=== PATIENT | male | born 1950 | race Caucasian/White ===

== ENCOUNTER 2022-08-22 10:57 | Outpatient (CLI) | payer MEDICARE, SELFPAY ==
--- NOTE | ~2022-08-22 | CT_ITS ---
EXAMINATION: CT abdomen pelvis w con DATE: 08/22/2022 11:53 INDICATION: Acute left lower quadrant, pelvic, peroneal and suprapubic pain TECHNIQUE: Computed tomography (CT) of the abdomen and pelvis was performed with 100 CC Omnipaque 350 intravenous contrast. Automated exposure control and iterative reconstruction technique were employe d. Exam dose: 555.44 mGy-cm total exam DLP. COMPARISON: June 29, 2013 CT pelvis FINDINGS: The lung bases are clear. Normal heart size. Coronary artery calcifications. No pericardial or pleural effusion. There is a 12 mm stone in the gallbladder neck. Gallbladder wall thickness is within normal limits. N o pericholecystic fluid or fat stranding. No bile duct or pancreatic duct dilatation. No hepatic, pancreatic or splenic, and adrenal or solid renal space-occupying mass lesion is detected . There are several exophytic right renal cysts which measure up to 1.6 cm dimension. No bile duct or pancreatic duct dilatation. There is atherosclerotic calcification but normal caliber of the abdominal aorta and iliac and femora l arteries. No intraperitoneal or retroperitoneal or pelvic mass lesion or adenopathy or ascites. There is prostate enlargement. There is diffuse thickening of the urinary bladder wall which may be d ue to underdistention or prostatomegaly/bladder outlet obstruction. There is more prominent soft tiss ue thickening of the mid and right posterior bladder base. Urothelial malignancy, prostate hypertroph y or prostate carcinoma are among the considerations. Consider urologic consultation. Small sliding hiatal hernia. Approximately 2 cm duodenal diverticulum. Normal appendix. No evidence of appendicitis. There are diverticula of left and right colon; no CT evidence of diverticulitis. No bowel obstruction , bowel wall thickening, pneumatosis or intraperitoneal free air. Small fat-containing inguinal hernias. No suspicious osteolytic or osteoblastic lesions. IMPRESSION: Cholelithiasis Right renal cysts Prostate enlargement Thickening of the urinary bladder wall, particularly at the mid and right posterior bladder base. Uro thelial bladder malignancy, prostate hypertrophy or prostate carcinoma, are included in the different ial diagnosis Diverticulosis of left and right colon; no evidence of diverticulitis Reviewed, dictated and finalized at Location A. Reviewed, dictated and finalized at location B. IMPRESSION: Cholelithiasis Right renal cysts Prostate enlargement Thickening of the urinary bladder wall, particularly at the mid and right poste rior bladder base. Urothelial bladder malignancy, prostate hypertrophy or prost ate carcinoma, are included in the differential diagnosis Diverticulosis of left and right colon; no evidence of diverticulitis
[2022-08-22 12:10] LABS: Basophils Percent Auto 0.6 % (0.2-1.2); Hematocrit 46.1 % (42.0-52.0); Immature Granulocyte Absolute 0.02 K/mm3 (0.00-0.031); Immature Granulocyte Percent A 0.4 % (0-0.5); Lymphocytes Absolute Auto 0.78 K/mm3 (0.9-3.2); Lymphocytes Percent Auto 15.2 % (18.3-44.2); Mean Corpuscular HGB Conc 34.7 g/dl (32-36); Mean Corpuscular Hemoglobin 31.9 pg (26-34); Mean Corpuscular Volume 91.8 fl (80-100); Mean Platelet Volume 10.1 fl (7.4-10.4); Monocytes Absolute Auto 0.9 K/mm3 (0.1-0.6); Monocytes Percent Auto 17.3 % (2.6-8.5); Neutrophils Absolute Auto 3.4 K/mm3 (1.3-6.7); Neutrophils Percent Auto 66.5 % (45.5-73.1); Platelet Count Result 227 k/mm3 (150-375); Red Blood Count 5.02 M/mm3 (4.6-6.20); Red Cell Distribution Width 12.6 % (11.5-14.5); White Blood Count 5.1 K/mm3 (4.5-10.0)
[2022-08-22 12:29] LABS: Alanine Aminotransferase 30 U/L (6-50); Albumin Level 4.8 g/dL (3.5-5.1); Alkaline Phosphatase 79 U/L (38-126); Anion Gap 18 mmol/L (8-16); Aspartate Amino Transferase 36 U/L (17-59); Bilirubin,Total 0.9 mg/dL (0.2-1.3); Blood Urea Nitrogen 17 mg/dL (9-20); Calcium 9.3 mg/dL (8.4-10.2); Carbon Dioxide 16 mmol/L (22-30); Chloride 96 mmol/L (98-107); Estimated Glomerular Filt Rate > 60; Glucose 92 mg/dL (65-110); Sodium 130 mmol/L (137-145)
[2022-08-22 13:05] LABS: Appearance Urine Clear (Clear); Bacteria Urine None Seen /hpf; Bilirubin Urine Negative (Negative); Blood Urine Negative (Negative); Color Urine Yellow (Yellow); Glucose Urine UA Negative (Negative); Hyaline Casts Urine Present /lpf; Ketones Urine 3+ mg/dL (Negative); Leukocyte Esterase Ur Negative LEU/UL (Negative); Nitrate Urine Negative (Negative); Protein Urine 1+ mg/dL (Negative); RBC Urine 0-2 /hpf (0-2); Specific Grav Ur 1.028 (1.001-1.035); Squamous Epithelial Cell Urine None seen /hpf (Few); WBC Urine 0-5 /hpf; pH Urine 5.5 (5.0-9.0)
[2022-08-22 13:08] LABS: Add Urine Microscopic? YES
== END 2022-08-22 10:58 | disposition home or self-care (01) ==
PROVIDERS: PCP Family Medicine; Visit Provider Physician Assistant
DX: R10.2 Pelvic and perineal pain (principal); F41.1 Generalized anxiety disorder; F98.8 Other specified behavioral and emotional disorders with onset usually occurring in childhood and adolescence; K80.20 Calculus of gallbladder without cholecystitis without obstruction; N28.1 Cyst of kidney, acquired; N40.0 Benign prostatic hyperplasia without lower urinary tract symptoms; K57.30 Diverticulosis of large intestine without perforation or abscess without bleeding
CPT/HCPCS: 36415; 74177; 80053; 81001; 85025; Q9967

== ENCOUNTER 2022-12-02 04:17 | Day surgery (SDC) | payer MEDICARE, SELFPAY ==
--- NOTE | 2022-11-24 09:40 | PC.NURSE ---
Report to the Outpatient Waiting Room, entrance under the green pavilion located off [facility], at time 1100 on date __12/02/22 . Planned Procedure Time: _1300 . Time changes happen often and if your time is changed the preop area will call you the afternoon before. - You and your visitor will be asked to self-screen and do not enter if you have any COVID symptoms. - A mask is optional within the hospital at this time. Patients may have clear liquids (water, carbonated beverages, clear teas, apple juice) until 3 hours prior to surgery with a maximum of 20 ounces. - No food from midnight until time of surgery - Infants may have breast milk until 4 hours before surgery, infant formula 6 hours prior to surgery. - Children will be allowed to drink immediately following surgery. If applicable, please bring a bottle or sippy cup to assist with drinking. Juice, water, soda, and popsicles are readily available. For infants on formula, please bring formula the day of surgery. Pacifiers are allowed. Take the following medications with a SIP of water the morning of surgery: ____BUSPIRONE,FLUOXETINE DO NOT STOP ANY OF YOUR OTHER PRESCRIPTION MEDICATIONS PRIOR TO SURGERY ?EXCEPT THE FOLLOWING Medications to discontinue per physician NONE Please no make-up, nail turkish, hairspray, perfume, deodorant, or body powder the day of surgery. No jewelry (including any body piercings) or valuables the day of surgery, leave them at home. Please take a shower or bath the night before, or the morning of, surgery with an antibacterial soap. Wear comfortable, loose fitting clothing. Children are encouraged to wear pajamas. - Jewelry must be removed prior to entering the operating room. Rings and piercings that are not removed may be cut off. - The hospital will not accept responsibility for valuables. - Please leave all valuables, including medications, at home the day of surgery. If you are going home after surgery, a licensed concrete truck driver must drive you home. - NO public transportation without another adult if you receive anesthesia. - We recommend that an adult stay with you for 24 hours following discharge. - We also recommend that you do not drive, make important decision, drink alcoholic beverages, or take any drugs that were not prescribed by your health care provider for at least 24 hours after your discharge time. For Pediatric surgeries, we recommend two adults accompany the child home. Follow any additional instructions given to you from your surgeon. If you or anyone in your household have experienced Covid symptoms in the past week, please notify your surgeon or the nurse liaison at the phone number below for possible testing. Telephone instructions given to ___PATIENT AND NEELA and asked if any additional questions and then verbalized understanding. Patient advised to call surgeon office or pre surgery nurse liaison [phone] if any additional questions.
[2022-11-24 09:48] VITALS: BMI 26.6
[2022-12-02] VITALS (7 sets, daily range): BP systolic 133–154; BP diastolic 64–78; PULSE 59–78; RESP 12–20; TEMP 36.2–36.6; O2SAT 98–99
--- NOTE | ~2022-12-02 | XR_ITS ---
EXAMINATION: CYSTOGRAM DATE: 12/02/2022 11:26 INDICATION: Urethral stricture TECHNIQUE: 7 fluoroscopic images of the pelvis were obtained during procedure performed by Dr. Bee barrios. Radiologist was not present for the imaging or procedure. The amount of fluoroscopy time used dur ing this procedure was 0.3 minutes. COMPARISON: None. FINDINGS: Retrograde contrast injections into the urethra demonstrates a stenosis at the proximal bulbar portio n of the urethra. Subsequent images demonstrate a catheter and wire advanced into the contrast-filled bladder presumably for balloon dilation of urethral stricture. IMPRESSION: 1. Stricture at the bulbar portion of the urethra. See procedure note for further detail. Reviewed, dictated and finalized at location A. IMPRESSION: 1. Stricture at the bulbar portion of the urethra. See procedure note for furth er detail.
--- NOTE | 2022-12-02 07:52 | WPDANESEPPF ---
Anes - Initial Pre Proc Eval Procedure: Operation Date: 12/02/22 11:00 Proposed Procedures p Cystoscopy, Retrograde Urethrogram, Urethral Dilation - Adonis Peacock MD Date/Time: 12/02/22 07:52 Surgeon: Adonis Peacock MD Pre Op Diagnosis: Urethral Stricture Patient Data Age: 72 Gender: M Height: 1.7 m Weight: 77.2 kg Allergies Allergy/AdvReac Type Severity Reaction Status Date / Time No Known Allergies Allergy Unverified 11/24/22 09:29 Home Medications Medication Instructions Recorded Confirmed Type atorvastatin 20 mg tablet See Rx Instructions .Route 06/25/22 12/02/22 Rx .COMPLEX #100 tabs fluoxetine 40 mg capsule 40 mg PO DAILY #90 caps 08/01/22 12/02/22 Rx buspirone 5 mg tablet See Rx Instructions .Route 11/17/22 12/02/22 Rx .COMPLEX #180 tabs tamsulosin 0.4 mg capsule (Flomax) 0.4 mg PO QHS #30 caps 11/17/22 12/02/22 Rx dextroamphetamine-amphetamine ER 15 mg PO DAILY #30 caps 11/20/22 12/02/22 Rx 15 mg 24hr capsule,extend release (Adderall XR) Patient hx anesthesia problems: none Family hx anesthesia problems: none Results Review: All pre-operative results and documents have been reviewed as part of the pre-operative evaluation. [facility] Past Medical History Medical History (Updated 12/02/22 @ 07:54 by Chele Lawson MD) Attention deficit disorder (ADD) in adult CVA (cerebral vascular accident) Elevated BP without diagnosis of hypertension CHARITY (generalized anxiety disorder) MDD (major depressive disorder), recurrent episode, moderate Meningioma Mixed hyperlipidemia Restless legs syndrome Surgical History Surgical History History of detached retina repair RT eye Family History Family History Mother Cerebrovascular accident, Onset Age: 69 Hypertension Family history of elevated blood lipids Father Cerebrovascular accident, Onset Age: 70 Hypertension Family history of elevated blood lipids Acute myocardial infarction Social History Social History Social History: Smoking status: Never smoker Second hand tobacco smoke exposure: No Alcohol intake: never Substance use: never Substance use type: does not use Lack of Transportation: No Lack of Food: Never True Current Housing: I Have Housing Concerned About Future Housing: No Difficulty Paying Gas/Electric Bills: No Difficulty Paying for Meds: No Currently Unemployed: YES Education: Decline to Answer Difficulty w/ Childcare or Family Care: No Living arrangements: with family Occupation/Education: retired Gender identity (if verbalized by the patient): Male Sexual Orientation (if Verbalized by the Patient): Straight or Heterosexual Spiritual care concerns: No Anes - Eval Final PreProcedure Day of Procedure 12/02/22 07:52 Patient weight: overweight Heart: regular rate and rhythm Lungs: clear to auscultation and normal air movement Airway: Mallampati scale class II Neurological: alert and oriented Last oral intake: >/= 8 hours ASA classification: III Emergent: no Anesthetic plan: proceed Anesthesia type and monitoring: general LMA Results Review: All pre-operative results and documents have been reviewed as part of the pre-operative evaluation. Informed Consent: The patient's anesthetic plan and its attendant risks and benefits were discussed with the patient/family/POA. Questions were solicited and answers provided to the satisfaction of the patient/family/POA.
[2022-12-02] MEDS: LACTATED RINGERS 1,000 ML 30 ML IV CONT (09:09)
--- NOTE | 2022-12-02 09:35 | WPDHPUPDATE1 ---
History and Physical Update Update Date/Time: 12/02/22 09:35 History and Physical has been reviewed, including an updated exam of the patient. There are NO changes in the patient's condition. Risks, benefits, and alternatives have been discussed and questions answered. Patient agrees to proceed with procedure. Proceed with retrograde urethrogram, urethral dilation, cystoscopy.
[2022-12-02] MEDS: ceFAZolin 2 GM/D5W 50 ML 2 GM/50 ML BAG IVPB (10:53)
[2022-12-02] MEDS: LIDOCAINE HCL 2% GEL UROJET 10 ML PKG MUCOUS MEM (10:53)
--- NOTE | 2022-12-02 11:24 | W.PM.PROC2 ---
Procedure Note - Detailed Date of Procedure 12/02/22 Pre-op Diagnosis Urethral Stricture Post-op Diagnosis Same Procedure Performed Retrograde urethrogram, urethral dilation, cystoscopy, complex Dumont catheter placement 18 Barbadian Surgeon Adonis Peacock MD Anesthesia General Description of Procedure Patient is taken to the operative suite correctly identified. Once anesthesia was obtained he was placed in dorsal lithotomy position and prepped and draped usual sterile fashion. Nineteen Barbadian Dumont could not be passed into the meatus. Using a cath tip syringe we did a retrograde urethrogram. His narrowing is really mostly in the fossa navicularis area. I could not manipulate wire into the bladder. I this used a flexible mini ureteral scope and was able to get into the bladder place a superstiff wire. I dilated the fossa navicularis stricture using implants day later sub to 24 Barbadian. Scope was then reinserted. He also had another little narrowing in the membranous urethra. Prostate was nonobstructive. He has this small median lobe. The bladder was then inspected. No tumors noted. Both ureteral orifices normal anatomic position. I then placed 2% viscous lidocaine into the urethra. Eighteen Barbadian Dumont was then placed with 10 cc in the balloon. Patient is taken recovery stable condition. He will be discharged home with a Dumont and have that removed on or Thursday. This completes dictation. Please send a copy of op note to my office Drains Yes Packing No Pathology None sent Complications No immediate complications Condition Stable Disposition PACU
[2022-12-02] MEDS: oxyCODONE HCL (*CRX) 5 MG TAB IR PO (12:23)
== END 2022-12-02 13:19 | disposition home or self-care (01) ==
PROVIDERS: PCP Family Medicine; Visit Provider Urology
PROC: 0T7D8ZZ Dilation of Urethra, Via Natural or Artificial Opening Endoscopic (ICD-10-PCS; CPT 52281; principal; 2022-12-02 11:00)
DX: N35.916 Unspecified urethral stricture, male, overlapping sites (principal); E78.2 Mixed hyperlipidemia; F41.1 Generalized anxiety disorder; F33.1 Major depressive disorder, recurrent, moderate; F98.8 Other specified behavioral and emotional disorders with onset usually occurring in childhood and adolescence; G25.81 Restless legs syndrome
CPT/HCPCS: 52281; 51610; 74450; A9270; C1726; C1769; J0690; J2250; J3010; J7120; Q9966

== ENCOUNTER 2023-06-24 10:36 | Outpatient (CLI) | payer MEDICARE, SELFPAY ==
--- NOTE | ~2023-06-24 | XR_ITS ---
EXAMINATION: XR skull <4V DATE: 06/24/2023 11:10 INDICATION: MRI clearance TECHNIQUE: AP and lateral views of the skull were obtained. COMPARISON: None. FINDINGS: Right frontal craniotomy which is fixed with multiple plates and screws. There are also multiple dent al restorations. No other foreign bodies identified. Bones are otherwise unremarkable. There is opaci fication of the left maxillary sinus. IMPRESSION: 1. Multiple plates and screws for fixation of a chronic right frontal craniotomy and multiple dental restorations. No other radiopaque foreign bodies. 2. Opacification of the left maxillary sinus. Correlate clinically for acute sinusitis. Reviewed, dictated and finalized at location A. ORATE CONCIERGE IMPRESSION: 1. Multiple plates and screws for fixation of a chronic right frontal craniotom y and multiple dental restorations. No other radiopaque foreign bodies. 2. Opacification of the left maxillary sinus. Correlate clinically for acute si nusitis.
--- NOTE | ~2023-06-24 | MR_ITS ---
MRI of the brain Clinical History: Slurred speech Technique: Axial and sagittal T1-weighted images were acquired. These were followed by axial T2-weigh ernie, diffusion weighted, gradient, and FLAIR images. Findings: There is no acute infarct, intracranial hemorrhage, mass lesion. There are moderate chronic white matter changes in the periventricular white matter bilaterally. Ventricles and subarachnoid spaces are unremarkable. Orbits are unremarkable. There is left maxillary sinus disease. Remaining paranasal sinuses and mastoid air cells are clear. Major intracranial flow voids are intact. Sagittal midline structures are intact. IMPRESSION: No acute intracranial abnormality. Moderate chronic microvascular ischemic change. Left maxillary sinus disease. Reviewed, dictated and finalized at location . LEX OPERATOR
== END 2023-06-24 10:37 | disposition home or self-care (01) ==
LOC: ANHIMG 10:39
PROVIDERS: PCP Family Medicine; Visit Provider Physician Assistant
DX: R47.81 Slurred speech (principal); D32.9 Benign neoplasm of meninges, unspecified; R26.89 Other abnormalities of gait and mobility; Z96.7 Presence of other bone and tendon implants; J01.00 Acute maxillary sinusitis, unspecified; I67.82 Cerebral ischemia
CPT/HCPCS: 70250; 70551

== ENCOUNTER 2023-07-24 23:01 | Inpatient (IN) | payer MEDICARE, SELFPAY ==
--- NOTE | ~2023-07-24 | CT_ITS ---
EXAMINATION: CTA chest PE abdomen pel DATE: 07/25/2023 01:18 INDICATION: Chest pain. Epigastric abdominal pain. TECHNIQUE: Computed tomography angiography (CTA) of the chest was performed with 100 mL Omnipaque-350 intravenous contrast timed to evaluate the pulmonary arteries. Coronal maximum intensity projection 3D-reconstructions were created by the technologist. Computed tomography (CT) of the abdomen and pelv is was performed with intravenous contrast. Automated exposure control and iterative reconstruction t echnique were employed. The dose-length product was 843.88 mGy-cm. COMPARISON: CT abdomen and pelvis 08/22/2022 FINDINGS: CTA chest: The lungs demonstrate mild atelectasis. A calcified right lung nodule is consistent with o ld granulomatous disease. No pleural effusion. There is left atrial enlargement of the heart. There a re coronary artery calcifications. No pericardial effusion. There is no pulmonary embolus. There is s evere thoracic spondylosis. CT abdomen and pelvis: The liver is normal. There is a gallstone in the gallbladder neck. The gallbla dder is distended. The spleen, pancreas, adrenal glands, and left kidney are normal. There is a 18 mm cyst in right kidney. The prostate is mildly enlarged. There is diverticulosis of the colon without evidence of diverticulitis. There are no dilated loops of bowel. The appendix is normal. There is a s mall sliding hiatal hernia. There are no pathologically enlarged lymph nodes. The paranasal sinuses a re clear. There is prominent fat in the inguinal canals that may be hernias. There is calcified ather osclerosis of the aorta and many of the other arteries. There is severe lumbar spondylosis. IMPRESSION: 1. No pulmonary embolus. 2. Cholelithiasis. Gallbladder distention may be secondary to fasting or acute cholecystitis. Correla te with physical exam. Reviewed, dictated and finalized at location A. ONATION EQUIPMENT OPERATOR IMPRESSION: 1. No pulmonary embolus. 2. Cholelithiasis. Gallbladder distention may be secondary to fasting or acute cholecystitis. Correlate with physical exam.
--- NOTE | ~2023-07-24 | XR_ITS ---
EXAMINATION: XR chest 1V portable INDICATION: Left-sided chest pain TECHNIQUE: Portable AP chest at 2336 hours COMPARISON: None available FINDINGS: The lungs are free of acute opacities. No pleural effusion or pneumothorax. The cardiomedia stinal silhouette is normal. IMPRESSION: 1. No acute cardiopulmonary abnormality. Reviewed, dictated and finalized at location F. H FOODS CLERK
--- NOTE | ~2023-07-24 | US_ITS ---
EXAMINATION: US abdomen limited DATE: 07/25/2023 15:58 INDICATION: EVALUATE FOR ACUTE CHOLECYSTITIS TECHNIQUE: Multiple grayscale and Doppler ultrasound images of limited portions of the abdomen were o btained. COMPARISON: None available. FINDINGS: Pancreas not well visualized. Left liver lobe not well visualized. The visualized liver broderick er is normal with normal echogenicity and echotexture. No surface nodularity. Normal hepatopetal flow in the main portal vein. 1.8 cm echogenic shadowing focus in the gallbladder neck. Mild bladder wall thickening to 3 mm. No pericholecystic fluid The common bile duct is not visualized. There was no so nographic Best sign, but this may be confounded by concurrent pain medication. IMPRESSION: 1.8 cm gallstone in the gallbladder neck. Mild gallbladder wall thickening. Reviewed, dictated and finalized at location K. CY WRITER SALES
--- NOTE | 2023-07-24 23:02 | ECG_ITS ---
Measurements Intervals [place] Rate: 64 P: 64 ID: 179 QRS: 6 QRSD: 78 T: 44 QT: 421 QTc: 437 Interpretive Statements SINUS RHYTHM BASELINE ARTIFACT- I, II, III, AVR, AVL, AVF, V1-V6 NORMAL ECG NO PREVIOUS ECG AVAILABLE FOR COMPARISON Electronically Signed On 07-25-2023 9:00:55 SCIENTIFIC PROGRAMMER ANALYST by Gregg Fitzpatrick D.O.
[2023-07-24 23:03] VITALS: BP 186/88; PULSE 66; RESP 15; TEMP 36.6; O2SAT 100
[2023-07-24 23:10] VITALS: O2SAT 100
[2023-07-24 23:11] VITALS: PULSE 65
--- NOTE | 2023-07-24 23:13 | ECG_ITS ---
Measurements Intervals [place] Rate: 64 P: 47 TX: 181 QRS: 1 QRSD: 81 T: 46 QT: 434 QTc: 449 Interpretive Statements SINUS RHYTHM BASELINE WANDER- I, II, AVR, AVF NORMAL ECG COMPARED TO ECG 07/24/2023 23:07:03 NO SIGNIFICANT CHANGES Electronically Signed On 07-25-2023 9:01:18 SURGICAL ENDOSCOPIST by Gregg Fitzpatrick D.O.
[2023-07-24] MEDS: ASPIRIN 81 MG CHEWABLE TABLET 324 MG PO (23:16)
--- NOTE | 2023-07-24 23:17 | PC.NURSE ---
Patient states he took two 81mg baby aspirin at home. Patient given two more here and the remaining two from [facility] returned.
[2023-07-24 23:20] LABS: Basophils Absolute Auto 0.1 K/mm3 (0.0-0.1); Basophils Percent Auto 0.8 % (0.2-1.2); Eosinophils Absolute Auto 0.1 K/mm3 (0-0.3); Eosinophils Percent Auto 1.2 % (0-4.4); Hematocrit 44.3 % (42.0-52.0); Hemoglobin 15.2 g/dL (14.0-18.0); Immature Granulocyte Absolute 0.03 K/mm3 (0.00-0.031); Immature Granulocyte Percent A 0.4 % (0-0.5); Lymphocytes Absolute Auto 2.28 K/mm3 (0.9-3.2); Lymphocytes Percent Auto 27.1 % (18.3-44.2); Mean Corpuscular HGB Conc 34.3 g/dl (32-36); Mean Corpuscular Hemoglobin 32.2 pg (26-34); Mean Corpuscular Volume 93.9 fl (80-100); Mean Platelet Volume 9.2 fl (7.4-10.4); Monocytes Absolute Auto 1.1 K/mm3 (0.1-0.6); Monocytes Percent Auto 12.5 % (2.6-8.5); Neutrophils Absolute Auto 4.9 K/mm3 (1.3-6.7); Platelet Count Result 232 k/mm3 (150-375); Red Blood Count 4.72 M/mm3 (4.6-6.20); Red Cell Distribution Width 13.2 % (11.5-14.5); White Blood Count 8.4 K/mm3 (4.5-10.0)
[2023-07-24 23:31] LABS: INR 0.9; Prothrombin Time 12.4 Seconds (11.1-14.7)
[2023-07-24 23:32] LABS: Partial Thromboplastin Time 27.5 SECONDS (22.3-36.8)
[2023-07-24 23:39] LABS: Alanine Aminotransferase 29 U/L (6-50); Albumin Level 4.5 g/dL (3.5-5.1); Alkaline Phosphatase 85 U/L (38-126); Anion Gap 9 mmol/L (8-16); Aspartate Amino Transferase 34 U/L (17-59); Bilirubin,Total 0.6 mg/dL (0.2-1.3); Blood Urea Nitrogen 18 mg/dL (9-20); Calcium 10.2 mg/dL (8.4-10.2); Carbon Dioxide 23 mmol/L (22-30); Chloride 102 mmol/L (98-107); Estimated CRCL calculation 73 ml/min; Estimated Glomerular Filt Rate > 60; Glucose 109 mg/dL (65-110); Lipase 308 U/L (23-300); Potassium 3.9 mmol/L (3.4-5.0); Sodium 134 mmol/L (137-145)
[2023-07-24 23:49] LABS: Troponin I < 0.012 ng/mL (0.000-0.034)
[2023-07-24] MEDS: SODIUM CHLORIDE 0.9% IV 1,000 ML 999 ML IV CONT (23:49)
[2023-07-24] MEDS: ONDANSETRON INJ 4 MG/2 ML VIAL IV PUSH (23:49)
[2023-07-24] MEDS: MORPHINE SULFATE (*CRX) 4 MG/ML INJ IV PUSH (23:50)
[2023-07-25] VITALS (10 sets, daily range): BP systolic 108–154; BP diastolic 58–77; PULSE 71–81; RESP 15–19; TEMP 36.5–37.7; O2SAT 92–100; BMI 26.3
[2023-07-25] MEDS: HYDROmorphone HCL INJ (*CRX) 1 MG/ML SYR IV PUSH ×5 (00:49→18:59)
[2023-07-25 01:32] LABS: Appearance Urine Cloudy (Clear); Bacteria Urine None Seen /hpf; Bilirubin Urine Negative (Negative); Blood Urine Negative (Negative); Color Urine Yellow (Yellow); Glucose Urine UA Negative (Negative); Ketones Urine 1+ mg/dL (Negative); Leukocyte Esterase Ur Negative LEU/UL (Negative); Nitrate Urine Negative (Negative); Non Pathogenic Casts 0-2; Protein Urine Negative (Negative); RBC Urine 0-2 /hpf (0-2); Specific Grav Ur 1.026 (1.001-1.035); Squamous Epithelial Cell Urine None seen /hpf (Few); Urobilinogen Urine 0.2 mg/dL (<2.0); WBC Urine 0-5 /hpf
--- NOTE | 2023-07-25 01:43 | ECG_ITS ---
Measurements Intervals [place] Rate: 73 P: 44 [place]: 196 QRS: -16 QRSD: 81 T: 32 QT: 411 QTc: 454 Interpretive Statements SINUS RHYTHM DELAYED PRECORDIAL R/S TRANSITION NONSPECIFIC ST-T WAVE ABNORMALITY- HIGH LATERAL LEADS BORDERLINE ECG COMPARED TO ECG 07/24/2023 23:15:18 ST-T WAVE ABNORMALITY NOW PRESENT Electronically Signed On 07-25-2023 9:05:09 APPLICATION DESIGNER by Gregg Fitzpatrick D.O.
[2023-07-25 02:08] LABS: Add Urine Microscopic? YES
[2023-07-25 02:23] LABS: Troponin I < 0.012 ng/mL (0.000-0.034)
--- NOTE | 2023-07-25 03:27 | ED.GENADULT ---
HPI - General Adult General Chief complaint: Chest Pain Stated complaint: chest/back pain Time Seen by Provider: 07/24/23 23:20 History of Present Illness HPI narrative: Patient 73-year-old gentleman who presents emerged from with chief complaint of chest pain. Patient reports he started having pain in his chest on the left side and also in the epigastric and right upper quadrant the patient states that he has significant family history for cardiac disease with both his parents having a 1st heart attack in her 40s. Patient reports that pain is not improved by anything reports he got very nauseated and has had an episode of vomiting. Related Data Allergies Allergy/AdvReac Type Severity Reaction Status Date / Time No Known Allergies Allergy Unverified 06/12/23 12:59 Review of Systems Review of Systems: A 10 system review of systems was completed on the patient and is negative except for what is stated in the HPI. Nursing and ancillary documentation was reviewed. [facility] Past Medical History Medical History Attention deficit disorder (ADD) in adult CVA (cerebral vascular accident) Elevated BP without diagnosis of hypertension CHARITY (generalized anxiety disorder) MDD (major depressive disorder), recurrent episode, moderate Meningioma Mixed hyperlipidemia Restless legs syndrome Surgical History Surgical History History of detached retina repair RT eye Family History Family History Mother Cerebrovascular accident, Onset Age: 69 Hypertension Family history of elevated blood lipids Father Cerebrovascular accident, Onset Age: 70 Hypertension Family history of elevated blood lipids Acute myocardial infarction Social History Social History Social History: Smoking status: Never smoker Second hand tobacco smoke exposure: No Alcohol intake: never Substance use: never Substance use type: does not use Lack of Transportation: No Lack of Food: Never True Current Housing: I Have Housing Concerned About Future Housing: No Difficulty Paying Gas/Electric Bills: No Difficulty Paying for Meds: No Currently Unemployed: YES Education: Decline to Answer Difficulty w/ Childcare or Family Care: No Living arrangements: with family Occupation/Education: retired Gender identity (if verbalized by the patient): Male Sexual Orientation (if Verbalized by the Patient): Straight or Heterosexual Spiritual care concerns: No Exam Narrative: GENERAL: Well-appearing, well-nourished, and in no acute distress. HEAD: Normocephalic, atraumatic. EYES: PERRLA and EOMI. ENT: Nares clear, no rhinorrhea or epistaxis. Mucous membranes moist. NECK: Supple. CHEST: Clear to auscultation. No respiratory distress. HEART: Regular rate and rhythm. No murmur heard. Normal peripheral pulses. ABDOMEN: Soft, nontender, nondistended, normal active bowel sounds. EXTREMITIES: Normal range of motion. No edema. SKIN: Warm, dry, no rash. NEURO: No focal deficits. Alert and oriented x3. PSYCH: Normal mood and affect. Course Vital Signs Vital signs: Vital Signs Temperature 36.6 C 07/24/23 23:03 Pulse Rate 66 07/24/23 23:03 Respiratory Rate 15 07/24/23 23:03 Blood Pressure 186/88 H 07/24/23 23:03 Pulse Oximetry 100 07/24/23 23:03 Oxygen Delivery Room Air 07/24/23 23:03 Temperature 36.6 C 07/24/23 23:03 Pulse Rate 71 07/25/23 03:51 Respiratory Rate 15 07/25/23 03:51 Blood Pressure 142/77 H 07/25/23 03:51 Pulse Oximetry 95 07/25/23 03:51 Oxygen Delivery Room Air 07/24/23 23:10 Medical Decision Making MDM Narrative Medical decision making narrative: Differential diagnosis includes pancreatitis, colitis,
[2023-07-25] MEDS: SODIUM CHLORIDE 0.9% IV 1,000 ML 125 ML IV CONT ×2 (04:34→12:47)
--- NOTE | 2023-07-25 04:47 | ECG_ITS ---
Measurements Intervals [place] Rate: 68 P: 43 [place]: 192 QRS: -16 QRSD: 77 T: 43 QT: 392 QTc: 418 Interpretive Statements SINUS RHYTHM DELAYED PRECORDIAL R/S TRANSITION BORDERLINE ECG COMPARED TO ECG 07/25/2023 01:52:32 NO SIGNIFICANT CHANGES Electronically Signed On 07-25-2023 9:06:53 EMERGENCY MEDICAL TECHNICIAN by Gregg Fitzpatrick D.O.
[2023-07-25 05:32] LABS: Troponin I < 0.012 ng/mL (0.000-0.034)
--- NOTE | 2023-07-25 06:08 | ADMGEN ---
This patient, Isac Faria, was admitted to Medical Room 343-01. Patient/family oriented to hospital policies and general routines including ID bracelet, bed and alarms, visiting hours, pain management, procedures, bathroom and other care routines, personal items, smoking policy, room service/diet, and visiting hours. Information on how to activate the Rapid Response Team has been discussed. Patient/Family are encouraged to report perceived risks to care and to ask questions if they do not understand what they are told or what they should do.
--- NOTE | 2023-07-25 06:35 | ECG_ITS ---
Measurements Intervals [place] Rate: 65 P: 38 [place]: 186 QRS: -24 QRSD: 77 T: 31 QT: 428 QTc: 448 Interpretive Statements SINUS RHYTHM BASELINE ARTIFACT- II, III, AVR, AVL, AVF NORMAL ECG COMPARED TO ECG 07/25/2023 04:58:23 NO SIGNIFICANT CHANGES Electronically Signed On 07-25-2023 9:07:58 GOLF CART MECHANIC by Gregg Fitzpatrick D.O.
--- NOTE | 2023-07-25 07:27 | PM.IMHP ---
H&P: HPI History of Present Illness Date/Time: 07/25/23 07:27 Chief Complaint: Chest pain Narrative: 73-year-old male with a past medical history of BPH, anxiety and ADHD who presented to the ER with complaints of back pain radiating into his chest and abdomen. The patient reports the symptoms started about 4 hours after he ate some fried fish. Patient was having pain is epigastric region and right upper quadrant and having some radiating pain in his left upper chest up into his left neck. The pain in his left chest and left neck into his jaw was reproducible to palpation. He also was having some pain in in the left abdomen that was point tenderness as well. He had some significant nausea and 1 episode of vomiting. He also did have some loose stool. He had never had symptoms like this before. He was concerned because multiple members of his family have had history of premature coronary artery disease and he has outlived all of his family members. He does not have any history of cardiac disease. Unlike his family members, the patient is a lifelong nonsmoker. He does not drink alcohol to excess. He admits that he has a mostly sedentary lifestyle. In the ER the patient had 2 sets of troponins that were negative and his sisters set of troponin when he arrived to the medical floor was negative. His EKGs demonstrated normal sinus rhythm. His CT of the abdomen pelvis demonstrated cholelithiasis with a distended gallbladder consistent with fasting or acute cholecystitis. He had a gallstone in the gallbladder neck. His lipase was mildly elevated at 300. Review of Systems Review of Systems: 12 systems were reviewed with pertinent positives and negatives per HPI. Except as documented in the HPI, all other systems were reviewed and are negative. [facility] Past Medical History Medical History (Updated 07/25/23 @ 08:00 by Yary Crowley DO) Attention deficit disorder (ADD) in adult CVA (cerebral vascular accident) Elevated BP without diagnosis of hypertension CHARITY (generalized anxiety disorder) MDD (major depressive disorder), recurrent episode, moderate Meningioma Mixed hyperlipidemia Restless legs syndrome Surgical History Surgical History (Updated 07/25/23 @ 07:52 by Yary Crowley DO) History of detached retina repair RT eye Status post urethral surgery Stricture Family History Family History (Updated 07/25/23 @ 07:51 by Yary Crowley DO) Mother Cerebrovascular accident, Onset Age: 69 Hypertension Family history of elevated blood lipids Father Cerebrovascular accident, Onset Age: 70 Hypertension Family history of elevated blood lipids Acute myocardial infarction, Onset Age: 40 Social History Social History (Updated 07/25/23 @ 07:51 by Yary Crowley DO) Social History: Patient has been for approximately 20 years. He does not have any children. 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 He is a lifelong nonsmoker and does not drink alcohol to excess. Code status: Full code Decision maker: Smoking status: Never smoker Second hand tobacco smoke exposure: No Alcohol intake: former Substance use: never Substance use type: marijuana Last use: LAST WEEK Do You Feel Safe in your Home?: Yes Lack of Transportation: No Lack of Food: Never True Current Housing: I Have Housing Concerned About Future Housing: No Difficulty Paying Gas/Electric Bills: No Difficulty Paying for Meds: No Currently Unemployed: No Education: Master's Degree or Higher Difficulty w/ Childcare or Family Care: No Living arrangements: with family Occupation/Education: retired Gender identity (if verbalized by the patient): Male Sexual Orientation (if Verbalized by the Patient): Straight or Heterosexual Spiritual care concerns: No Meds Home Medications and Allergies Home Medications Medication Instructions Recorded Confirmed Type atorvastatin 20 m
[2023-07-25] MEDS: ONDANSETRON INJ 4 MG/2 ML VIAL IV PUSH (10:55)
--- NOTE | 2023-07-25 11:18 | PHAR ---
Pharmacy verified home med: *Use From Home* Vibegron [Gemtesa] 75 mg tablet Take 1 tablet by mouth once daily
--- NOTE | 2023-07-25 12:56 | PM.CNGS ---
Assessment and Plan Assessment and plan (1) Chest pain, non-cardiac: Code(s): R07.89 - Other chest pain Status: Acute Assessment and Plan: Still having discomfort but pain medication relieves it well. Unsure why has not been taking this more regularly as he seems to complain of quite a bit of pain. Complaints seem worse than exam findings. Persistent nausea and several episodes of vomiting noted. Will try some oral intake later today after testing done. (2) Cholelithiasis: Qualifiers: Cholelithiasis location: gallbladder Cholecystitis presence: with cholecystitis Cholecystitis acuity: acute Biliary obstruction: without biliary obstruction Qualified Code(s): K80.00 - Calculus of gallbladder with acute cholecystitis without obstruction Code(s): K80.20 - Calculus of gallbladder without cholecystitis without obstruction Status: Chronic Assessment and Plan: Gallstone in the neck of the gallbladder noted on CT scan both end of July,, as well as CTA done yesterday. No gallbladder wall thickening, pericholecystic fluid or other findings to suggest cholecystitis. Will get ultrasound today. Will order HIDA scan stat but not sure it can be done until Thursday. (3) Left lower quadrant pain: Code(s): R10.32 - Left lower quadrant pain Status: Acute Assessment and Plan: Patient reports this as the area where he has the most abdominal pain. When he had his CT scan a year ago, he was having left lower quadrant pain at that time as well. Unusual area of pain for cholecystitis. (4) Attention deficit disorder (ADD) in adult: Code(s): F98.8 - Other specified behavioral and emotional disorders with onset usually occurring in childhood and adolescence Status: Chronic (5) CHARITY (generalized anxiety disorder): Code(s): F41.1 - Generalized anxiety disorder Status: Chronic (6) MDD (major depressive disorder), recurrent episode, moderate: Code(s): F33.1 - Major depressive disorder, recurrent, moderate Status: Chronic (7) Restless legs syndrome: Code(s): G25.81 - Restless legs syndrome Status: Chronic (8) Overactive bladder: Code(s): N32.81 - Overactive bladder Status: Chronic Assessment and Plan: Patient continued medications for his urinary difficulties but stopped all other medications just over a week ago. History of Present Illness Consult details Consult date: 07/25/23 Reason for consult: gallstones Requesting physician: Donal Crews MD Narrative: The patient is a 73-year-old man who has a strong family history of early-onset acute coronary syndrome and several of his family members have at an early age for acute coronary disease. Yesterday evening, patient had fried fish for dinner and about 4 hours later started noticing severe epigastric and chest pain. Apparently the pain was more in the midline but also went to the right upper quadrant and was associated with nausea and vomiting. Patient reports he vomited a couple of times at home. He came to the emergency room and EKGs with troponins were all negative for acute cardiac event. He had a CT angiogram of the chest abdomen and pelvis. On this study, he was noted to have a gallstone in the neck of the gallbladder and a distended gallbladder. There was no sign of pericholecystic fluid or gallbladder wall thickening. Interestingly, patient had a CT scan of the abdomen and pelvis with IV contrast 11 months ago was done for left lower quadrant pain as well as deep pelvic pain. This CT scan also showed a 12 mm gallstone in the neck of the gallbladder but otherwise no gallbladder wall thickening or evidence of cholecystitis. Patient does have a history of resection of an intracranial meningioma several years ago at [facility]. There was a record of a stroke associated with the surgery possibly intraoperatively. Patient's , however, reports th
--- NOTE | 2023-07-25 12:56 | PM.IMPN ---
Progress Note: A&P Assessment and Plan (1) Cholecystitis: Code(s): K81.9 - Cholecystitis, unspecified Status: Acute Assessment and Plan: Patient's clinical presentation is consistent with acute cholecystitis with evidence of gallstone at the opening of the bile duct. He does not have any evidence of obstructing choledocholithiasis. General surgery consulted The patient is NPO until evaluated by General surgery. Will continue maintenance IV fluids. Right upper quadrant ultrasound pending Analgesics and antiemetics p.r.n. (2) Cholelithiasis: Qualifiers: Cholelithiasis location: gallbladder Cholecystitis presence: with cholecystitis Cholecystitis acuity: acute Biliary obstruction: without biliary obstruction Qualified Code(s): K80.00 - Calculus of gallbladder with acute cholecystitis without obstruction Code(s): K80.20 - Calculus of gallbladder without cholecystitis without obstruction Status: Acute Assessment and Plan: See above (3) Abdominal pain, epigastric: Code(s): R10.13 - Epigastric pain Status: Acute Assessment and Plan: Likely due to acute cholecystitis. (4) Chest pain, non-cardiac: Code(s): R07.89 - Other chest pain Status: Acute Assessment and Plan: Patient is having some left shoulder pain that radiates to the left neck and left jaw that is reproducible to palpation. He denies any known specific injury. He has had multiple EKGs are all unchanged and 3 sets of cardiac enzymes are negative. He does not have a personal history of coronary artery disease and has been ruled out with enzymes. He has a reason for his chest discomfort in some of his symptoms may be referred pain from his gallbladder. Subjective Date/time seen: 07/25/23 12:56 Interval history: Patient continued to have abdominal pain. He remains NPO until evaluated by General surgery. He denies any nausea vomiting. Patient says he still has some intermittent chest pain he. Pain in the chest is likely referred pain from the gallbladder. Exam Narrative: GENERAL: Comfortable, no acute distress HENMT: moist mucous membranes EYES: EOM intact b/l NECK: no lymphadenopathy RESPIRATORY: clear to auscultation CARDIO: RRR GI: soft, right upper quadrant tenderness to palpation, positive Best sign, bowel sounds present SKIN: no rashes EXTREMITIES: no edema, redness or tenderness Objective Data Vital Signs Vital Signs: Vital Signs - 24 hr 07/24/23 23:03 07/24/23 23:10 07/24/23 23:11 Temperature 97.9 F Pulse Rate 66 65 Respiratory Rate 15 Blood Pressure 186/88 H Pulse Oximetry 100 100 Oxygen Delivery Room Air Room Air 07/25/23 01:41 07/25/23 03:16 07/25/23 03:51 Temperature Pulse Rate 77 76 71 Respiratory Rate 19 16 15 Blood Pressure 128/67 139/70 142/77 H Pulse Oximetry 93 93 95 Oxygen Delivery 07/25/23 05:02 07/25/23 05:35 07/25/23 06:19 Temperature 97.7 F Pulse Rate 74 74 78 Respiratory Rate 16 15 18 Blood Pressure 135/71 154/74 H 152/75 H Pulse Oximetry 93 99 100 Oxygen Delivery 07/25/23 08:16 07/25/23 08:17 Temperature Pulse Rate Respiratory Rate Blood Pressure Pulse Oximetry 96 Oxygen Delivery Room Air Room Air Intake/Output Intake/Output: Intake & Output 07/22/23 07/23/23 07/24/23 07/25/23 23:59 23:59 23:59 23:59 Intake Total 1999 Balance 1999 Meds/Results Medications: Active Medications Generic Name Dose Route Start Last Admin Trade Name Freq PRN Reason Stop Dose Admin Buspirone HCl 5 mg 07/25/23 09:00 07/25/23 08:22 Buspirone Hcl 5 Mg Tablet PO Not Given Q12HR SIMRAN Fluoxetine HCl 40 mg 07/25/23 09:00 07/25/23 08:22 Fluoxetine Hcl 20 Mg Capsule PO Not Given DAILY SIMRAN Hydromorphone HCl 1 mg 07/25/23 04:23 07/25/23 12:47 Hydromorphone Hcl Inj (*Crx) 1 Mg/Ml Syr IV PUSH 1 mg Q4H
[2023-07-25] MEDS: TAMSULOSIN HCL 0.4 MG CAPSULE PO (20:51)
[2023-07-25] MEDS: busPIRone HCL 5 MG TABLET PO (20:51)
[2023-07-25] MEDS: SODIUM CHLORIDE 0.9% IV 1,000 ML 100 ML IV CONT (22:15)
[2023-07-26 05:26] LABS: Basophils Percent Auto 0.2 % (0.2-1.2); Hematocrit 40.4 % (42.0-52.0); Hemoglobin 13.4 g/dL (14.0-18.0); Immature Granulocyte Percent A 0.6 % (0-0.5); Lymphocytes Absolute Auto 1.18 K/mm3 (0.9-3.2); Lymphocytes Percent Auto 7.2 % (18.3-44.2); Mean Corpuscular HGB Conc 33.2 g/dl (32-36); Mean Corpuscular Hemoglobin 32.1 pg (26-34); Mean Corpuscular Volume 96.9 fl (80-100); Mean Platelet Volume 9.2 fl (7.4-10.4); Monocytes Absolute Auto 2.1 K/mm3 (0.1-0.6); Monocytes Percent Auto 12.8 % (2.6-8.5); Neutrophils Percent Auto 79.2 % (45.5-73.1); Platelet Count Result 184 k/mm3 (150-375); Red Blood Count 4.17 M/mm3 (4.6-6.20); Red Cell Distribution Width 13.5 % (11.5-14.5); White Blood Count 16.4 K/mm3 (4.5-10.0)
[2023-07-26 05:31] VITALS: BP 128/78; PULSE 78; RESP 18; TEMP 37.3; O2SAT 95
[2023-07-26 05:45] LABS: Anion Gap 4 mmol/L (8-16); Blood Urea Nitrogen 11 mg/dL (9-20); Calcium 8.5 mg/dL (8.4-10.2); Carbon Dioxide 24 mmol/L (22-30); Chloride 103 mmol/L (98-107); Estimated CRCL calculation 66 ml/min; Estimated Glomerular Filt Rate > 60; Glucose 96 mg/dL (65-110); Sodium 131 mmol/L (137-145)
[2023-07-26] MEDS: ONDANSETRON INJ 4 MG/2 ML VIAL IV PUSH ×2 (05:58→18:11)
[2023-07-26] MEDS: HYDROmorphone HCL INJ (*CRX) 1 MG/ML SYR IV PUSH ×4 (06:01→20:17)
[2023-07-26] MEDS: SODIUM CHLORIDE 0.9% IV 1,000 ML 100 ML IV CONT ×2 (10:14→20:25)
[2023-07-26] MEDS: busPIRone HCL 5 MG TABLET PO ×2 (10:15→20:18)
[2023-07-26] MEDS: FLUoxetine HCL 20 MG CAPSULE 40 MG PO (10:15)
--- NOTE | 2023-07-26 10:36 | PM.IMPN ---
Progress Note: A&P Assessment and Plan (1) Cholelithiasis: Qualifiers: Biliary obstruction: without biliary obstruction Cholecystitis acuity: acute Cholecystitis presence: with cholecystitis Cholelithiasis location: gallbladder Qualified Code(s): K80.00 - Calculus of gallbladder with acute cholecystitis without obstruction Code(s): K80.20 - Calculus of gallbladder without cholecystitis without obstruction Status: Chronic Assessment and Plan: Patient's clinical presentation is consistent with acute cholecystitis with evidence of gallstone at the opening of the bile duct. He does not have any evidence of obstructing choledocholithiasis. General surgery consulted. Will continue maintenance IV fluids. Right upper quadrant ultrasound showing 1.8 cm gallstone in the gallbladder neck. Mild gallbladder wall thickening. Analgesics and antiemetics p.r.n. Elevated WBC count today of 16.4. Continue to monitor. Plan for cholecystectomy tomorrow. (2) Nausea and vomiting: Code(s): R11.2 - Nausea with vomiting, unspecified Status: Acute Assessment and Plan: Right upper quadrant pain causing patient nausea vomiting. Patient states this morning he had 3-4 bouts of emesis. Zofran p.r.n. every 4 hours Suspect that this is likely due to cholelithiasis and possible cholecystitis (3) Abdominal pain, epigastric: Code(s): R10.13 - Epigastric pain Status: Acute Assessment and Plan: Likely due to the gallbladder.. (4) Chest pain, non-cardiac: Code(s): R07.89 - Other chest pain Status: Acute Assessment and Plan: Patient is having some left shoulder pain that radiates to the left neck and left jaw that is reproducible to palpation. He denies any known specific injury. He has had multiple EKGs are all unchanged and 3 sets of cardiac enzymes are negative. He does not have a personal history of coronary artery disease and has been ruled out with enzymes. He has a reason for his chest discomfort in some of his symptoms may be referred pain from his gallbladder. Subjective Date/time seen: 07/26/23 10:36 Interval history: Patient is still in a pretty significant amount of pain. Encouraged him to take his pain medication as needed. Patient states that he did have episode of nausea and vomiting this morning the was associated with his abdominal pain. Patient did not have any vomiting yesterday but was nauseous. Plan to get HIDA scan eat either today or tomorrow. Unsure whether patient will be requiring surgery or not. Exam Narrative: GENERAL: Comfortable, no acute distress HENMT: moist mucous membranes EYES: EOM intact b/l NECK: no lymphadenopathy RESPIRATORY: clear to auscultation CARDIO: RRR GI: soft, right upper quadrant tenderness to palpation, positive Best sign, bowel sounds present SKIN: no rashes EXTREMITIES: no edema, redness or tenderness Objective Data Vital Signs Vital Signs: Vital Signs - 24 hr 07/25/23 14:25 07/25/23 14:50 07/25/23 20:51 Temperature 99.8 F H 98.4 F 99.4 F Pulse Rate 78 81 Respiratory Rate 16 18 Blood Pressure 114/67 108/58 L Pulse Oximetry 95 92 Oxygen Delivery 07/25/23 20:00 07/26/23 05:31 Temperature 99.1 F Pulse Rate 78 Respiratory Rate 18 Blood Pressure 128/78 Pulse Oximetry 95 Oxygen Delivery Room Air Intake/Output Intake/Output: Intake & Output 07/23/23 07/24/23 07/25/23 07/26/23 23:59 23:59 23:59 23:59 Intake Total 3000 2030 Balance 3000 2030 Meds/Results Medications: Active Medications Generic Name Dose Route Start Last Admin Trade Name Freq PRN Reason Stop Dose Admin Buspirone HCl 5 mg 07/25/23 09:00 07/26/23 10:15 Buspirone Hcl 5 Mg Tablet PO 5 mg Q12HR SIMRAN Administration Fluoxetine HCl 40 mg 07/25/23 09:00 07/26/23 10:15 Fluoxetine Hcl 20 Mg Capsule PO 40 mg DAILY SIMRAN Admi
[2023-07-26 14:00] VITALS: BP 148/68; PULSE 89; RESP 16; TEMP 37.6; O2SAT 95
--- NOTE | 2023-07-26 15:11 | PM.PNGS ---
Progress Note: A&P Assessment and Plan (1) Cholelithiasis and cholecystitis with obstruction: Qualifiers: Cholelithiasis location: gallbladder Cholecystitis acuity: acute Qualified Code(s): K80.01 - Calculus of gallbladder with acute cholecystitis with obstruction Code(s): K80.19 - Calculus of gallbladder with other cholecystitis with obstruction Status: Acute Assessment and Plan: Patient continues to have tenderness over the gallbladder with vomiting. He is now running low-grade fevers and his white blood cell count has increased to 16,000. Ultrasound shows a fairly large gallstone in the neck of the gallbladder with some gallbladder wall thickening. Plan to go ahead with laparoscopic cholecystectomy tomorrow around noon or 1:00 a.m.. I explained the procedure thoroughly to the patient and his who was present when I interviewed and examined him. All questions were answered, he understands and wishes to go ahead. Subjective Subjective Date/Time Seen: 07/26/23 15:11 Patient reports: feels better, pain is less (Still requiring analgesics), vomiting and fever Review of Systems Review of Systems: All systems reviewed & are unremarkable except as noted in HPI and below (Per HPI) Constitutional: Constitutional: Reports fever(s) (Low-grade fevers) Exam Const: General: cooperative, comfortable, alert, awake (In good spirits) and well groomed Nutritional Appearance: thin Orientation/consciousness: patient oriented x3 and No confusion GI: Inspection: normal to inspection, non-distended and scaphoid GI Palp: Yes Soft to palpation and Yes Tenderness to palpation present (GI) (Right upper quadrant with guarding) Auscultation: normal bowel sounds Objective Data Vital Signs Vital Signs: Vital Signs - 24 hr 07/25/23 20:51 07/25/23 20:00 07/26/23 05:31 Temperature 37.4 C 37.3 C Pulse Rate 81 78 Respiratory Rate 18 18 Blood Pressure 108/58 L 128/78 Pulse Oximetry 92 95 Oxygen Delivery Room Air 07/26/23 10:15 07/26/23 14:00 Temperature 37.6 C H Pulse Rate 89 Respiratory Rate 16 Blood Pressure 148/68 H Pulse Oximetry 95 Oxygen Delivery Room Air low-grade fever yesterday and again this afternoon Intake/Output Intake/Output: Intake & Output 07/23/23 07/24/23 07/25/23 07/26/23 23:59 23:59 23:59 23:59 Intake Total 3000 2250 Balance 3000 2250 Meds/Results Medications: Active Medications Generic Name Dose Route Start Last Admin Trade Name Freq PRN Reason Stop Dose Admin Acetaminophen 650 mg 07/26/23 12:34 Acetaminophen 325 Mg Tablet PO Q6H PRN Mild Pain (1-3) or Fever Buspirone HCl 5 mg 07/25/23 09:00 07/26/23 10:15 Buspirone Hcl 5 Mg Tablet PO 5 mg Q12HR SIMRAN Administration Fluoxetine HCl 40 mg 07/25/23 09:00 07/26/23 10:15 Fluoxetine Hcl 20 Mg Capsule PO 40 mg DAILY SIMRAN Administration Hydromorphone HCl 1 mg 07/25/23 13:36 07/26/23 13:44 Hydromorphone Hcl Inj (*Crx) 1 Mg/Ml Syr IV PUSH 1 mg Q2H PRN Administration Pain Rated 7-10 Hydromorphone HCl 0.5 mg 07/25/23 13:35 Hydromorphone Hcl Inj (*Crx) 1 Mg/Ml Syr IV PUSH Q2H PRN Pain Rated 4-6 Sodium Chloride 1,000 mls @ 100 mls/hr 07/25/23 04:25 07/26/23 10:14 Normal Saline Iv IV CONT 100 mls/hr .Q10H SIMRAN Administration *Home Med* Vibegron 75 mg 07/25/23 09:00 07/26/23 10:15 [Gemtesa] 75 Mg PO 08/24/23 08:59 75 mg Tablet DAILY SIMRAN Administration Ondansetron HCl 4 mg 07/25/23 04:23 07/26/23 05:58 Ondansetron Inj 4 Mg/2 Ml Vial IV PUSH 4 mg Q4H PRN Administration Nausea Tamsulosin HCl 0.4 mg 07/25/23 21:00 07/25/23 20:51 Tamsulosin Hcl 0.4 Mg Capsule PO 0.4 mg QHS SIMRAN Administration Radiology Results: ITS Impressions Chest X-Ray 07/24/23 23:52 IMPRESSION: 1. No acute cardiopulmonary abnormality. Chest/Abdomen/Pelvis CTA 07/25/23 06:44 IMPRESSION: 1. No pulmonary
[2023-07-26] MEDS: TAMSULOSIN HCL 0.4 MG CAPSULE PO (20:18)
[2023-07-26 21:30] VITALS: BP 105/53; PULSE 80; RESP 16; TEMP 37.1; O2SAT 94
[2023-07-27] VITALS (12 sets, daily range): BP systolic 107–142; BP diastolic 53–77; PULSE 56–79; RESP 12–21; TEMP 36.2–37.2; O2SAT 93–100
[2023-07-27 05:55] LABS: Basophils Percent Auto 0.3 % (0.2-1.2); Eosinophils Percent Auto 0.1 % (0-4.4); Hematocrit 38.9 % (42.0-52.0); Hemoglobin 12.7 g/dL (14.0-18.0); Immature Granulocyte Absolute 0.16 K/mm3 (0.00-0.031); Immature Granulocyte Percent A 1.1 % (0-0.5); Lymphocytes Absolute Auto 1.36 K/mm3 (0.9-3.2); Mean Corpuscular HGB Conc 32.6 g/dl (32-36); Mean Corpuscular Hemoglobin 31.8 pg (26-34); Mean Corpuscular Volume 97.5 fl (80-100); Mean Platelet Volume 9.4 fl (7.4-10.4); Monocytes Absolute Auto 1.6 K/mm3 (0.1-0.6); Monocytes Percent Auto 10.4 % (2.6-8.5); Neutrophils Absolute Auto 11.9 K/mm3 (1.3-6.7); Neutrophils Percent Auto 79.1 % (45.5-73.1); Platelet Count Result 177 k/mm3 (150-375); Red Blood Count 3.99 M/mm3 (4.6-6.20); Red Cell Distribution Width 13.4 % (11.5-14.5); White Blood Count 15.1 K/mm3 (4.5-10.0)
[2023-07-27] MEDS: HYDROmorphone HCL INJ (*CRX) 1 MG/ML SYR IV PUSH (06:00)
[2023-07-27] MEDS: ONDANSETRON INJ 4 MG/2 ML VIAL IV PUSH ×3 (06:01→20:46)
[2023-07-27 06:16] LABS: Alanine Aminotransferase 23 U/L (6-50); Albumin Level 3.3 g/dL (3.5-5.1); Alkaline Phosphatase 63 U/L (38-126); Amylase 54 U/L (30-110); Anion Gap 5 mmol/L (8-16); Aspartate Amino Transferase 30 U/L (17-59); Bilirubin Indirect 1.4 mg/dL (0-1.1); Bilirubin,Total 1.9 mg/dL (0.2-1.3); Blood Urea Nitrogen 10 mg/dL (9-20); Calcium 8.7 mg/dL (8.4-10.2); Carbon Dioxide 23 mmol/L (22-30); Chloride 103 mmol/L (98-107); Estimated CRCL calculation 66 ml/min; Estimated Glomerular Filt Rate > 60; Glucose 83 mg/dL (65-110); Lipase 35 U/L (23-300); Potassium 4.3 mmol/L (3.4-5.0); Sodium 131 mmol/L (137-145)
--- NOTE | 2023-07-27 08:38 | WPDANESEPPF ---
Anes - Initial Pre Proc Eval Procedure: Operation Date: 07/27/23 13:00 Proposed Procedures p Laparoscopic Cholecystectomy - Rickey Camacho MD Date/Time: 07/27/23 08:38 Surgeon: Yary Crowley DO Pre Op Diagnosis: Chest Pain,Epigastric Pain,Biliary Colic Patient Data Age: 73 Gender: M Height: 1.68 m Weight: 74 kg Last Vital Signs Temp 37.2 C 07/27/23 05:51 Pulse 79 07/27/23 05:51 Resp 12 07/27/23 05:51 BP 134/74 07/27/23 05:51 Pulse Ox 94 07/27/23 05:51 O2 Del Method Room Air 07/26/23 20:00 Allergies Allergy/AdvReac Type Severity Reaction Status Date / Time No Known Allergies Allergy Unverified 06/12/23 12:59 Home Medications Medication Instructions Recorded Confirmed Type fluoxetine 40 mg capsule 40 mg PO DAILY #90 caps 01/26/23 07/25/23 Rx tamsulosin 0.4 mg capsule (Flomax) 0.4 mg PO QHS #100 caps 02/14/23 07/25/23 Rx buspirone 5 mg tablet See Rx Instructions .Route 05/17/23 07/25/23 Rx .COMPLEX #180 tabs dextroamphetamine-amphetamine ER 15 mg PO DAILY #30 caps 07/15/23 07/25/23 Rx 15 mg 24hr capsule,extend release (Adderall XR) atorvastatin 20 mg tablet 20 mg PO HS 07/25/23 07/25/23 History vibegron 75 mg tablet (Gemtesa) 75 mg PO DAILY 07/25/23 07/25/23 History Laboratory Tests 07/26/23 07/27/23 15:42 05:39 WBC 15.1 H K/mm3 (4.5-10.0) RBC 3.99 L M/mm3 (4.6-6.20) Hgb 12.7 L g/dL (14.0-18.0) Hct 38.9 L % (42.0-52.0) MCV 97.5 fl (80-100) MCH 31.8 pg (26-34) MCHC 32.6 g/dl (32-36) RDW 13.4 % (11.5-14.5) Plt Count 177 k/mm3 (150-375) MPV 9.4 fl (7.4-10.4) Immature Gran % (Auto) 1.1 H % (0-0.5) Neut % (Auto) 79.1 H % (45.5-73.1) Lymph % (Auto) 9.0 L % (18.3-44.2) [place] % (Auto) 10.4 H % (2.6-8.5) Eos % (Auto) 0.1 % (0-4.4) Baso % (Auto) 0.3 % (0.2-1.2) Lymph # (Auto) 1.36 K/mm3 (0.9-3.2) [place] # (Auto) 1.6 H K/mm3 (0.1-0.6) Eos # (Auto) 0.0 K/mm3 (0-0.3) Baso # (Auto) 0.0 K/mm3 (0.0-0.1) Abs Immat Gran (auto) 0.16 H K/mm3 (0.00-0.031) Absolute Neuts (auto) 11.9 H K/mm3 (1.3-6.7) Absolute Nucleated RBC 0.0 K/mm3 (0.0-0.012) Nucleated RBC % 0.0 % (0.0-0.2) Sodium 131 L mmol/L (137-145) Potassium 4.3 mmol/L (3.4-5.0) Chloride 103 mmol/L (98-107) Carbon Dioxide 23 mmol/L (22-30) Anion Gap 5 L mmol/L (8-16) BUN 10 mg/dL (9-20) Creatinine 0.80 mg/dL (0.7-1.3) Estim Creat Clear Calc 66 ml/min Estimated GFR > 60 (59 - ) Glucose 83 mg/dL (65-110) Calcium 8.7 mg/dL (8.4-10.2) Total Bilirubin 1.9 H mg/dL (0.2-1.3) Direct Bilirubin 0.0 mg/dL (0-0.3) Indirect Bilirubin 1.4 H mg/dL (0-1.1) AST 30 U/L (17-59) ALT 23 U/L (6-50) Alkaline Phosphatase 63 U/L (38-126) Total Protein 6.0 L g/dL (6.3-8.2) Albumin 3.3 L g/dL (3.5-5.1) Amylase 54 U/L (30-110) Lipase 35 U/L (23-300) Blood Type B Negative Antibody Screen Negative Patient hx anesthesia problems: none Family hx anesthesia problems: none Results Review: All pre-operative results and documents have been reviewed as part of the pre-operative evaluation. [facility] Past Medical History Medical History Attention deficit disorder (ADD) in adult CVA (cerebral vascular accident) Elevated BP without diagnosis of hypertension CHARITY (generalized anxiety disorder) MDD (major depressive disorder), recurrent episode, moderate Meningioma Mixed hyperlipidemia Restless legs syndrome Surgical History Surgical History History of detached retina repair RT eye Status post urethral surgery Stricture
[2023-07-27] MEDS: SODIUM CHLORIDE 0.9% IV 1,000 ML 100 ML IV CONT (09:21)
[2023-07-27] MEDS: busPIRone HCL 5 MG TABLET PO ×2 (09:29→20:45)
[2023-07-27] MEDS: FLUoxetine HCL 20 MG CAPSULE 40 MG PO (09:29)
--- NOTE | 2023-07-27 10:59 | PM.IMPN ---
Progress Note: A&P Assessment and Plan (1) Cholelithiasis: Qualifiers: Biliary obstruction: without biliary obstruction Cholecystitis acuity: acute Cholecystitis presence: with cholecystitis Cholelithiasis location: gallbladder Qualified Code(s): K80.00 - Calculus of gallbladder with acute cholecystitis without obstruction Code(s): K80.20 - Calculus of gallbladder without cholecystitis without obstruction Status: Chronic Assessment and Plan: Patient's clinical presentation is consistent with acute cholecystitis with evidence of gallstone at the opening of the bile duct. He does not have any evidence of obstructing choledocholithiasis. General surgery consulted. Will continue maintenance IV fluids. Right upper quadrant ultrasound showing 1.8 cm gallstone in the gallbladder neck. Mild gallbladder wall thickening. Analgesics and antiemetics p.r.n. Elevated WBC count today of 15.1. Continue to monitor. Cholecystectomy scheduled for today. (2) Nausea and vomiting: Code(s): R11.2 - Nausea with vomiting, unspecified Status: Acute Assessment and Plan: Right upper quadrant pain causing patient nausea vomiting. Patient states this morning he had 3-4 bouts of emesis. Zofran p.r.n. every 4 hours Suspect that this is likely due to cholelithiasis and possible cholecystitis (3) Abdominal pain, epigastric: Code(s): R10.13 - Epigastric pain Status: Acute Assessment and Plan: Likely due to the gallbladder.. (4) Chest pain, non-cardiac: Code(s): R07.89 - Other chest pain Status: Acute Assessment and Plan: Patient is having some left shoulder pain that radiates to the left neck and left jaw that is reproducible to palpation. He denies any known specific injury. He has had multiple EKGs are all unchanged and 3 sets of cardiac enzymes are negative. He does not have a personal history of coronary artery disease and has been ruled out with enzymes. He has a reason for his chest discomfort in some of his symptoms may be referred pain from his gallbladder. Subjective Date/time seen: 07/27/23 10:59 Interval history: Plan for cholecystectomy later this afternoon. Patient continues to have nausea and abdominal pain. Exam Narrative: GENERAL: Comfortable, no acute distress HENMT: moist mucous membranes EYES: EOM intact b/l NECK: no lymphadenopathy RESPIRATORY: clear to auscultation CARDIO: RRR GI: soft, right upper quadrant tenderness to palpation, positive Best sign, bowel sounds present SKIN: no rashes EXTREMITIES: no edema, redness or tenderness Objective Data Vital Signs Vital Signs: Vital Signs - 24 hr 07/26/23 14:00 07/26/23 21:30 07/26/23 20:00 Temperature 99.7 F H 98.7 F Pulse Rate 89 80 Respiratory Rate 16 16 Blood Pressure 148/68 H 105/53 L Pulse Oximetry 95 94 Oxygen Delivery Room Air 07/27/23 05:51 Temperature 98.9 F Pulse Rate 79 Respiratory Rate 12 Blood Pressure 134/74 Pulse Oximetry 94 Oxygen Delivery Intake/Output Intake/Output: Intake & Output 07/24/23 07/25/23 07/26/23 07/27/23 23:59 23:59 23:59 23:59 Intake Total 3000 3600 1000 Balance 3000 3600 1000 Meds/Results Medications: Active Medications Generic Name Dose Route Start Last Admin Trade Name Freq PRN Reason Stop Dose Admin Acetaminophen 650 mg 07/26/23 12:34 Acetaminophen 325 Mg Tablet PO Q6H PRN Mild Pain (1-3) or Fever Buspirone HCl 5 mg 07/25/23 09:00 07/27/23 09:29 Buspirone Hcl 5 Mg Tablet PO 5 mg Q12HR SIMRAN Administration Fluoxetine HCl 40 mg 07/25/23 09:00 07/27/23 09:29 Fluoxetine Hcl 20 Mg Capsule PO 40 mg DAILY SIMRAN Administration Hydromorphone HCl 1 mg 07/25/23 13:36 07/27/23 06:00 Hydromorphone Hcl Inj (*Crx) 1 Mg/Ml Syr IV PUSH 1 mg Q2H PRN Administration Pain Rated 7-10 Hydromorphone HCl 0.5 mg
--- NOTE | 2023-07-27 11:25 | PC.NURSE ---
Patient off of unit to surgery
[2023-07-27] MEDS: LACTATED RINGERS 1,000 ML 30 ML IV CONT ×2 (11:35→14:14)
[2023-07-27] MEDS: FAMOTIDINE 20 MG/2 ML VIAL IV PUSH ×2 (11:57→20:46)
[2023-07-27] MEDS: KETOROLAC 15 MG/ML VIAL (*BKC) IV PUSH (11:57)
[2023-07-27] MEDS: ACETAMINOPHEN 500 MG TABLET 1000 MG PO (11:57)
--- NOTE | 2023-07-27 12:02 | WPDHPUPDATE1 ---
History and Physical Update Update Date/Time: 07/27/23 12:02 History and Physical has been reviewed, including an updated exam of the patient. There are NO changes in the patient's condition. Risks, benefits, and alternatives have been discussed and questions answered. Patient agrees to proceed with procedure.
[2023-07-27] MEDS: ceFAZolin 2 GM/D5W 50 ML 2 GM/50 ML BAG IVPB (12:15)
[2023-07-27] MEDS: BUPIVACAINE/EPINEPHRINE 0.5% 30 ML VIAL INFILTRATE (12:55)
--- NOTE | 2023-07-27 14:25 | W.PM.PROC2 ---
Procedure Note - Detailed Date of Procedure 07/27/23 Pre-op Diagnosis Acute cholecystitis with gallstones Post-op Diagnosis Same (With purulent bile and gallbladder obstruction) Procedure Performed Laparoscopic cholecystectomy Surgeon Rickey Camacho MD Laboratory Technical Specialist Ayesha Quiñonez [facility] Anesthesia General and Local Indications Patient has right upper quadrant abdominal pain tenderness and vomiting. His imaging showed a 1.8 cm gallstone in the neck of the gallbladder. There was some gallbladder wall thickening. He has had a rising white count and some low-grade fevers. He is taken to surgery now for laparoscopic cholecystectomy. Findings This was an extremely difficult cholecystectomy. The gallbladder wall was very friable and would tear with even careful traction. The liver was resistant to retracting the gallbladder as well. The common bile duct was almost running posterior to anterior rather than more lateral. This made the view of the cholecystohepatic triangle very skewed. The gallbladder itself was very inflamed. The wall was thickened and hyperemic. It tore easily. There was a large stone in the neck of the gallbladder. The gallbladder was full of purulent fluid. Nearly all of the purulent bile spilled into the abdomen as the gallbladder wall was torn with attempts at retraction. The gallbladder was also densely adherent to the liver. There was about 150 cc of blood loss which is at least 5 times more than usual. The surgery lasted 95 minutes which is 3 times more than usual. A drain had to be placed due to the infected nature of the gallbladder to drain any bacteria from the right upper quadrant as well as to assess for potential bile leak as the severe inflammation and persistent bleeding made visualization much more difficult. Description of Procedure The patient was taken to surgery and induced into general anesthesia. The abdomen was prepped and draped. Local was infiltrated just to the right of midline in the epigastrium. A small incision was made. The varies needle was introduced into the peritoneal cavity. Saline drop technique was then used to check for intraperitoneal location. We then insufflated the abdomen without difficulty. The varies needle was exchanged for a 10 11 trocar. The camera was placed and a 5 mm port was placed in the right lower quadrant under direct visualization. The camera was then moved to the right lower quadrant and the right-sided mid abdominal 5 mm port was placed. Finally the camera port was placed just above the umbilicus. The camera was repositioned here and then the patient was placed in reverse Trendelenburg. The surgery started off with difficulty. The abdominal contents protruded anteriorly so that it was difficult to even see the gallbladder. The assistant account manager had to provide retraction of the contents posteriorly so that we could see the gallbladder. There was omentum stuck to the gallbladder which came off with minimal blunt dissection. However there was quite a bit of bleeding from removing the omentum. This was much more so than typically seen. Suctioning this blood and clot took a fair amount of time. Eventually this bleeding seemed to stop or at least greatly slow. The gallbladder was very angry with red thickened tense wall. I used a laparoscopic aspirator and decompress the gallbladder.. Heel and bile came out through the aspirator and around the aspirator into the abdominal cavity. This was suctioned away and the gallbladder was decompressed as much as it could be. It was very difficult and I still could not see the lower portion of the gallbladder such as the infundibulum. I removed the laparoscopic aspirator and then irrigated and suctioned the bloody and purulent fluid that had escaped. We then grasped the upper aspect of the gallbladder and tried to retract it anteriorly and superiorly. It worked initially but then quickly the upper portion of the gallbladder wa
[2023-07-27] MEDS: LACTATED RINGERS 1,000 ML 100 ML IV CONT (17:13)
[2023-07-27] MEDS: PIPERACILLN/TAZ 3.375GM/NS50ML 3.375 GM/50 ML BAG IVPB ×2 (17:14→23:43)
[2023-07-27] MEDS: TAMSULOSIN HCL 0.4 MG CAPSULE PO (20:45)
[2023-07-27] MEDS: oxyCODONE/ACETAMINOPHEN (*CRX) 5-325 MG TABLET 1 TABLET PO (20:45)
[2023-07-28 00:55] VITALS: BP 127/61; PULSE 57; RESP 18; TEMP 36.1; O2SAT 97
[2023-07-28] MEDS: oxyCODONE/ACETAMINOPHEN (*CRX) 5-325 MG TABLET 1 TABLET PO (02:28)
[2023-07-28] MEDS: ONDANSETRON INJ 4 MG/2 ML VIAL IV PUSH ×3 (02:56→11:51)
[2023-07-28 04:45] VITALS: BP 135/59; PULSE 80; RESP 20; TEMP 36.3; O2SAT 98
[2023-07-28] MEDS: PIPERACILLN/TAZ 3.375GM/NS50ML 3.375 GM/50 ML BAG IVPB ×3 (05:37→17:12)
[2023-07-28] MEDS: LACTATED RINGERS 1,000 ML 100 ML IV CONT (06:15)
[2023-07-28 06:33] LABS: Alanine Aminotransferase 38 U/L (6-50); Albumin Level 2.9 g/dL (3.5-5.1); Alkaline Phosphatase 63 U/L (38-126); Anion Gap 8 mmol/L (8-16); Aspartate Amino Transferase 52 U/L (17-59); Bilirubin,Total 1.2 mg/dL (0.2-1.3); Blood Urea Nitrogen 18 mg/dL (9-20); Calcium 8.3 mg/dL (8.4-10.2); Carbon Dioxide 19 mmol/L (22-30); Chloride 103 mmol/L (98-107); Estimated CRCL calculation 74 ml/min; Estimated Glomerular Filt Rate > 60; Glucose 193 mg/dL (65-110); Potassium 3.5 mmol/L (3.4-5.0); Sodium 130 mmol/L (137-145)
[2023-07-28 06:50] LABS: Basophils Percent Auto 0.1 % (0.2-1.2); Immature Granulocyte Absolute 0.07 K/mm3 (0.00-0.031); Immature Granulocyte Percent A 0.6 % (0-0.5); Lymphocytes Percent Auto 4.2 % (18.3-44.2); Mean Corpuscular HGB Conc 33.3 g/dl (32-36); Mean Corpuscular Hemoglobin 31.8 pg (26-34); Mean Corpuscular Volume 95.5 fl (80-100); Monocytes Absolute Auto 0.7 K/mm3 (0.1-0.6); Monocytes Percent Auto 6.1 % (2.6-8.5); Neutrophils Absolute Auto 10.7 K/mm3 (1.3-6.7); Platelet Count Result 208 k/mm3 (150-375); Red Blood Count 3.77 M/mm3 (4.6-6.20); Red Cell Distribution Width 12.8 % (11.5-14.5)
[2023-07-28] MEDS: MORPHINE SULFATE (*CRX) 2 MG/ML INJ IV PUSH (07:23)
[2023-07-28] MEDS: busPIRone HCL 5 MG TABLET PO ×2 (09:26→20:33)
[2023-07-28] MEDS: FLUoxetine HCL 20 MG CAPSULE 40 MG PO (09:26)
[2023-07-28 10:42] VITALS: BP 125/84; PULSE 72; RESP 16; TEMP 36.8; O2SAT 94
[2023-07-28] MEDS: ENOXAPARIN 40 MG/0.4 ML SYRINGE SUB-Q (11:57)
--- NOTE | 2023-07-28 12:42 | PM.PNGS ---
Progress Note: A&P Assessment and Plan (1) Cholelithiasis and cholecystitis with obstruction: Qualifiers: Cholelithiasis location: gallbladder Cholecystitis acuity: acute Qualified Code(s): K80.01 - Calculus of gallbladder with acute cholecystitis with obstruction Code(s): K80.19 - Calculus of gallbladder with other cholecystitis with obstruction Status: Acute Assessment and Plan: Patient seems to be recovering well from cholecystectomy yesterday. White blood cell count is decreasing. No evidence of bile or purulent fluid in the CONCEPCION drain. Bowel sounds are present and only minimal tenderness is appreciated. Due to the purulent bile with significant spillage during surgery, I do want him to stay at least 1 additional night for continuation of IV antibiotics. He may need to stay again tomorrow night as well. He is extremely upset this morning. This could be a reaction to his surgery, he has had some problems with seizures, depression, attention deficit disorder especially since his meningioma surgery and CVA. He has been getting most of his home meds but I will restart his Adderall XR as well. After we talked, he was much less irritated and more calm. I did ask the nursing executive or his designee to come by and talk to the patient as well. I also ordered some Ativan on a p.r.n. basis as well as trazodone p.r.n. for sleep. Hopefully the rest of his day will go more smoothly. (2) Attention deficit disorder (ADD) in adult: Code(s): F98.8 - Other specified behavioral and emotional disorders with onset usually occurring in childhood and adolescence Status: Chronic Assessment and Plan: Restart Adderall XR with a dose today and then daily as per his normal routine. Subjective Subjective Date/Time Seen: 07/28/23 12:42 Patient reports: pain is less, bowel movement, vomiting (Patient reports that for 20 years when he arises in the morning he has severe coughing that often results in some small emesis.), afebrile and other (Agitated this morning over miscommunication, pain medications) Interval history: Patient to extremely angry, agitated this morning. I spoke with him for 25 minutes regarding this. He reports nursing had told him he was going home today when I had told him and his yesterday he would be in for at least another night and possibly 2. He was also upset that he had Percocet ordered for moderate pain and morphine sulfate ordered for severe pain. He had been up early this morning and through a process of twisting or turning pulled on his IV and it came out. Also upset and reporting that when he asked nursing if they read the operative report regarding the difficulty and infection associated with the surgery; he was told that they did not have time to read the report. Regarding abdominal pain, he does not have any severe pain. He has a severe coughing spell early in the morning and than frequently vomits at the end of this. Otherwise he has had no nausea or vomiting. He was worried the coughing might cause bleeding or other disruption of the surgery. Review of Systems Review of Systems: All systems reviewed & are unremarkable except as noted in HPI and below (HPI) Exam Const: General: comfortable, no acute distress, alert, awake, anxious (Very upset, angry, even somewhat agitated. See HPI) and well nourished Nutritional Appearance: well nourished and thin Orientation/consciousness: No confusion GI: Inspection: incision (Incisions healing well), no visible herniation and other (Mostly sanguinous drainage from CONCEPCION, no bile noted) GI Palp: Yes Soft to palpation and Yes Tenderness to palpation present (GI) (Mild expected postoperative tenderness) Auscultation: normal bowel sounds Objective Data Vital Signs Vital Signs: Vital Signs - 24 hr 07/27/23 14:14 07/27/23 14:25 07/27/23 14:40 Temperature 36.3 C L Pulse Rate 75 74 72 Respiratory Rate 12 14 17 Blood Pressure 110
--- NOTE | 2023-07-28 12:44 | PM.IMPN ---
Progress Note: A&P Assessment and Plan (1) Cholelithiasis: Qualifiers: Cholelithiasis location: gallbladder Cholecystitis presence: with cholecystitis Cholecystitis acuity: acute Biliary obstruction: without biliary obstruction Qualified Code(s): K80.00 - Calculus of gallbladder with acute cholecystitis without obstruction Code(s): K80.20 - Calculus of gallbladder without cholecystitis without obstruction Status: Chronic Assessment and Plan: Patient's clinical presentation is consistent with acute cholecystitis with evidence of gallstone at the opening of the bile duct. He does not have any evidence of obstructing choledocholithiasis. General surgery consulted. Will continue maintenance IV fluids. Right upper quadrant ultrasound showing 1.8 cm gallstone in the gallbladder neck. Mild gallbladder wall thickening. Analgesics and antiemetics p.r.n. WBC trending down. POD 1 Cholecystectomy. Patient's surgery was difficult and extensive due to the amount of inflammation/purlulent drainage and peculiar anatomy. Due to this patient was started on abx and will be monitored for a couple more days. (2) Nausea and vomiting: Code(s): R11.2 - Nausea with vomiting, unspecified Status: Acute Assessment and Plan: Right upper quadrant pain causing patient nausea vomiting. Zofran p.r.n. every 4 hours (3) Abdominal pain, epigastric: Code(s): R10.13 - Epigastric pain Status: Acute Assessment and Plan: Likely due to the gallbladder.. (4) Chest pain, non-cardiac: Code(s): R07.89 - Other chest pain Status: Acute Assessment and Plan: Patient is having some left shoulder pain that radiates to the left neck and left jaw that is reproducible to palpation. He denies any known specific injury. He has had multiple EKGs are all unchanged and 3 sets of cardiac enzymes are negative. He does not have a personal history of coronary artery disease and has been ruled out with enzymes. He has a reason for his chest discomfort in some of his symptoms may be referred pain from his gallbladder. Subjective Date/time seen: 07/28/23 12:44 Interval history: Patient continues to have right upper quadrant pain. Patient went under an extensive surgery yesterday and due to the severity of patient's gallbladder condition he will be staying in the hospital to get IV antibiotics for a couple days. Patient states that he is still experiencing some nausea but no vomiting. He has not had any fevers postoperatively. He has a drain in place that is draining red serous fluid. Exam Narrative: GENERAL: Comfortable, no acute distress HENMT: moist mucous membranes EYES: EOM intact b/l NECK: no lymphadenopathy RESPIRATORY: clear to auscultation CARDIO: RRR GI: soft, right upper quadrant tenderness to palpation, bowel sounds present, drain in place draining red serous fluid SKIN: no rashes EXTREMITIES: no edema, redness or tenderness Objective Data Vital Signs Vital Signs: Vital Signs - 24 hr 07/27/23 14:14 07/27/23 14:25 07/27/23 14:40 Temperature 97.3 F L Pulse Rate 75 74 72 Respiratory Rate 12 14 17 Blood Pressure 110/55 L 114/57 L 118/58 L Pulse Oximetry 100 100 100 Oxygen Delivery Simple Face Mask Simple Face Mask Simple Face Mask Oxygen Flow Rate 6 8 8 07/27/23 14:55 07/27/23 15:10 07/27/23 15:40 Temperature 97.1 F L Pulse Rate 72 72 63 Respiratory Rate 21 H 12 18 Blood Pressure 115/55 L 107/59 L 116/53 L Pulse Oximetry 95 95 93 Oxygen Delivery Room Air Room Air Oxygen Flow Rate 07/27/23 16:10 07/27/23 17:10 07/27/23 20:00 Temperature 98.2 F 97.2 F L Pulse Rate 60 59 L 59 L Respiratory Rate 16 16 16 Blood Pressure 120/57 L 131/71 Pulse Oximetry 94 97 97 Oxygen Delivery Room Air Oxygen Flow Rate 07/27/23 20:40 07/28/23 00:55 07/28/23 04:45 Temperature 97.9 F 97.0 F L 9
[2023-07-28 13:42] VITALS: BP 159/89; PULSE 87; RESP 16; TEMP 36.9; O2SAT 96
[2023-07-28] MEDS: KCL 40 MEQ/D5/0.9% SOD CHL 1,000 ML 80 ML IV CONT (14:44)
[2023-07-28] MEDS: HYDROmorphone HCL INJ (*CRX) 1 MG/ML SYR 0.5 MG IV PUSH ×2 (14:46→18:43)
[2023-07-28] MEDS: traZODone HCL 50 MG TABLET PO (20:33)
[2023-07-28] MEDS: TAMSULOSIN HCL 0.4 MG CAPSULE PO (20:33)
[2023-07-28] MEDS: traMADol HCL (*CRX) 50 MG TABLET PO (20:33)
[2023-07-28] MEDS: FAMOTIDINE 20 MG TABLET PO (20:33)
[2023-07-28 20:35] VITALS: BP 127/72; PULSE 74; RESP 18; O2SAT 96
[2023-07-28] MEDS: IBUPROFEN IV 800 MG/200 ML 800 MG/200 ML BAG 400 MG IVPB (23:57)
[2023-07-29] MEDS: PIPERACILLN/TAZ 3.375GM/NS50ML 3.375 GM/50 ML BAG IVPB ×5 (00:02→23:34)
--- NOTE | 2023-07-29 00:04 | PC.NURSE ---
No compatibility information available for IV Ibuprofen and IV fluid w/ potassium. Fluids held and IV Ibuprofen started on separate line.
[2023-07-29 01:02] VITALS: BP 142/81; PULSE 64; RESP 18; TEMP 36.6; O2SAT 96
[2023-07-29] MEDS: KCL 40 MEQ/D5/0.9% SOD CHL 1,000 ML 80 ML IV CONT (04:00)
[2023-07-29 05:00] VITALS: BP 144/82; PULSE 63; RESP 20; TEMP 36.5; O2SAT 98
[2023-07-29 05:47] LABS: Hematocrit 29.9 % (42.0-52.0); Mean Corpuscular HGB Conc 33.4 g/dl (32-36); Mean Corpuscular Hemoglobin 32.4 pg (26-34); Mean Corpuscular Volume 96.8 fl (80-100); Mean Platelet Volume 9.4 fl (7.4-10.4); Platelet Count Result 210 k/mm3 (150-375); Red Blood Count 3.09 M/mm3 (4.6-6.20); Red Cell Distribution Width 13.3 % (11.5-14.5); White Blood Count 8.6 K/mm3 (4.5-10.0)
[2023-07-29 06:00] LABS: Alanine Aminotransferase 26 U/L (6-50); Albumin Level 2.7 g/dL (3.5-5.1); Alkaline Phosphatase 51 U/L (38-126); Anion Gap 4 mmol/L (8-16); Aspartate Amino Transferase 28 U/L (17-59); Bilirubin,Total 0.7 mg/dL (0.2-1.3); Blood Urea Nitrogen 13 mg/dL (9-20); Calcium 8.1 mg/dL (8.4-10.2); Carbon Dioxide 23 mmol/L (22-30); Chloride 108 mmol/L (98-107); Estimated CRCL calculation 66 ml/min; Estimated Glomerular Filt Rate > 60; Glucose 127 mg/dL (65-110); Potassium 3.8 mmol/L (3.4-5.0); Sodium 135 mmol/L (137-145)
[2023-07-29] MEDS: busPIRone HCL 5 MG TABLET PO ×2 (09:18→20:27)
[2023-07-29] MEDS: ATORVASTATIN 10 MG TABLET PO (09:18)
[2023-07-29] MEDS: FAMOTIDINE 20 MG TABLET PO ×2 (09:18→20:27)
[2023-07-29] MEDS: FLUoxetine HCL 20 MG CAPSULE 40 MG PO (09:18)
[2023-07-29] MEDS: ENOXAPARIN 40 MG/0.4 ML SYRINGE SUB-Q (09:19)
[2023-07-29] MEDS: HYDROmorphone HCL INJ (*CRX) 1 MG/ML SYR 0.5 MG IV PUSH ×2 (09:22→23:34)
--- NOTE | 2023-07-29 10:30 | PC.NURSE ---
Pharmacy does not have adderall in stock. Pt was asked yesterday to have family bring in medication. Pts came in this am and did not bring. Pt reminded of the importance of that medication.
[2023-07-29 12:00] VITALS: BP 149/74; PULSE 71; RESP 14; TEMP 36.3; O2SAT 98
--- NOTE | 2023-07-29 12:15 | PM.PNGS ---
Progress Note: A&P Assessment and Plan (1) Cholelithiasis and cholecystitis with obstruction: Qualifiers: Cholelithiasis location: gallbladder Cholecystitis acuity: acute Qualified Code(s): K80.01 - Calculus of gallbladder with acute cholecystitis with obstruction Code(s): K80.19 - Calculus of gallbladder with other cholecystitis with obstruction Status: Acute Assessment and Plan: Continues to improve postop day 2 following a laparoscopic cholecystectomy. White blood cell count down to normal today. Still no evidence of bile or purulent fluid in the CONCEPCION drain. His abdominal pain was well controlled through the night and he was able to sleep better after having the trazodone. He is much more calm today, even though his Adderall still has not been restarted as his did not bring it in from home. Continue IV antibiotics. Plan to probably discharge home tomorrow and hopefully remove his CONCEPCION drain prior to discharge if he continues to improve. (2) Attention deficit disorder (ADD) in adult: Code(s): F98.8 - Other specified behavioral and emotional disorders with onset usually occurring in childhood and adolescence Status: Chronic Assessment and Plan: Encouraged patient to have his bring this in from home. He insists that he does not need this medication. He is less agitated and more calm today. Plan I have discussed the patient's case and plan of care with Dr. Camacho. Subjective Subjective Date/Time Seen: 07/29/23 12:15 Post Op day: 2 (Laparoscopic cholecystectomy) Patient reports: feels better, tolerating a regular diet, flatus, bowel movement (Yesterday) and afebrile Interval history: Patient feeling much better today. He is more calm and less agitated. He was able to sleep last night and did try the trazodone. He also felt that his pain was better controlled and managed overnight with tramadol and ibuprofen. He is reportedly eating well. He is still having right upper quadrant abdominal pain and required IV Dilaudid this morning after not having any pain medication for quite a few hours. He appears very comfortable on my exam today. His Adderall was ordered yesterday, but this was non formulary and had to be brought in from home. This was discussed with the patient to have his bring it in and she did not bring this in this morning when arriving to the hospital. The patient insists he does not need this medication. His CONCEPCION drain had 55 cc of drainage yesterday during day shift and 30 cc output over night warehouse manager. Exam Const: General: comfortable and no acute distress Orientation/consciousness: patient oriented x3 GI: Inspection: non-distended, incision (dry and healing well) and other (CONCEPCION drain with serosanguineous drainage) GI Palp: Yes Soft to palpation, Yes Tenderness to palpation present (GI) (RUQ, incisional) and No Guarding due to palpation present (GI) Auscultation: normal bowel sounds Objective Data Vital Signs Vital Signs: Vital Signs - 24 hr 07/28/23 13:42 07/28/23 20:35 07/28/23 20:30 Temperature 98.4 F Pulse Rate 87 74 Respiratory Rate 16 18 Blood Pressure 159/89 H 127/72 Pulse Oximetry 96 96 Oxygen Delivery Room Air 07/29/23 01:02 07/29/23 05:00 07/29/23 08:00 Temperature 97.9 F 97.7 F Pulse Rate 64 63 Respiratory Rate 18 20 Blood Pressure 142/81 H 144/82 H Pulse Oximetry 96 98 Oxygen Delivery Room Air Intake/Output Intake/Output: Intake & Output 07/26/23 07/27/23 07/28/23 07/29/23 23:59 23:59 23:59 23:59 Intake Total 3600 1550 3110 2670 Output Total 40 2405 1730 Balance 3600 1510 705 940 Meds/Results Medications: Active Medications Generic Name Dose Route Start Last Admin Trade Name Freq PRN Reason Stop Dose Admin Acetaminophen 500 mg 07/27/23 15:28 Acetaminophen 500 Mg Tablet PO Q6H PRN Mild Pain (1-3) or Fever Atorvastatin Calcium 10 mg 07/29/23 09:00 07/29/23 09:18 Atorvastat
[2023-07-29] MEDS: IBUPROFEN IV 800 MG/200 ML 800 MG/200 ML BAG 400 MG IVPB ×2 (13:11→20:23)
--- NOTE | 2023-07-29 16:33 | PM.IMPN ---
Progress Note: A&P Assessment and Plan (1) Cholelithiasis: Qualifiers: Cholelithiasis location: gallbladder Cholecystitis presence: with cholecystitis Cholecystitis acuity: acute Biliary obstruction: without biliary obstruction Qualified Code(s): K80.00 - Calculus of gallbladder with acute cholecystitis without obstruction Code(s): K80.20 - Calculus of gallbladder without cholecystitis without obstruction Status: Chronic Assessment and Plan: Patient's clinical presentation is consistent with acute cholecystitis with evidence of gallstone at the opening of the bile duct. He does not have any evidence of obstructing choledocholithiasis. General surgery consulted. Will continue maintenance IV fluids. Right upper quadrant ultrasound showing 1.8 cm gallstone in the gallbladder neck. Mild gallbladder wall thickening. Analgesics and antiemetics p.r.n. WBC trending down. POD 2 Cholecystectomy. Patient's surgery was difficult and extensive due to the amount of inflammation/purlulent drainage and peculiar anatomy. Due to this patient was started on abx and will be monitored for a couple more days. MARICRUZ drain with minimal drainage (2) Nausea and vomiting: Code(s): R11.2 - Nausea with vomiting, unspecified Status: Acute Assessment and Plan: Right upper quadrant pain causing patient nausea vomiting.-RESOLVED Zofran p.r.n. every 4 hours (3) Abdominal pain, epigastric: Code(s): R10.13 - Epigastric pain Status: Acute Assessment and Plan: Likely due to the gallbladder..-RESOLVED (4) Chest pain, non-cardiac: Code(s): R07.89 - Other chest pain Status: Acute Assessment and Plan: Patient is having some left shoulder pain that radiates to the left neck and left jaw that is reproducible to palpation. He denies any known specific injury.RESOLVED Likely crepitus post surgery He has had multiple EKGs are all unchanged and 3 sets of cardiac enzymes are negative. He does not have a personal history of coronary artery disease and has been ruled out with enzymes. He has a reason for his chest discomfort in some of his symptoms may be referred pain from his gallbladder. Plan Code status: Full code per patient DVT prophylaxis: SCD's Stress ulcer prophylaxis: Protonix 40 daily PT/OT notes: Ambulatory Disposition: Patient continues admission for IV antibiotic therapy WBC in normal range if patient continues to improve overnight can likely discharge home her surgery. Patient is ambulatory on her plan will be to discharge home with . Time Spent With Patient Time with patient: 25 - 35 minutes Subjective Date/time seen: 07/29/23 16:33 Interval history: 07/28: Patient seen sitting up in bed with no acute issues reports generalized improvement and tolerating oral intake. Normal wbc and scant drainage to maricruz drain. Patient denied any fever or chills overnight. Will continue with IV ABX until tomorrow per surgery and if no events patient can hopefully discharge home. Review of Systems Review of Systems: 12 systems were reviewed with pertinent positives and negatives per HPI. Except as documented in the HPI, all other systems were reviewed and are negative. All systems reviewed & are unremarkable except as noted in HPI and below Exam Narrative: Physical Exam: GENERAL: Alert and oriented x 3. No acute distress. Well-nourished. EYES: EOMI. No scleral icterus. PERRLA. HEENT: Moist mucous membranes. No cervical lymphadenopathy. LUNGS: Clear to auscultation bilaterally. No accessory muscle use. CARDIOVASCULAR: Regular rate and rhythm. No murmur. No JVD. S1-S2 ABDOMEN: Soft, mild tenderness and non-distended. No palpable masses. MARICRUZ drain RT midsection. 4 incisional mid ABD no drainage, swelling or erythema. EXTREMITIES: No edema. Non-tender SKIN: No rashes or
[2023-07-29] MEDS: ONDANSETRON INJ 4 MG/2 ML VIAL IV PUSH (20:23)
[2023-07-29] MEDS: TAMSULOSIN HCL 0.4 MG CAPSULE PO (20:27)
[2023-07-29] MEDS: traZODone HCL 50 MG TABLET PO (20:27)
[2023-07-29 20:33] VITALS: BP 153/75; PULSE 67; RESP 18; TEMP 36.7; O2SAT 97
[2023-07-30] MEDS: PIPERACILLN/TAZ 3.375GM/NS50ML 3.375 GM/50 ML BAG IVPB (05:12)
[2023-07-30 05:51] VITALS: BP 155/75; PULSE 68; RESP 18; TEMP 36.7; O2SAT 100
[2023-07-30 06:12] LABS: Hematocrit 35.1 % (42.0-52.0); Hemoglobin 11.5 g/dL (14.0-18.0); Mean Corpuscular HGB Conc 32.8 g/dl (32-36); Mean Corpuscular Hemoglobin 31.9 pg (26-34); Mean Corpuscular Volume 97.5 fl (80-100); Mean Platelet Volume 9.5 fl (7.4-10.4); Platelet Count Result 238 k/mm3 (150-375); Red Cell Distribution Width 13.4 % (11.5-14.5); White Blood Count 10.2 K/mm3 (4.5-10.0)
[2023-07-30 06:19] LABS: Alanine Aminotransferase 35 U/L (6-50); Albumin Level 2.8 g/dL (3.5-5.1); Alkaline Phosphatase 73 U/L (38-126); Anion Gap 2 mmol/L (8-16); Aspartate Amino Transferase 37 U/L (17-59); Bilirubin,Total 0.7 mg/dL (0.2-1.3); Blood Urea Nitrogen 9 mg/dL (9-20); Calcium 8.3 mg/dL (8.4-10.2); Carbon Dioxide 26 mmol/L (22-30); Chloride 107 mmol/L (98-107); Estimated CRCL calculation 66 ml/min; Estimated Glomerular Filt Rate > 60; Glucose 105 mg/dL (65-110); Potassium 3.7 mmol/L (3.4-5.0); Sodium 135 mmol/L (137-145)
[2023-07-30] MEDS: IBUPROFEN IV 800 MG/200 ML 800 MG/200 ML BAG 400 MG IVPB (07:40)
--- NOTE | 2023-07-30 07:59 | PM.PNGS ---
Progress Note: A&P Assessment and Plan (1) Cholelithiasis and cholecystitis with obstruction: Qualifiers: Cholelithiasis location: gallbladder Cholecystitis acuity: acute Qualified Code(s): K80.01 - Calculus of gallbladder with acute cholecystitis with obstruction Code(s): K80.19 - Calculus of gallbladder with other cholecystitis with obstruction Status: Acute Assessment and Plan: Doing well status post laparoscopic cholecystectomy for acute cholecystitis with gallstones and purulent bile. His drain will be removed today. I am not alarmed that his white blood cell count is now slightly over 10,000. It is probably due to mobilization of 3rd space fluids as his H&H have also risen. Okay to discharge from my perspective on Augmentin. I have written prescriptions for this and some analgesics. He will see me in the office in 2 weeks. Instructions written in the discharge summary, particularly how to manage CONCEPCION drain site. 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 Often these are associated with dry heaves. This has been going on for many years. I explained again to the patient that dry heaves following a coughing fit will not respond to anti emetics medications. Advised that he follow-up with his primary care doctor to readdress the reason for the early childhood education coordinator cough. No need to stay in the hospital as this has been going on for years. Subjective Subjective Date/Time Seen: 07/30/23 07:59 Post Op day: 3 Patient reports: tolerating a regular diet, afebrile and other (Patient having severe coughing episode this morning associated with gagging and sometimes emesis. He has told me in the past that he has this every morning and has had for many years.) Interval history: Explained again to the patient that gagging and emesis associated with severe coughing will not be improved with nausea medications. Will need to see his primary care physician regarding the reason for the cough. Exam Resp: Effort & Inspection: Actively coughing GI: Inspection: incision (Healing well) and other (CONCEPCION drain with serosanguineous drainage again today) GI Palp: Yes Soft to palpation Objective Data Vital Signs Vital Signs: Vital Signs - 24 hr 07/29/23 08:00 07/29/23 12:00 07/29/23 20:33 Temperature 36.3 C L 36.7 C Pulse Rate 71 67 Respiratory Rate 14 18 Blood Pressure 149/74 H 153/75 H Pulse Oximetry 98 97 Oxygen Delivery Room Air 07/29/23 20:00 07/30/23 05:51 Temperature 36.7 C Pulse Rate 68 Respiratory Rate 18 Blood Pressure 155/75 H Pulse Oximetry 100 Oxygen Delivery Room Air Intake/Output Intake/Output: Intake & Output 07/27/23 07/28/23 07/29/23 07/30/23 23:59 23:59 23:59 23:59 Intake Total 1550 3110 4250 250 Output Total 40 2405 3080 760 Balance 4250 042 3649 -046 Meds/Results Medications: Active Medications Generic Name Dose Route Start Last Admin Trade Name Freq PRN Reason Stop Dose Admin Acetaminophen 500 mg 07/27/23 15:28 Acetaminophen 500 Mg Tablet PO Q6H PRN Mild Pain (1-3) or Fever Atorvastatin Calcium 10 mg 07/29/23 09:00 07/29/23 09:18 Atorvastatin 10 Mg Tablet PO 10 mg DAILY SIMRAN Administration Buspirone HCl 5 mg 07/25/23 09:00 07/29/23 20:27 Buspirone Hcl 5 Mg Tablet PO 5 mg Q12HR SIMRAN Administration Enoxaparin Sodium 40 mg 07/28/23 09:00 07/29/23 09:19 Enoxaparin 40 Mg/0.4 Ml Syringe SUB-Q 40 mg DAILY SIMRAN Administration Famotidine 20 mg 07/28/23 21:00 07/29/23 20:27 Famotidine 20 Mg Tablet PO 20 mg Q12HR SIMRAN Administration Fluoxetine HCl 40 mg 07/25/23 09:00 07/29/23 09:18 Fluoxetine Hcl 20 Mg Capsule PO 40 mg DAILY SIMRAN Administration Hydromorphone HCl 0.5 mg 07/28/23 12:39 07/29/23 23:34 Hydromorphone Hcl Inj (*Crx) 1 Mg/Ml Syr IV PUSH 0.5 mg Q2H PRN Administration Pain
[2023-07-30] MEDS: FAMOTIDINE 20 MG TABLET PO (09:27)
[2023-07-30] MEDS: busPIRone HCL 5 MG TABLET PO (09:27)
[2023-07-30] MEDS: FLUoxetine HCL 20 MG CAPSULE 40 MG PO (09:27)
[2023-07-30] MEDS: ATORVASTATIN 10 MG TABLET PO (09:29)
--- NOTE | 2023-07-30 11:06 | PM.DS ---
DS: Admitting Diagnosis Discharge Date 07/30/2023 Admitting Diagnosis acute cholecystitis DS: Discharge Diagnosis Discharge Diagnosis (1) Cholelithiasis: Qualifiers: Cholelithiasis location: gallbladder Cholecystitis presence: with cholecystitis Cholecystitis acuity: acute Biliary obstruction: without biliary obstruction Qualified Code(s): K80.00 - Calculus of gallbladder with acute cholecystitis without obstruction Code(s): K80.20 - Calculus of gallbladder without cholecystitis without obstruction Status: Chronic Assessment and Plan: Patient's clinical presentation is consistent with acute cholecystitis with evidence of gallstone at the opening of the bile duct. He does not have any evidence of obstructing choledocholithiasis. General surgery consulted. Will continue maintenance IV fluids. Right upper quadrant ultrasound showing 1.8 cm gallstone in the gallbladder neck. Mild gallbladder wall thickening. Analgesics and antiemetics p.r.n. WBC trending down. POD 2 Cholecystectomy. Patient's surgery was difficult and extensive due to the amount of inflammation/purlulent drainage and peculiar anatomy. Due to this patient was started on abx and will be monitored for a couple more days. CONCEPCION drain with minimal drainage (2) Nausea and vomiting: Code(s): R11.2 - Nausea with vomiting, unspecified Status: Acute Assessment and Plan: Right upper quadrant pain causing patient nausea vomiting.-RESOLVED Zofran p.r.n. every 4 hours (3) Abdominal pain, epigastric: Code(s): R10.13 - Epigastric pain Status: Acute Assessment and Plan: Likely due to the gallbladder..-RESOLVED (4) Chest pain, non-cardiac: Code(s): R07.89 - Other chest pain Status: Acute Assessment and Plan: Patient is having some left shoulder pain that radiates to the left neck and left jaw that is reproducible to palpation. He denies any known specific injury.RESOLVED Likely crepitus post surgery He has had multiple EKGs are all unchanged and 3 sets of cardiac enzymes are negative. He does not have a personal history of coronary artery disease and has been ruled out with enzymes. He has a reason for his chest discomfort in some of his symptoms may be referred pain from his gallbladder. Plan Disposition: Patient discharged home with will have follow up with surgery as scheduled. DS: Summary Hospital Course Reason for hospitalization: acute cholecystitis Hospital Course: (Medical Record) Chief Complaint: Chest pain Narrative: 73-year-old male with a past medical history of BPH, anxiety and ADHD who presented to the ER with complaints of back pain radiating into his chest and abdomen.? The patient reports the symptoms started about 4 hours after he ate some fried fish.? Patient was having pain is epigastric region and right upper quadrant and having some radiating pain in his left upper chest up into his left neck.? The pain in his left chest and left neck into his jaw was reproducible to palpation.? He also was having some pain in in the left abdomen that was point tenderness as well.? He had some significant nausea and 1 episode of vomiting.? He also did have some loose stool.? He had never had symptoms like this before.? He was concerned because multiple members of his family have had history of premature coronary artery disease and he has outlived all of his family members.? He does not have any history of cardiac disease.? Unlike his family members, the patient is a lifelong nonsmoker.? He does not drink alcohol to excess.? He admits that he has a mostly sedentary lifestyle. In the ER the patient had 2 sets of troponins that were negative and his sisters set of troponin when he arrived to the medical floor was negative.? His EKGs demonstrated normal sinus rhythm.? His CT of the abdomen pelvis demonstrated cholel
== END 2023-07-30 11:33 | disposition home or self-care (01) | DRG 418 ==
LOC: ANHED 07-25 04:24 → ANH3MED 07-25 05:38
PROVIDERS: Emergency Medicine; Internal Medicine Critical Care Medicine; Nurse Practitioner Family; Surgery; Admitting Provider Internal Medicine; Emergency Provider Emergency Medicine; PCP Family Medicine; Visit Provider Nurse Practitioner Family
PROC: 0FT44ZZ Resection of Gallbladder, Percutaneous Endoscopic Approach (ICD-10-PCS; CPT 47562; principal; 2023-07-27 13:00)
DX: K80.13 Calculus of gallbladder with acute and chronic cholecystitis with obstruction (principal); F33.1 Major depressive disorder, recurrent, moderate; F41.1 Generalized anxiety disorder; E78.2 Mixed hyperlipidemia; N32.81 Overactive bladder; G25.81 Restless legs syndrome; F98.8 Other specified behavioral and emotional disorders with onset usually occurring in childhood and adolescence; F12.90 Cannabis use, unspecified, uncomplicated; Z82.49 Family history of ischemic heart disease and other diseases of the circulatory system; Z86.73 Personal history of transient ischemic attack (TIA), and cerebral infarction without residual deficits
CPT/HCPCS: 36415; 71045; 71275; 74177; 76705; 80048; 80053; 80076; 81001; 82150; 82248; 83690; 84484; 85025; 85027; 85610; 85730; 86850; 86900; 86901; 88304; 93005; 96361; 96374; 96375; 96376; 99285; A9270; G0378; J0690; J1100; J1170; J1650; J1741; J1885; J2270; J2371; J2405; J2543; J2704; J3010; J3480; J7030; J7120; Q9967

== ENCOUNTER 2024-05-22 19:50 | Inpatient (IN) | payer MEDICARE, SELFPAY ==
--- NOTE | ~2024-05-22 | XR_ITS ---
EXAMINATION: XR chest 1V portable DATE: 05/25/2024 11:51 INDICATION: Wheezing and hypoxia TECHNIQUE: frontal view of the chest was obtained. COMPARISON: Chest radiograph dated 05/22/2024 FINDINGS: Diffuse hazy groundglass opacity throughout the left hemithorax with new retrocardiac consolidation a nd blunting at the left costophrenic and cardiophrenic angles consistent with small posterior layerin g pleural effusion and associated basilar atelectasis and/or pneumonia. Right lung remains clear. No pulmonary edema, pneumothorax or right-sided pleural effusion. Heart size is normal. Cholecystectomy clips in right upper quadrant. IMPRESSION: 1. Small left pleural effusion with left basilar atelectasis or pneumonia. Reviewed, dictated and finalized at location A. BUILDER SUPERVISOR
--- NOTE | ~2024-05-22 | MR_ITS ---
EXAMINATION: MR MRCP wo/w con/w 3D wo ind DATE: 05/30/2024 09:33 INDICATION: Pancreatitis. TECHNIQUE: Magnetic resonance imaging (MRI) of the abdomen was performed without and with 18 mL Multi Christina intravenous contrast. Sequences included coronal T2-weighted FS FSE, coronal T2-weighted FSE, a xial T1-weighted LAVA, coronal FS FIESTA, axial dual-echo T1-weighted SPGR, coronal lava-FLEX, sagitt al T2-weighted FSE, axial T2-weighted FSE, and axial DWI. Thick-slab T2-weighted FSE images were obta ined for magnetic resonance cholangiopancreatography (MRCP). Maximum intensity projection 3-D reconst ructions of the volumetric data were created by the technologist. Postcontrast sequences included cor onal LAVA-flex and time course of axial T1-weighted LAVA. COMPARISON: CT abdomen and pelvis 05/22/2024 FINDINGS: ABDOMEN MRI: There are small pleural effusions, left worse than right. There is a small sliding hiata l hernia. The liver and spleen are normal. Pancreas divisum is noted. There is fat stranding and flui d around the pancreas. There is enhancement of the pancreatic parenchyma. The gallbladder is absent. The adrenal glands and left kidney are normal. There is a 1.7 cm cyst in the right kidney. There are no dilated loops of bowel. There is trace ascites. ABDOMEN MRCP: The common duct is normal and measures 7 mm. IMPRESSION: 1. Acute interstitial pancreatitis. 2. Small pleural effusions, left worse than right. 3. Small sliding hiatal hernia. 4. No choledocholithiasis. Reviewed, dictated and finalized at location A. OLOGY SPECIALIST
--- NOTE | ~2024-05-22 | XR_ITS ---
EXAMINATION: XR abdomen/kub 1V DATE: 05/25/2024 11:51 INDICATION: Abdominal distention and pain TECHNIQUE: A supine view of the abdomen on 2 radiographs was obtained. COMPARISON: None. FINDINGS: There are few mildly dilated gas-filled loops of small bowel in the mid and left abdomen. Cholecystec kaz clips in right upper quadrant. Mild lumbar levocurvature with mild to moderate spondylosis. IMPRESSION: 1. Multiple mildly dilated gas-filled loops of small bowel in the abdomen and would favor ileus relat ed to acute interstitial pancreatitis as seen on prior CT over obstruction. Reviewed, dictated and finalized at location A. OL SUPERINTENDENT IMPRESSION: 1. Multiple mildly dilated gas-filled loops of small bowel in the abdomen and w ould favor ileus related to acute interstitial pancreatitis as seen on prior CT over obstruction.
--- NOTE | ~2024-05-22 | CT_ITS ---
EXAMINATION: CT chest abdomen w con DATE: 06/02/2024 13:53 INDICATION: Abdominal pain. Pancreatitis. TECHNIQUE: Computed tomography (CT) of the chest and abdomen was performed with 100 mL Omnipaque 350 intravenous contrast. Automated exposure control and iterative reconstruction technique were employed . The dose-length product was 797.76 mGy-cm. COMPARISON: CT abdomen and pelvis 05/22/2024, chest CT 07/25/2023 FINDINGS: CHEST CT: There is mild atelectasis bilaterally. There are trace right and small left pleural effusions. There is left atrial enlargement of the heart. There are coronary artery calcifications. No pericardial eff usion. There is a small sliding hiatal hernia. There is moderate thoracic spondylosis. ABDOMEN CT: The liver is normal. There are changes of cystectomy. The spleen, adrenal glands, and left kidney are normal. There are cysts in right kidney measuring up to 1.5 cm. There is fat stranding and fluid annemarie und the pancreas with areas of hypoattenuation in the pancreas, consistent with acute necrotic pancre atitis. There are no pathologically enlarged lymph nodes. There is diverticulosis of the colon withou t evidence of diverticulitis. The appendix is normal. There is moderate lumbar spondylosis. IMPRESSION: 1. Acute necrotic pancreatitis with interval worsening of findings. 2. Small left pleural effusion. Reviewed, dictated and finalized at location A. PRE COOLER
--- NOTE | ~2024-05-22 | CT_ITS ---
CLINICAL INDICATION: Abdominal pain COMPARISON: 07/25/2023. TECHNIQUE: Multiple contiguous axial images of the abdomen and pelvis were performed following the ad ministration of with 100 mL Omnipaque-350 intravenous contrast The dose-length product (DLP) was 755.58 mGy-cm. Automated exposure control and iterative reconstruction technique were employed. FINDINGS/OBSERVATIONS: Visualized lower thorax: The bilateral lung bases are clear. The heart is of normal size, without pericardial effusion. Small hiatal hernia is present. Liver: Postoperative change within the upper abdomen when compared with prior examination. Gallbladder is now absent. The liver enhances homogeneously. Pancreas: Peripancreatic inflammatory change is now identified. This encompasses the entirety of the lesser sac with adjacent inflammation in the duodenum. Spleen: The spleen enhances homogeneously and is not enlarged measuring 9 cm in longitudinal dimension. Kidneys: The bilateral kidneys enhance symmetrically without hydronephrosis or renal calculi. Adrenal glands: Unremarkable. Gastrointestinal tract: Colonic diverticulosis without surrounding inflammatory change. Appendix: The air-filled appendix is of normal caliber (axial series, images 129-142). Vasculature: Unremarkable. No aneurysmal dilatation or significant stenosis. Lymph nodes: No pathologically enlarged or morphologically suspicious lymph nodes within the retroperitoneum or at the root of the mesentery. Pelvic structures: The bladder is minimally distended, and otherwise unremarkable. The prostate gland is not enlarged. Body wall and musculoskeletal: Moderate degenerative disease within the lower thoracic and lumbosacral spine. IMPRESSION: Findings consistent with acute pancreatitis without gross perforation or drainable fluid collection. Reviewed, dictated and finalized at location A. SOURCE INTELLIGENCE ANALYST IMPRESSION: Findings consistent with acute pancreatitis without gross perforation or draina ble fluid collection.
--- NOTE | ~2024-05-22 | CT_ITS ---
CT of the Abdomen and Pelvis: Indication: Abdominal pain Technique: 2.5 mm axial scans were obtained through the abdomen and pelvis following intravenous adm inistration of 100 cc of Omnipaque 350. Dose reduction technique was used on this scan by utilizing a utomated exposure control and iterative reconstruction technique. The dose-length product (DLP) was 7 40.31 mGy-cm. COMPARISON: 06/02/2024 Findings: Scans through the lung bases demonstrate small left pleural effusion with minimal left bas ilar atelectasis. The liver, spleen, adrenals and kidneys are within normal limits. Cholecystectomy clips are present. Extensive inflammatory change and fluid surrounding the pancreas is similar to prior exam, with possi ble focal areas of decreased pancreatic enhancement, which could reflect areas of pancreatic necrosis . There are atherosclerotic calcifications of the aorta. No lymphadenopathy. No bowel obstruction or bowel wall thickening. There is no evidence to suggest acute appendicitis. Images through the pelvis were performed. Urinary bladder unremarkable. No pelvic mass seen. No ascit es. Impression: Findings compatible with necrotizing pancreatitis, with probable extensive areas of evolving walled o ff necrosis, which is overall similar to prior exam. Small left pleural effusion. Reviewed, dictated and finalized at location M. UNTING SYSTEMS MANAGER Impression: Findings compatible with necrotizing pancreatitis, with probable extensive area s of evolving walled off necrosis, which is overall similar to prior exam. Small left pleural effusion.
--- NOTE | ~2024-05-22 | XR_ITS ---
CHEST RADIOGRAPH CLINICAL HISTORY: chest pain . COMPARISON: 07/24/2023 TECHNIQUE: Single portable view of the chest. FINDINGS The cardiomediastinal silhouette is unremarkable. The lungs are clear. Visualized osseous structures and soft tissues are unremarkable. IMPRESSION: No focal infiltrate or effusion. Reviewed, dictated and finalized at location A. MECHANIC
--- NOTE | ~2024-05-22 | XR_ITS ---
EXAM: XR abdomen/kub 1V DATE: 05/24/2024 15:45 HISTORY: abd pain with constipation . COMPARISON: CT abdomen pelvis 05/22/2024. FINDINGS: Clear lung bases. Dilated loop of small bowel overlying the left abdomen. Relative paucity of small bowel gas. Right upper quadrant surgical clips. No organomegaly. No abnormal abdominal calc ification. Degenerative changes in the spine and bilateral hips. IMPRESSION: Likely focal small bowel ileus. Obstruction not excluded. Reviewed, dictated and finalized at location K. UCT INSPECTION COORDINATOR
--- NOTE | ~2024-05-22 | XR_ITS ---
XR abdomen/kub 1V Ordering provider: Eli Harley APRN History: . elevated WBC, abdominal pain . Comparison: May 25, 2024 FINDINGS: BOWEL: Slightly dilated small bowel loops. Early obstruction cannot be excluded. Follow-up advised. . ORGANOMEGALY: None. SIGNIFICANT PATHOLOGIC CALCIFICATIONS: None. OTHER: No free air is seen under the diaphragm. IMPRESSION: Slightly dilated small bowel loops. Follow-up advised. Reviewed, dictated and finalized at location A. UCTION LEAD
[2024-05-22 19:52] VITALS: BP 143/71; PULSE 68; RESP 18; TEMP 36.4; O2SAT 98
--- NOTE | 2024-05-22 20:06 | ECG_ITS ---
Test Date: 2024-05-22 20:11:41 Measurements Intervals [place] Rate: 61 P: 47 OR: 174 QRS: -20 QRSD: 85 T: 36 QT: 480 QTc: 487 Interpretive Statements SINUS RHYTHM WITH OCCASIONAL VENTRICULAR PREMATURE COMPLEXES PROLONGED QT INTERVAL No previous ECG available for comparison Electronically Signed On 05-23-2024 18:23:04 VICE PRESIDENT RESIDENTIAL [employer] SALES by Cecilia Nelson M.D.
[2024-05-22] MEDS: ASPIRIN 81 MG CHEWABLE TABLET 324 MG PO (20:12)
[2024-05-22 20:23] VITALS: BP 168/91; PULSE 65; RESP 16; TEMP 36.7; O2SAT 98
[2024-05-22 20:25] LABS: Basophils Absolute Auto 0.1 K/mm3 (0.0-0.1); Basophils Percent Auto 0.5 % (0.2-1.2); Eosinophils Absolute Auto 0.1 K/mm3 (0-0.3); Eosinophils Percent Auto 0.7 % (0-4.4); Hematocrit 42.6 % (42.0-52.0); Hemoglobin 15.5 g/dL (14.0-18.0); Immature Granulocyte Absolute 0.05 K/mm3 (0.00-0.031); Immature Granulocyte Percent A 0.4 % (0-0.5); Lymphocytes Absolute Auto 3.22 K/mm3 (0.9-3.2); Lymphocytes Percent Auto 22.6 % (18.3-44.2); Mean Corpuscular HGB Conc 36.4 g/dl (32-36); Mean Corpuscular Volume 90.8 fl (80-100); Mean Platelet Volume 9.2 fl (7.4-10.4); Monocytes Absolute Auto 1.3 K/mm3 (0.1-0.6); Monocytes Percent Auto 8.9 % (2.6-8.5); Neutrophils Absolute Auto 9.5 K/mm3 (1.3-6.7); Neutrophils Percent Auto 66.9 % (45.5-73.1); Platelet Count Result 268 k/mm3 (150-375); Red Blood Count 4.69 M/mm3 (4.6-6.20); Red Cell Distribution Width 12.3 % (11.5-14.5); White Blood Count 14.2 K/mm3 (4.5-10.0)
[2024-05-22 20:37] LABS: INR 1.1; Prothrombin Time 14.5 Seconds (11.1-14.7)
[2024-05-22 20:38] LABS: Partial Thromboplastin Time 22.7 Seconds (22.3-36.8)
[2024-05-22 20:50] LABS: Troponin I < 0.012 ng/mL (0.000-0.034)
[2024-05-22] MEDS: ONDANSETRON INJ 4 MG/2 ML VIAL IV PUSH (20:50)
[2024-05-22] MEDS: HYDROmorphone HCL INJ (*CRX) 1 MG/ML SYR IV PUSH ×2 (20:50→22:35)
[2024-05-22 20:51] LABS: Add Urine Microscopic? YES; Appearance Urine Clear (Clear); Bacteria Urine None Seen /hpf; Bilirubin Urine Negative (Negative); Blood Urine Negative (Negative); Color Urine Yellow (Yellow); Glucose Urine UA Negative (Negative); Ketones Urine Negative (Negative); Leukocyte Esterase Ur Negative LEU/UL (Negative); Need Manual Microscopic Reviewed; Nitrate Urine Negative (Negative); Non Pathogenic Casts 0-2; Protein Urine 1+ mg/dL (Negative); RBC Urine 0-2 /hpf (0-2); Specific Grav Ur 1.024 (1.001-1.035); Squamous Epithelial Cell Urine None Seen /hpf (Few); WBC Urine 0-5 /hpf (0-3)
[2024-05-22] MEDS: SODIUM CHLORIDE 0.9% IV 1,000 ML 999 ML IV CONT (20:51)
[2024-05-22 21:01] LABS: Alanine Aminotransferase 25 U/L (6-50); Albumin Level 4.1 g/dL (3.5-5.1); Alkaline Phosphatase 74 U/L (38-126); Anion Gap 9 mmol/L (4-12); Aspartate Amino Transferase 32 U/L (17-59); Bilirubin,Total 1.1 mg/dL (0.2-1.3); Blood Urea Nitrogen 23 mg/dL (9-20); Calcium 9.5 mg/dL (8.4-10.2); Carbon Dioxide 17 mmol/L (22-30); Chloride 108 mmol/L (98-107); Estimated CRCL calculation 66 ml/min; Estimated Glomerular Filt Rate > 60; Glucose 125 mg/dL (65-110); Potassium 3.9 mmol/L (3.4-5.0); Sodium 134 mmol/L (137-145)
[2024-05-22 21:20] LABS: Lactic Acid Reflex 3.9 mmol/L (0.7-2.0)
[2024-05-22 21:44] LABS: Lipase > 40000 U/L (23-300)
--- NOTE | 2024-05-22 22:13 | ED_ITS ---
HPI - General Adult General Chief complaint: Abdominal Pain Stated complaint: L abd and back pain, N/V Time Seen by Provider: 05/22/24 20:16 History of Present Illness HPI narrative: Patient is a 74-year-old gentleman presents emergency department with chief complaint of abdominal pain radiating to his back patient states the pain began about an hour ago reports he has had some nausea vomiting reports he has been sweaty with this patient also reports the pain has radiated up into his chest patient has prior history of cholelithiasis and had a cholecystectomy the patient reports the pain is not improved by anything reports that his abdomen feels firm Related Data Home Medications ?Medication ?Instructions ?Recorded ?Confirmed ?Last Taken ?Type vibegron 75 mg tablet (Gemtesa) 75 mg PO DAILY 07/25/23 03/15/24 Unknown History Allergies Allergy/AdvReac Type Severity Reaction Status Date / Time No Known Allergies Allergy Verified 05/22/24 19:51 Review of Systems 2 Review of Systems: A 10 system review of systems was completed on the patient and is negative except for what is stated in the HPI. Nursing and ancillary documentation was reviewed. [facility] Past Medical History Medical History Meningioma CVA (cerebral vascular accident) Attention deficit disorder (ADD) in adult Elevated BP without diagnosis of hypertension Restless legs syndrome Mixed hyperlipidemia CHARITY (generalized anxiety disorder) MDD (major depressive disorder), recurrent episode, moderate Surgical History Surgical History History of laparoscopic cholecystectomy By Dr. Camacho on 07/27/23 Status post urethral surgery Stricture History of detached retina repair RT eye Family History Family History Mother Cerebrovascular accident, Onset Age: 69 Hypertension Family history of elevated blood lipids Father Cerebrovascular accident, Onset Age: 70 Hypertension Family history of elevated blood lipids Acute myocardial infarction, Onset Age: 40 Social History Social History Social History: Patient has been for approximately 20 years. He does not have any children. 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 He is a lifelong nonsmoker and does not drink alcohol to excess. Code status: Full code Decision maker: Smoking status: Never smoker Second hand tobacco smoke exposure: No Alcohol intake: former Substance use: never Substance use type: marijuana Last use: LAST WEEK Do You Feel Safe in your Home?: Yes Lack of Transportation: No Lack of Food: Never True Current Housing: I Have Housing Concerned About Future Housing: No Difficulty Paying Gas/Electric Bills: No Difficulty Paying for Meds: No Currently Unemployed: No Education: Master's Degree or Higher Difficulty w/ Childcare or Family Care: No Living arrangements: with family Occupation/Education: retired Gender identity (if verbalized by the patient): Male Sexual Orientation (if Verbalized by the Patient): Straight or Heterosexual Spiritual care concerns: No Exam 2 Narrative: GENERAL: Well-appearing, well-nourished, and in no acute distress. HEAD: Normocephalic, atraumatic. EYES: PERRLA and EOMI. ENT: Nares clear, no rhinorrhea or epistaxis. Mucous membranes moist. NECK: Supple. CHEST: Clear to auscultation. No respiratory distress. HEART: Regular rate and rhythm. No murmur heard. Normal peripheral pulses. ABDOMEN: Soft, diffuse tenderness to palpation, nondistended, normal active bowel sounds. EXTREMITIES: Normal range of motion. No edema. SKIN: Warm, dry, no rash. NEURO: No focal deficits. Alert and oriented x3. PSYCH: Normal mood and affect. Course Vital Signs Vital signs: Vital Signs Temperature 36.4 C 05/22/24 19:52 Pulse Rate 68 05/22/24 19:52 Respiratory Rate 18 05/22/24 19:52 Blood Pressure 143/71 H 05/22/24 19:52 Pulse Oximetry 98 05/22/24 19:52 Oxygen Delivery Room Air 05/22/24 19:52 Temperature 36.7 C 05/22/24 20:23 Pulse Rate 65 05/22/24 20:23 Respiratory Rate 16 05/22/24 20:23 Blood Pressure 168/91 H 05/22/24 20:23 Pulse Oximetry 98 05/22/24 20:23 Oxygen Delivery Room Air 05/22/24 19:52 Medical Decision Making MDM Narrative Medical decision making narrative: Differential diagnosis includes pancreatitis, intra-abdominal infection, bowel obstruction, ACS EKG showed no acute ischemic changes Laboratory studies showed a CBC with white count of 14.2 electrolytes were within normal limits lactate was 3.9 lipase was greater than 40,000 urinalysis showed no evidence UTI CT scan of the abdomen pelvis showed evidence of acute pancreatitis without evidence of fluid collection Vital Signs Vital Signs: Vital Signs Temperature 36.4 C 05/22/24 19:52 Pulse Rate 68 05/22/24 19:52 Respiratory Rate 18 05/22/24 19:52 Blood Pressure 143/71 H 05/22/24 19:52 Pulse Oximetry 98 05/22/24 19:52 Oxygen Delivery Room Air 05/22/24 19:52 Temperature 36.7 C 05/22/24 20:23 Pulse Rate 65 05/22/24 20:23 Respiratory Rate 16 05/22/24 20:23 Blood Pressure 168/91 H 05/22/24 20:23 Pulse Oximetry 98 05/22/24 20:23 Oxygen Delivery Room Air 05/22/24 19:52 Lab Data 05/22/24 20:19 05/22/24 20:19 Labs: Lab Results 05/22/24 05/22/24 05/22/24 Range/Units 20:19 20:19 20:34 WBC 14.2 H (4.5-10.0) K/mm3 RBC 4.69 (4.6-6.20) M/mm3 Hgb 15.5 D (14.0-18.0) g/dL Hct 42.6 (42.0-52.0) % MCV 90.8 (80-100) fl MCH 33.0 (26-34) pg MCHC 36.4 H (32-36) g/dl RDW 12.3 (11.5-14.5) % Plt Count 268 (150-375) k/mm3 MPV 9.2 (7.4-10.4) fl Immature Gran % (Auto) 0.4 (0-0.5) % Neut % (Auto) 66.9 (45.5-73.1) % Lymph % (Auto) 22.6 (18.3-44.2) % [place] % (Auto) 8.9 H (2.6-8.5) % Eos % (Auto) 0.7 (0-4.4) % Baso % (Auto) 0.5 (0.2-1.2) % Lymph # (Auto) 3.22 H (0.9-3.2) K/mm3 [place] # (Auto) 1.3 H (0.1-0.6) K/mm3 Eos # (Auto) 0.1 (0-0.3) K/mm3 Baso # (Auto) 0.1 (0.0-0.1) K/mm3 Abs Immat Gran (auto) 0.05 H (0.00-0.031) K/mm3 Absolute Neuts (auto) 9.5 H (1.3-6.7) K/mm3 Absolute Nucleated RBC 0.000 (0.0-0.012) K/mm3 Nucleated RBC % 0.0 (0.0-0.2) % PT 14.5 (11.1-14.7) Seconds INR 1.1 APTT 22.7 (22.3-36.8) Seconds Sodium 134 L (137-145) mmol/L Potassium 3.9 (3.4-5.0) mmol/L Chloride 108 H (98-107) mmol/L Carbon Dioxide 17 L (22-30) mmol/L Anion Gap 9 (4-12) mmol/L BUN 23 H D (9-20) mg/dL Creatinine 0.90 (0.7-1.3) mg/dL Estim Creat Clear Calc 66 ml/min Estimated GFR > 60 (59 - ) Glucose 125 H (65-110) mg/dL Lactic Acid (0.7-2.0) mmol/L Calcium 9.5 (8.4-10.2) mg/dL Total Bilirubin 1.1 (0.2-1.3) mg/dL AST 32 (17-59) U/L ALT 25 (6-50) U/L Alkaline Phosphatase 74 (38-126) U/L Troponin I < 0.012 Cancelled (0.000-0.034) ng/mL Total Protein 7.0 (6.3-8.2) g/dL Albumin 4.1 (3.5-5.1) g/dL Lipase > 31939 H (23-300) U/L Urine Color Yellow (Yellow) Urine Appearance Clear (Clear) Urine pH 7.0 (5.0-9.0) Ur Specific [place] 1.024 (1.001-1.035) Urine Protein 1+ H (Negative) mg/dL Urine Glucose (UA) Negative (Negative) mg/dL Urine Ketones Negative (Negative) mg/dL Ur Blood (Man) Negative (Negative) Urine Nitrate Negative (Negative) Urine Bilirubin Negative (Negative) Urine Urobilinogen 1.0 (<2.0) mg/dL Add Ur Microanalysis Reviewed Leukocyte Esterase Rfl Negative (Negative) PEPPER/UL Urine RBC 0-2 (0-2) /hpf Urine WBC 0-5 (0-3) /hpf Ur Squamous Epith Cells None seen (Few) /hpf Urine Bacteria None seen /hpf Urine Casts 0-2 05/22/24 Range/Units 21:00 WBC (4.5-10.0) K/mm3 RBC (4.6-6.20) M/mm3 Hgb (14.0-18.0) g/dL Hct (42.0-52.0) % MCV (80-100) fl MCH (26-34) pg MCHC (32-36) g/dl RDW (11.5-14.5) % Plt Count (150-375) k/mm3 MPV (7.4-10.4) fl Immature Gran % (Auto) (0-0.5) % Neut % (Auto) (45.5-73.1) % Lymph % (Auto) (18.3-44.2) % [place] % (Auto) (2.6-8.5) % Eos % (Auto) (0-4.4) % Baso % (Auto) (0.2-1.2) % Lymph # (Auto) (0.9-3.2) K/mm3 [place] # (Auto) (0.1-0.6) K/mm3 Eos # (Auto) (0-0.3) K/mm3 Baso # (Auto) (0.0-0.1) K/mm3 Abs Immat Gran (auto) (0.00-0.031) K/mm3 Absolute Neuts (auto) (1.3-6.7) K/mm3 Absolute Nucleated RBC (0.0-0.012) K/mm3 Nucleated RBC % (0.0-0.2) % PT (11.1-14.7) Seconds INR APTT (22.3-36.8) Seconds Sodium (137-145) mmol/L Potassium (3.4-5.0) mmol/L Chloride (98-107) mmol/L Carbon Dioxide (22-30) mmol/L Anion Gap (4-12) mmol/L BUN (9-20) mg/dL Creatinine (0.7-1.3) mg/dL Estim Creat Clear Calc ml/min Estimated GFR (59 - ) Glucose (65-110) mg/dL Lactic Acid 3.9 H (0.7-2.0) mmol/L Calcium (8.4-10.2) mg/dL Total Bilirubin (0.2-1.3) mg/dL AST (17-59) U/L ALT (6-50) U/L Alkaline Phosphatase (38-126) U/L Troponin I (0.000-0.034) ng/mL Total Protein (6.3-8.2) g/dL Albumin (3.5-5.1) g/dL Lipase (23-300) U/L Urine Color (Yellow) Urine Appearance (Clear) Urine pH (5.0-9.0) Ur Specific [place] (1.001-1.035) Urine Protein (Negative) mg/dL Urine Glucose (UA) (Negative) mg/dL Urine Ketones (Negative) mg/dL Ur Blood (Man) (Negative) Urine Nitrate (Negative) Urine Bilirubin (Negative) Urine Urobilinogen (<2.0) mg/dL Add Ur Microanalysis Leukocyte Esterase Rfl (Negative) PEPPER/UL Urine RBC (0-2) /hpf Urine WBC (0-3) /hpf Ur Squamous Epith Cells (Few) /hpf Urine Bacteria /hpf Urine Casts Discharge Plan Discharge Clinical Impression: Acute pancreatitis Patient Disposition: Still a Patient Condition: Stable Instructions: Antibiotic Form Patient Language: Danish Prescriptions: No Action Gemtesa 75 mg tablet 75 mg PO DAILY fluoxetine 40 mg capsule 40 mg PO DAILY Qty: 90 1RF atorvastatin 20 mg tablet 20 mg PO HS Qty: 90 1RF tamsulosin 0.4 mg capsule See Rx Instructions .ROUTE .COMPLEX Qty: 90 2RF Dose Instruction: 0.4 MG ORALLY EVERY DAY AT BEDTIME Rx Instructions: 0.4 MG ORALLY EVERY DAY AT BEDTIME Follow-up/Referrals: Moraima Marshall MD [Primary Care Provider] - Time of Disposition: 22:23
[2024-05-22 22:31] VITALS: BP 149/81; PULSE 72; RESP 20; TEMP 36.4; O2SAT 96
[2024-05-22] MEDS: SODIUM CHLORIDE 0.9% IV 1,000 ML 150 ML IV CONT (22:47)
--- NOTE | 2024-05-22 23:24 | ADMGEN ---
This patient, Isac Faria, was admitted to 3 [facility] Surg Room 316-01. Patient/family oriented to hospital policies and general routines including ID bracelet, bed and alarms, visiting hours, pain management, procedures, bathroom and other care routines, personal items, smoking policy, room service/diet, and visiting hours. Information on how to activate the Rapid Response Team has been discussed. Patient/Family are encouraged to report perceived risks to care and to ask questions if they do not understand what they are told or what they should do.
[2024-05-22 23:30] VITALS: BP 159/83; PULSE 70; RESP 18; TEMP 36.5; O2SAT 94
[2024-05-22 23:33] VITALS: BMI 30.8
[2024-05-22 23:37] LABS: Troponin I < 0.012 ng/mL (0.000-0.034)
[2024-05-22 23:43] VITALS: PULSE 72; RESP 20; O2SAT 96
--- NOTE | 2024-05-23 | ECG_ITS ---
Test Date: 2024-05-23 00:00:28 Measurements Intervals Thompson Rate: 75 P: 46 CT: 195 QRS: -30 QRSD: 82 T: -1 QT: 407 QTc: 455 Interpretive Statements SINUS RHYTHM WITH OCCASIONAL SUPRAVENTRICULAR PREMATURE COMPLEXES BORDERLINE LEFT AXIS DEVIATION [QRS AXIS < -20] NONSPECIFIC T-WAVE ABNORMALITY WARNING: DATA QUALITY MAY AFFECT INTERPRETATION Compared to ECG 05/22/2024 20:11:41 T-wave abnormality now present Ventricular premature complex(es) no longer present Prolonged QT interval no longer present Electronically Signed On 05-23-2024 18:19:43 INSURANCE CASE MANAGER by Cecilia Nelson M.D.
[2024-05-23 00:04] LABS: Reflex Lactic Acid Yes or No Add Lactic
[2024-05-23] MEDS: ONDANSETRON INJ 4 MG/2 ML VIAL IV PUSH ×4 (01:05→17:55)
[2024-05-23] MEDS: HYDROmorphone HCL INJ (*CRX) 1 MG/ML SYR 0.5 MG IV PUSH (01:13)
--- NOTE | 2024-05-23 01:20 | PM.IMHP ---
H&P: HPI History of Present Illness Date/Time: 05/23/24 01:20 Chief Complaint: Abdominal pain. Narrative: This is a very pleasant 74-year-old male with benign prostatic hyperplasia, hyperlipidemia, and anxiety who presented to the emergency department via private vehicle for evaluation of abdominal pain. The patient provides the following history. He was in his usual state of health when he got up yesterday morning. At about 18:00 he developed sudden onset sharp and stabbing upper abdominal pain radiating through to the back associated with nausea, vomiting, and sweats. The symptoms are somewhat similar to when he had acute cholecystitis with cholelithiasis in July 2023 for which he underwent laparoscopic cholecystectomy. He denies fever, cold and flu symptoms, chest pain, pleuritic pain, shortness of breath, hematemesis, diarrhea, melena, and hematochezia. In the ED: He was afebrile on arrival with stable vital signs. Labs were significant for a WBC count of 14.2, hemoglobin 15.5, sodium 134, carbon dioxide 17, BUN 23, creatinine 0.90, lactic acid 3.9, total bilirubin 1.1, AST 32, ALT 25, alkaline phosphatase 74, lipase greater than 40,000. CT of the abdomen and pelvis showed acute interstitial pancreatitis with no reports of ductal dilatation. He was started on IV fluids and received antiemetics and analgesics and he is being admitted in this setting for further treatment. He has never had pancreatitis. He drinks at the most 1 alcoholic beverage a day. No known history of hypertriglyceridemia or family history of pancreatitis. Review of Systems Review of Systems: 12 systems were reviewed and are negative except for as per HPI. [facility] Past Medical History Medical History (Updated 05/23/24 @ 02:59 by Darling Stafford PA-C) Depression Generalized anxiety disorder Meningioma Attention deficit disorder (ADD) in adult Restless legs syndrome Mixed hyperlipidemia Surgical History Surgical History (Updated 05/23/24 @ 02:57 by Darling Stafford PA-C) History of laparoscopic cholecystectomy (07/2023) Status post urethral surgery Stricture History of detached retina repair RT eye Family History Family History Mother Cerebrovascular accident, Onset Age: 69 Hypertension Family history of elevated blood lipids Father Cerebrovascular accident, Onset Age: 70 Hypertension Family history of elevated blood lipids Acute myocardial infarction, Onset Age: 40 Social History Social History (Updated 05/23/24 @ 02:58 by Darling Stafford PA-C) Social History: Surrogate medical decision maker: Delaney Faria, spouse. Code status: Full code. Smoking status: Former smoker Second hand tobacco smoke exposure: No Alcohol intake: current Drinks per week: 7 Alcohol use details: One alcoholic beverage a night at the most Substance use: never Last use: LAST WEEK Do You Feel Safe in your Home?: Yes Lack of Transportation: No Lack of Food: Never True Current Housing: I Have Housing Concerned About Future Housing: No Difficulty Paying Gas/Electric Bills: No Difficulty Paying for Meds: No Currently Unemployed: No Education: Master's Degree or Higher Difficulty w/ Childcare or Family Care: No Living arrangements: with family Occupation/Education: retired Spiritual care concerns: No Meds Home Medications and Allergies Home Medications ?Medication ?Instructions ?Recorded ?Confirmed ?Type vibegron 75 mg tablet (Gemtesa) 75 mg PO DAILY 07/25/23 05/22/24 History fluoxetine 40 mg capsule 40 mg PO DAILY #90 caps 02/02/24 05/22/24 Rx atorvastatin 20 mg tablet 20 mg PO HS #90 tabs 02/15/24 05/22/24 Rx tamsulosin 0.4 mg capsule See Rx Instructions .Route 02/17/24 05/22/24 Rx .COMPLEX #90 caps Allergies Allergy/AdvReac Type Severity Reaction Status Date / Time No Known Allergies Allergy Verified 05/22/24 19:51 Vital Signs Vital Signs - 24 hr 05/22/24 19:52 05/22/24 20:23 05/22/24 22:31 Temperature 97.6 F 98.1 F 97.6 F Pulse Rate 68 65 72 Respiratory Rate 18 16 20 Blood Pressure 143/71 H 168/91 H 149/81 H Pulse Oximetry 98 98 96 Oxygen Delivery Room Air 05/22/24 23:43 Temperature Pulse Rate 72 Respiratory Rate 20 Blood Pressure Pulse Oximetry 96 Oxygen Delivery Room Air Exam Narrative: General: Mildly ill-appearing male in the semi-Tubbs position in moderate distress due to pain. Weight: 86.7 kg. BMI: 30.9. HEENT: PERRL, EOMI. Sclera anicteric. Tacky mucous membranes. Neck: Supple. Respiratory: Lungs are clear to auscultation bilaterally. Cardiovascular: Regular rate and rhythm with S1-S2. Gastrointestinal: Abdomen is soft and slightly distended with hypoactive bowel sounds. He is tender to palpation throughout the abdomen but more so in the upper left quadrant. No guarding or rebound tenderness. Skin: Warm and dry. Extremities: No cyanosis, clubbing, or edema. Radial and pedal pulses intact. Neurological: Alert. Cranial nerves 2-12 are grossly intact. No gross focal deficits to casual conversation. Psychiatric: Pleasant and cooperative with normal mood and affect. Judgment and insight intact. H&P: Results Labs Labs: Short CBC 05/22/24 Range/Units 20:19 WBC 14.2 H (4.5-10.0) K/mm3 Hgb 15.5 D (14.0-18.0) g/dL Hct 42.6 (42.0-52.0) % Plt Count 268 (150-375) k/mm3 BMP 05/22/24 20:19 Sodium 134 L Potassium 3.9 Chloride 108 H Carbon Dioxide 17 L BUN 23 H D Creatinine 0.90 Glucose 125 H Calcium 9.5 Cardiac Enzymes 05/22/24 05/22/24 05/22/24 Range/Units 20:19 20:19 23:10 Troponin I < 0.012 Cancelled < 0.012 (0.000-0.034) ng/mL Liver Function 05/22/24 Range/Units 20:19 Total Bilirubin 1.1 (0.2-1.3) mg/dL AST 32 (17-59) U/L ALT 25 (6-50) U/L Alkaline Phosphatase 74 (38-126) U/L Albumin 4.1 (3.5-5.1) g/dL Urine 05/22/24 Range/Units 20:34 Urine Color Yellow (Yellow) Urine Appearance Clear (Clear) Urine pH 7.0 (5.0-9.0) Ur Specific [place] 1.024 (1.001-1.035) Urine Protein 1+ H (Negative) mg/dL Urine Glucose (UA) Negative (Negative) mg/dL Assessment and Plan Assessment and plan (1) Acute pancreatitis: Code(s): K85.90 - Acute pancreatitis without necrosis or infection, unspecified Status: Acute (2) Benign prostatic hyperplasia: Code(s): N40.0 - Benign prostatic hyperplasia without lower urinary tract symptoms Status: Acute (3) Hyperlipidemia: Code(s): E78.5 - Hyperlipidemia, unspecified Status: Acute Plan The patient presented to the emergency department for evaluation of rather acute onset upper abdominal pain as detailed in HPI. Labs, imaging, EKG, and all reports were personally reviewed. CT scan showed acute interstitial pancreatitis with no reports of ductal dilatation or choledocholithiasis. Moreover his LFTs are within normal limits. Etiology of the pancreatitis is not entirely clear. He drinks perhaps 1 alcoholic beverage a day and has not imbibed more than usual this holiday season. Check triglyceride levels and repeat LFTs in a.m.. Continue bowel rest and aggressive IV fluid rehydration. Analgesics and antiemetics are available as needed. Vital signs were stable. His home medications will be reviewed and resumed as appropriate. Findings and treatment plan were discussed with the patient. Questions were solicited and answered to satisfaction. The patient's medical management will be taken over by the hospitalist team in a.m. Quality VTE Prophylaxis VTE prophylaxis: pharmacologic ordered The patient has been admitted under observation status. Hospitalist [facility] Advance Care Plan I have confirmed that the patient's Advanced Care Plan is present, code status is documented, or surrogate decision maker is listed in patient medical record.: Yes Medication Reconciliation The patient is not eligible for med reconciliation; the patient is in a emergent medical situation where delaying treatment would jeopardize the patients health.: Yes
[2024-05-23 02:19] LABS: Hematocrit 41.7 % (42.0-52.0); Hemoglobin 14.3 g/dL (14.0-18.0); Mean Corpuscular HGB Conc 34.3 g/dl (32-36); Mean Corpuscular Hemoglobin 32.6 pg (26-34); Mean Platelet Volume 9.2 fl (7.4-10.4); Platelet Count Result 223 k/mm3 (150-375); Red Blood Count 4.39 M/mm3 (4.6-6.20); Red Cell Distribution Width 12.4 % (11.5-14.5); White Blood Count 16.7 K/mm3 (4.5-10.0)
[2024-05-23 02:31] LABS: Lactic Acid 1.2 mmol/L (0.7-2.0)
[2024-05-23 02:35] LABS: Triglycerides 42 mg/dL (<150)
[2024-05-23 02:37] LABS: Alanine Aminotransferase 23 U/L (6-50); Albumin Level 3.6 g/dL (3.5-5.1); Alkaline Phosphatase 73 U/L (38-126); Anion Gap 4 mmol/L (4-12); Aspartate Amino Transferase 27 U/L (17-59); Bilirubin,Total 0.9 mg/dL (0.2-1.3); Blood Urea Nitrogen 19 mg/dL (9-20); Calcium 8.4 mg/dL (8.4-10.2); Carbon Dioxide 20 mmol/L (22-30); Chloride 110 mmol/L (98-107); Estimated CRCL calculation 74 ml/min; Estimated Glomerular Filt Rate > 60; Glucose 154 mg/dL (65-110); Potassium 4.4 mmol/L (3.4-5.0); Sodium 134 mmol/L (137-145)
[2024-05-23 02:44] LABS: Troponin I < 0.012 ng/mL (0.000-0.034)
[2024-05-23 02:48] LABS: Band Neutrophils Percent 4 % (0-6); Lymphocytes Absolute Manual 0.16 K/mm3 (1.1-4.5); Monocytes Absolute Manual 0.33 K/mm3 (0.1-0.90); Monocytes Percent Manual 2 % (3-9); Neutrophils Absolute Manual 16.19 K/mm3 (1.3-6.7); Neutrophils Percent Manual 93 % (46-73); Platelet Estimate Adequate (Adequate); Total Cells Counted 100
[2024-05-23 02:50] LABS: Schistocytes None Seen; Smudge Cells PRESENT
[2024-05-23 03:17] LABS: Lipase 16051 U/L (23-300)
[2024-05-23] MEDS: LACTATED RINGERS 1,000 ML 150 ML IV CONT ×4 (03:35→23:29)
[2024-05-23] MEDS: HYDROmorphone HCL INJ (*CRX) 1 MG/ML SYR IV PUSH ×7 (04:06→23:43)
[2024-05-23 05:56] VITALS: BP 163/79; PULSE 78; RESP 16; TEMP 36.4; O2SAT 93
[2024-05-23] MEDS: ENOXAPARIN 40 MG/0.4 ML SYRINGE SUB-Q (08:47)
[2024-05-23] MEDS: PANTOPRAZOLE SODIUM IV 40 MG VIAL IV PUSH (08:47)
--- NOTE | 2024-05-23 09:00 | P.PNIM_ITS ---
Progress Note: A&P Assessment and Plan (1) Acute pancreatitis: Code(s): K85.90 - Acute pancreatitis without necrosis or infection, unspecified Status: Acute Assessment and Plan: Patient developed sudden onset sharp and stabbing upper abdominal pain radiating through to the back associated with nausea, vomiting, and sweats. - s/p laparoscopic cholecystectomy in July 2023 - etiology: unclear. Drinks 1 alcoholic beverage a day and has not endulged in more than usual this holiday season. - Lipase > 40,000 on admission, [id number] on am labs - LFTs WNL - CT abdomen/pevis: Findings consistent with acute pancreatitis without gross perforation or drainable fluid collection. - Bowel rest - IV fluid rehydration: LR 150 ml/hr - Analgesics - Antiemetics (2) Benign prostatic hyperplasia: Code(s): N40.0 - Benign prostatic hyperplasia without lower urinary tract symptoms Status: Acute Assessment and Plan: Chronic, continue flomax. (3) Hyperlipidemia: Code(s): E78.5 - Hyperlipidemia, unspecified Status: Acute Assessment and Plan: Chronic, continue atorvastatin 20 mg daily. Time Spent With Patient Time with patient: 25 - 35 minutes Subjective Date/time seen: 05/23/24 09:00 Interval history: 74-year-old male with benign prostatic hyperplasia, hyperlipidemia, and anxiety who presented to the emergency department via private vehicle for evaluation of abdominal pain. Patient is pleasant lying comfortably in bed. He continues to endorse epigastric pain and some LLQ pain with associated vomiting. He reports vomiting 3x this m orning. Denies hematemesis. He has no other complaints denying chest pain, shortness of breath, and palpitations. Review of Systems Review of Systems: All systems reviewed & are unremarkable except as noted in HPI and below Exam Narrative: AF HR 84 RR 18 SpO2 92 BP 158/82 General: male in no acute respiratory distress who is nontoxic appearing, lying semi recumbent in bed. HEENT: Normocephalic. Atraumatic. Extraocular movement intact. Sclera clear and anicteric. No facial asymmetry. Neck: Neck was supple. No dominant adenopathy, thyromegaly or masses. 2+ carotid upstrokes without bruits. Chest: Lungs are clear to auscultation bilaterally. No wheezes or crackles. CV: Heart was regular rate and rhythm. S1/S2. No murmurs, gallops, or rubs. Abd: Abdomen was soft. Epigastric tenderness and LLQ. Nondistended. Positive bowel sounds. No organomegaly or masses. Ext: No clubbing, cyanosis, or edema. 2+ DP pulses bilaterally. Neuro: Patient is alert and oriented x4. Speech is clear. Objective Data Vital Signs Vital Signs: Vital Signs - 24 hr 05/22/24 19:52 05/22/24 20:23 05/22/24 22:31 Temperature 97.6 F 98.1 F 97.6 F Pulse Rate 68 65 72 Respiratory Rate 18 16 20 Blood Pressure 143/71 H 168/91 H 149/81 H Pulse Oximetry 98 98 96 Oxygen Delivery Room Air 05/22/24 23:30 05/22/24 23:43 05/23/24 05:56 Temperature 97.7 F 97.6 F Pulse Rate 70 72 78 Respiratory Rate 18 20 16 Blood Pressure 159/83 H 163/79 H Pulse Oximetry 94 96 93 Oxygen Delivery Room Air Intake/Output Intake/Output: Intake & Output 05/20/24 05/21/24 05/22/24 05/23/24 23:59 23:59 23:59 23:59 Intake Total 1000 0 Output Total 300 Balance 1000 -300 Meds/Results Medications: Active Medications Generic Name Dose Route Start Last Admin Trade Name Freq PRN Reason Stop Dose Admin Enoxaparin Sodium 40 mg 05/23/24 09:00 05/23/24 08:47 Enoxaparin 40 Mg/0.4 Ml Syringe SUB-Q 40 mg DAILY SIMRAN Administration Hydromorphone HCl 0.5 mg 05/23/24 01:21 Hydromorphone Hcl Inj (*Crx) 1 Mg/Ml Syr IV PUSH Q3H PRN Pain Rated 4-6 Hydromorphone HCl 1 mg 05/23/24 03:02 05/23/24 07:33 Hydromorphone Hcl Inj (*Crx) 1 Mg/Ml Syr IV PUSH 1 mg Q3H PRN Administration Pain Rated 7-10 Lactated Ringer's 1,000 mls @ 150 mls/hr 05/23/24 03:05 05/23/24 03:35 Lr - Lactated Ringers Iv IV CONT 150 mls/hr .[id number] SIMRAN Administration Ondansetron HCl 4 mg 05/22/24 22:32 05/23/24 07:33 Ondansetron Inj 4 Mg/2 Ml Vial IV PUSH 4 mg Q4H PRN Administration Nausea Pantoprazole Sodium 40 mg 05/23/24 09:00 05/23/24 08:47 Pantoprazole Sodium Iv 40 Mg Vial IV PUSH 40 mg QAM SIMRAN Administration Radiology Results: ITS Impressions Chest X-Ray 05/22/24 20:36 IMPRESSION: No focal infiltrate or effusion. Abdomen/Pelvis CT 05/22/24 21:39 IMPRESSION: Findings consistent with acute pancreatitis without gross perforation or drainable fluid collection. Labs Labs: Laboratory Results - last 24 hr 05/22/24 05/22/24 05/22/24 20:19 20:19 20:34 WBC 14.2 H RBC 4.69 Hgb 15.5 D Hct 42.6 MCV 90.8 MCH 33.0 MCHC 36.4 H RDW 12.3 Plt Count 268 MPV 9.2 Immature Gran % (Auto) 0.4 Neut % (Auto) 66.9 Lymph % (Auto) 22.6 [place] % (Auto) 8.9 H Eos % (Auto) 0.7 Baso % (Auto) 0.5 Lymph # (Auto) 3.22 H [place] # (Auto) 1.3 H Eos # (Auto) 0.1 Baso # (Auto) 0.1 Abs Immat Gran (auto) 0.05 H Absolute Neuts (auto) 9.5 H Absolute Nucleated RBC 0.000 Total Counted Neutrophils % (Manual) Band Neutrophils % Lymphocytes % (Manual) Monocytes % (Manual) Nucleated RBC % 0.0 Abs Neuts (Manual) Abs Lymphs (Manual) Abs Monocytes (Manual) Smudge Cells Platelet Estimate Schistocytes PT 14.5 INR 1.1 APTT 22.7 Sodium 134 L Potassium 3.9 Chloride 108 H Carbon Dioxide 17 L Anion Gap 9 BUN 23 H D Creatinine 0.90 Estim Creat Clear Calc 66 Estimated GFR > 60 Glucose 125 H Lactic Acid Calcium 9.5 Total Bilirubin 1.1 AST 32 ALT 25 Alkaline Phosphatase 74 Troponin I < 0.012 Cancelled Total Protein 7.0 Albumin 4.1 Triglycerides Lipase > 94729 H Urine Color Yellow Urine Appearance Clear Urine pH 7.0 Ur Specific [place] 1.024 Urine Protein 1+ H Urine Glucose (UA) Negative Urine Ketones Negative Ur Blood (Man) Negative Urine Nitrate Negative Urine Bilirubin Negative Urine Urobilinogen 1.0 Add Ur Microanalysis Reviewed Leukocyte Esterase Rfl Negative Urine RBC 0-2 Urine WBC 0-5 Ur Squamous Epith Cells None seen Urine Bacteria None seen Urine Casts 0-2 05/22/24 05/22/24 05/23/24 21:00 23:10 02:14 WBC 16.7 H RBC 4.39 L Hgb 14.3 Hct 41.7 L MCV 95.0 MCH 32.6 MCHC 34.3 RDW 12.4 Plt Count 223 MPV 9.2 Immature Gran % (Auto) Not Reportable Neut % (Auto) Not Reportable Lymph % (Auto) Not Reportable [place] % (Auto) Not Reportable Eos % (Auto) Not Reportable Baso % (Auto) Not Reportable Lymph # (Auto) Not Reportable [place] # (Auto) Not Reportable Eos # (Auto) Not Reportable Baso # (Auto) Not Reportable Abs Immat Gran (auto) Not Reportable Absolute Neuts (auto) Not Reportable Absolute Nucleated RBC Not Reportable Total Counted 100 Neutrophils % (Manual) 93 H Band Neutrophils % 4 Lymphocytes % (Manual) 1.0 L Monocytes % (Manual) 2 L Nucleated RBC % Not Reportable Abs Neuts (Manual) 16.19 H Abs Lymphs (Manual) 0.16 L Abs Monocytes (Manual) 0.33 Smudge Cells Present Platelet Estimate Adequate Schistocytes None seen PT INR APTT Sodium 134 L Potassium 4.4 Chloride 110 H Carbon Dioxide 20 L Anion Gap 4 BUN 19 Creatinine 0.80 Estim Creat Clear Calc 74 Estimated GFR > 60 Glucose 154 H Lactic Acid 3.9 H 1.2 Calcium 8.4 Total Bilirubin 0.9 AST 27 ALT 23 Alkaline Phosphatase 73 Troponin I < 0.012 < 0.012 Total Protein 6.0 L Albumin 3.6 Triglycerides 42 Lipase 55317 H Urine Color Urine Appearance Urine pH Ur Specific [place] Urine Protein Urine Glucose (UA) Urine Ketones Ur Blood (Man) Urine Nitrate Urine Bilirubin Urine Urobilinogen Add Ur Microanalysis Leukocyte Esterase Rfl Urine RBC Urine WBC Ur Squamous Epith Cells Urine Bacteria Urine Casts Quality VTE Prophylaxis VTE prophylaxis: pharmacologic ordered
[2024-05-23 14:00] VITALS: BP 158/82; PULSE 84; RESP 18; TEMP 36.6; O2SAT 92
[2024-05-23 20:20] VITALS: PULSE 84; RESP 18; O2SAT 92
[2024-05-23] MEDS: ATORVASTATIN 20 MG TABLET PO (20:32)
[2024-05-23] MEDS: TAMSULOSIN HCL 0.4 MG CAPSULE BY MOUTH (20:33)
[2024-05-23 20:45] VITALS: BP 134/76; PULSE 86; RESP 18; TEMP 37.2; O2SAT 90
[2024-05-24 04:12] VITALS: BP 163/78; PULSE 94; RESP 16; TEMP 36.3; O2SAT 90
[2024-05-24] MEDS: HYDROmorphone HCL INJ (*CRX) 1 MG/ML SYR IV PUSH ×6 (05:14→23:59)
[2024-05-24] MEDS: LACTATED RINGERS 1,000 ML 150 ML IV CONT ×2 (06:11→12:54)
--- NOTE | 2024-05-24 08:36 | PM.IMPN ---
Progress Note: A&P Assessment and Plan (1) Acute pancreatitis: Code(s): K85.90 - Acute pancreatitis without necrosis or infection, unspecified Status: Acute Assessment and Plan: Patient developed sudden onset sharp and stabbing upper abdominal pain radiating through to the back associated with nausea, vomiting, and sweats. - s/p laparoscopic cholecystectomy in July 2023 - etiology: unclear. Drinks 1 alcoholic beverage a day and has not indulged in more than usual this holiday season. - Lipase > 40,000 on admission, 2702 on am labs - LFTs WNL - CT abdomen/pevis: Findings consistent with acute pancreatitis without gross perforation or drainable fluid collection. - Diet: Clear liquid - IV fluid rehydration: LR 150 ml/hr - Analgesics - Antiemetics (2) Benign prostatic hyperplasia: Code(s): N40.0 - Benign prostatic hyperplasia without lower urinary tract symptoms Status: Acute Assessment and Plan: Chronic, continue flomax. (3) Hyperlipidemia: Code(s): E78.5 - Hyperlipidemia, unspecified Status: Acute Assessment and Plan: Chronic, continue atorvastatin 20 mg daily. Time Spent With Patient Time with patient: 25 - 35 minutes Subjective Date/time seen: 05/24/24 08:36 Interval history: 74-year-old male with benign prostatic hyperplasia, hyperlipidemia, and anxiety who presented to the emergency department via private vehicle for evaluation of abdominal pain. Patient is pleasant lying in bed. He continues to endorse abdominal pain but has not had any more episodes of vomiting today. He notes that he has not had a bowel movement in some time. KUB ordered. Patient will be started on clear liquid diet today. He has no other complaints denying chest pain, shortness of breath, palpations. Review of Systems Review of Systems: All systems reviewed & are unremarkable except as noted in HPI and below Exam Narrative: AF HR 88 RR 18 SpO2 90 BP 139/75 General: male in no acute respiratory distress who is nontoxic appearing, lying semi recumbent in bed. HEENT: Normocephalic. Atraumatic. Extraocular movement intact. Sclera clear and anicteric. No facial asymmetry. Neck: Neck was supple. No dominant adenopathy, thyromegaly or masses. 2+ carotid upstrokes without bruits. Chest: Lungs are clear to auscultation bilaterally. No wheezes or crackles. CV: Heart was regular rate and rhythm. S1/S2. No murmurs, gallops, or rubs. Abd: Abdomen was soft. Epigastric tenderness and LLQ. Nondistended. Positive bowel sounds. No organomegaly or masses. Neuro: Patient is alert and oriented x4. Speech is clear. Objective Data Vital Signs Vital Signs: Vital Signs - 24 hr 05/23/24 14:00 05/23/24 20:20 05/23/24 20:45 Temperature 97.8 F 98.9 F Pulse Rate 84 84 86 Respiratory Rate 18 18 18 Blood Pressure 158/82 H 134/76 Pulse Oximetry 92 92 90 Oxygen Delivery Room Air 05/24/24 04:12 Temperature 97.3 F L Pulse Rate 94 Respiratory Rate 16 Blood Pressure 163/78 H Pulse Oximetry 90 Oxygen Delivery Intake/Output Intake/Output: Intake & Output 05/21/24 05/22/24 05/23/24 05/24/24 23:59 23:59 23:59 23:59 Intake Total 1000 2837.5 1550 Output Total 1260 Balance 1000 1577.5 1550 Meds/Results Medications: Active Medications Generic Name Dose Route Start Last Admin Trade Name Freq PRN Reason Stop Dose Admin Atorvastatin Calcium 20 mg 05/23/24 21:00 05/23/24 20:32 Atorvastatin 20 Mg Tablet PO 20 mg HS SIMRAN Administration Enoxaparin Sodium 40 mg 05/23/24 09:00 05/23/24 08:47 Enoxaparin 40 Mg/0.4 Ml Syringe SUB-Q 40 mg DAILY SIMRAN Administration Fluoxetine HCl 40 mg 05/24/24 09:00 Fluoxetine Hcl 20 Mg Capsule PO DAILY SIMRAN Hydromorphone HCl 0.5 mg 05/23/24 01:21 Hydromorphone Hcl Inj (*Crx) 1 Mg/Ml Syr IV PUSH Q3H PRN Pain Rated 4-6 Hydromorphone HCl 1 mg 05/23/24 03:02 05/24/24 05:14 Hydromorphone Hcl Inj (*Crx) 1 Mg/Ml Syr IV PUSH 1 mg Q3H PRN Administration Pain Rated 7-10 Lactated Ringer's 1,000 mls @ 150 mls/hr 05/23/24 03:05 05/24/24 06:11 Lr - Lactated Ringers Iv IV CONT 150 mls/hr .Q6H40M SIMRAN Administration Miscellaneous Information 1 each 05/23/24 00:01 Gemtesa Is Nonformulary. Can Patient Use Home Supply? XX 06/22/24 00:00 CLARIFY SIMRAN Non-Formulary Medication 75 mg 05/24/24 09:00 Vibegron [Gemtesa] PO 06/23/24 08:59 DAILY SIMRAN Ondansetron HCl 4 mg 05/22/24 22:32 05/23/24 17:55 Ondansetron Inj 4 Mg/2 Ml Vial IV PUSH 4 mg Q4H PRN Administration Nausea Pantoprazole Sodium 40 mg 05/23/24 09:00 05/23/24 08:47 Pantoprazole Sodium Iv 40 Mg Vial IV PUSH 40 mg QAM SIMRAN Administration Tamsulosin HCl 0.4 mg 05/23/24 21:00 05/23/24 20:33 Tamsulosin Hcl 0.4 Mg Capsule BY MOUTH 0.4 mg HS SIMRAN Administration Radiology Results: ITS Impressions Chest X-Ray 05/22/24 20:36 IMPRESSION: No focal infiltrate or effusion. Abdomen/Pelvis CT 05/22/24 21:39 IMPRESSION: Findings consistent with acute pancreatitis without gross perforation or drainable fluid collection. Quality VTE Prophylaxis VTE prophylaxis: pharmacologic ordered
[2024-05-24] MEDS: PANTOPRAZOLE SODIUM IV 40 MG VIAL IV PUSH (08:56)
[2024-05-24] MEDS: FLUoxetine HCL 20 MG CAPSULE 40 MG PO (08:56)
[2024-05-24] MEDS: ENOXAPARIN 40 MG/0.4 ML SYRINGE SUB-Q (08:56)
[2024-05-24 09:04] LABS: Basophils Percent Auto 0.3 % (0.2-1.2); Eosinophils Percent Auto 0.1 % (0-4.4); Hematocrit 42.5 % (42.0-52.0); Hemoglobin 14.6 g/dL (14.0-18.0); Immature Granulocyte Absolute 0.06 K/mm3 (0.00-0.031); Immature Granulocyte Percent A 0.4 % (0-0.5); Lymphocytes Absolute Auto 0.58 K/mm3 (0.9-3.2); Lymphocytes Percent Auto 3.7 % (18.3-44.2); Mean Corpuscular HGB Conc 34.4 g/dl (32-36); Mean Corpuscular Hemoglobin 32.8 pg (26-34); Mean Corpuscular Volume 95.5 fl (80-100); Mean Platelet Volume 9.4 fl (7.4-10.4); Monocytes Absolute Auto 1.5 K/mm3 (0.1-0.6); Monocytes Percent Auto 9.6 % (2.6-8.5); Neutrophils Absolute Auto 13.6 K/mm3 (1.3-6.7); Neutrophils Percent Auto 85.9 % (45.5-73.1); Platelet Count Result 222 k/mm3 (150-375); Red Blood Count 4.45 M/mm3 (4.6-6.20); Red Cell Distribution Width 12.6 % (11.5-14.5); White Blood Count 15.8 K/mm3 (4.5-10.0)
[2024-05-24 09:27] LABS: Alanine Aminotransferase 19 U/L (6-50); Albumin Level 3.1 g/dL (3.5-5.1); Alkaline Phosphatase 55 U/L (38-126); Anion Gap 2 mmol/L (4-12); Aspartate Amino Transferase 27 U/L (17-59); Bilirubin,Total 1.6 mg/dL (0.2-1.3); Blood Urea Nitrogen 18 mg/dL (9-20); Calcium 8.3 mg/dL (8.4-10.2); Carbon Dioxide 23 mmol/L (22-30); Chloride 107 mmol/L (98-107); Estimated CRCL calculation 75 ml/min; Estimated Glomerular Filt Rate > 60; Glucose 98 mg/dL (65-110); Potassium 3.7 mmol/L (3.4-5.0); Sodium 132 mmol/L (137-145)
[2024-05-24 09:30] LABS: Lipase 2702 U/L (23-300)
[2024-05-24 10:02] VITALS: O2SAT 92
[2024-05-24] MEDS: ONDANSETRON INJ 4 MG/2 ML VIAL IV PUSH (12:17)
[2024-05-24 14:00] VITALS: BP 139/75; PULSE 88; RESP 18; TEMP 37.2; O2SAT 90
[2024-05-24 20:00] VITALS: PULSE 87; RESP 18; O2SAT 91
[2024-05-24] MEDS: TAMSULOSIN HCL 0.4 MG CAPSULE BY MOUTH (21:02)
[2024-05-24] MEDS: SENNA/DOCUSATE SODIUM TABLET 1 TAB PO (21:02)
[2024-05-24] MEDS: ATORVASTATIN 20 MG TABLET PO (21:02)
[2024-05-24 22:00] VITALS: BP 152/74; PULSE 87; RESP 18; TEMP 36.9; O2SAT 91
[2024-05-25] MEDS: HYDROmorphone HCL INJ (*CRX) 1 MG/ML SYR IV PUSH ×6 (03:02→21:19)
[2024-05-25] MEDS: LACTATED RINGERS 1,000 ML 125 ML IV CONT (04:27)
[2024-05-25 05:05] VITALS: BP 126/62; PULSE 91; RESP 16; TEMP 36.8; O2SAT 90
[2024-05-25 06:58] LABS: Hematocrit 35.9 % (42.0-52.0); Hemoglobin 12.3 g/dL (14.0-18.0); Mean Corpuscular HGB Conc 34.3 g/dl (32-36); Mean Corpuscular Hemoglobin 32.4 pg (26-34); Mean Corpuscular Volume 94.5 fl (80-100); Mean Platelet Volume 9.6 fl (7.4-10.4); Platelet Count Result 205 k/mm3 (150-375); Red Cell Distribution Width 12.5 % (11.5-14.5); White Blood Count 7.8 K/mm3 (4.5-10.0)
[2024-05-25 07:07] LABS: Alanine Aminotransferase 20 U/L (6-50); Albumin Level 2.7 g/dL (3.5-5.1); Alkaline Phosphatase 52 U/L (38-126); Anion Gap 0 mmol/L (4-12); Aspartate Amino Transferase 37 U/L (17-59); Bilirubin,Total 1.7 mg/dL (0.2-1.3); Blood Urea Nitrogen 24 mg/dL (9-20); Calcium 7.9 mg/dL (8.4-10.2); Carbon Dioxide 26 mmol/L (22-30); Chloride 105 mmol/L (98-107); Estimated CRCL calculation 68 ml/min; Estimated Glomerular Filt Rate > 60; Glucose 84 mg/dL (65-110); Potassium 3.2 mmol/L (3.4-5.0); Sodium 131 mmol/L (137-145)
[2024-05-25 07:30] LABS: Total Cells Counted 100
[2024-05-25 07:31] LABS: Atypical Lymphocytes Present; Band Neutrophils Percent 17 % (0-6); Lymphocytes Absolute Manual 1.24 K/mm3 (1.1-4.5); Lymphocytes Percent Manual 16 % (18-44); Monocytes Absolute Manual 0.15 K/mm3 (0.1-0.90); Monocytes Percent Manual 2 % (3-9); Neutrophils Absolute Manual 6.39 K/mm3 (1.3-6.7); Neutrophils Percent Manual 65 % (46-73); Platelet Estimate Adequate (Adequate); Schistocytes None Seen
[2024-05-25 09:13] LABS: Lipase 410 U/L (23-300)
[2024-05-25] MEDS: POTASSIUM CHLORIDE 20 MEQ ER TABLET 40 MEQ PO (09:42)
[2024-05-25] MEDS: FLUoxetine HCL 20 MG CAPSULE 40 MG PO (09:43)
[2024-05-25] MEDS: PANTOPRAZOLE SODIUM IV 40 MG VIAL IV PUSH (09:43)
[2024-05-25] MEDS: ENOXAPARIN 40 MG/0.4 ML SYRINGE SUB-Q (09:43)
[2024-05-25] MEDS: polyethylene glycoL 3350 17 GM POWD.PACK PO (09:43)
--- NOTE | 2024-05-25 09:50 | P.PNIM_ITS ---
Progress Note: A&P Assessment and Plan (1) Acute pancreatitis: Code(s): K85.90 - Acute pancreatitis without necrosis or infection, unspecified Status: Acute Assessment and Plan: Patient developed sudden onset sharp and stabbing upper abdominal pain radiating through to the back associated with nausea, vomiting, and sweats. - s/p laparoscopic cholecystectomy in July 2023 - etiology: unclear. Drinks 1 alcoholic beverage a day and has not indulged in more than usual this holiday season. - Lipase > 40,000 on admission>16,051> 2,702>410 - LFTs WNL - CT abdomen/pevis: Findings consistent with acute pancreatitis without gross perforation or drainable fluid collection. - Diet: Clear liquid - IV fluid rehydration: LR 100 ml/hr - Analgesics - Antiemetics (2) Pneumonia: Code(s): J18.9 - Pneumonia, unspecified organism Status: Acute Assessment and Plan: * Chest X-ray showed: Small left pleural effusion with left basilar atelectasis or pneumonia. * Started on Azithromycin 500 mg PO daily and Ceftriaxone 1 gm IVPB daily. (3) Constipation: Code(s): K59.00 - Constipation, unspecified Status: Acute Assessment and Plan: * Docusate 100 mg PO at bedtime. * KUB showed: Multiple mildly dilated gas-filled loops of small bowel in the abdomen and would favor ileus related to acute interstitial pancreatitis as seen on prior CT over obstruction. * Add Miralax 17 grams oral daily. * Encourage oral intake. (4) Hypokalemia: Code(s): E87.6 - Hypokalemia Status: Acute Assessment and Plan: * Potassium 3.2 * Potassium Chloride 40 meq PO x 1 given. * Monitor labs. (5) Benign prostatic hyperplasia: Code(s): N40.0 - Benign prostatic hyperplasia without lower urinary tract symptoms Status: Acute Assessment and Plan: * Chronic, continue flomax. (6) Hyperlipidemia: Code(s): E78.5 - Hyperlipidemia, unspecified Status: Acute Assessment and Plan: * Chronic, continue atorvastatin 20 mg daily. Subjective Date/time seen: 05/25/24 09:50 Interval history: Patient reports pain in left abdomen is a 9 , constant, and dull. Patient denies chest pain, palpitations, shortness of breath, nausea, or vomiting. Patient reports having episode of diarrhea yesterday. Review of Systems Review of Systems: All systems reviewed & are unremarkable except as noted in HPI and below Exam Const: General: no acute distress and uncomfortable Eyes: Sclera: sclerae normal Resp: Effort & Inspection: normal respiratory effort Auscultation: wheezes expiratory wheezes and diminished lung sounds Cardio: Rate: regular rate Rhythm: regular rhythm GI: Other: Abdomen semi firm with hypoactive bowel sounds. Epigastric tenderness and LLQ. Neuro: Speech: normal speech Extrem: General: no pedal edema Psych: Mental Status: mental status grossly normal Affect: normal affect Objective Data Vital Signs Vital Signs: Vital Signs - 24 hr 05/24/24 10:02 05/24/24 14:00 05/24/24 20:00 Temperature 98.9 F Pulse Rate 88 87 Respiratory Rate 18 18 Blood Pressure 139/75 Pulse Oximetry 92 90 91 Oxygen Delivery Room Air Room Air 05/24/24 22:00 05/25/24 05:05 Temperature 98.4 F 98.3 F Pulse Rate 87 91 Respiratory Rate 18 16 Blood Pressure 152/74 H 126/62 Pulse Oximetry 91 90 Oxygen Delivery Intake/Output Intake/Output: Intake & Output 05/22/24 05/23/24 05/24/24 05/25/24 23:59 23:59 23:59 23:59 Intake Total 1000 2837.5 3550 550 Output Total 1260 Balance 1000 1577.5 3550 550 Meds/Results Medications: Active Medications Generic Name Dose Route Start Last Admin Trade Name Freq PRN Reason Stop Dose Admin Atorvastatin Calcium 20 mg 05/23/24 21:00 05/24/24 21:02 Atorvastatin 20 Mg Tablet PO 20 mg HS SIMRAN Administration Enoxaparin Sodium 40 mg 05/23/24 09:00 05/25/24 09:43 Enoxaparin 40 Mg/0.4 Ml Syringe SUB-Q 40 mg DAILY SIMRAN Administration Fluoxetine HCl 40 mg 05/24/24 09:00 05/25/24 09:43 Fluoxetine Hcl 20 Mg Capsule PO 40 mg DAILY SIMRAN Administration Hydromorphone HCl 0.5 mg 05/23/24 01:21 Hydromorphone Hcl Inj (*Crx) 1 Mg/Ml Syr IV PUSH Q3H PRN Pain Rated 4-6 Hydromorphone HCl 1 mg 05/23/24 03:02 05/25/24 09:42 Hydromorphone Hcl Inj (*Crx) 1 Mg/Ml Syr IV PUSH 1 mg Q3H PRN Administration Pain Rated 7-10 Lactated Ringer's 1,000 mls @ 150 mls/hr 05/23/24 03:05 05/25/24 04:27 Lr - Lactated Ringers Iv IV CONT 125 mls/hr .Q6H40M SIMRAN Administration Miscellaneous Information 1 each 05/23/24 00:01 Gemtesa Is Nonformulary. Can Patient Use Home Supply? XX 06/22/24 00:00 CLARIFY SIMRAN Non-Formulary Medication 75 mg 05/24/24 09:00 Vibegron [Gemtesa] PO 06/23/24 08:59 DAILY SIMRAN Ondansetron HCl 4 mg 05/22/24 22:32 05/24/24 12:17 Ondansetron Inj 4 Mg/2 Ml Vial IV PUSH 4 mg Q4H PRN Administration Nausea Pantoprazole Sodium 40 mg 05/23/24 09:00 05/25/24 09:43 Pantoprazole Sodium Iv 40 Mg Vial IV PUSH 40 mg QAM SIMRAN Administration Polyethylene Glycol 17 gm 05/25/24 09:00 05/25/24 09:43 Polyethylene Glycol 3350 17 Gm Powd.Pack PO 17 gm QAM SIMRAN Administration Senna/Docusate Sodium 1 tab 05/24/24 21:00 05/24/24 21:02 Senna/Docusate Sodium Tablet PO 1 tab HS SIMRAN Administration Tamsulosin HCl 0.4 mg 05/23/24 21:00 05/24/24 21:02 Tamsulosin Hcl 0.4 Mg Capsule BY MOUTH 0.4 mg HS SIMRAN Administration Radiology Results: ITS Impressions Chest X-Ray 05/22/24 20:36 IMPRESSION: No focal infiltrate or effusion. Abdomen/Pelvis CT 05/22/24 21:39 IMPRESSION: Findings consistent with acute pancreatitis without gross perforation or drainable fluid collection. Abdomen X-Ray 05/24/24 18:41 IMPRESSION: Likely focal small bowel ileus. Obstruction not excluded. Labs Labs: Laboratory Results - last 24 hr 05/25/24 06:38 WBC 7.8 RBC 3.80 L Hgb 12.3 L Hct 35.9 L MCV 94.5 MCH 32.4 MCHC 34.3 RDW 12.5 Plt Count 205 MPV 9.6 Immature Gran % (Auto) Not Reportable Neut % (Auto) Not Reportable Lymph % (Auto) Not Reportable Sutton % (Auto) Not Reportable Eos % (Auto) Not Reportable Baso % (Auto) Not Reportable Lymph # (Auto) Not Reportable [place] # (Auto) Not Reportable Eos # (Auto) Not Reportable Baso # (Auto) Not Reportable Abs Immat Gran (auto) Not Reportable Absolute Neuts (auto) Not Reportable Absolute Nucleated RBC Not Reportable Total Counted 100 Neutrophils % (Manual) 65 Band Neutrophils % 17 H Lymphocytes % (Manual) 16 L Monocytes % (Manual) 2 L Nucleated RBC % Not Reportable Abs Neuts (Manual) 6.39 Abs Lymphs (Manual) 1.24 Abs Monocytes (Manual) 0.15 Atypical Lymphocytes Present Platelet Estimate Adequate Schistocytes None seen Sodium 131 L Potassium 3.2 L Chloride 105 Carbon Dioxide 26 Anion Gap 0 L BUN 24 H Creatinine 0.90 Estim Creat Clear Calc 68 Estimated GFR > 60 Glucose 84 Calcium 7.9 L Total Bilirubin 1.7 H AST 37 ALT 20 Alkaline Phosphatase 52 Total Protein 5.0 L Albumin 2.7 L Lipase 410 H Quality VTE Prophylaxis VTE prophylaxis: pharmacologic ordered
--- NOTE | 2024-05-25 11:03 | PHAR ---
The patient's home med of Gemtesa 75mg has been verified.
[2024-05-25] MEDS: [UNRECOGNIZED DRUG - OTHER] PO (11:22)
[2024-05-25] MEDS: VIBEGRON 75 MG PO (11:22)
[2024-05-25 14:00] VITALS: BP 139/78; PULSE 88; RESP 22; TEMP 36.3; O2SAT 90
[2024-05-25] MEDS: SIMETHICONE 125 MG CHEW TAB PO ×2 (17:53→21:17)
[2024-05-25] MEDS: AZITHROMYCIN 250 MG TABLET 500 MG PO (17:53)
[2024-05-25 20:00] VITALS: O2SAT 95
[2024-05-25 21:01] VITALS: PULSE 92; RESP 18
[2024-05-25] MEDS: IPRATROPIUM 0.5 MG/ALBUTEROL SULFATE 2.5 MG AMPUL.NEB 3 ML NEBULIZE (21:01)
[2024-05-25 21:11] VITALS: PULSE 85; RESP 18
[2024-05-25] MEDS: ATORVASTATIN 20 MG TABLET PO (21:16)
[2024-05-25] MEDS: SENNA/DOCUSATE SODIUM TABLET 1 TAB PO (21:16)
[2024-05-25] MEDS: TAMSULOSIN HCL 0.4 MG CAPSULE BY MOUTH (21:17)
[2024-05-25 21:31] VITALS: BP 146/84; PULSE 94; RESP 32; TEMP 36.7; O2SAT 95
--- NOTE | 2024-05-25 23:06 | PC.NURSE ---
I called and spoke with Chun Gurrola NP about this Pt. Pt. C/O slight shortness of breath, wheezing noted along with audible expiratory wheezing earlier. Pt. has orders for LR at 125 ml/hr. Day shift reports that Pt. has drank 3 of the 500 ml water pitchers today with 4 un-measured voids. I did note 150 out in urinal prior to calling Nikolas. We did have an order to straight cath Pt. and place stein if output is greater than 500, for which I have only had approx. 100 ml in straight cath. Pt. tolerating clear liquids at this time and has been up to bathroom to have bowel movement (Pt. flushed prior to calling staff to assist back to bed). Orders received to stop IV fluids, continue clear liquid diet and give Lasix 40 mg IVP now as a one time dose only.
[2024-05-25] MEDS: FUROSEMIDE INJ 40 MG/4 ML VIAL IV PUSH (23:22)
[2024-05-25 23:45] LABS: Hematocrit 36.8 % (42.0-52.0); Hemoglobin 12.7 g/dL (14.0-18.0); Mean Corpuscular HGB Conc 34.5 g/dl (32-36); Mean Corpuscular Hemoglobin 32.3 pg (26-34); Mean Corpuscular Volume 93.6 fl (80-100); Mean Platelet Volume 9.6 fl (7.4-10.4); Platelet Count Result 247 k/mm3 (150-375); Red Blood Count 3.93 M/mm3 (4.6-6.20); Red Cell Distribution Width 12.3 % (11.5-14.5); White Blood Count 5.7 K/mm3 (4.5-10.0)
[2024-05-26] VITALS (21 sets, daily range): BP systolic 100–178; BP diastolic 35–91; PULSE 69–111; RESP 16–26; TEMP 36–36.7; O2SAT 92–100
[2024-05-26] LABS: Alanine Aminotransferase 23 U/L (6-50); Albumin Level 3.1 g/dL (3.5-5.1); Alkaline Phosphatase 59 U/L (38-126); Anion Gap 2 mmol/L (4-12); Aspartate Amino Transferase 35 U/L (17-59); Bilirubin,Total 1.6 mg/dL (0.2-1.3); Blood Urea Nitrogen 23 mg/dL (9-20); Calcium 8.2 mg/dL (8.4-10.2); Carbon Dioxide 24 mmol/L (22-30); Chloride 103 mmol/L (98-107); Estimated CRCL calculation 85 ml/min; Estimated Glomerular Filt Rate > 60; Glucose 114 mg/dL (65-110); Sodium 129 mmol/L (137-145)
--- NOTE | 2024-05-26 | ECHO_ITS ---
Patient Info Name: Isac Faria Age: 74 years : 1950 Gender: Male Ht: 66 in Wt: 199 lbs BSA: 2.08 m2 HR: 89 bpm BP: 178 / 91 mmHg Technical Quality: Fair Exam Date: 05/26/2024 11:47 AM Exam Location: Echo Lab Patient Status: Inpatient Admit Date: 05/23/2024 Staff Ordering Physician: Chun Gurrola APRN Card Stripper: Cipriano Fuentes RDCS Attending Provider: Shraddha Lloyd PA-C Referring Physician: Galileo RASCON; Exam Type: CA echo doppler color flow Study Info Indications - fluid overload Complete two-dimensional, color flow and Doppler transthoracic echocardiogram is performed. Summary 1. Complete two-dimensional, color flow and Doppler transthoracic echocardiogram is performed. 2. There is normal biventricular systolic function. 3. There is no significant valvular disease. Left Ventricle The left ventricle is normal in size and systolic function. The left ventricular ejection fraction is visually estimated to be 65-70%. Right Ventricle The right ventricle is normal in size and systolic function. Left Atria The left atrium is normal size. Right Atria The right atrium is normal size. Atrial Septum The atrial septum is not well visualized. Aortic Valve The aortic valve is trileaflet and sclerotic but opens well. There is trace aortic regurgitation by Doppler. Pulmonic Valve The pulmonic valve is not well visualized. There is no color Doppler evidence of pulmonic valve regurgitation. Mitral Valve The mitral valve is normal. There is trace mitral regurgitation. Tricuspid Valve The tricuspid valve is normal. There is mild tricuspid regurgitation. Pericardium/Pleural There were no pericardial effusions in the available views. Inferior Vena Cava Inferior vena cava is not well visualized. Aorta The aortic root at the level of the sinus of Valsalva measures 3.8 cm in diameter. Left Ventricular Outflow Tract Name Value Normal LVOT 2D LVOT Diameter 2.0 cm LVOT Doppler LVOT Peak Gradient 6 mmHg LVOT Mean Gradient 2 mmHg LVOT VTI 18 cm LVOT VTI/AV VTI Ratio 0.7 LVOT Stroke Volume 58 ml LVOT CO 5.1 l/min LVOT CI 2.5 l/min/m2 Pulmonic Valve Name Value Normal PV Doppler PV Peak Gradient 3 mmHg Mitral Valve Name Value Normal MV Doppler MV Decel [place] 804 cm/s2 MV PHT 40 ms MV Area (PHT) 5.5 cm2 4.0-5.0 MV Diastolic Function MV E Peak Velocity 111 cm/s MV A Peak Velocity 107 cm/s MV E/A 1.0 MV Decel Time 138 ms Tricuspid Valve Name Value Normal TV Regurgitation Doppler TR Peak Velocity 262 cm/s TR Peak Gradient 27 mmHg Aorta Name Value Normal Ascending Aorta Ao Root Diameter (MM) 2.6 cm Ao Root Diam Index (MM) 1.3 cm/m2 Aortic Valve Name Value Normal AV Doppler AV Peak Velocity 158 cm/s AV Peak Gradient 10 mmHg AV Mean Gradient 5 mmHg AV VTI 25 cm AV Area (Cont Eq VTI) 2.3 cm2 >=3.0 AV Area (Cont Eq [place]) 2.5 cm2 AV Regurgitation 2D LVOT Area 3.1 cm2 AV Regurgitation Doppler AR Decel Time 1,377 ms AR Decel [place] 298 cm/s2 AR PHT 399 ms Ventricles Name Value Normal LV Dimensions 2D/MM IVS Diastolic Thickness (2D) 0.8 cm 0.6-1.0 IVS Diastole Thickness (MM) 0.9 cm 0.6-1.0 LVID Diastole (2D) 4.9 cm 4.2-5.8 LVID Diastole (MM) 5.1 cm 4.2-5.8 LVIW Diastolic Thickness (2D) 1.0 cm 0.6-1.0 LVIW Diastolic Thickness (MM) 1.0 cm 0.6-1.0 LVID Systole (2D) 2.7 cm 2.5-4.0 LVID Systole (MM) 2.9 cm 2.5-4.0 LVOT Diameter 2.0 cm LV Mass (2D Cubed) 154.35 g 88.00-224.00 LV Mass Index (2D Cubed) 74 g/m2 49-115 Relative Wall Thickness (2D) 0.43 LV Mass (MM Cubed) 176.59 g 88.00-224.00 LV Mass Index (MM Cubed) 85 g/m2 49-115 Relative Wall Thickness (MM) 0.40 LV Fractional Shortening/Ejection Fraction 2D/MM LV Fractional Shortening (2D) 44 % 25-43 LV Fractional Shortening (MM) 42 % 25-43 LV EF (MM Teicholz) 73 % 52-72 LV EF (2D Teicholz) 75 % 52-72 LV Diastolic Volume (4C MOD) 83 ml LV EF (4C MOD) 62 % LV Diastolic Volume (2C MOD) 82 ml LV EF (2C MOD) 66 % LV Diastolic Volume (BP MOD) 85 ml 62-150 LV Diastolic Volume Index (BP MOD) 41 ml/m2 34-74 LV Systolic Volume (BP MOD) 30 ml 21-61 LV Systolic Volume Index (BP MOD) 15 ml/m2 11-31 LV EF (BP MOD) 64 % 52-72 LV Diastolic Length (4C) 8.1 cm LV Systolic Length (4C) 6.6 cm LV Stroke Volume (4C MOD) 51 ml Atria Name Value Normal LA Dimensions LA Dimension (MM) 5.4 cm 3.0-4.1 LA Volume (4C A-L) 55 ml LA Volume (BP A-L) 63 ml RA Dimensions RA Area (4C) 15.2 cm2 <=18.0 Report Signatures
[2024-05-26 00:03] LABS: Potassium 3.3 mmol/L (3.4-5.0)
[2024-05-26 00:04] LABS: Lactic Acid Reflex 1.3 mmol/L (0.7-2.0)
[2024-05-26 00:15] LABS: Band Neutrophils Percent 3 % (0-6); Lymphocytes Absolute Manual 1.14 K/mm3 (1.1-4.5); Monocytes Absolute Manual 0.91 K/mm3 (0.1-0.90); Monocytes Percent Manual 16 % (3-9); Neutrophils Absolute Manual 3.64 K/mm3 (1.3-6.7); Neutrophils Percent Manual 61 % (46-73); Total Cells Counted 100
[2024-05-26 00:18] LABS: Burr Cells 2+; Schistocytes None Seen
[2024-05-26 00:20] LABS: Troponin I 0.318 ng/mL (0.000-0.034)
[2024-05-26 00:21] LABS: NT Pro B Type Natriuretic Pept 965 pg/mL (19.9-100)
--- NOTE | 2024-05-26 00:25 | ECG_ITS ---
Test Date: 2024-05-26 00:40:49 Measurements Intervals Madeline Rate: 98 P: 15 UT: 126 QRS: -23 QRSD: 77 T: 48 QT: 354 QTc: 453 Interpretive Statements SINUS RHYTHM WITH OCCASIONAL SUPRAVENTRICULAR PREMATURE COMPLEXES POSSIBLE LEFT ATRIAL ENLARGEMENT [-0.1mV P-WAVE IN V1/V2] BORDERLINE LEFT AXIS DEVIATION [QRS AXIS < -20] NONSPECIFIC T-WAVE ABNORMALITY Compared to ECG 05/23/2024 00:00:28 No significant changes Electronically Signed On 05-30-2024 10:28:11 [employer] OPERATOR by Herminio Hunter M.D.
[2024-05-26 00:38] LABS: Platelet Estimate Adequate (Adequate)
[2024-05-26] MEDS: POTASSIUM CHLORIDE 20 MEQ PACKET (FOR LIQUID) 60 MEQ PO (01:18)
[2024-05-26] MEDS: HYDROmorphone HCL INJ (*CRX) 1 MG/ML SYR IV PUSH ×4 (01:24→13:16)
[2024-05-26 01:45] LABS: Magnesium 2.2 mg/dL (1.6-2.3)
[2024-05-26 02:43] LABS: INR 1.1; Prothrombin Time 14.3 Seconds (11.1-14.7)
[2024-05-26 02:44] LABS: Partial Thromboplastin Time 31.8 Seconds (22.3-36.8)
[2024-05-26] MEDS: IPRATROPIUM 0.5 MG/ALBUTEROL SULFATE 2.5 MG AMPUL.NEB 3 ML NEBULIZE ×4 (02:52→21:11)
[2024-05-26 02:54] LABS: Troponin I 0.285 ng/mL (0.000-0.034)
[2024-05-26] MEDS: HEPARIN SOD/D5W 100 UNITS/ML 25,000 UNITS/250 ML BAG 9 UNITS IV CONT (03:03)
[2024-05-26] MEDS: ASPIRIN 81 MG CHEWABLE TABLET 324 MG PO (03:06)
--- NOTE | 2024-05-26 04:30 | P.PNCROSS_ITS ---
Event Note Event Note Event Note: I was contacted around 2300 with report dyspnea. Patient was admitted for panc reatitis and had been receiving IV fluids. RN reported hearing significant rales and crackles in his lungs. He was complaining of worsening difficulty breathing. Ordered labs including BNP and troponin. Ordered echocardiogram with suspicion of congestive heart failure. Ordered IV Lasix. Nursing reported that patient had very minimal urine output throughout the day today and straight catheterization was completed with minimal urine output prior to IV Lasix. I was called back by nursing staff for critical troponin of 0.318. Patient was still dyspneic but did not have classic chest pain. His troponin level was less than 0.12 on admission and every prior time this is been drawn in our computer system. After IV Lasix I went to the bedside to see patient. He had output of about 1300 mL. He reported feeling improvement in his breathing. Some crackles still remain. He is dyspneic with exertion but not at rest. Denies chest pain currently. Second troponin level is slightly down trending to 0.285. We did initiate heparin drip give aspirin and consult Cardiology in the morning. EKG reviewed and no STEMI per my independent interpretation. Further assessment of EKG sinus rhythm with occasional supraventricular premature complex rate of 98 MI interval 126 QRS duration 77 QTC 453 QRS axis -23 no STEMI nonspecific T-wave changes noted in lead to and flattening in some other leads. I did not order another chest x-ray because he had 1 around noon on May 25 that showed small left pleural effusion with left basilar atelectasis or pneumonia. He was started on azithromycin and ceftriaxone after those chest x-ray findings by day shift rounding team.
[2024-05-26] MEDS: ONDANSETRON INJ 4 MG/2 ML VIAL IV PUSH ×2 (07:03→13:16)
[2024-05-26 07:08] LABS: Hematocrit 36.5 % (42.0-52.0); Hemoglobin 12.4 g/dL (14.0-18.0); Mean Corpuscular Hemoglobin 32.6 pg (26-34); Mean Corpuscular Volume 96.1 fl (80-100); Mean Platelet Volume 9.7 fl (7.4-10.4); Platelet Count Result 258 k/mm3 (150-375); Red Cell Distribution Width 12.4 % (11.5-14.5); White Blood Count 7.6 K/mm3 (4.5-10.0)
[2024-05-26 07:24] LABS: Alanine Aminotransferase 21 U/L (6-50); Alkaline Phosphatase 55 U/L (38-126); Anion Gap 1 mmol/L (4-12); Aspartate Amino Transferase 34 U/L (17-59); Bilirubin,Total 1.4 mg/dL (0.2-1.3); Blood Urea Nitrogen 21 mg/dL (9-20); Calcium 8.1 mg/dL (8.4-10.2); Carbon Dioxide 28 mmol/L (22-30); Chloride 102 mmol/L (98-107); Estimated CRCL calculation 76 ml/min; Estimated Glomerular Filt Rate > 60; Glucose 112 mg/dL (65-110); Lipase 83 U/L (23-300); Potassium 3.6 mmol/L (3.4-5.0); Sodium 131 mmol/L (137-145)
[2024-05-26 07:43] LABS: Troponin I 0.242 ng/mL (0.000-0.034)
[2024-05-26] MEDS: polyethylene glycoL 3350 17 GM POWD.PACK PO (08:49)
[2024-05-26] MEDS: SIMETHICONE 125 MG CHEW TAB PO ×4 (08:49→21:10)
[2024-05-26] MEDS: FLUoxetine HCL 20 MG CAPSULE 40 MG PO (08:49)
[2024-05-26] MEDS: PANTOPRAZOLE SODIUM IV 40 MG VIAL IV PUSH (08:50)
[2024-05-26] MEDS: VIBEGRON 75 MG PO (08:54)
[2024-05-26] MEDS: [UNRECOGNIZED DRUG - OTHER] PO (08:54)
[2024-05-26] MEDS: HEPARIN SODIUM 5,000 UNITS/ML VIAL 4000 UNITS IV PUSH (09:41)
[2024-05-26 09:45] LABS: Band Neutrophils Percent 19 % (0-6); Lymphocytes Absolute Manual 0.22 K/mm3 (1.1-4.5); Monocytes Absolute Manual 0.76 K/mm3 (0.1-0.90); Monocytes Percent Manual 10 % (3-9); Neutrophils Absolute Manual 6.61 K/mm3 (1.3-6.7); Neutrophils Percent Manual 68 % (46-73); Platelet Estimate Adequate (Adequate); Schistocytes None Seen; Total Cells Counted 100
[2024-05-26] MEDS: POTASSIUM CHLORIDE 20 MEQ ER TABLET 40 MEQ PO (09:45)
--- NOTE | 2024-05-26 10:59 | P.PNIM_ITS ---
Progress Note: A&P Assessment and Plan (1) Acute pancreatitis: Code(s): K85.90 - Acute pancreatitis without necrosis or infection, unspecified Status: Acute Assessment and Plan: Patient developed sudden onset sharp and stabbing upper abdominal pain radiating through to the back associated with nausea, vomiting, and sweats. - s/p laparoscopic cholecystectomy in July 2023 - etiology: unclear. Drinks 1 alcoholic beverage a day and has not indulged in more than usual this holiday season. - Lipase > 40,000 on admission>16,051> 2,702>410>83 - LFTs WNL - CT abdomen/pelvis: Findings consistent with acute pancreatitis without gross perforation or drainable fluid collection. - Diet: Full liquid - Analgesics - Antiemetics - Patient with fluid overload last night, IV fluids stopped. Echo ordered. Cardiology consult. (2) Pneumonia: Code(s): J18.9 - Pneumonia, unspecified organism Status: Acute Assessment and Plan: * Chest X-ray showed: Small left pleural effusion with left basilar atelectasis or pneumonia. * Started on Azithromycin 500 mg PO daily and Ceftriaxone 1 gm IVPB daily. (3) Constipation: Code(s): K59.00 - Constipation, unspecified Status: Acute Assessment and Plan: * Docusate 100 mg PO at bedtime and Miralax 17 grams oral daily. * KUB showed: Multiple mildly dilated gas-filled loops of small bowel in the abdomen and would favor ileus related to acute interstitial pancreatitis as seen on prior CT over obstruction. * Diarrhea episode this morning. Abdomen soft with positive bowel sounds. * Encourage oral intake. (4) Hypokalemia: Code(s): E87.6 - Hypokalemia Status: Acute Assessment and Plan: * Potassium 3.6 * Potassium Chloride 40 meq PO x 1 given. * Monitor labs. (5) Benign prostatic hyperplasia: Code(s): N40.0 - Benign prostatic hyperplasia without lower urinary tract symptoms Status: Acute Assessment and Plan: * Chronic, continue flomax. (6) Hyperlipidemia: Code(s): E78.5 - Hyperlipidemia, unspecified Status: Acute Assessment and Plan: * Chronic, continue atorvastatin 20 mg daily. Subjective Date/time seen: 05/26/24 10:59 Interval history: Patient reports pain in left abdomen is a 7 , constant, and dull. Patient denies chest pain, palpitations, shortness of breath, nausea, or vomiting. Patient reports having episode of diarrhea today. Review of Systems Review of Systems: All systems reviewed & are unremarkable except as noted in HPI and below Exam Const: General: no acute distress and uncomfortable Eyes: Sclera: sclerae normal Resp: Effort & Inspection: normal respiratory effort Auscultation: clear to auscultation bilaterally Cardio: Rate: regular rate Rhythm: regular rhythm GI: GI Palp: Yes Soft to palpation and Yes Tenderness to palpation present (GI) (LLQ) Auscultation: normal bowel sounds Neuro: Speech: normal speech Extrem: General: no pedal edema Psych: Mental Status: mental status grossly normal Affect: normal affect Objective Data Vital Signs Vital Signs: Vital Signs - 24 hr 05/25/24 14:00 05/25/24 20:00 05/25/24 21:01 Temperature 97.4 F L Pulse Rate 88 92 Respiratory Rate 22 H 18 Blood Pressure 139/78 Pulse Oximetry 90 95 Oxygen Delivery Nasal Cannula Oxygen Flow Rate 2 05/25/24 21:11 05/25/24 21:31 05/26/24 00:14 Temperature 98.1 F Pulse Rate 85 94 93 Respiratory Rate 18 32 H 24 H Blood Pressure 146/84 H 140/80 Pulse Oximetry 95 94 Oxygen Delivery Oxygen Flow Rate 05/26/24 02:54 05/26/24 03:03 05/26/24 03:37 Temperature 98.0 F Pulse Rate 92 86 102 H Respiratory Rate 18 18 26 H Blood Pressure 178/91 H Pulse Oximetry 92 Oxygen Delivery Oxygen Flow Rate 05/26/24 04:00 05/26/24 08:00 Temperature 98.1 F Pulse Rate 89 69 Respiratory Rate 18 Blood Pressure 100/49 L Pulse Oximetry 100 Oxygen Delivery Oxygen Flow Rate Intake/Output Intake/Output: Intake & Output 05/23/24 05/24/24 05/25/24 05/26/24 23:59 23:59 23:59 23:59 Intake Total 2837.5 3550 750 849.7 Output Total 3230 081 5406 Balance 1577.5 3550 500 -475.3 Meds/Results Medications: Active Medications Generic Name Dose Route Start Last Admin Trade Name Freq PRN Reason Stop Dose Admin Albuterol/Ipratropium 3 ml 05/25/24 20:00 05/26/24 08:06 Ipratropium 0.5 Mg/Albuterol Sulfate 2.5 Mg Ampul.Neb 3 Ml NEBULIZE 3 ml Q6HRT SIMRAN Administration Atorvastatin Calcium 20 mg 05/23/24 21:00 05/25/24 21:16 Atorvastatin 20 Mg Tablet PO 20 mg HS SIMRAN Administration Azithromycin 500 mg 05/25/24 17:00 05/25/24 17:53 Azithromycin 250 Mg Tablet PO 05/29/24 17:01 500 mg Q24H SIMRAN Administration Enoxaparin Sodium 40 mg 05/23/24 09:00 05/25/24 09:43 Enoxaparin 40 Mg/0.4 Ml Syringe SUB-Q 40 mg DAILY SIMRAN Administration Fluoxetine HCl 40 mg 05/24/24 09:00 05/26/24 08:49 Fluoxetine Hcl 20 Mg Capsule PO 40 mg DAILY SIMRAN Administration Heparin Sodium (Porcine) 4,000 units 05/26/24 00:57 05/26/24 09:41 Heparin Sodium 5,000 Units/Ml Vial IV PUSH 4,000 units PRN PRN Administration aPTT less than 55 seconds Heparin Sodium (Porcine) 3,000 units 05/26/24 00:57 Heparin Sodium 5,000 Units/Ml Vial IV PUSH PRN PRN aPTT 55 - 70 seconds Hydromorphone HCl 0.5 mg 05/23/24 01:21 Hydromorphone Hcl Inj (*Crx) 1 Mg/Ml Syr IV PUSH Q3H PRN Pain Rated 4-6 Hydromorphone HCl 1 mg 05/23/24 03:02 05/26/24 08:51 Hydromorphone Hcl Inj (*Crx) 1 Mg/Ml Syr IV PUSH 1 mg Q3H PRN Administration Pain Rated 7-10 Ceftriaxone Sodium 1 gm in 50 mls @ 100 mls/hr 05/25/24 17:00 05/25/24 17:54 Rocephin 1 Gm/Ns 50 Ml IVPB 100 mls/hr Q24H SIMRAN Administration Heparin Sodium/Dextrose 25,000 units in 250 mls @ 12 mls/hr 05/26/24 01:00 05/26/24 09:41 Heparin Sodium/D5w 100 Units/Ml IV CONT 1,200 units/hr .[id number] SIMRAN 12 mls/hr Titration Protocol 1,200 UNITS/HR Nonformulary Drug 0 mg 05/25/24 09:00 05/26/24 08:54 Vibegron [Gemtesa] PO 06/24/24 08:59 75 mg 75 Mg Tablet DAILY SIMRAN Administration Ondansetron HCl 4 mg 05/26/24 06:47 05/26/24 07:03 Ondansetron Inj 4 Mg/2 Ml Vial IV PUSH 4 mg Q6H PRN Administration Nausea And Vomiting Pantoprazole Sodium 40 mg 05/23/24 09:00 05/26/24 08:50 Pantoprazole Sodium Iv 40 Mg Vial IV PUSH 40 mg QAM SIMRAN Administration Perflutren Lipid Microsphere 0 ml 05/25/24 23:04 Perflutren Lipid Microspheres 1.5 Ml Vial Diluted To 10 Ml Total Volume IV PUSH 05/28/24 23:04 ONCE PRN adequate visualization Protocol Polyethylene Glycol 17 gm 05/25/24 09:00 05/26/24 08:49 Polyethylene Glycol 3350 17 Gm Powd.Pack PO 17 gm QAM SIMRAN Administration Prochlorperazine Edisylate 10 mg 05/26/24 08:38 Prochlorperazine Edisylate 10 Mg/2 Ml Vial IV PUSH Q6H PRN Nausea And Vomiting Senna/Docusate Sodium 1 tab 05/24/24 21:00 05/25/24 21:16 Senna/Docusate Sodium Tablet PO 1 tab HS SIMRAN Administration Simethicone 125 mg 05/25/24 17:00 05/26/24 08:49 Simethicone 125 Mg Chew Tab PO 125 mg QID SIMRAN Administration Tamsulosin HCl 0.4 mg 05/23/24 21:00 05/25/24 21:17 Tamsulosin Hcl 0.4 Mg Capsule BY MOUTH 0.4 mg HS SIMRAN Administration Radiology Results: ITS Impressions Abdomen/Pelvis CT 05/22/24 21:39 IMPRESSION: Findings consistent with acute pancreatitis without gross perforation or drainable fluid collection. Chest X-Ray 05/25/24 12:01 IMPRESSION: 1. Small left pleural effusion with left basilar atelectasis or pneumonia. Abdomen X-Ray 05/25/24 12:03 IMPRESSION: 1. Multiple mildly dilated gas-filled loops of small bowel in the abdomen and would favor ileus related to acute interstitial pancreatitis as seen on prior CT over obstruction. Labs Labs: Laboratory Results - last 24 hr 05/25/24 05/25/24 05/26/24 23:32 23:33 02:19 WBC 5.7 RBC 3.93 L Hgb 12.7 L Hct 36.8 L MCV 93.6 MCH 32.3 MCHC 34.5 RDW 12.3 Plt Count 247 MPV 9.6 Immature Gran % (Auto) Not Reportable Neut % (Auto) Not Reportable Lymph % (Auto) Not Reportable [place] % (Auto) Not Reportable Eos % (Auto) Not Reportable Baso % (Auto) Not Reportable Lymph # (Auto) Not Reportable [place] # (Auto) Not Reportable Eos # (Auto) Not Reportable Baso # (Auto) Not Reportable Abs Immat Gran (auto) Not Reportable Absolute Neuts (auto) Not Reportable Absolute Nucleated RBC Not Reportable Total Counted 100 Neutrophils % (Manual) 61 Band Neutrophils % 3 Lymphocytes % (Manual) 20.0 Monocytes % (Manual) 16 H Nucleated RBC % Not Reportable Abs Neuts (Manual) 3.64 Abs Lymphs (Manual) 1.14 Abs Monocytes (Manual) 0.91 H Platelet Estimate Adequate Madison Cells 2+ Schistocytes None seen PT 14.3 INR 1.1 APTT 31.8 Sodium 129 L Potassium 3.3 L Chloride 103 Carbon Dioxide 24 Anion Gap 2 L BUN 23 H Creatinine 0.70 Estim Creat Clear Calc 85 Estimated GFR > 60 Glucose 114 H Lactic Acid 1.3 Calcium 8.2 L Magnesium 2.2 Total Bilirubin 1.6 H AST 35 ALT 23 Alkaline Phosphatase 59 Troponin I 0.318 H* 0.285 H* NT-Pro-B Natriuret Pep 965 H Total Protein 6.0 L Albumin 3.1 L Lipase 05/26/24 05/26/24 05/26/24 06:29 06:31 08:54 WBC 7.6 RBC 3.80 L Hgb 12.4 L Hct 36.5 L MCV 96.1 MCH 32.6 MCHC 34.0 RDW 12.4 Plt Count 258 MPV 9.7 Immature Gran % (Auto) Not Reportable Neut % (Auto) Not Reportable Lymph % (Auto) Not Reportable [place] % (Auto) Not Reportable Eos % (Auto) Not Reportable Baso % (Auto) Not Reportable Lymph # (Auto) Not Reportable [place] # (Auto) Not Reportable Eos # (Auto) Not Reportable Baso # (Auto) Not Reportable Abs Immat Gran (auto) Not Reportable Absolute Neuts (auto) Not Reportable Absolute Nucleated RBC Not Reportable Total Counted 100 Neutrophils % (Manual) 68 Band Neutrophils % 19 H Lymphocytes % (Manual) 3.0 L Monocytes % (Manual) 10 H Nucleated RBC % Not Reportable Abs Neuts (Manual) 6.61 Abs Lymphs (Manual) 0.22 L Abs Monocytes (Manual) 0.76 Platelet Estimate Adequate Madison Cells Schistocytes None seen PT INR APTT 33.0 Sodium 131 L Potassium 3.6 Chloride 102 Carbon Dioxide 28 Anion Gap 1 L BUN 21 H Creatinine 0.80 Estim Creat Clear Calc 76 Estimated GFR > 60 Glucose 112 H Lactic Acid Calcium 8.1 L Magnesium Total Bilirubin 1.4 H AST 34 ALT 21 Alkaline Phosphatase 55 Troponin I 0.242 H* NT-Pro-B Natriuret Pep Total Protein 6.0 L Albumin 3.0 L Lipase 83 Quality VTE Prophylaxis VTE prophylaxis: pharmacologic ordered
[2024-05-26 16:18] LABS: Troponin I 0.184 ng/mL (0.000-0.034)
[2024-05-26] MEDS: AZITHROMYCIN 250 MG TABLET 500 MG PO (16:39)
--- NOTE | 2024-05-26 18:59 | PM.CNCAR ---
Assessment and Plan Assessment and plan (1) Type 2 NV (myocardial infarction): Code(s): I21.A1 - Myocardial infarction type 2 Status: Acute (2) Hyperlipidemia: Code(s): E78.5 - Hyperlipidemia, unspecified Status: Acute Plan 1. Type 2 NV -It is my clinical impression that he has a type 2 NV in the setting of acute pancreatitis and fluid overload. His dyspnea has improved markedly after diuresis. He May have underlying obstructive CAD -no need for heparin infusion, can be transitioned to DVT prophylaxis -continue aspirin and statin -continue IV diuresis today can be transition to oral tomorrow -echo pending -stress test as an outpatient History of Present Illness History of Present Illness Consult date/time: 05/26/24 18:59 Reason For Visit: Acute pancreatitis Narrative: his is a very pleasant 74-year-old male with benign prostatic hyperplasia, hyperlipidemia, and anxiety who underwent laparoscopic cholecystectomy in July 2023. He was admitted with abdominal pain and found to have acute pancreatitis. Cardiology consulted because he developed shortness of breath after IV fluids and had an elevated troponin He does have atypical chest pain which is musculoskeletal in origin and reproducible EKG shows normal sinus rhythm with occasional PACs Troponin has been flat Review of Systems Review of Systems: 12 systems were reviewed and are negative except for as per HPI. All systems reviewed & are unremarkable except as noted in HPI and below PMFSH Past Medical History Medical History (Updated 05/26/24 @ 19:05 by Sylvie Hyman MD) Depression Generalized anxiety disorder Meningioma Attention deficit disorder (ADD) in adult Restless legs syndrome Mixed hyperlipidemia Surgical History Surgical History (Updated 05/23/24 @ 02:57 by Darling Stafford PA-C) History of laparoscopic cholecystectomy (07/2023) Status post urethral surgery Stricture History of detached retina repair RT eye Family History Family History Mother Cerebrovascular accident, Onset Age: 69 Hypertension Family history of elevated blood lipids Father Cerebrovascular accident, Onset Age: 70 Hypertension Family history of elevated blood lipids Acute myocardial infarction, Onset Age: 40 Social History Social History (Updated 05/23/24 @ 02:58 by Darling Stafford PA-C) Social History: Surrogate medical decision maker: Delaney Faria, spouse. Code status: Full code. Smoking status: Former smoker Second hand tobacco smoke exposure: No Alcohol intake: current Drinks per week: 7 Alcohol use details: One alcoholic beverage a night at the most Substance use: never Last use: LAST WEEK Do You Feel Safe in your Home?: Yes Lack of Transportation: No Lack of Food: Never True Current Housing: I Have Housing Concerned About Future Housing: No Difficulty Paying Gas/Electric Bills: No Difficulty Paying for Meds: No Currently Unemployed: No Education: Master's Degree or Higher Difficulty w/ Childcare or Family Care: No Living arrangements: with family Occupation/Education: retired Spiritual care concerns: No Meds Home Medications and Allergies Home Medications ?Medication ?Instructions ?Recorded ?Confirmed ?Type vibegron 75 mg tablet (Gemtesa) 75 mg PO DAILY 07/25/23 05/22/24 History fluoxetine 40 mg capsule 40 mg PO DAILY #90 caps 02/02/24 05/22/24 Rx atorvastatin 20 mg tablet 20 mg PO HS #90 tabs 02/15/24 05/22/24 Rx tamsulosin 0.4 mg capsule See Rx Instructions .Route 02/17/24 05/22/24 Rx .COMPLEX #90 caps Allergies Allergy/AdvReac Type Severity Reaction Status Date / Time No Known Allergies Allergy Verified 05/22/24 19:51 Vital Signs Vital Signs - 24 hr 05/25/24 20:00 05/25/24 21:01 05/25/24 21:11 Temperature Pulse Rate 92 85 Respiratory Rate 18 18 Blood Pressure Pulse Oximetry 95 Oxygen Delivery Nasal Cannula Oxygen Flow Rate 2 Fraction of Inspired Oxygen 05/25/24 21:31 05/26/24 00:14 05/26/24 02:54 Temperature 36.7 C Pulse Rate 94 93 92 Respiratory Rate 32 H 24 H 18 Blood Pressure 146/84 H 140/80 Pulse Oximetry 95 94 Oxygen Delivery Oxygen Flow Rate Fraction of Inspired Oxygen 05/26/24 03:03 05/26/24 03:37 05/26/24 04:00 Temperature 36.7 C Pulse Rate 86 102 H 89 Respiratory Rate 18 26 H Blood Pressure 178/91 H Pulse Oximetry 92 Oxygen Delivery Oxygen Flow Rate Fraction of Inspired Oxygen 05/26/24 08:00 05/26/24 08:03 05/26/24 08:06 Temperature 36.7 C Pulse Rate 69 111 H Respiratory Rate 18 Blood Pressure 100/49 L Pulse Oximetry 100 93 Oxygen Delivery Room Air Oxygen Flow Rate Fraction of Inspired Oxygen 21 05/26/24 08:06 05/26/24 08:16 05/26/24 12:00 Temperature 36.7 C Pulse Rate 88 85 86 Respiratory Rate 18 18 18 Blood Pressure 101/42 L Pulse Oximetry 100 Oxygen Delivery Oxygen Flow Rate Fraction of Inspired Oxygen 05/26/24 12:03 05/26/24 13:40 05/26/24 13:49 Temperature Pulse Rate 94 83 81 Respiratory Rate 18 18 Blood Pressure Pulse Oximetry Oxygen Delivery Oxygen Flow Rate Fraction of Inspired Oxygen 05/26/24 14:48 05/26/24 15:10 05/26/24 16:03 Temperature 36.0 C L 36.2 C L Pulse Rate 88 96 91 Respiratory Rate 18 18 Blood Pressure 110/35 L 141/74 H Pulse Oximetry 98 92 Oxygen Delivery Oxygen Flow Rate Fraction of Inspired Oxygen Exam Narrative: AF HR 88 RR 18 SpO2 90 BP 139/75 General: male in no acute respiratory distress who is nontoxic appearing, lying semi recumbent in bed. HEENT: Normocephalic. Atraumatic. Extraocular movement intact. Sclera clear and anicteric. No facial asymmetry. Neck: Neck was supple. No dominant adenopathy, thyromegaly or masses. 2+ carotid upstrokes without bruits. Chest: Lungs are clear to auscultation bilaterally. No wheezes or crackles. CV: Heart was regular rate and rhythm. S1/S2. No murmurs, gallops, or rubs. Abd: Abdomen was soft. Epigastric tenderness and LLQ. Nondistended. Positive bowel sounds. No organomegaly or masses. Neuro: Patient is alert and oriented x4. Speech is clear. Const: General: no acute distress and uncomfortable Eyes: Sclera: sclerae normal Resp: Effort & Inspection: normal respiratory effort Auscultation: clear to auscultation bilaterally, wheezes expiratory wheezes and diminished lung sounds Cardio: Rate: regular rate Rhythm: regular rhythm GI: Auscultation: normal bowel sounds Other: Abdomen semi firm with hypoactive bowel sounds. Epigastric tenderness and LLQ. Neuro: Speech: normal speech Extrem: General: no pedal edema Psych: Mental Status: mental status grossly normal Affect: normal affect Results Labs and Meds 05/26/24 06:29 05/26/24 06:29 Lab results: Cardiac Enzymes 05/25/24 05/26/24 05/26/24 Range/Units 23:33 02:19 06:29 AST 35 34 (17-59) U/L Troponin I 0.318 H* 0.285 H* (0.000-0.034) ng/mL 05/26/24 05/26/24 Range/Units 06:31 15:47 AST (17-59) U/L Troponin I 0.242 H* 0.184 H* (0.000-0.034) ng/mL Coagulation 05/26/24 05/26/24 Range/Units 02:19 08:54 PT 14.3 (11.1-14.7) Seconds APTT 31.8 33.0 (22.3-36.8) Seconds CBC 05/25/24 05/26/24 Range/Units 23:33 06:29 WBC 5.7 7.6 (4.5-10.0) K/mm3 RBC 3.93 L 3.80 L (4.6-6.20) M/mm3 Hgb 12.7 L 12.4 L (14.0-18.0) g/dL Hct 36.8 L 36.5 L (42.0-52.0) % Plt Count 247 258 (150-375) k/mm3 Lymph # (Auto) Not Reportable Not Reportable [place] # (Auto) Not Reportable Not Reportable Eos # (Auto) Not Reportable Not Reportable Baso # (Auto) Not Reportable Not Reportable Comprehensive Metabolic Panel 05/25/24 05/26/24 Range/Units 23:33 06:29 Sodium 129 L 131 L (137-145) mmol/L Potassium 3.3 L 3.6 (3.4-5.0) mmol/L Chloride 103 102 (98-107) mmol/L Carbon Dioxide 24 28 (22-30) mmol/L BUN 23 H 21 H (9-20) mg/dL Creatinine 0.70 0.80 (0.7-1.3) mg/dL Glucose 114 H 112 H (65-110) mg/dL Calcium 8.2 L 8.1 L (8.4-10.2) mg/dL AST 35 34 (17-59) U/L ALT 23 21 (6-50) U/L Alkaline Phosphatase 59 55 (38-126) U/L Total Protein 6.0 L 6.0 L (6.3-8.2) g/dL Albumin 3.1 L 3.0 L (3.5-5.1) g/dL Intake and Output 05/26/24 05/26/24 05/26/24 07:59 15:59 23:59 Intake Total 550 1739.7 240 Output Total 1325 Balance -775 1739.7 240 Intake: IV 159.7 Heparin Sod/D5w 100 Units/ml 25 159.7 ,000 units In 250 ml @ 1,200 UNITS/HR 12 mls/hr IV CONT . [id number] [facility] Rx#:[id number] Oral 550 1580 240 Output: Catheter Urine 1325 Coude 1325 Patient Weight 05/26/24 23:59 Weight 90.7 kg
[2024-05-26] MEDS: ATORVASTATIN 20 MG TABLET PO (21:10)
[2024-05-26] MEDS: SENNA/DOCUSATE SODIUM TABLET 1 TAB PO (21:11)
[2024-05-26] MEDS: TAMSULOSIN HCL 0.4 MG CAPSULE BY MOUTH (21:11)
[2024-05-26] MEDS: HYDROmorphone HCL (*CRX) 1 MG TABLET PO (21:45)
[2024-05-27] VITALS (15 sets, daily range): BP systolic 137–163; BP diastolic 75–91; PULSE 70–98; RESP 16–20; TEMP 36.4–36.7; O2SAT 90–97
[2024-05-27] MEDS: IPRATROPIUM 0.5 MG/ALBUTEROL SULFATE 2.5 MG AMPUL.NEB 3 ML NEBULIZE ×2 (01:51→08:12)
[2024-05-27 08:14] LABS: Basophils Absolute Auto 0.1 K/mm3 (0.0-0.1); Basophils Percent Auto 0.7 % (0.2-1.2); Eosinophils Absolute Auto 0.1 K/mm3 (0-0.3); Eosinophils Percent Auto 0.4 % (0-4.4); Hematocrit 34.6 % (42.0-52.0); Hemoglobin 12.1 g/dL (14.0-18.0); Immature Granulocyte Absolute 0.22 K/mm3 (0.00-0.031); Immature Granulocyte Percent A 1.7 % (0-0.5); Lymphocytes Absolute Auto 0.91 K/mm3 (0.9-3.2); Lymphocytes Percent Auto 6.9 % (18.3-44.2); Mean Corpuscular Hemoglobin 32.4 pg (26-34); Mean Corpuscular Volume 92.5 fl (80-100); Mean Platelet Volume 9.5 fl (7.4-10.4); Monocytes Absolute Auto 2.5 K/mm3 (0.1-0.6); Neutrophils Absolute Auto 9.4 K/mm3 (1.3-6.7); Neutrophils Percent Auto 71.3 % (45.5-73.1); Platelet Count Result 300 k/mm3 (150-375); Red Blood Count 3.74 M/mm3 (4.6-6.20); Red Cell Distribution Width 12.4 % (11.5-14.5); White Blood Count 13.2 K/mm3 (4.5-10.0)
[2024-05-27] MEDS: FLUoxetine HCL 20 MG CAPSULE 40 MG PO (08:50)
[2024-05-27] MEDS: SIMETHICONE 125 MG CHEW TAB PO ×4 (08:50→21:03)
[2024-05-27] MEDS: polyethylene glycoL 3350 17 GM POWD.PACK PO (08:50)
[2024-05-27 08:54] LABS: Alanine Aminotransferase 24 U/L (6-50); Albumin Level 2.9 g/dL (3.5-5.1); Alkaline Phosphatase 77 U/L (38-126); Anion Gap 3 mmol/L (4-12); Aspartate Amino Transferase 33 U/L (17-59); Bilirubin,Total 1.2 mg/dL (0.2-1.3); Blood Urea Nitrogen 16 mg/dL (9-20); Calcium 8.1 mg/dL (8.4-10.2); Carbon Dioxide 25 mmol/L (22-30); Chloride 102 mmol/L (98-107); Estimated CRCL calculation 85 ml/min; Estimated Glomerular Filt Rate > 60; Glucose 90 mg/dL (65-110); Lipase 56 U/L (23-300); Potassium 3.3 mmol/L (3.4-5.0); Sodium 130 mmol/L (137-145)
[2024-05-27] MEDS: HYDROmorphone HCL (*CRX) 1 MG TABLET PO ×3 (08:57→21:05)
[2024-05-27] MEDS: ENOXAPARIN 40 MG/0.4 ML SYRINGE SUB-Q (08:58)
[2024-05-27] MEDS: PANTOPRAZOLE SODIUM IV 40 MG VIAL IV PUSH (08:58)
[2024-05-27] MEDS: VIBEGRON 75 MG PO (08:58)
[2024-05-27] MEDS: [UNRECOGNIZED DRUG - OTHER] PO (08:58)
[2024-05-27 10:21] LABS: Magnesium 2.3 mg/dL (1.6-2.3)
[2024-05-27] MEDS: CEFEPIME 2 GM/NS 50 ML 2 GM/50 ML BAG IVPB ×2 (11:21→21:02)
[2024-05-27] MEDS: POTASSIUM CHLORIDE 20 MEQ ER TABLET 40 MEQ PO (11:22)
[2024-05-27] MEDS: carvediloL 12.5 MG TABLET PO ×2 (11:22→20:53)
--- NOTE | 2024-05-27 11:42 | P.PNIM_ITS ---
Progress Note: A&P Assessment and Plan (1) Acute pancreatitis: Code(s): K85.90 - Acute pancreatitis without necrosis or infection, unspecified Status: Acute Assessment and Plan: Patient developed sudden onset sharp and stabbing upper abdominal pain radiating through to the back associated with nausea, vomiting, and sweats. - s/p laparoscopic cholecystectomy in July 2023 - etiology: unclear. Drinks 1 alcoholic beverage a day and has not indulged in more than usual this holiday season. - Lipase > 40,000 on admission>16,051> 2,702>410>83 - LFTs WNL - CT abdomen/pelvis: Findings consistent with acute pancreatitis without gross perforation or drainable fluid collection. - Diet: Full liquid - Analgesics - Antiemetics - Patient with fluid overload last night, IV fluids stopped. Echo ordered. Cardiology consult. (2) Type 2 [place] (myocardial infarction): Code(s): I21.A1 - Myocardial infarction type 2 Status: Acute Assessment and Plan: * Seen by Cardiology, appreciate recommendations * DVT prophylaxis * continue aspirin and statin * Furosemide 20 mg PO daily * Echo completed, awaiting reading. * Stress test as an outpatient. (3) Pneumonia: Code(s): J18.9 - Pneumonia, unspecified organism Status: Acute Assessment and Plan: * Chest X-ray showed: Small left pleural effusion with left basilar atelectasis or pneumonia. * WBC increased today from 7.6 to 13.2. * Started on Azithromycin 500 mg PO daily and Ceftriaxone 1 gram daily. 05/27/24 Stop Ceftriaxone, start Cefepime 2 gram IVPB q 12. * Duonebs q 6 PRN. (4) Constipation: Code(s): K59.00 - Constipation, unspecified Status: Acute Assessment and Plan: * Docusate 100 mg PO at bedtime and Miralax 17 grams oral daily. * KUB showed: Multiple mildly dilated gas-filled loops of small bowel in the abdomen and would favor ileus related to acute interstitial pancreatitis as seen on prior CT over obstruction. * 3 loose stools this morning. Abdomen soft with positive bowel sounds. * Encourage oral intake. (5) Hypokalemia: Code(s): E87.6 - Hypokalemia Status: Acute Assessment and Plan: * Potassium 3.3 * Potassium Chloride 40 meq PO x 1 given. * Monitor labs. (6) Benign prostatic hyperplasia: Code(s): N40.0 - Benign prostatic hyperplasia without lower urinary tract symptoms Status: Acute Assessment and Plan: * Chronic, continue flomax. (7) Hyperlipidemia: Code(s): E78.5 - Hyperlipidemia, unspecified Status: Acute Assessment and Plan: * Chronic, continue atorvastatin 20 mg daily. Subjective Date/time seen: 05/27/24 11:42 Interval history: Patient reports pain in left abdomen is a 6 , constant, and dull. Patient denies chest pain, palpitations, shortness of breath, nausea, or vomiting. Patient reports having 3 bowel movements today that were loose. Review of Systems Review of Systems: All systems reviewed & are unremarkable except as noted in HPI and below Exam Const: General: no acute distress and uncomfortable Eyes: Sclera: sclerae normal Resp: Effort & Inspection: normal respiratory effort Auscultation: clear to auscultation bilaterally Cardio: Rate: regular rate Rhythm: regular rhythm GI: GI Palp: Yes Soft to palpation and Yes Tenderness to palpation present (GI) (LLQ) Auscultation: normal bowel sounds Neuro: Speech: normal speech Extrem: General: no pedal edema Psych: Mental Status: mental status grossly normal Affect: normal affect Objective Data Vital Signs Vital Signs: Vital Signs - 24 hr 05/26/24 12:00 05/26/24 12:03 05/26/24 13:40 Temperature 98.1 F Pulse Rate 86 94 83 Respiratory Rate 18 18 Blood Pressure 101/42 L Pulse Oximetry 100 Oxygen Delivery Fraction of Inspired Oxygen 05/26/24 13:49 05/26/24 14:48 05/26/24 15:10 Temperature 96.8 F L 97.2 F L Pulse Rate 81 88 96 Respiratory Rate 18 18 18 Blood Pressure 110/35 L 141/74 H Pulse Oximetry 98 92 Oxygen Delivery Fraction of Inspired Oxygen 05/26/24 16:03 05/26/24 20:00 05/26/24 20:00 Temperature 97.4 F L Pulse Rate 91 91 107 H Respiratory Rate 18 Blood Pressure 159/73 H Pulse Oximetry 94 Oxygen Delivery Fraction of Inspired Oxygen 05/26/24 21:12 05/26/24 21:14 05/26/24 21:19 Temperature Pulse Rate 90 85 Respiratory Rate 18 18 Blood Pressure Pulse Oximetry 94 Oxygen Delivery Room Air Fraction of Inspired Oxygen 21 05/26/24 23:47 05/27/24 00:00 05/27/24 01:51 Temperature 98.0 F Pulse Rate 93 92 89 Respiratory Rate 16 18 Blood Pressure 161/88 H Pulse Oximetry 93 Oxygen Delivery Fraction of Inspired Oxygen 05/27/24 02:05 05/27/24 04:00 05/27/24 04:00 Temperature 97.9 F Pulse Rate 88 96 86 Respiratory Rate 18 18 Blood Pressure 157/81 H Pulse Oximetry 93 Oxygen Delivery Fraction of Inspired Oxygen 05/27/24 07:56 05/27/24 08:03 05/27/24 08:12 Temperature 97.7 F Pulse Rate 90 93 90 Respiratory Rate 16 20 Blood Pressure 162/75 H Pulse Oximetry 90 91 Oxygen Delivery Room Air Fraction of Inspired Oxygen 05/27/24 08:12 05/27/24 08:20 05/27/24 11:22 Temperature Pulse Rate 92 91 97 Respiratory Rate 20 20 Blood Pressure Pulse Oximetry Oxygen Delivery Fraction of Inspired Oxygen Intake/Output Intake/Output: Intake & Output 05/24/24 05/25/24 05/26/24 05/27/24 23:59 23:59 23:59 23:59 Intake Total 3550 800 2529.7 2030 Output Total 250 1325 850 Balance 3550 550 1204.7 1180 Meds/Results Medications: Active Medications Generic Name Dose Route Start Last Admin Trade Name Freq PRN Reason Stop Dose Admin Albuterol/Ipratropium 3 ml 05/25/24 20:00 05/27/24 08:12 Ipratropium 0.5 Mg/Albuterol Sulfate 2.5 Mg Ampul.Neb 3 Ml NEBULIZE 3 ml Q6HRT SIMRAN Administration Atorvastatin Calcium 20 mg 05/23/24 21:00 05/26/24 21:10 Atorvastatin 20 Mg Tablet PO 20 mg HS SIMRAN Administration Azithromycin 500 mg 05/25/24 17:00 05/26/24 16:39 Azithromycin 250 Mg Tablet PO 05/29/24 17:01 500 mg Q24H SIMRAN Administration Carvedilol 12.5 mg 05/27/24 10:05 05/27/24 11:22 Carvedilol 12.5 Mg Tablet PO 12.5 mg Q12HR SIMRAN Administration Enoxaparin Sodium 40 mg 05/23/24 09:00 05/27/24 08:58 Enoxaparin 40 Mg/0.4 Ml Syringe SUB-Q 40 mg DAILY SIMRAN Administration Fluoxetine HCl 40 mg 05/24/24 09:00 05/27/24 08:50 Fluoxetine Hcl 20 Mg Capsule PO 40 mg DAILY SIMRAN Administration Hydromorphone HCl 1 mg 05/26/24 15:10 05/27/24 08:57 Hydromorphone Hcl (*Crx) 1 Mg Tablet PO 1 mg Q4H PRN Administration Pain Rated 5-6 Hydromorphone HCl 2 mg 05/26/24 22:00 Hydromorphone Hcl (*Crx) 2 Mg Tablet PO Q4H PRN Pain Rated 7-10 Cefepime HCl 2 gm in 50 mls @ 100 mls/hr 05/27/24 10:00 05/27/24 11:21 Maxipime 2 Gm/Ns 50 Ml IVPB 100 mls/hr Q12HR SIMRAN Administration Nonformulary Drug 0 mg 05/25/24 09:00 05/27/24 08:58 Vibegron [Gemtesa] PO 06/24/24 08:59 75 mg 75 Mg Tablet DAILY SIMRAN Administration Ondansetron HCl 4 mg 05/26/24 06:47 05/26/24 13:16 Ondansetron Inj 4 Mg/2 Ml Vial IV PUSH 4 mg Q6H PRN Administration Nausea And Vomiting Pantoprazole Sodium 40 mg 05/23/24 09:00 05/27/24 08:58 Pantoprazole Sodium Iv 40 Mg Vial IV PUSH 40 mg QAM SIMRAN Administration Perflutren Lipid Microsphere 0 ml 05/25/24 23:04 Perflutren Lipid Microspheres 1.5 Ml Vial Diluted To 10 Ml Total Volume IV PUSH 05/28/24 23:04 ONCE PRN adequate visualization Protocol Polyethylene Glycol 17 gm 05/25/24 09:00 05/27/24 08:50 Polyethylene Glycol 3350 17 Gm Powd.Pack PO 17 gm QAM SIMRAN Administration Prochlorperazine Edisylate 10 mg 05/26/24 08:38 Prochlorperazine Edisylate 10 Mg/2 Ml Vial IV PUSH Q6H PRN Nausea And Vomiting Senna/Docusate Sodium 1 tab 05/24/24 21:00 05/26/24 21:11 Senna/Docusate Sodium Tablet PO 1 tab HS SIMRAN Administration Simethicone 125 mg 05/25/24 17:00 05/27/24 08:50 Simethicone 125 Mg Chew Tab PO 125 mg QID SIMRAN Administration Tamsulosin HCl 0.4 mg 05/23/24 21:00 05/26/24 21:11 Tamsulosin Hcl 0.4 Mg Capsule BY MOUTH 0.4 mg HS SIMRAN Administration Radiology Results: ITS Impressions Abdomen/Pelvis CT 05/22/24 21:39 IMPRESSION: Findings consistent with acute pancreatitis without gross perforation or drainable fluid collection. Chest X-Ray 05/25/24 12:01 IMPRESSION: 1. Small left pleural effusion with left basilar atelectasis or pneumonia. Abdomen X-Ray 05/25/24 12:03 IMPRESSION: 1. Multiple mildly dilated gas-filled loops of small bowel in the abdomen and would favor ileus related to acute interstitial pancreatitis as seen on prior CT over obstruction. Labs Labs: Laboratory Results - last 24 hr 05/26/24 05/27/24 05/27/24 15:47 07:20 07:23 WBC 13.2 H RBC 3.74 L Hgb 12.1 L Hct 34.6 L MCV 92.5 MCH 32.4 MCHC 35.0 RDW 12.4 Plt Count 300 MPV 9.5 Immature Gran % (Auto) 1.7 H Neut % (Auto) 71.3 Lymph % (Auto) 6.9 L [place] % (Auto) 19.0 H Eos % (Auto) 0.4 Baso % (Auto) 0.7 Lymph # (Auto) 0.91 [place] # (Auto) 2.5 H Eos # (Auto) 0.1 Baso # (Auto) 0.1 Abs Immat Gran (auto) 0.22 H Absolute Neuts (auto) 9.4 H Absolute Nucleated RBC 0.000 Nucleated RBC % 0.0 Sodium 130 L Potassium 3.3 L Chloride 102 Carbon Dioxide 25 Anion Gap 3 L BUN 16 Creatinine 0.70 Estim Creat Clear Calc 85 Estimated GFR > 60 Glucose 90 Calcium 8.1 L Magnesium 2.3 Total Bilirubin 1.2 AST 33 ALT 24 Alkaline Phosphatase 77 Troponin I 0.184 H* Total Protein 6.0 L Albumin 2.9 L Lipase 56 Quality VTE Prophylaxis VTE prophylaxis: pharmacologic ordered
[2024-05-27] MEDS: FUROSEMIDE 20 MG TABLET PO (12:53)
--- NOTE | 2024-05-27 17:35 | PM.PNCARD ---
Progress Note: A&P Assessment and Plan (1) Type 2 [place] (myocardial infarction): Code(s): I21.A1 - Myocardial infarction type 2 Status: Acute (2) Hyperlipidemia: Code(s): E78.5 - Hyperlipidemia, unspecified Status: Acute Plan 1. Type 2 [place] -It is my clinical impression that he has a type 2 [place] in the setting of acute pancreatitis and fluid overload. His dyspnea has improved markedly after diuresis. He May have underlying obstructive CAD -no need for heparin infusion, can be transitioned to DVT prophylaxis -continue aspirin and statin -lasix 20 mg OD -stress test as an outpatient - Cardiology will sign off. If echo shows any abnormalities we will come and see him again Subjective Date/time seen: 05/27/24 17:35 Interval history: Patient denies chest pain, palpitations, shortness of breath, nausea, or vomiting. Dull abdominal pain Review of Systems Review of Systems: 12 systems were reviewed and are negative except for as per HPI. All systems reviewed & are unremarkable except as noted in HPI and below Exam Narrative: AF HR 88 RR 18 SpO2 90 BP 139/75 General: male in no acute respiratory distress who is nontoxic appearing, lying semi recumbent in bed. HEENT: Normocephalic. Atraumatic. Extraocular movement intact. Sclera clear and anicteric. No facial asymmetry. Neck: Neck was supple. No dominant adenopathy, thyromegaly or masses. 2+ carotid upstrokes without bruits. Chest: Lungs are clear to auscultation bilaterally. No wheezes or crackles. CV: Heart was regular rate and rhythm. S1/S2. No murmurs, gallops, or rubs. Abd: Abdomen was soft. Epigastric tenderness and LLQ. Nondistended. Positive bowel sounds. No organomegaly or masses. Neuro: Patient is alert and oriented x4. Speech is clear. Const: General: no acute distress and uncomfortable Eyes: Sclera: sclerae normal Resp: Effort & Inspection: normal respiratory effort Auscultation: clear to auscultation bilaterally, wheezes expiratory wheezes and diminished lung sounds Cardio: Rate: regular rate Rhythm: regular rhythm GI: Auscultation: normal bowel sounds Other: Abdomen semi firm with hypoactive bowel sounds. Epigastric tenderness and LLQ. Neuro: Speech: normal speech Extrem: General: no pedal edema Psych: Mental Status: mental status grossly normal Affect: normal affect Objective Data Vital Signs Vital Signs: Vital Signs - 24 hr 05/26/24 20:00 05/26/24 20:00 05/26/24 21:12 Temperature 36.3 C L Pulse Rate 91 107 H 90 Respiratory Rate 18 18 Blood Pressure 159/73 H Pulse Oximetry 94 Oxygen Delivery Fraction of Inspired Oxygen 05/26/24 21:14 05/26/24 21:19 05/26/24 23:47 Temperature 36.7 C Pulse Rate 85 93 Respiratory Rate 18 16 Blood Pressure 161/88 H Pulse Oximetry 94 93 Oxygen Delivery Room Air Fraction of Inspired Oxygen 21 05/27/24 00:00 05/27/24 01:51 05/27/24 02:05 Temperature Pulse Rate 92 89 88 Respiratory Rate 18 18 Blood Pressure Pulse Oximetry Oxygen Delivery Fraction of Inspired Oxygen 05/27/24 04:00 05/27/24 04:00 05/27/24 07:56 Temperature 36.6 C 36.5 C Pulse Rate 96 86 90 Respiratory Rate 18 16 Blood Pressure 157/81 H 162/75 H Pulse Oximetry 93 90 Oxygen Delivery Fraction of Inspired Oxygen 05/27/24 08:03 05/27/24 08:12 05/27/24 08:12 Temperature Pulse Rate 93 90 92 Respiratory Rate 20 20 Blood Pressure Pulse Oximetry 91 Oxygen Delivery Room Air Fraction of Inspired Oxygen 05/27/24 08:20 05/27/24 11:22 05/27/24 12:00 Temperature 36.4 C Pulse Rate 91 97 98 Respiratory Rate 20 20 Blood Pressure 137/76 Pulse Oximetry 93 Oxygen Delivery Fraction of Inspired Oxygen 05/27/24 15:59 Temperature 36.7 C Pulse Rate 73 Respiratory Rate 20 Blood Pressure 163/86 H Pulse Oximetry 93 Oxygen Delivery Fraction of Inspired Oxygen Intake/Output Intake/Output: Intake & Output 05/24/24 05/25/24 05/26/24 05/27/24 23:59 23:59 23:59 23:59 Intake Total 3550 800 2529.7 2030 Output Total 250 1325 1050 Balance 3550 550 1204.7 980 Meds/Results Medications: Active Medications Generic Name Dose Route Start Last Admin Trade Name Freq PRN Reason Stop Dose Admin Albuterol/Ipratropium 3 ml 05/27/24 12:57 Ipratropium 0.5 Mg/Albuterol Sulfate 2.5 Mg Ampul.Neb 3 Ml INHALATION Q6HRT PRN Wheezing Aspirin 81 mg 05/28/24 09:00 Aspirin 81 Mg Enteric Tablet PO QAM SIMRAN Atorvastatin Calcium 20 mg 05/23/24 21:00 05/26/24 21:10 Atorvastatin 20 Mg Tablet PO 20 mg HS SIMRAN Administration Azithromycin 500 mg 05/25/24 17:00 05/26/24 16:39 Azithromycin 250 Mg Tablet PO 05/29/24 17:01 500 mg Q24H SIMRAN Administration Carvedilol 12.5 mg 05/27/24 10:05 05/27/24 11:22 Carvedilol 12.5 Mg Tablet PO 12.5 mg Q12HR SIMRAN Administration Enoxaparin Sodium 40 mg 05/23/24 09:00 05/27/24 08:58 Enoxaparin 40 Mg/0.4 Ml Syringe SUB-Q 40 mg DAILY SIMRAN Administration Fluoxetine HCl 40 mg 05/24/24 09:00 05/27/24 08:50 Fluoxetine Hcl 20 Mg Capsule PO 40 mg DAILY SIMRAN Administration Furosemide 20 mg 05/27/24 12:05 05/27/24 12:53 Furosemide 20 Mg Tablet PO 20 mg DAILY [facility] Administration Hydromorphone HCl 1 mg 05/26/24 15:10 05/27/24 14:15 Hydromorphone Hcl (*Crx) 1 Mg Tablet PO 1 mg Q4H PRN Administration Pain Rated 5-6 Hydromorphone HCl 2 mg 05/26/24 22:00 Hydromorphone Hcl (*Crx) 2 Mg Tablet PO Q4H PRN Pain Rated 7-10 Cefepime HCl 2 gm in 50 mls @ 100 mls/hr 05/27/24 10:00 05/27/24 11:21 Maxipime 2 Gm/Ns 50 Ml IVPB 100 mls/hr Q12HR SIMRAN Administration Nonformulary Drug 0 mg 05/25/24 09:00 05/27/24 08:58 Vibegron [Gemtesa] PO 06/24/24 08:59 75 mg 75 Mg Tablet DAILY SIMRAN Administration Ondansetron HCl 4 mg 05/26/24 06:47 05/26/24 13:16 Ondansetron Inj 4 Mg/2 Ml Vial IV PUSH 4 mg Q6H PRN Administration Nausea And Vomiting Pantoprazole Sodium 40 mg 05/28/24 09:00 Pantoprazole 40 Mg Tablet PO QAM SIMRAN Perflutren Lipid Microsphere 0 ml 05/25/24 23:04 Perflutren Lipid Microspheres 1.5 Ml Vial Diluted To 10 Ml Total Volume IV PUSH 05/28/24 23:04 ONCE PRN adequate visualization Protocol Polyethylene Glycol 17 gm 05/25/24 09:00 05/27/24 08:50 Polyethylene Glycol 3350 17 Gm Powd.Pack PO 17 gm QAM SIMRAN Administration Prochlorperazine Edisylate 10 mg 05/26/24 08:38 Prochlorperazine Edisylate 10 Mg/2 Ml Vial IV PUSH Q6H PRN Nausea And Vomiting Senna/Docusate Sodium 1 tab 05/24/24 21:00 05/26/24 21:11 Senna/Docusate Sodium Tablet PO 1 tab HS SIMRAN Administration Simethicone 125 mg 05/25/24 17:00 05/27/24 14:05 Simethicone 125 Mg Chew Tab PO 125 mg QID SIMRAN Administration Tamsulosin HCl 0.4 mg 05/23/24 21:00 05/26/24 21:11 Tamsulosin Hcl 0.4 Mg Capsule BY MOUTH 0.4 mg HS SIMRAN Administration Radiology Results: ITS Impressions Abdomen/Pelvis CT 05/22/24 21:39 IMPRESSION: Findings consistent with acute pancreatitis without gross perforation or drainable fluid collection. Chest X-Ray 05/25/24 12:01 IMPRESSION: 1. Small left pleural effusion with left basilar atelectasis or pneumonia. Abdomen X-Ray 05/25/24 12:03 IMPRESSION: 1. Multiple mildly dilated gas-filled loops of small bowel in the abdomen and would favor ileus related to acute interstitial pancreatitis as seen on prior CT over obstruction. Labs Labs: Laboratory Results - last 24 hr 05/27/24 05/27/24 07:20 07:23 WBC 13.2 H RBC 3.74 L Hgb 12.1 L Hct 34.6 L MCV 92.5 MCH 32.4 MCHC 35.0 RDW 12.4 Plt Count 300 MPV 9.5 Immature Gran % (Auto) 1.7 H Neut % (Auto) 71.3 Lymph % (Auto) 6.9 L [place] % (Auto) 19.0 H Eos % (Auto) 0.4 Baso % (Auto) 0.7 Lymph # (Auto) 0.91 [place] # (Auto) 2.5 H Eos # (Auto) 0.1 Baso # (Auto) 0.1 Abs Immat Gran (auto) 0.22 H Absolute Neuts (auto) 9.4 H Absolute Nucleated RBC 0.000 Nucleated RBC % 0.0 Sodium 130 L Potassium 3.3 L Chloride 102 Carbon Dioxide 25 Anion Gap 3 L BUN 16 Creatinine 0.70 Estim Creat Clear Calc 85 Estimated GFR > 60 Glucose 90 Calcium 8.1 L Magnesium 2.3 Total Bilirubin 1.2 AST 33 ALT 24 Alkaline Phosphatase 77 Total Protein 6.0 L Albumin 2.9 L Lipase 56
[2024-05-27] MEDS: AZITHROMYCIN 250 MG TABLET 500 MG PO (17:56)
[2024-05-27] MEDS: SENNA/DOCUSATE SODIUM TABLET 1 TAB PO (20:53)
[2024-05-27] MEDS: TAMSULOSIN HCL 0.4 MG CAPSULE BY MOUTH (20:53)
[2024-05-27] MEDS: ATORVASTATIN 20 MG TABLET PO (20:54)
[2024-05-28] VITALS (11 sets, daily range): BP systolic 130–161; BP diastolic 66–80; PULSE 63–86; RESP 14–18; TEMP 36.2–36.8; O2SAT 93–99
[2024-05-28] MEDS: HYDROmorphone HCL (*CRX) 1 MG TABLET PO ×4 (02:22→20:22)
[2024-05-28 07:36] LABS: Basophils Absolute Auto 0.1 K/mm3 (0.0-0.1); Basophils Percent Auto 0.7 % (0.2-1.2); Eosinophils Absolute Auto 0.1 K/mm3 (0-0.3); Eosinophils Percent Auto 0.6 % (0-4.4); Hematocrit 33.9 % (42.0-52.0); Hemoglobin 11.8 g/dL (14.0-18.0); Immature Granulocyte Absolute 0.55 K/mm3 (0.00-0.031); Immature Granulocyte Percent A 3.4 % (0-0.5); Lymphocytes Absolute Auto 1.41 K/mm3 (0.9-3.2); Lymphocytes Percent Auto 8.6 % (18.3-44.2); Mean Corpuscular HGB Conc 34.8 g/dl (32-36); Mean Corpuscular Hemoglobin 32.2 pg (26-34); Mean Corpuscular Volume 92.6 fl (80-100); Mean Platelet Volume 9.4 fl (7.4-10.4); Monocytes Percent Auto 18.2 % (2.6-8.5); Neutrophils Absolute Auto 11.2 K/mm3 (1.3-6.7); Neutrophils Percent Auto 68.5 % (45.5-73.1); Platelet Count Result 311 k/mm3 (150-375); Red Blood Count 3.66 M/mm3 (4.6-6.20); Red Cell Distribution Width 12.1 % (11.5-14.5); White Blood Count 16.3 K/mm3 (4.5-10.0)
[2024-05-28 07:44] LABS: Alanine Aminotransferase 28 U/L (6-50); Albumin Level 2.6 g/dL (3.5-5.1); Alkaline Phosphatase 79 U/L (38-126); Anion Gap 3 mmol/L (4-12); Aspartate Amino Transferase 38 U/L (17-59); Bilirubin,Total 1.2 mg/dL (0.2-1.3); Blood Urea Nitrogen 14 mg/dL (9-20); Carbon Dioxide 25 mmol/L (22-30); Chloride 99 mmol/L (98-107); Estimated CRCL calculation 98 ml/min; Estimated Glomerular Filt Rate > 60; Glucose 62 mg/dL (65-110); Lipase 79 U/L (23-300); Potassium 3.5 mmol/L (3.4-5.0); Sodium 127 mmol/L (137-145)
[2024-05-28 09:36] LABS: Glucose Point of Care 63 mg/dl (65-105)
[2024-05-28] MEDS: CEFEPIME 2 GM/NS 50 ML 2 GM/50 ML BAG IVPB ×2 (09:59→20:21)
[2024-05-28] MEDS: FUROSEMIDE 20 MG TABLET PO (10:00)
[2024-05-28] MEDS: ENOXAPARIN 40 MG/0.4 ML SYRINGE SUB-Q (10:00)
[2024-05-28] MEDS: ASPIRIN 81 MG ENTERIC TABLET PO (10:00)
[2024-05-28] MEDS: PANTOPRAZOLE 40 MG TABLET PO (10:00)
[2024-05-28] MEDS: FLUoxetine HCL 20 MG CAPSULE 40 MG PO (10:00)
[2024-05-28] MEDS: SIMETHICONE 125 MG CHEW TAB PO ×4 (10:00→20:21)
[2024-05-28] MEDS: carvediloL 12.5 MG TABLET PO ×2 (10:00→20:21)
[2024-05-28] MEDS: [UNRECOGNIZED DRUG - OTHER] PO (10:01)
[2024-05-28] MEDS: VIBEGRON 75 MG PO (10:01)
[2024-05-28] MEDS: POTASSIUM CHLORIDE 20 MEQ ER TABLET 40 MEQ PO (10:04)
[2024-05-28 10:09] LABS: Glucose Point of Care 82 mg/dl (65-105)
--- NOTE | 2024-05-28 12:54 | P.PNIM_ITS ---
Progress Note: A&P Assessment and Plan (1) Acute pancreatitis: Code(s): K85.90 - Acute pancreatitis without necrosis or infection, unspecified Status: Acute Assessment and Plan: Patient developed sudden onset sharp and stabbing upper abdominal pain radiating through to the back associated with nausea, vomiting, and sweats. - s/p laparoscopic cholecystectomy in July 2023 - etiology: unclear. Drinks 1 alcoholic beverage a day and has not indulged in more than usual this holiday season. - Lipase > 40,000 on admission>16,051> 2,702>410>83>79 - LFTs WNL - CT abdomen/pelvis: Findings consistent with acute pancreatitis without gross perforation or drainable fluid collection. - Diet: advance to heart healthy diet - Analgesics - Antiemetics - Patient with fluid overload last night, IV fluids stopped. Echo ordered. Cardiology consult. (2) Type 2 IA (myocardial infarction): Code(s): I21.A1 - Myocardial infarction type 2 Status: Acute Assessment and Plan: * Seen by Cardiology, appreciate recommendations * DVT prophylaxis * continue aspirin and statin * Furosemide 20 mg PO daily * Echo completed, awaiting reading. * Stress test as an outpatient. (3) Pneumonia: Code(s): J18.9 - Pneumonia, unspecified organism Status: Acute Assessment and Plan: * Chest X-ray showed: Small left pleural effusion with left basilar atelectasis or pneumonia. * WBC increased today from 13.2> 16.3, patient had diarrhea last night. Add Florastor 250 mg PO BID. * Started on Azithromycin 500 mg PO daily and Ceftriaxone 1 gram daily. 05/27/24 Stop Ceftriaxone, start Cefepime 2 gram IVPB q 12. * Duonebs q 6 PRN. (4) Constipation: Code(s): K59.00 - Constipation, unspecified Status: Acute Assessment and Plan: * Docusate 100 mg PO at bedtime and Miralax 17 grams oral daily. * KUB showed: Multiple mildly dilated gas-filled loops of small bowel in the abdomen and would favor ileus related to acute interstitial pancreatitis as seen on prior CT over obstruction. * Diarrhea over night. Abdomen soft with positive bowel sounds. * Encourage oral intake. * Patient with continues abdominal pain and elevated WBC. Recheck KUB, awaiting reading. (5) Hypokalemia: Code(s): E87.6 - Hypokalemia Status: Acute Assessment and Plan: * Potassium 3.5 * Potassium Chloride 40 meq PO x 1 given. * Monitor labs. (6) Benign prostatic hyperplasia: Code(s): N40.0 - Benign prostatic hyperplasia without lower urinary tract symptoms Status: Acute Assessment and Plan: * Chronic, continue flomax. (7) Hyperlipidemia: Code(s): E78.5 - Hyperlipidemia, unspecified Status: Acute Assessment and Plan: * Chronic, continue atorvastatin 20 mg daily. Subjective Date/time seen: 05/28/24 12:54 Interval history: Patient reports pain in left abdomen is a 7 , constant, and dull. Patient denies chest pain, palpitations, shortness of breath, nausea, or vomiting. Nurse and patient report that patient had diarrhea overnight. Review of Systems Review of Systems: All systems reviewed & are unremarkable except as noted in HPI and below Exam Const: General: no acute distress and uncomfortable Eyes: Sclera: sclerae normal Resp: Effort & Inspection: normal respiratory effort Auscultation: clear to auscultation bilaterally Cardio: Rate: regular rate Rhythm: regular rhythm GI: GI Palp: Yes Soft to palpation Auscultation: normal bowel sounds Neuro: Speech: normal speech Extrem: General: no pedal edema Psych: Mental Status: mental status grossly normal Affect: normal affect Objective Data Vital Signs Vital Signs: Vital Signs - 24 hr 05/27/24 15:59 05/27/24 16:03 05/27/24 20:00 Temperature 98.1 F 97.8 F Pulse Rate 73 77 74 Respiratory Rate 20 16 Blood Pressure 163/86 H 163/91 H Pulse Oximetry 93 97 Oxygen Delivery 05/27/24 20:00 05/27/24 20:53 05/28/24 00:00 Temperature 97.1 F L Pulse Rate 70 75 69 Respiratory Rate 16 Blood Pressure 161/80 H Pulse Oximetry 95 Oxygen Delivery 05/28/24 00:00 05/28/24 04:00 05/28/24 08:00 Temperature Pulse Rate 74 63 Respiratory Rate Blood Pressure Pulse Oximetry Oxygen Delivery Room Air 05/28/24 08:00 05/28/24 08:02 05/28/24 10:00 Temperature 98.2 F Pulse Rate 72 70 86 Respiratory Rate 16 Blood Pressure 149/79 H Pulse Oximetry 99 Oxygen Delivery Intake/Output Intake/Output: Intake & Output 05/25/24 05/26/24 05/27/24 05/28/24 23:59 23:59 23:59 23:59 Intake Total 800 2529.7 2610 1280 Output Total 250 1325 1050 1000 Balance 550 1204.7 1560 280 Meds/Results Medications: Active Medications Generic Name Dose Route Start Last Admin Trade Name Freq PRN Reason Stop Dose Admin Albuterol/Ipratropium 3 ml 05/27/24 12:57 Ipratropium 0.5 Mg/Albuterol Sulfate 2.5 Mg Ampul.Neb 3 Ml INHALATION Q6HRT PRN Wheezing Aspirin 81 mg 05/28/24 09:00 05/28/24 10:00 Aspirin 81 Mg Enteric Tablet PO 81 mg QAM SIMRAN Administration Atorvastatin Calcium 20 mg 05/23/24 21:00 05/27/24 20:54 Atorvastatin 20 Mg Tablet PO 20 mg HS SIMRAN Administration Azithromycin 500 mg 05/25/24 17:00 05/27/24 17:56 Azithromycin 250 Mg Tablet PO 05/29/24 17:01 500 mg Q24H SIMRAN Administration Carvedilol 12.5 mg 05/27/24 10:05 05/28/24 10:00 Carvedilol 12.5 Mg Tablet PO 12.5 mg Q12HR SIMRAN Administration Enoxaparin Sodium 40 mg 05/23/24 09:00 05/28/24 10:00 Enoxaparin 40 Mg/0.4 Ml Syringe SUB-Q 40 mg DAILY SIMRAN Administration Fluoxetine HCl 40 mg 05/24/24 09:00 05/28/24 10:00 Fluoxetine Hcl 20 Mg Capsule PO 40 mg DAILY SIMRAN Administration Furosemide 20 mg 05/27/24 12:05 05/28/24 10:00 Furosemide 20 Mg Tablet PO 20 mg DAILY SIMRAN Administration Hydromorphone HCl 1 mg 05/26/24 15:10 05/28/24 10:06 Hydromorphone Hcl (*Crx) 1 Mg Tablet PO 1 mg Q4H PRN Administration Pain Rated 5-6 Hydromorphone HCl 2 mg 05/26/24 22:00 Hydromorphone Hcl (*Crx) 2 Mg Tablet PO Q4H PRN Pain Rated 7-10 Cefepime HCl 2 gm in 50 mls @ 100 mls/hr 05/27/24 10:00 05/28/24 09:59 Maxipime 2 Gm/Ns 50 Ml IVPB 100 mls/hr Q12HR SIMRAN Administration Nonformulary Drug 0 mg 05/25/24 09:00 05/28/24 10:01 Vibegron [Gemtesa] PO 06/24/24 08:59 75 mg 75 Mg Tablet DAILY SIMRAN Administration Ondansetron HCl 4 mg 05/26/24 06:47 05/26/24 13:16 Ondansetron Inj 4 Mg/2 Ml Vial IV PUSH 4 mg Q6H PRN Administration Nausea And Vomiting Pantoprazole Sodium 40 mg 05/28/24 09:00 05/28/24 10:00 Pantoprazole 40 Mg Tablet PO 40 mg QAM SIMRAN Administration Perflutren Lipid Microsphere 0 ml 05/25/24 23:04 Perflutren Lipid Microspheres 1.5 Ml Vial Diluted To 10 Ml Total Volume IV PUSH 05/28/24 23:04 ONCE PRN adequate visualization Protocol Polyethylene Glycol 17 gm 05/25/24 09:00 05/28/24 10:03 Polyethylene Glycol 3350 17 Gm Powd.Pack PO Not Given QAM SIMRAN Prochlorperazine Edisylate 10 mg 05/26/24 08:38 Prochlorperazine Edisylate 10 Mg/2 Ml Vial IV PUSH Q6H PRN Nausea And Vomiting Senna/Docusate Sodium 1 tab 05/24/24 21:00 05/27/24 20:53 Senna/Docusate Sodium Tablet PO 1 tab HS SIMRAN Administration Simethicone 125 mg 05/25/24 17:00 05/28/24 10:00 Simethicone 125 Mg Chew Tab PO 125 mg QID SIMRAN Administration Tamsulosin HCl 0.4 mg 05/23/24 21:00 05/27/24 20:53 Tamsulosin Hcl 0.4 Mg Capsule BY MOUTH 0.4 mg HS SIMRAN Administration Radiology Results: ITS Impressions Abdomen/Pelvis CT 05/22/24 21:39 IMPRESSION: Findings consistent with acute pancreatitis without gross perforation or drainable fluid collection. Chest X-Ray 05/25/24 12:01 IMPRESSION: 1. Small left pleural effusion with left basilar atelectasis or pneumonia. Abdomen X-Ray 05/25/24 12:03 IMPRESSION: 1. Multiple mildly dilated gas-filled loops of small bowel in the abdomen and would favor ileus related to acute interstitial pancreatitis as seen on prior CT over obstruction. Labs Labs: Laboratory Results - last 24 hr 05/28/24 05/28/24 05/28/24 06:51 09:33 09:52 WBC 16.3 H RBC 3.66 L Hgb 11.8 L Hct 33.9 L MCV 92.6 MCH 32.2 MCHC 34.8 RDW 12.1 Plt Count 311 MPV 9.4 Immature Gran % (Auto) 3.4 H Neut % (Auto) 68.5 Lymph % (Auto) 8.6 L [place] % (Auto) 18.2 H Eos % (Auto) 0.6 Baso % (Auto) 0.7 Lymph # (Auto) 1.41 [place] # (Auto) 3.0 H Eos # (Auto) 0.1 Baso # (Auto) 0.1 Abs Immat Gran (auto) 0.55 H Absolute Neuts (auto) 11.2 H Absolute Nucleated RBC 0.000 Nucleated RBC % 0.0 Sodium 127 L Potassium 3.5 Chloride 99 Carbon Dioxide 25 Anion Gap 3 L BUN 14 Creatinine 0.60 L Estim Creat Clear Calc 98 Estimated GFR > 60 Glucose 62 L POC Capillary Glucose 63 L 82 Calcium 8.0 L Total Bilirubin 1.2 AST 38 ALT 28 Alkaline Phosphatase 79 Total Protein 5.0 L Albumin 2.6 L Lipase 79 Quality VTE Prophylaxis VTE prophylaxis: pharmacologic ordered
--- NOTE | 2024-05-28 14:09 | PCNWS ---
Weekly nutritional screen. Patient is tolerating current full liquid diet with good intake, to advance to a regular diet today, pt tolerating well. Ensure Clear in place BID. No weight loss reported. No nutritional recommendations at this time.
[2024-05-28] MEDS: AZITHROMYCIN 250 MG TABLET 500 MG PO (17:13)
[2024-05-28] MEDS: SACCHAROMYCES BOULARDII 250 MG CAPSULE PO (17:13)
[2024-05-28] MEDS: ATORVASTATIN 20 MG TABLET PO (20:21)
[2024-05-28] MEDS: SENNA/DOCUSATE SODIUM TABLET 1 TAB PO (20:23)
[2024-05-28] MEDS: TAMSULOSIN HCL 0.4 MG CAPSULE BY MOUTH (20:23)
[2024-05-28 20:38] LABS: Glucose Point of Care 94 mg/dl (65-105)
[2024-05-29] VITALS (11 sets, daily range): BP systolic 111–128; BP diastolic 65–69; PULSE 63–89; RESP 16–18; TEMP 36.9–37.7; O2SAT 92–96
[2024-05-29] MEDS: HYDROmorphone HCL (*CRX) 2 MG TABLET PO ×5 (00:06→22:40)
[2024-05-29 08:03] LABS: Basophils Absolute Auto 0.1 K/mm3 (0.0-0.1); Basophils Percent Auto 0.8 % (0.2-1.2); Eosinophils Absolute Auto 0.1 K/mm3 (0-0.3); Eosinophils Percent Auto 0.5 % (0-4.4); Hematocrit 34.3 % (42.0-52.0); Hemoglobin 12.2 g/dL (14.0-18.0); Immature Granulocyte Absolute 0.83 K/mm3 (0.00-0.031); Immature Granulocyte Percent A 4.8 % (0-0.5); Lymphocytes Absolute Auto 1.54 K/mm3 (0.9-3.2); Lymphocytes Percent Auto 8.8 % (18.3-44.2); Mean Corpuscular HGB Conc 35.6 g/dl (32-36); Mean Corpuscular Hemoglobin 32.4 pg (26-34); Mean Corpuscular Volume 91.2 fl (80-100); Mean Platelet Volume 9.3 fl (7.4-10.4); Monocytes Absolute Auto 2.8 K/mm3 (0.1-0.6); Monocytes Percent Auto 15.8 % (2.6-8.5); Neutrophils Absolute Auto 12.1 K/mm3 (1.3-6.7); Neutrophils Percent Auto 69.3 % (45.5-73.1); Platelet Count Result 320 k/mm3 (150-375); Red Blood Count 3.76 M/mm3 (4.6-6.20); Red Cell Distribution Width 12.5 % (11.5-14.5); White Blood Count 17.4 K/mm3 (4.5-10.0)
[2024-05-29 08:18] LABS: Alanine Aminotransferase 36 U/L (6-50); Albumin Level 2.5 g/dL (3.5-5.1); Alkaline Phosphatase 86 U/L (38-126); Anion Gap 1 mmol/L (4-12); Aspartate Amino Transferase 42 U/L (17-59); Bilirubin,Total 1.1 mg/dL (0.2-1.3); Blood Urea Nitrogen 13 mg/dL (9-20); Calcium 7.9 mg/dL (8.4-10.2); Carbon Dioxide 26 mmol/L (22-30); Chloride 100 mmol/L (98-107); Estimated CRCL calculation 85 ml/min; Estimated Glomerular Filt Rate > 60; Glucose 72 mg/dL (65-110); Lipase 163 U/L (23-300); Potassium 3.4 mmol/L (3.4-5.0); Sodium 127 mmol/L (137-145)
[2024-05-29] MEDS: PANTOPRAZOLE 40 MG TABLET PO (09:39)
[2024-05-29] MEDS: FUROSEMIDE 20 MG TABLET PO (09:39)
[2024-05-29] MEDS: carvediloL 12.5 MG TABLET PO ×2 (09:39→22:16)
[2024-05-29] MEDS: FLUoxetine HCL 20 MG CAPSULE 40 MG PO (09:39)
[2024-05-29] MEDS: SACCHAROMYCES BOULARDII 250 MG CAPSULE PO ×2 (09:39→17:34)
[2024-05-29] MEDS: CEFEPIME 2 GM/NS 50 ML 2 GM/50 ML BAG IVPB ×2 (09:39→22:17)
[2024-05-29] MEDS: SIMETHICONE 125 MG CHEW TAB PO ×4 (09:39→22:17)
[2024-05-29] MEDS: ASPIRIN 81 MG ENTERIC TABLET PO (09:39)
[2024-05-29] MEDS: VIBEGRON 75 MG PO (09:53)
[2024-05-29] MEDS: [UNRECOGNIZED DRUG - OTHER] PO (09:53)
--- NOTE | 2024-05-29 12:38 | P.PNIM_ITS ---
Progress Note: A&P Assessment and Plan (1) Acute pancreatitis: Code(s): K85.90 - Acute pancreatitis without necrosis or infection, unspecified Status: Acute Assessment and Plan: Patient developed sudden onset sharp and stabbing upper abdominal pain radiating through to the back associated with nausea, vomiting, and sweats. - s/p laparoscopic cholecystectomy in July 2023 - etiology: unclear. Drinks 1 alcoholic beverage a day and has not indulged in more than usual this holiday season. - Lipase > 40,000 on admission>16,051> 2,702>410>83>79>163 - LFTs WNL - CT abdomen/pelvis: Findings consistent with acute pancreatitis without gross perforation or drainable fluid collection. - Diet: advance to heart healthy diet - Analgesics - Antiemetics - Patient with fluid overload on 05/26/24 from IV fluids stopped. Echo ordered. Cardiology consult. - GI consult, appreciate recommendations. - MRCP with and without contrast tomorrow. (2) Type 2 MS (myocardial infarction): Code(s): I21.A1 - Myocardial infarction type 2 Status: Acute Assessment and Plan: * Seen by Cardiology, appreciate recommendations * DVT prophylaxis * continue aspirin and statin * Furosemide 20 mg PO daily * Echo completed, awaiting reading. * Stress test as an outpatient. (3) Pneumonia: Code(s): J18.9 - Pneumonia, unspecified organism Status: Acute Assessment and Plan: * Chest X-ray showed: Small left pleural effusion with left basilar atelectasis or pneumonia. * WBC increased today from 13.2> 16.3> 17.4. Florastor 250 mg PO BID added 05/28/24 for diarrhea. * Started on Azithromycin 500 mg PO daily and Ceftriaxone 1 gram daily. 05/27/24 Stop Ceftriaxone, start Cefepime 2 gram IVPB q 12. * Duonebs q 6 PRN. * PT/OT (4) Constipation: Code(s): K59.00 - Constipation, unspecified Status: Acute Assessment and Plan: * Docusate 100 mg PO at bedtime and Miralax 17 grams oral daily. * KUB showed: Multiple mildly dilated gas-filled loops of small bowel in the abdomen and would favor ileus related to acute interstitial pancreatitis as seen on prior CT over obstruction. * Diarrhea over night. Abdomen soft with positive bowel sounds. * Encourage oral intake. * Patient with continues abdominal pain and elevated WBC. * Recheck KUB on 05/28/24 showed: IMPRESSION: Slightly dilated small bowel loops. Follow-up advised- GI consulted. (5) Hypokalemia: Code(s): E87.6 - Hypokalemia Status: Acute Assessment and Plan: * Potassium 3.4 * Potassium Chloride 40 meq PO x 1 given. * Monitor labs. (6) Benign prostatic hyperplasia: Code(s): N40.0 - Benign prostatic hyperplasia without lower urinary tract symptoms Status: Acute Assessment and Plan: * Chronic, continue flomax. (7) Hyperlipidemia: Code(s): E78.5 - Hyperlipidemia, unspecified Status: Acute Assessment and Plan: * Chronic, continue atorvastatin 20 mg daily. Subjective Date/time seen: 05/29/24 12:38 Interval history: Patient reports pain in left abdomen is a 7 , constant, and dull. Patient denies chest pain, palpitations, shortness of breath, nausea, or vomiting. Review of Systems Review of Systems: All systems reviewed & are unremarkable except as noted in HPI and below Exam Const: General: no acute distress and uncomfortable Resp: Effort & Inspection: normal respiratory effort Auscultation: clear to auscultation bilaterally Cardio: Rate: regular rate Rhythm: regular rhythm GI: GI Palp: Yes Soft to palpation and Yes Tenderness to palpation present (GI) (LLQ) Other: Hypoactive bowel sounds. Mildly distended. Skin: General skin exam: no rashes or lesions noted Extrem: General: no pedal edema Psych: Mental Status: mental status grossly normal Affect: normal affect Objective Data Vital Signs Vital Signs: Vital Signs - 24 hr 05/28/24 14:00 05/28/24 16:02 05/28/24 20:00 Temperature 98.3 F Pulse Rate 69 65 70 Respiratory Rate 18 Blood Pressure 130/66 Pulse Oximetry 93 05/28/24 20:21 05/28/24 22:00 05/29/24 00:00 Temperature 98.0 F Pulse Rate 71 68 63 Respiratory Rate 14 Blood Pressure 161/73 H Pulse Oximetry 96 05/29/24 04:00 05/29/24 04:42 05/29/24 09:39 Temperature 99.8 F H Pulse Rate 67 66 66 Respiratory Rate 18 Blood Pressure 128/68 Pulse Oximetry 92 Intake/Output Intake/Output: Intake & Output 05/26/24 05/27/24 05/28/24 05/29/24 23:59 23:59 23:59 23:59 Intake Total 2529.7 2610 1760 501.7 Output Total 1325 1050 1000 675 Balance 1204.7 1560 760 -173.3 Meds/Results Medications: Active Medications Generic Name Dose Route Start Last Admin Trade Name Freq PRN Reason Stop Dose Admin Albuterol/Ipratropium 3 ml 05/27/24 12:57 Ipratropium 0.5 Mg/Albuterol Sulfate 2.5 Mg Ampul.Neb 3 Ml INHALATION Q6HRT PRN Wheezing Aspirin 81 mg 05/28/24 09:00 05/29/24 09:39 Aspirin 81 Mg Enteric Tablet PO 81 mg QAM SIMRAN Administration Atorvastatin Calcium 20 mg 05/23/24 21:00 05/28/24 20:21 Atorvastatin 20 Mg Tablet PO 20 mg HS SIMRAN Administration Azithromycin 500 mg 05/25/24 17:00 05/28/24 17:13 Azithromycin 250 Mg Tablet PO 05/29/24 17:01 500 mg Q24H SIMRAN Administration Carvedilol 12.5 mg 05/27/24 10:05 05/29/24 09:39 Carvedilol 12.5 Mg Tablet PO 12.5 mg Q12HR SIMRAN Administration Enoxaparin Sodium 40 mg 05/23/24 09:00 05/29/24 09:58 Enoxaparin 40 Mg/0.4 Ml Syringe SUB-Q Not Given DAILY SIMRAN Fluoxetine HCl 40 mg 05/24/24 09:00 05/29/24 09:39 Fluoxetine Hcl 20 Mg Capsule PO 40 mg DAILY SIMRAN Administration Furosemide 20 mg 05/27/24 12:05 05/29/24 09:39 Furosemide 20 Mg Tablet PO 20 mg DAILY SIMRAN Administration Hydromorphone HCl 1 mg 05/26/24 15:10 05/28/24 20:22 Hydromorphone Hcl (*Crx) 1 Mg Tablet PO 1 mg Q4H PRN Administration Pain Rated 5-6 Hydromorphone HCl 2 mg 05/26/24 22:00 05/29/24 09:37 Hydromorphone Hcl (*Crx) 2 Mg Tablet PO 2 mg Q4H PRN Administration Pain Rated 7-10 Cefepime HCl 2 gm in 50 mls @ 100 mls/hr 05/27/24 10:00 05/29/24 09:40 Maxipime 2 Gm/Ns 50 Ml IVPB 0 mls/hr Q12HR SIMRAN Infusion Nonformulary Drug 0 mg 05/25/24 09:00 05/29/24 09:53 Vibegron [Gemtesa] PO 06/24/24 08:59 75 mg 75 Mg Tablet DAILY SIMRAN Administration Ondansetron HCl 4 mg 05/26/24 06:47 05/26/24 13:16 Ondansetron Inj 4 Mg/2 Ml Vial IV PUSH 4 mg Q6H PRN Administration Nausea And Vomiting Pantoprazole Sodium 40 mg 05/28/24 09:00 05/29/24 09:39 Pantoprazole 40 Mg Tablet PO 40 mg QAM [facility] Administration Polyethylene Glycol 17 gm 05/25/24 09:00 05/28/24 10:03 Polyethylene Glycol 3350 17 Gm Powd.Pack PO Not Given QAM [facility] Prochlorperazine Edisylate 10 mg 05/26/24 08:38 Prochlorperazine Edisylate 10 Mg/2 Ml Vial IV PUSH Q6H PRN Nausea And Vomiting Saccharomyces Boulardii 250 mg 05/28/24 17:00 05/29/24 09:39 Saccharomyces Boulardii 250 Mg Capsule PO 250 mg BID SIMRAN Administration Senna/Docusate Sodium 1 tab 05/24/24 21:00 05/28/24 20:23 Senna/Docusate Sodium Tablet PO 1 tab HS SIMRAN Administration Simethicone 125 mg 05/25/24 17:00 05/29/24 09:39 Simethicone 125 Mg Chew Tab PO 125 mg QID SIMRAN Administration Tamsulosin HCl 0.4 mg 05/23/24 21:00 05/28/24 20:23 Tamsulosin Hcl 0.4 Mg Capsule BY MOUTH 0.4 mg HS [facility] Administration Radiology Results: ITS Impressions Abdomen/Pelvis CT 05/22/24 21:39 IMPRESSION: Findings consistent with acute pancreatitis without gross perforation or drainable fluid collection. Chest X-Ray 05/25/24 12:01 IMPRESSION: 1. Small left pleural effusion with left basilar atelectasis or pneumonia. Abdomen X-Ray 05/28/24 20:21 IMPRESSION: Slightly dilated small bowel loops. Follow-up advised. Labs Labs: Laboratory Results - last 24 hr 05/28/24 05/29/24 20:34 07:33 WBC 17.4 H RBC 3.76 L Hgb 12.2 L Hct 34.3 L MCV 91.2 MCH 32.4 MCHC 35.6 RDW 12.5 Plt Count 320 MPV 9.3 Immature Gran % (Auto) 4.8 H Neut % (Auto) 69.3 Lymph % (Auto) 8.8 L [place] % (Auto) 15.8 H Eos % (Auto) 0.5 Baso % (Auto) 0.8 Lymph # (Auto) 1.54 [place] # (Auto) 2.8 H Eos # (Auto) 0.1 Baso # (Auto) 0.1 Abs Immat Gran (auto) 0.83 H Absolute Neuts (auto) 12.1 H Absolute Nucleated RBC 0.000 Nucleated RBC % 0.0 Sodium 127 L Potassium 3.4 Chloride 100 Carbon Dioxide 26 Anion Gap 1 L BUN 13 Creatinine 0.70 Estim Creat Clear Calc 85 Estimated GFR > 60 Glucose 72 POC Capillary Glucose 94 Calcium 7.9 L Total Bilirubin 1.1 AST 42 ALT 36 Alkaline Phosphatase 86 Total Protein 5.0 L Albumin 2.5 L Lipase 163 Quality VTE Prophylaxis VTE prophylaxis: pharmacologic ordered
[2024-05-29] MEDS: POTASSIUM CHLORIDE 20 MEQ ER TABLET 40 MEQ PO (13:07)
--- NOTE | 2024-05-29 14:29 | P.CONGI_ITS ---
Assessment and Plan Assessment and plan (1) Acute pancreatitis: Code(s): K85.90 - Acute pancreatitis without necrosis or infection, unspecified Status: Acute (2) Nausea and vomiting: Code(s): R11.2 - Nausea with vomiting, unspecified Status: Acute (3) Abdominal pain, epigastric: Code(s): R10.13 - Epigastric pain Status: Acute (4) Pneumonia: Code(s): J18.9 - Pneumonia, unspecified organism Status: Acute Plan Patient currently admitted to the hospital with pneumonia shortness of breath being managed by Medicine team. Patient does have pancreatitis that is his 1st attack of pancreatitis. Patient still has some abdominal discomfort but having bowel movements also patient has low sodium of 127 can be secondary to pneumonia. Leukocytosis noted. Which can be secondary pneumonia or can be 2nd to smoldering pancreatitis. Continue with close monitoring of the patient Will order a MRCP with and without contrast for further evaluation of the pancreas Clear to full liquid diet as tolerated. Leukocytosis again can be secondary pneumonia versus pancreatitis. Further recommendations will follow after looking at the MRI results Regular GI team resume patient care tomorrow GI Consult Note Consult date/time: 05/29/24 14:29 Reason for consult: Acute pancreatitis History of cholecystectomy July 2023 Pneumonia Abdominal pain Leukocytosis HPI: Isac Faria is a 74 year old male who is admitted to the hospital for shortness of breath and pneumonia currently being managed with antibiotics patient has been in the hospital for almost a week according to him he had abdominal pain nausea and vomiting he had a cholecystectomy done in August 15. Patient had a CT scan done in May 22, 2024 that showed pancreatitis patient liver function tests are normal patient currently denies any nausea vomiting but does have some abdominal discomfort also according to me is having bowel movements. Patient lab workup as well as CT scan results were reviewed with the patient according to him this is 1st attack of pancreatitis Review of Systems 2 Constitutional: Constitutional: Denies chills, Denies fatigue, Denies fever(s), Denies headache(s), Denies malaise, Denies weight gain and Denies weight loss Eyes: Eyes: Denies change in vision ENT: Denies dizziness, Denies headache(s) and Reports other (No change in hearing) Cardiovascular: Cardiovascular: Denies chest pain, Denies dyspnea and Reports other (denies palpitations, denies orthopnea) Respiratory: Respiratory: Denies cough, Denies dyspnea and Reports other (denies sputum production, denies hemoptysis) Gastrointestinal: Gastrointestinal: Reports as per HPI Genitourinary: Genitourinary: Denies hematuria, Denies dysuria and Denies urinary incontinence Musculoskeletal: Musculoskeletal: Reports other (denies extremity edema, denies myalgia) Integumentary/Breasts: Skin/Breast: Denies new lesions and Denies rash Neurologic: Denies dizziness, Denies headache(s) and Denies seizure-like activity Endocrine: Endocrine: Denies fatigue Hematologic/Lymphatic: Hematologic/Lymphatic: Denies easy bleeding and Denies easy bruising PMF Past Medical History Medical History (Updated 05/26/24 @ 19:05 by Sylvie Hyman MD) Depression Generalized anxiety disorder Meningioma Attention deficit disorder (ADD) in adult Restless legs syndrome Mixed hyperlipidemia Surgical History Surgical History (Updated 05/23/24 @ 02:57 by Darling Stafford PA-C) History of laparoscopic cholecystectomy (07/2023) Status post urethral surgery Stricture History of detached retina repair RT eye Family History Family History Mother Cerebrovascular accident, Onset Age: 69 Hypertension Family history of elevated blood lipids Father Cerebrovascular accident, Onset Age: 70 Hypertension Family history of elevated blood lipids Acute myocardial infarction, Onset Age: 40 Social History Social History (Updated 05/23/24 @ 02:58 by Darling Stafford PA-C) Social History: Surrogate medical decision maker: Delaney Giana, spouse. Code status: Full code. Smoking status: Former smoker Second hand tobacco smoke exposure: No Alcohol intake: current Drinks per week: 7 Alcohol use details: One alcoholic beverage a night at the most Substance use: never Last use: LAST WEEK Do You Feel Safe in your Home?: Yes Lack of Transportation: No Lack of Food: Never True Current Housing: I Have Housing Concerned About Future Housing: No Difficulty Paying Gas/Electric Bills: No Difficulty Paying for Meds: No Currently Unemployed: No Education: Master's Degree or Higher Difficulty w/ Childcare or Family Care: No Living arrangements: with family Occupation/Education: retired Spiritual care concerns: No Meds Home Medications and Allergies Home Medications ?Medication ?Instructions ?Recorded ?Confirmed ?Type vibegron 75 mg tablet (Gemtesa) 75 mg PO DAILY 07/25/23 05/22/24 History fluoxetine 40 mg capsule 40 mg PO DAILY #90 caps 02/02/24 05/22/24 Rx atorvastatin 20 mg tablet 20 mg PO HS #90 tabs 02/15/24 05/22/24 Rx tamsulosin 0.4 mg capsule See Rx Instructions .Route 02/17/24 05/22/24 Rx .COMPLEX #90 caps Allergies Allergy/AdvReac Type Severity Reaction Status Date / Time No Known Allergies Allergy Verified 05/22/24 19:51 Vital Signs Vital Signs - 24 hr 05/28/24 16:02 05/28/24 20:00 05/28/24 20:21 Temperature Pulse Rate 65 70 71 Respiratory Rate Blood Pressure Pulse Oximetry 05/28/24 22:00 05/29/24 00:00 05/29/24 04:00 Temperature 98.0 F Pulse Rate 68 63 67 Respiratory Rate 14 Blood Pressure 161/73 H Pulse Oximetry 96 05/29/24 04:42 05/29/24 09:39 Temperature 99.8 F H Pulse Rate 66 66 Respiratory Rate 18 Blood Pressure 128/68 Pulse Oximetry 92 Exam 2 Const: General: cooperative; No acute distress Orientation/consciousness: p atient oriented x3 HENMT: Head: normal to inspection Neck: Neck: supple Resp: Auscultation: clear to auscultation bilaterally Cardio: Rate: regular rate Rhythm: regular rhythm GI: Inspection: non-distended GI Palp: Yes Soft to palpation, Yes Tenderness to palpation present (GI) and No Palpable mass present A uscultation: normal bowel sounds and abnormal bowel sounds Rectal Exam: d eferred Other: Patient's abdomen appears to be mildly distended mildly tender no rebound no guarding bowel sounds are present but diminished Skin: General skin exam: no rashes or lesions noted Neuro: General: patient oriented x3 Extrem: General: no edema Results Labs 05/29/24 07:33 05/29/24 07:33 Labs: Short CBC 05/29/24 Range/Units 07:33 WBC 17.4 H (4.5-10.0) K/mm3 Hgb 12.2 L (14.0-18.0) g/dL Hct 34.3 L (42.0-52.0) % Plt Count 320 (150-375) k/mm3 BMP 05/29/24 07:33 Sodium 127 L Potassium 3.4 Chloride 100 Carbon Dioxide 26 BUN 13 Creatinine 0.70 Glucose 72 Calcium 7.9 L Liver Function 05/29/24 Range/Units 07:33 Total Bilirubin 1.1 (0.2-1.3) mg/dL AST 42 (17-59) U/L ALT 36 (6-50) U/L Alkaline Phosphatase 86 (38-126) U/L Albumin 2.5 L (3.5-5.1) g/dL
[2024-05-29] MEDS: AZITHROMYCIN 250 MG TABLET 500 MG PO (17:33)
[2024-05-29] MEDS: ATORVASTATIN 20 MG TABLET PO (22:17)
[2024-05-29] MEDS: TAMSULOSIN HCL 0.4 MG CAPSULE BY MOUTH (22:17)
[2024-05-29] MEDS: ONDANSETRON INJ 4 MG/2 ML VIAL IV PUSH (22:17)
[2024-05-30] VITALS (11 sets, daily range): BP systolic 98–101; BP diastolic 50–65; PULSE 62–125; RESP 12–16; TEMP 36.9–37.1; O2SAT 93–94
[2024-05-30] MEDS: HYDROmorphone HCL (*CRX) 2 MG TABLET PO ×4 (04:27→20:54)
[2024-05-30 06:32] LABS: Glucose Point of Care 105 mg/dl (65-105)
[2024-05-30 10:05] LABS: Basophils Absolute Auto 0.2 K/mm3 (0.0-0.1); Basophils Percent Auto 0.7 % (0.2-1.2); Eosinophils Absolute Auto 0.1 K/mm3 (0-0.3); Eosinophils Percent Auto 0.4 % (0-4.4); Hematocrit 33.8 % (42.0-52.0); Hemoglobin 11.7 g/dL (14.0-18.0); Immature Granulocyte Absolute 1.08 K/mm3 (0.00-0.031); Immature Granulocyte Percent A 4.7 % (0-0.5); Lymphocytes Absolute Auto 1.76 K/mm3 (0.9-3.2); Lymphocytes Percent Auto 7.6 % (18.3-44.2); Mean Corpuscular HGB Conc 34.6 g/dl (32-36); Mean Corpuscular Hemoglobin 32.3 pg (26-34); Mean Corpuscular Volume 93.4 fl (80-100); Mean Platelet Volume 9.1 fl (7.4-10.4); Monocytes Absolute Auto 2.7 K/mm3 (0.1-0.6); Monocytes Percent Auto 11.8 % (2.6-8.5); Neutrophils Absolute Auto 17.3 K/mm3 (1.3-6.7); Neutrophils Percent Auto 74.8 % (45.5-73.1); Platelet Count Result 321 k/mm3 (150-375); Red Blood Count 3.62 M/mm3 (4.6-6.20); Red Cell Distribution Width 12.5 % (11.5-14.5); White Blood Count 23.1 K/mm3 (4.5-10.0)
[2024-05-30 10:15] LABS: Alanine Aminotransferase 55 U/L (6-50); Albumin Level 2.5 g/dL (3.5-5.1); Alkaline Phosphatase 83 U/L (38-126); Anion Gap -2 mmol/L (4-12); Aspartate Amino Transferase 59 U/L (17-59); Bilirubin,Total 1.1 mg/dL (0.2-1.3); Blood Urea Nitrogen 14 mg/dL (9-20); Carbon Dioxide 29 mmol/L (22-30); Chloride 100 mmol/L (98-107); Estimated CRCL calculation 85 ml/min; Estimated Glomerular Filt Rate > 60; Glucose 97 mg/dL (65-110); Lipase 239 U/L (23-300); Potassium 4.1 mmol/L (3.4-5.0); Sodium 127 mmol/L (137-145)
[2024-05-30] MEDS: SIMETHICONE 125 MG CHEW TAB PO ×4 (10:21→20:54)
[2024-05-30] MEDS: polyethylene glycoL 3350 17 GM POWD.PACK PO (10:21)
[2024-05-30] MEDS: FLUoxetine HCL 20 MG CAPSULE 40 MG PO (10:21)
[2024-05-30] MEDS: ASPIRIN 81 MG ENTERIC TABLET PO (10:21)
[2024-05-30] MEDS: SACCHAROMYCES BOULARDII 250 MG CAPSULE PO ×2 (10:21→16:43)
[2024-05-30] MEDS: carvediloL 12.5 MG TABLET PO ×2 (10:21→20:55)
[2024-05-30] MEDS: FUROSEMIDE 20 MG TABLET PO (10:22)
[2024-05-30] MEDS: PANTOPRAZOLE 40 MG TABLET PO (10:22)
[2024-05-30] MEDS: VIBEGRON 75 MG PO (10:31)
[2024-05-30] MEDS: [UNRECOGNIZED DRUG - OTHER] PO (10:31)
--- NOTE | 2024-05-30 12:33 | P.PNIM_ITS ---
Progress Note: A&P Assessment and Plan (1) Acute pancreatitis: Code(s): K85.90 - Acute pancreatitis without necrosis or infection, unspecified Status: Acute Assessment and Plan: Patient developed sudden onset sharp and stabbing upper abdominal pain radiating through to the back associated with nausea, vomiting, and sweats. - s/p laparoscopic cholecystectomy in July 2023 - etiology: unclear. Drinks 1 alcoholic beverage a day and has not indulged in more than usual this holiday season. - Lipase > 40,000 on admission>16,051> 2,702>410>83>79>163>239 - LFTs WNL - CT abdomen/pelvis: Findings consistent with acute pancreatitis without gross perforation or drainable fluid collection. - Diet: Full liquid - Analgesics - Antiemetics - Patient with fluid overload on 05/26/24 from IV fluids stopped. Echo ordered. Cardiology consult. - GI consult, appreciate recommendations. - MRCP today showed: IMPRESSION: 1. Acute interstitial pancreatitis. 2. Small pleural effusions, left worse than right. 3. Small sliding hiatal hernia. 4. No choledocholithiasis. (2) Type 2 PA (myocardial infarction): Code(s): I21.A1 - Myocardial infarction type 2 Status: Acute Assessment and Plan: * Seen by Cardiology, appreciate recommendations * DVT prophylaxis * continue aspirin and statin * Furosemide 20 mg PO daily * Echo completed, awaiting reading. * Stress test as an outpatient. (3) Pneumonia: Code(s): J18.9 - Pneumonia, unspecified organism Status: Acute Assessment and Plan: * Chest X-ray showed: Small left pleural effusion with left basilar atelectasis or pneumonia. * WBC increased today from 13.2>16.3>17.4>23.1. Florastor 250 mg PO BID added 05/28/24 for diarrhea. * Started on Azithromycin 500 mg PO daily and Ceftriaxone 1 gram daily. 05/27/24 Stop Ceftriaxone, start Cefepime 2 gram IVPB q 12 (stop 05/30/24), start Zosyn 3.375 gm IVPB q 6. * Duonebs q 6 PRN. * PT/OT (4) Constipation: Code(s): K59.00 - Constipation, unspecified Status: Acute Assessment and Plan: * Docusate 100 mg PO at bedtime and Miralax 17 grams oral daily. * KUB showed: Multiple mildly dilated gas-filled loops of small bowel in the abdomen and would favor ileus related to acute interstitial pancreatitis as seen on prior CT over obstruction. * Diarrhea over night. Abdomen soft with positive bowel sounds. * Encourage oral intake. * Patient with continues abdominal pain and elevated WBC. * Recheck KUB on 05/28/24 showed: IMPRESSION: Slightly dilated small bowel loops. Follow-up advised- GI consulted. (5) Hypokalemia: Code(s): E87.6 - Hypokalemia Status: Acute Assessment and Plan: * Potassium 4.1, improved * Monitor labs. (6) Benign prostatic hyperplasia: Code(s): N40.0 - Benign prostatic hyperplasia without lower urinary tract symptoms Status: Acute Assessment and Plan: * Chronic, continue flomax. (7) Hyperlipidemia: Code(s): E78.5 - Hyperlipidemia, unspecified Status: Acute Assessment and Plan: * Chronic, continue atorvastatin 20 mg daily. Subjective Date/time seen: 05/30/24 12:33 Interval history: Patient reports a headache is a 6 , frequent, and aching. Patient reports left abdominal pain is a 5 , constant, and dull. Patient denies chest pain, palpitations, shortness of breath, nausea, or vomiting. Review of Systems Review of Systems: All systems reviewed & are unremarkable except as noted in HPI and below Exam Const: General: no acute distress and uncomfortable Resp: Effort & Inspection: normal respiratory effort Auscultation: clear to auscultation bilaterally Cardio: Rate: regular rate Rhythm: regular rhythm GI: GI Palp: Yes Soft to palpation and Yes Tenderness to palpation present (GI) (LLQ) Other: Hypoactive bowel sounds. Mildly distended. Skin: General skin exam: no rashes or lesions noted Extrem: General: no pedal edema Psych: Mental Status: mental status grossly normal Affect: normal affect Objective Data Vital Signs Vital Signs: Vital Signs - 24 hr 05/29/24 14:00 05/29/24 16:02 05/29/24 20:00 Temperature 98.4 F Pulse Rate 89 72 68 Respiratory Rate 16 Blood Pressure 111/65 Pulse Oximetry 96 Oxygen Delivery 05/29/24 20:59 05/29/24 22:16 05/30/24 00:00 Temperature 99.1 F Pulse Rate 64 70 70 Respiratory Rate 18 Blood Pressure 124/69 Pulse Oximetry 93 Oxygen Delivery 05/30/24 04:00 05/30/24 05:20 05/30/24 10:21 Temperature 98.5 F Pulse Rate 66 67 68 Respiratory Rate 16 Blood Pressure 101/65 Pulse Oximetry 94 Oxygen Delivery 05/30/24 10:30 05/30/24 10:47 Temperature Pulse Rate Respiratory Rate Blood Pressure Pulse Oximetry Oxygen Delivery Room Air Room Air Intake/Output Intake/Output: Intake & Output 05/27/24 05/28/24 05/29/24 05/30/24 23:59 23:59 23:59 23:59 Intake Total 2610 1760 791.7 500 Output Total 1050 1000 1025 750 Balance 1560 760 -233.3 -250 Meds/Results Medications: Active Medications Generic Name Dose Route Start Last Admin Trade Name Freq PRN Reason Stop Dose Admin Albuterol/Ipratropium 3 ml 05/27/24 12:57 Ipratropium 0.5 Mg/Albuterol Sulfate 2.5 Mg Ampul.Neb 3 Ml INHALATION Q6HRT PRN Wheezing Aspirin 81 mg 05/28/24 09:00 05/30/24 10:21 Aspirin 81 Mg Enteric Tablet PO 81 mg QAM SIMRAN Administration Atorvastatin Calcium 20 mg 05/23/24 21:00 05/29/24 22:17 Atorvastatin 20 Mg Tablet PO 20 mg HS SIMRAN Administration Carvedilol 12.5 mg 05/27/24 10:05 05/30/24 10:21 Carvedilol 12.5 Mg Tablet PO 12.5 mg Q12HR SIMRAN Administration Enoxaparin Sodium 40 mg 05/23/24 09:00 05/30/24 10:31 Enoxaparin 40 Mg/0.4 Ml Syringe SUB-Q Not Given DAILY SIMRAN Fluoxetine HCl 40 mg 05/24/24 09:00 05/30/24 10:21 Fluoxetine Hcl 20 Mg Capsule PO 40 mg DAILY SIMRAN Administration Furosemide 20 mg 05/27/24 12:05 05/30/24 10:22 Furosemide 20 Mg Tablet PO 20 mg DAILY SIMRAN Administration Hydromorphone HCl 1 mg 05/26/24 15:10 05/28/24 20:22 Hydromorphone Hcl (*Crx) 1 Mg Tablet PO 1 mg Q4H PRN Administration Pain Rated 5-6 Hydromorphone HCl 2 mg 05/26/24 22:00 05/30/24 10:20 Hydromorphone Hcl (*Crx) 2 Mg Tablet PO 2 mg Q4H PRN Administration Pain Rated 7-10 Piperacillin/Tazobactam/Dextrose 3.375 gm in 50 mls @ 100 mls/hr 05/30/24 13:30 Zosyn 3.375 Gm/Ns 50 Ml IVPB Q6HR [facility] Nonformulary Drug 0 mg 05/25/24 09:00 05/30/24 10:31 Vibegron [Gemtesa] PO 06/24/24 08:59 75 mg 75 Mg Tablet DAILY SIMRAN Administration Ondansetron HCl 4 mg 05/26/24 06:47 05/29/24 22:17 Ondansetron Inj 4 Mg/2 Ml Vial IV PUSH 4 mg Q6H PRN Administration Nausea And Vomiting Pantoprazole Sodium 40 mg 05/28/24 09:00 05/30/24 10:22 Pantoprazole 40 Mg Tablet PO 40 mg QAM SIMRAN Administration Polyethylene Glycol 17 gm 05/25/24 09:00 05/30/24 10:21 Polyethylene Glycol 3350 17 Gm Powd.Pack PO 17 gm QAM SIMRAN Administration Prochlorperazine Edisylate 10 mg 05/26/24 08:38 Prochlorperazine Edisylate 10 Mg/2 Ml Vial IV PUSH Q6H PRN Nausea And Vomiting Saccharomyces Boulardii 250 mg 05/28/24 17:00 05/30/24 10:21 Saccharomyces Boulardii 250 Mg Capsule PO 250 mg BID SIMRAN Administration Senna/Docusate Sodium 1 tab 05/24/24 21:00 05/29/24 22:17 Senna/Docusate Sodium Tablet PO Not Given HS SIMRAN Simethicone 125 mg 05/25/24 17:00 05/30/24 10:21 Simethicone 125 Mg Chew Tab PO 125 mg QID SIMRAN Administration Tamsulosin HCl 0.4 mg 12/30/24 21:00 05/29/24 22:17 Tamsulosin Hcl 0.4 Mg Capsule BY MOUTH 0.4 mg HS SIMRAN Administration Radiology Results: ITS Impressions Abdomen/Pelvis CT 05/22/24 21:39 IMPRESSION: Findings consistent with acute pancreatitis without gross perforation or drainable fluid collection. Chest X-Ray 05/25/24 12:01 IMPRESSION: 1. Small left pleural effusion with left basilar atelectasis or pneumonia. Abdomen X-Ray 05/28/24 20:21 IMPRESSION: Slightly dilated small bowel loops. Follow-up advised. MRCP 05/30/24 09:40 IMPRESSION: 1. Acute interstitial pancreatitis. 2. Small pleural effusions, left worse than right. 3. Small sliding hiatal hernia. 4. No choledocholithiasis. Labs Labs: Laboratory Results - last 24 hr 05/30/24 05/30/24 06:28 09:55 WBC 23.1 H RBC 3.62 L Hgb 11.7 L Hct 33.8 L MCV 93.4 MCH 32.3 MCHC 34.6 RDW 12.5 Plt Count 321 MPV 9.1 Immature Gran % (Auto) 4.7 H Neut % (Auto) 74.8 H Lymph % (Auto) 7.6 L [place] % (Auto) 11.8 H Eos % (Auto) 0.4 Baso % (Auto) 0.7 Lymph # (Auto) 1.76 [place] # (Auto) 2.7 H Eos # (Auto) 0.1 Baso # (Auto) 0.2 H Abs Immat Gran (auto) 1.08 H Absolute Neuts (auto) 17.3 H Absolute Nucleated RBC 0.000 Nucleated RBC % 0.0 Sodium 127 L Potassium 4.1 Chloride 100 Carbon Dioxide 29 Anion Gap -2 L BUN 14 Creatinine 0.70 Estim Creat Clear Calc 85 Estimated GFR > 60 Glucose 97 POC Capillary Glucose 105 Calcium 8.0 L Total Bilirubin 1.1 AST 59 ALT 55 H Alkaline Phosphatase 83 Total Protein 5.0 L Albumin 2.5 L Lipase 239 Quality VTE Prophylaxis VTE prophylaxis: pharmacologic ordered
[2024-05-30] MEDS: PIPERACILLN/TAZ 3.375GM/NS50ML 3.375 GM/50 ML BAG IVPB ×3 (12:41→23:03)
[2024-05-30] MEDS: ATORVASTATIN 20 MG TABLET PO (20:54)
[2024-05-30] MEDS: SENNA/DOCUSATE SODIUM TABLET 1 TAB PO (20:54)
[2024-05-30] MEDS: TAMSULOSIN HCL 0.4 MG CAPSULE BY MOUTH (20:55)
[2024-05-31] VITALS (10 sets, daily range): BP systolic 101–113; BP diastolic 59–64; PULSE 60–72; RESP 14–16; TEMP 36.1–36.3; O2SAT 93–96
[2024-05-31] MEDS: HYDROmorphone HCL (*CRX) 2 MG TABLET PO ×4 (04:41→20:51)
[2024-05-31] MEDS: PIPERACILLN/TAZ 3.375GM/NS50ML 3.375 GM/50 ML BAG IVPB ×3 (05:16→17:28)
[2024-05-31] MEDS: ONDANSETRON INJ 4 MG/2 ML VIAL IV PUSH (06:30)
[2024-05-31 07:17] LABS: Basophils Absolute Auto 0.1 K/mm3 (0.0-0.1); Basophils Percent Auto 0.3 % (0.2-1.2); Eosinophils Absolute Auto 0.1 K/mm3 (0-0.3); Eosinophils Percent Auto 0.3 % (0-4.4); Hematocrit 33.4 % (42.0-52.0); Hemoglobin 11.7 g/dL (14.0-18.0); Immature Granulocyte Absolute 0.93 K/mm3 (0.00-0.031); Immature Granulocyte Percent A 4.2 % (0-0.5); Lymphocytes Absolute Auto 1.29 K/mm3 (0.9-3.2); Lymphocytes Percent Auto 5.8 % (18.3-44.2); Mean Corpuscular Hemoglobin 32.4 pg (26-34); Mean Corpuscular Volume 92.5 fl (80-100); Mean Platelet Volume 9.4 fl (7.4-10.4); Neutrophils Absolute Auto 17.9 K/mm3 (1.3-6.7); Neutrophils Percent Auto 80.4 % (45.5-73.1); Platelet Count Result 357 k/mm3 (150-375); Red Blood Count 3.61 M/mm3 (4.6-6.20); Red Cell Distribution Width 12.6 % (11.5-14.5); White Blood Count 22.2 K/mm3 (4.5-10.0)
[2024-05-31 07:26] LABS: Alanine Aminotransferase 76 U/L (6-50); Albumin Level 2.5 g/dL (3.5-5.1); Alkaline Phosphatase 119 U/L (38-126); Anion Gap 3 mmol/L (4-12); Aspartate Amino Transferase 68 U/L (17-59); Bilirubin,Total 1.2 mg/dL (0.2-1.3); Blood Urea Nitrogen 12 mg/dL (9-20); Calcium 7.7 mg/dL (8.4-10.2); Carbon Dioxide 28 mmol/L (22-30); Chloride 97 mmol/L (98-107); Estimated CRCL calculation 83 ml/min; Estimated Glomerular Filt Rate > 60; Glucose 112 mg/dL (65-110); Potassium 3.7 mmol/L (3.4-5.0); Sodium 128 mmol/L (137-145)
[2024-05-31] MEDS: polyethylene glycoL 3350 17 GM POWD.PACK PO (08:41)
[2024-05-31] MEDS: FLUoxetine HCL 20 MG CAPSULE 40 MG PO (08:41)
[2024-05-31] MEDS: SACCHAROMYCES BOULARDII 250 MG CAPSULE PO ×2 (08:42→17:28)
[2024-05-31] MEDS: PANTOPRAZOLE 40 MG TABLET PO (08:42)
[2024-05-31] MEDS: carvediloL 12.5 MG TABLET PO ×2 (08:43→20:50)
[2024-05-31] MEDS: ASPIRIN 81 MG ENTERIC TABLET PO (08:43)
[2024-05-31] MEDS: FUROSEMIDE 20 MG TABLET PO (08:43)
[2024-05-31] MEDS: SIMETHICONE 125 MG CHEW TAB PO ×4 (08:43→20:50)
[2024-05-31] MEDS: ENOXAPARIN 40 MG/0.4 ML SYRINGE SUB-Q (08:44)
[2024-05-31] MEDS: VIBEGRON 75 MG PO (08:45)
[2024-05-31] MEDS: [UNRECOGNIZED DRUG - OTHER] PO (08:45)
--- NOTE | 2024-05-31 10:53 | P.PNIM_ITS ---
Progress Note: A&P Assessment and Plan (1) Acute pancreatitis: Code(s): K85.90 - Acute pancreatitis without necrosis or infection, unspecified Status: Acute Assessment and Plan: Patient developed sudden onset sharp and stabbing upper abdominal pain radiating through to the back associated with nausea, vomiting, and sweats. - s/p laparoscopic cholecystectomy in July 2023 - etiology: unclear. Drinks 1 alcoholic beverage a day and has not indulged in more than usual this holiday season. - Lipase > 40,000 on admission>16,051> 2,702>410>83>79>163>239>215 - LFTs WNL - CT abdomen/pelvis: Findings consistent with acute pancreatitis without gross perforation or drainable fluid collection. - Diet: Full liquid - Analgesics - Antiemetics - Patient with fluid overload on 05/26/24 from IV fluids stopped. Echo ordered. Cardiology consult. - GI consult, appreciate recommendations. - MRCP today showed: IMPRESSION: 1. Acute interstitial pancreatitis. 2. Small pleural effusions, left worse than right. 3. Small sliding hiatal hernia. 4. No choledocholithiasis. (2) Type 2 IA (myocardial infarction): Code(s): I21.A1 - Myocardial infarction type 2 Status: Acute Assessment and Plan: * Seen by Cardiology, appreciate recommendations * DVT prophylaxis * continue aspirin and statin * Furosemide 20 mg PO daily * Echo completed: Summary 1. Complete two-dimensional, color flow and Doppler transthoracic echocardiogram is performed. 2. There is normal biventricular systolic function. 3. There is no significant valvular disease. Left Ventricle The left ventricle is normal in size and systolic function. The left ventricular ejection fraction is visually estimated to be 65-70%. * Stress test as an outpatient. (3) Pneumonia: Code(s): J18.9 - Pneumonia, unspecified organism Status: Acute Assessment and Plan: * Chest X-ray showed: Small left pleural effusion with left basilar atelectasis or pneumonia. * WBC increased today from 13.2>16.3>17.4>23.1>22.2.. Florastor 250 mg PO BID added 05/28/24 for diarrhea. * Started on Azithromycin 500 mg PO daily and Ceftriaxone 1 gram daily. 05/27/24 Stop Ceftriaxone, start Cefepime 2 gram IVPB q 12 (stop 05/30/24), start Zosyn 3.375 gm IVPB q 6. * Duonebs q 6 PRN. * PT/OT (4) Constipation: Code(s): K59.00 - Constipation, unspecified Status: Acute Assessment and Plan: * Docusate 100 mg PO at bedtime and Miralax 17 grams oral daily. * KUB showed: Multiple mildly dilated gas-filled loops of small bowel in the abdomen and would favor ileus related to acute interstitial pancreatitis as seen on prior CT over obstruction. * Diarrhea over night. Abdomen soft with positive bowel sounds. * Encourage oral intake. * Patient with continues abdominal pain and elevated WBC. * Recheck KUB on 05/28/24 showed: IMPRESSION: Slightly dilated small bowel loops. Follow-up advised- GI consulted. (5) Hypokalemia: Code(s): E87.6 - Hypokalemia Status: Acute Assessment and Plan: * Potassium 3.7, improved * Monitor labs. (6) Benign prostatic hyperplasia: Code(s): N40.0 - Benign prostatic hyperplasia without lower urinary tract symptoms Status: Acute Assessment and Plan: * Chronic, continue flomax. (7) Hyperlipidemia: Code(s): E78.5 - Hyperlipidemia, unspecified Status: Acute Assessment and Plan: * Chronic, continue atorvastatin 20 mg daily. Plan updated this afternoon. Subjective Date/time seen: 05/31/24 10:53 Interval history: Patient reports a headache is a 7 , frequent, and aching. Patient reports left abdominal pain is a 5 , constant, and dull. Patient denies chest pain, palpitations, shortness of breath, nausea, or vomiting. Review of Systems Review of Systems: All systems reviewed & are unremarkable except as noted in HPI and below Exam Const: General: comfortable and uncomfortable Resp: Effort & Inspection: normal respiratory effort Auscultation: clear to auscultation bilaterally Cardio: Rate: regular rate Rhythm: regular rhythm GI: GI Palp: Yes Soft to palpation and Yes Tenderness to palpation present (GI) (LLQ) Auscultation: normal bowel sounds : Other: voiding without difficulty. Neuro: Speech: normal speech Extrem: General: no pedal edema Psych: Mental Status: mental status grossly normal Affect: normal affect Objective Data Vital Signs Vital Signs: Vital Signs - 24 hr 05/30/24 12:00 05/30/24 14:00 05/30/24 16:00 Temperature 98.6 F Pulse Rate 64 69 62 Respiratory Rate 16 Blood Pressure 98/50 L Pulse Oximetry 94 Oxygen Delivery Fraction of Inspired Oxygen 05/30/24 20:00 05/30/24 20:00 05/30/24 20:49 Temperature 98.7 F Pulse Rate 66 125 H Respiratory Rate 12 Blood Pressure 100/64 Pulse Oximetry 93 Oxygen Delivery Room Air Fraction of Inspired Oxygen 21 05/30/24 20:55 05/31/24 00:00 05/31/24 04:00 Temperature Pulse Rate 64 66 69 Respiratory Rate Blood Pressure Pulse Oximetry Oxygen Delivery Fraction of Inspired Oxygen 05/31/24 05:48 05/31/24 08:43 Temperature 97.4 F L Pulse Rate 71 72 Respiratory Rate 16 Blood Pressure 113/62 Pulse Oximetry 93 Oxygen Delivery Fraction of Inspired Oxygen Intake/Output Intake/Output: Intake & Output 05/28/24 05/29/24 05/30/24 05/31/24 23:59 23:59 23:59 23:59 Intake Total 1760 791.7 1170 1597 Output Total 1000 1025 1200 200 Balance 760 -233.3 -30 1397 Meds/Results Medications: Active Medications Generic Name Dose Route Start Last Admin Trade Name Freq PRN Reason Stop Dose Admin Albuterol/Ipratropium 3 ml 05/27/24 12:57 Ipratropium 0.5 Mg/Albuterol Sulfate 2.5 Mg Ampul.Neb 3 Ml INHALATION Q6HRT PRN Wheezing Aspirin 81 mg 05/28/24 09:00 05/31/24 08:43 Aspirin 81 Mg Enteric Tablet PO 81 mg QAM SIMRAN Administration Atorvastatin Calcium 20 mg 05/23/24 21:00 05/30/24 20:54 Atorvastatin 20 Mg Tablet PO 20 mg HS SIMRAN Administration Carvedilol 12.5 mg 05/27/24 10:05 05/31/24 08:43 Carvedilol 12.5 Mg Tablet PO 12.5 mg Q12HR SIMRAN Administration Enoxaparin Sodium 40 mg 05/23/24 09:00 05/31/24 08:44 Enoxaparin 40 Mg/0.4 Ml Syringe SUB-Q 40 mg DAILY SIMRAN Administration Fluoxetine HCl 40 mg 05/24/24 09:00 05/31/24 08:41 Fluoxetine Hcl 20 Mg Capsule PO 40 mg DAILY SIMRAN Administration Furosemide 20 mg 05/27/24 12:05 05/31/24 08:43 Furosemide 20 Mg Tablet PO 20 mg DAILY SIMRAN Administration Hydromorphone HCl 1 mg 05/26/24 15:10 05/28/24 20:22 Hydromorphone Hcl (*Crx) 1 Mg Tablet PO 1 mg Q4H PRN Administration Pain Rated 5-6 Hydromorphone HCl 2 mg 05/26/24 22:00 05/31/24 04:41 Hydromorphone Hcl (*Crx) 2 Mg Tablet PO 2 mg Q4H PRN Administration Pain Rated 7-10 Piperacillin/Tazobactam/Dextrose 3.375 gm in 50 mls @ 100 mls/hr 05/30/24 13:30 05/31/24 05:16 Zosyn 3.375 Gm/Ns 50 Ml IVPB 100 mls/hr Q6HR SIMRAN Administration Nonformulary Drug 0 mg 05/25/24 09:00 05/31/24 08:45 Vibegron [Gemtesa] PO 06/24/24 08:59 75 mg 75 Mg Tablet DAILY SIMRAN Administration Ondansetron HCl 4 mg 05/26/24 06:47 05/31/24 06:30 Ondansetron Inj 4 Mg/2 Ml Vial IV PUSH 4 mg Q6H PRN Administration Nausea And Vomiting Pantoprazole Sodium 40 mg 05/28/24 09:00 05/31/24 08:42 Pantoprazole 40 Mg Tablet PO 40 mg QAM SIMRAN Administration Polyethylene Glycol 17 gm 05/25/24 09:00 05/31/24 08:41 Polyethylene Glycol 3350 17 Gm Powd.Pack PO 17 gm QAM SIMRAN Administration Prochlorperazine Edisylate 10 mg 05/26/24 08:38 Prochlorperazine Edisylate 10 Mg/2 Ml Vial IV PUSH Q6H PRN Nausea And Vomiting Saccharomyces Boulardii 250 mg 05/28/24 17:00 05/31/24 08:42 Saccharomyces Boulardii 250 Mg Capsule PO 250 mg BID SIMRAN Administration Senna/Docusate Sodium 1 tab 05/24/24 21:00 05/30/24 20:54 Senna/Docusate Sodium Tablet PO 1 tab HS SIMRAN Administration Simethicone 125 mg 05/25/24 17:00 05/31/24 08:43 Simethicone 125 Mg Chew Tab PO 125 mg QID SIMRAN Administration Tamsulosin HCl 0.4 mg 05/23/24 21:00 05/30/24 20:55 Tamsulosin Hcl 0.4 Mg Capsule BY MOUTH 0.4 mg HS SIMRAN Administration Radiology Results: ITS Impressions Abdomen/Pelvis CT 05/22/24 21:39 IMPRESSION: Findings consistent with acute pancreatitis without gross perforation or drainable fluid collection. Chest X-Ray 05/25/24 12:01 IMPRESSION: 1. Small left pleural effusion with left basilar atelectasis or pneumonia. Abdomen X-Ray 05/28/24 20:21 IMPRESSION: Slightly dilated small bowel loops. Follow-up advised. MRCP 05/30/24 09:40 IMPRESSION: 1. Acute interstitial pancreatitis. 2. Small pleural effusions, left worse than right. 3. Small sliding hiatal hernia. 4. No choledocholithiasis. Labs Labs: Laboratory Results - last 24 hr 05/31/24 06:46 WBC 22.2 H RBC 3.61 L Hgb 11.7 L Hct 33.4 L MCV 92.5 MCH 32.4 MCHC 35.0 RDW 12.6 Plt Count 357 MPV 9.4 Immature Gran % (Auto) 4.2 H Neut % (Auto) 80.4 H Lymph % (Auto) 5.8 L [place] % (Auto) 9.0 H Eos % (Auto) 0.3 Baso % (Auto) 0.3 Lymph # (Auto) 1.29 [place] # (Auto) 2.0 H Eos # (Auto) 0.1 Baso # (Auto) 0.1 Abs Immat Gran (auto) 0.93 H Absolute Neuts (auto) 17.9 H Absolute Nucleated RBC 0.000 Nucleated RBC % 0.0 Sodium 128 L Potassium 3.7 Chloride 97 L Carbon Dioxide 28 Anion Gap 3 L BUN 12 Creatinine 0.71 Estim Creat Clear Calc 83 Estimated GFR > 60 Glucose 112 H Calcium 7.7 L Total Bilirubin 1.2 AST 68 H ALT 76 H Alkaline Phosphatase 119 Total Protein 5.0 L Albumin 2.5 L Quality VTE Prophylaxis VTE prophylaxis: pharmacologic ordered
[2024-05-31 11:15] LABS: Lipase 215 U/L (23-300)
--- NOTE | 2024-05-31 15:11 | WPDGIPROGNO ---
Progress Note: A&P Assessment and Plan (1) Acute pancreatitis: Code(s): K85.90 - Acute pancreatitis without necrosis or infection, unspecified Status: Acute Assessment and Plan: This patient's clinical course is consistent with moderately severe acute pancreatitis. Compared to the initial CT scan, yesterday's MRI demonstrates the development of new pleural effusions and peripancreatic fluid collections, although in the absence of necrosis. Trace ascites is also noted. The patient has developed leukocytosis, likely secondary to systemic inflammatory response syndrome (SIRS). Antibiotics have been initiated, although their necessity remains uncertain. A urinalysis was ordered to rule out a concomitant urinary tract infection, given the patient's history of prostate hypertrophy. There is no clear clinical or radiographic evidence of pneumonia. The chest X-ray is suboptimally inspired and may demonstrate possible atelectasis. Management should remain conservative. The patient can be transitioned to a liquid/bland diet with close monitoring for tolerance. Time Spent With Patient Time with patient: 15 - 25 minutes Subjective Date/time seen: 05/31/24 15:11 Interval history: The patient continues to have left flank/ left upper quadrant pain, especially when taking a deep breath or moving towards the left side. Review of Systems Review of Systems: All systems reviewed & are unremarkable except as noted in HPI and below Exam Narrative: Tenderness to deep and superficial palpation on the left flank. No rebound. The rest of the examination is within normal limits. Resp: Effort & Inspection: normal respiratory effort Auscultation: clear to auscultation bilaterally, no crackles and no rales Objective Data Vital Signs Vital Signs: Vital Signs - 24 hr 05/30/24 16:00 05/30/24 20:00 05/30/24 20:00 Temperature Pulse Rate 62 66 Respiratory Rate Blood Pressure Pulse Oximetry Oxygen Delivery Room Air Fraction of Inspired Oxygen 21 05/30/24 20:49 05/30/24 20:55 05/31/24 00:00 Temperature 98.7 F Pulse Rate 125 H 64 66 Respiratory Rate 12 Blood Pressure 100/64 Pulse Oximetry 93 Oxygen Delivery Fraction of Inspired Oxygen 05/31/24 04:00 05/31/24 05:48 05/31/24 08:00 Temperature 97.4 F L Pulse Rate 69 71 67 Respiratory Rate 16 Blood Pressure 113/62 Pulse Oximetry 93 Oxygen Delivery Fraction of Inspired Oxygen 05/31/24 08:43 Temperature Pulse Rate 72 Respiratory Rate Blood Pressure Pulse Oximetry Oxygen Delivery Fraction of Inspired Oxygen Intake/Output Intake/Output: Intake & Output 05/28/24 05/29/24 05/30/24 05/31/24 23:59 23:59 23:59 23:59 Intake Total 1760 791.7 1170 2347 Output Total 1000 1025 1200 1200 Balance 760 -233.3 -30 1147 Meds/Results Medications: Active Medications Generic Name Dose Route Start Last Admin Trade Name Freq PRN Reason Stop Dose Admin Albuterol/Ipratropium 3 ml 05/27/24 12:57 Ipratropium 0.5 Mg/Albuterol Sulfate 2.5 Mg Ampul.Neb 3 Ml INHALATION Q6HRT PRN Wheezing Aspirin 81 mg 05/28/24 09:00 05/31/24 08:43 Aspirin 81 Mg Enteric Tablet PO 81 mg QAM SIMRAN Administration Atorvastatin Calcium 20 mg 05/23/24 21:00 05/30/24 20:54 Atorvastatin 20 Mg Tablet PO 20 mg HS SIMRAN Administration Carvedilol 12.5 mg 05/27/24 10:05 05/31/24 08:43 Carvedilol 12.5 Mg Tablet PO 12.5 mg Q12HR SIMRAN Administration Enoxaparin Sodium 40 mg 05/23/24 09:00 05/31/24 08:44 Enoxaparin 40 Mg/0.4 Ml Syringe SUB-Q 40 mg DAILY SIMRAN Administration Fluoxetine HCl 40 mg 05/24/24 09:00 05/31/24 08:41 Fluoxetine Hcl 20 Mg Capsule PO 40 mg DAILY SIMRAN Administration Furosemide 20 mg 05/27/24 12:05 05/31/24 08:43 Furosemide 20 Mg Tablet PO 20 mg DAILY SIMRAN Administration Hydromorphone HCl 1 mg 05/26/24 15:10 05/28/24 20:22 Hydromorphone Hcl (*Crx) 1 Mg Tablet PO 1 mg Q4H PRN Administration Pain Rated 5-6 Hydromorphone HCl 2 mg 05/26/24 22:00 05/31/24 13:03 Hydromorphone Hcl (*Crx) 2 Mg Tablet PO 2 mg Q4H PRN Administration Pain Rated 7-10 Piperacillin/Tazobactam/Dextrose 3.375 gm in 50 mls @ 100 mls/hr 05/30/24 13:30 05/31/24 12:45 Zosyn 3.375 Gm/Ns 50 Ml IVPB 100 mls/hr Q6HR SIMRAN Administration Nonformulary Drug 0 mg 05/25/24 09:00 05/31/24 08:45 Vibegron [Gemtesa] PO 06/24/24 08:59 75 mg 75 Mg Tablet DAILY SIMRAN Administration Ondansetron HCl 4 mg 05/26/24 06:47 05/31/24 06:30 Ondansetron Inj 4 Mg/2 Ml Vial IV PUSH 4 mg Q6H PRN Administration Nausea And Vomiting Pantoprazole Sodium 40 mg 05/28/24 09:00 05/31/24 08:42 Pantoprazole 40 Mg Tablet PO 40 mg QAM SIMRAN Administration Polyethylene Glycol 17 gm 05/25/24 09:00 05/31/24 08:41 Polyethylene Glycol 3350 17 Gm Powd.Pack PO 17 gm QAM SIMRAN Administration Prochlorperazine Edisylate 10 mg 05/26/24 08:38 Prochlorperazine Edisylate 10 Mg/2 Ml Vial IV PUSH Q6H PRN Nausea And Vomiting Saccharomyces Boulardii 250 mg 05/28/24 17:00 05/31/24 08:42 Saccharomyces Boulardii 250 Mg Capsule PO 250 mg BID SIMRAN Administration Senna/Docusate Sodium 1 tab 05/24/24 21:00 05/30/24 20:54 Senna/Docusate Sodium Tablet PO 1 tab HS SIMRAN Administration Simethicone 125 mg 05/25/24 17:00 05/31/24 12:45 Simethicone 125 Mg Chew Tab PO 125 mg QID SIMRAN Administration Tamsulosin HCl 0.4 mg 05/23/24 21:00 05/30/24 20:55 Tamsulosin Hcl 0.4 Mg Capsule BY MOUTH 0.4 mg HS SIMRAN Administration Radiology Results: ITS Impressions Abdomen/Pelvis CT 05/22/24 21:39 IMPRESSION: Findings consistent with acute pancreatitis without gross perforation or drainable fluid collection. Chest X-Ray 05/25/24 12:01 IMPRESSION: 1. Small left pleural effusion with left basilar atelectasis or pneumonia. Abdomen X-Ray 05/28/24 20:21 IMPRESSION: Slightly dilated small bowel loops. Follow-up advised. MRCP 05/30/24 09:40 IMPRESSION: 1. Acute interstitial pancreatitis. 2. Small pleural effusions, left worse than right. 3. Small sliding hiatal hernia. 4. No choledocholithiasis. Labs Labs: Laboratory Results - last 24 hr 05/31/24 05/31/24 06:43 06:46 WBC 22.2 H RBC 3.61 L Hgb 11.7 L Hct 33.4 L MCV 92.5 MCH 32.4 MCHC 35.0 RDW 12.6 Plt Count 357 MPV 9.4 Immature Gran % (Auto) 4.2 H Neut % (Auto) 80.4 H Lymph % (Auto) 5.8 L [place] % (Auto) 9.0 H Eos % (Auto) 0.3 Baso % (Auto) 0.3 Lymph # (Auto) 1.29 [place] # (Auto) 2.0 H Eos # (Auto) 0.1 Baso # (Auto) 0.1 Abs Immat Gran (auto) 0.93 H Absolute Neuts (auto) 17.9 H Absolute Nucleated RBC 0.000 Nucleated RBC % 0.0 Sodium 128 L Potassium 3.7 Chloride 97 L Carbon Dioxide 28 Anion Gap 3 L BUN 12 Creatinine 0.71 Estim Creat Clear Calc 83 Estimated GFR > 60 Glucose 112 H Calcium 7.7 L Total Bilirubin 1.2 AST 68 H ALT 76 H Alkaline Phosphatase 119 Total Protein 5.0 L Albumin 2.5 L Lipase 215
[2024-05-31 17:24] LABS: Add Urine Microscopic? NO; Appearance Urine Clear (Clear); Bilirubin Urine Negative (Negative); Blood Urine Negative (Negative); Color Urine Yellow (Yellow); Glucose Urine UA Negative (Negative); Ketones Urine Negative (Negative); Leukocyte Esterase Ur Negative LEU/UL (Negative); Nitrate Urine Negative (Negative); Protein Urine Negative (Negative); Specific Grav Ur 1.009 (1.001-1.035); Urobilinogen Urine 0.2 mg/dL (<2.0)
--- NOTE | 2024-05-31 18:07 | WPDGIPROGNO ---
Progress Note: A&P Assessment and Plan (1) Acute pancreatitis: Code(s): K85.90 - Acute pancreatitis without necrosis or infection, unspecified Status: Acute Assessment and Plan: Patient's leukocytosis might be related to pancreatitis itself, with imaging evidence of worsening although not to the point of having necrosis. Procalcitonin ordered for tomorrow morning to objectively assess the need for antibiotics. Subjective Date/time seen: 05/31/24 18:07 Objective Data Vital Signs Vital Signs: Vital Signs - 24 hr 05/30/24 20:00 05/30/24 20:00 05/30/24 20:49 Temperature 98.7 F Pulse Rate 66 125 H Respiratory Rate 12 Blood Pressure 100/64 Pulse Oximetry 93 Oxygen Delivery Room Air Fraction of Inspired Oxygen 21 05/30/24 20:55 05/31/24 00:00 05/31/24 04:00 Temperature Pulse Rate 64 66 69 Respiratory Rate Blood Pressure Pulse Oximetry Oxygen Delivery Fraction of Inspired Oxygen 05/31/24 05:48 05/31/24 08:00 05/31/24 08:43 Temperature 97.4 F L Pulse Rate 71 67 72 Respiratory Rate 16 Blood Pressure 113/62 Pulse Oximetry 93 Oxygen Delivery Fraction of Inspired Oxygen 05/31/24 12:00 05/31/24 14:00 05/31/24 16:00 Temperature 97.3 F L Pulse Rate 65 72 61 Respiratory Rate 16 Blood Pressure 101/59 L Pulse Oximetry 93 Oxygen Delivery Fraction of Inspired Oxygen Intake/Output Intake/Output: Intake & Output 05/28/24 05/29/24 05/30/24 05/31/24 23:59 23:59 23:59 23:59 Intake Total 1760 791.7 1170 2397 Output Total 1000 1025 1200 1200 Balance 760 -233.3 -30 1197 Meds/Results Medications: Active Medications Generic Name Dose Route Start Last Admin Trade Name Freq PRN Reason Stop Dose Admin Albuterol/Ipratropium 3 ml 05/27/24 12:57 Ipratropium 0.5 Mg/Albuterol Sulfate 2.5 Mg Ampul.Neb 3 Ml INHALATION Q6HRT PRN Wheezing Aspirin 81 mg 05/28/24 09:00 05/31/24 08:43 Aspirin 81 Mg Enteric Tablet PO 81 mg QAM SIMRAN Administration Atorvastatin Calcium 20 mg 05/23/24 21:00 05/30/24 20:54 Atorvastatin 20 Mg Tablet PO 20 mg HS SIMRNA Administration Carvedilol 12.5 mg 05/27/24 10:05 05/31/24 08:43 Carvedilol 12.5 Mg Tablet PO 12.5 mg Q12HR SIMRAN Administration Enoxaparin Sodium 40 mg 05/23/24 09:00 05/31/24 08:44 Enoxaparin 40 Mg/0.4 Ml Syringe SUB-Q 40 mg DAILY SIMRAN Administration Fluoxetine HCl 40 mg 05/24/24 09:00 05/31/24 08:41 Fluoxetine Hcl 20 Mg Capsule PO 40 mg DAILY SIMRAN Administration Furosemide 20 mg 05/27/24 12:05 05/31/24 08:43 Furosemide 20 Mg Tablet PO 20 mg DAILY SIMRAN Administration Hydromorphone HCl 1 mg 05/26/24 15:10 05/28/24 20:22 Hydromorphone Hcl (*Crx) 1 Mg Tablet PO 1 mg Q4H PRN Administration Pain Rated 5-6 Hydromorphone HCl 2 mg 05/26/24 22:00 05/31/24 17:29 Hydromorphone Hcl (*Crx) 2 Mg Tablet PO 2 mg Q4H PRN Administration Pain Rated 7-10 Piperacillin/Tazobactam/Dextrose 3.375 gm in 50 mls @ 100 mls/hr 05/30/24 13:30 05/31/24 17:28 Zosyn 3.375 Gm/Ns 50 Ml IVPB 100 mls/hr Q6HR SIMRAN Administration Nonformulary Drug 0 mg 05/25/24 09:00 05/31/24 08:45 Vibegron [Gemtesa] PO 06/24/24 08:59 75 mg 75 Mg Tablet DAILY SIMRAN Administration Ondansetron HCl 4 mg 05/26/24 06:47 05/31/24 06:30 Ondansetron Inj 4 Mg/2 Ml Vial IV PUSH 4 mg Q6H PRN Administration Nausea And Vomiting Pantoprazole Sodium 40 mg 05/28/24 09:00 05/31/24 08:42 Pantoprazole 40 Mg Tablet PO 40 mg QAM SIMRAN Administration Polyethylene Glycol 17 gm 05/25/24 09:00 05/31/24 08:41 Polyethylene Glycol 3350 17 Gm Powd.Pack PO 17 gm QAM SIMRAN Administration Prochlorperazine Edisylate 10 mg 05/26/24 08:38 Prochlorperazine Edisylate 10 Mg/2 Ml Vial IV PUSH Q6H PRN Nausea And Vomiting Saccharomyces Boulardii 250 mg 05/28/24 17:00 05/31/24 17:28 Saccharomyces Boulardii 250 Mg Capsule PO 250 mg BID SIMRAN Administration Senna/Docusate Sodium 1 tab 05/24/24 21:00 05/30/24 20:54 Senna/Docusate Sodium Tablet PO 1 tab HS SIMRAN Administration Simethicone 125 mg 05/25/24 17:00 05/31/24 17:28 Simethicone 125 Mg Chew Tab PO 125 mg QID SIMRAN Administration Tamsulosin HCl 0.4 mg 05/23/24 21:00 05/30/24 20:55 Tamsulosin Hcl 0.4 Mg Capsule BY MOUTH 0.4 mg HS SIMRAN Administration Radiology Results: ITS Impressions Abdomen/Pelvis CT 05/22/24 21:39 IMPRESSION: Findings consistent with acute pancreatitis without gross perforation or drainable fluid collection. Chest X-Ray 05/25/24 12:01 IMPRESSION: 1. Small left pleural effusion with left basilar atelectasis or pneumonia. Abdomen X-Ray 05/28/24 20:21 IMPRESSION: Slightly dilated small bowel loops. Follow-up advised. MRCP 05/30/24 09:40 IMPRESSION: 1. Acute interstitial pancreatitis. 2. Small pleural effusions, left worse than right. 3. Small sliding hiatal hernia. 4. No choledocholithiasis. Labs Labs: Laboratory Results - last 24 hr 05/31/24 05/31/24 05/31/24 06:43 06:46 17:15 WBC 22.2 H RBC 3.61 L Hgb 11.7 L Hct 33.4 L MCV 92.5 MCH 32.4 MCHC 35.0 RDW 12.6 Plt Count 357 MPV 9.4 Immature Gran % (Auto) 4.2 H Neut % (Auto) 80.4 H Lymph % (Auto) 5.8 L [place] % (Auto) 9.0 H Eos % (Auto) 0.3 Baso % (Auto) 0.3 Lymph # (Auto) 1.29 [place] # (Auto) 2.0 H Eos # (Auto) 0.1 Baso # (Auto) 0.1 Abs Immat Gran (auto) 0.93 H Absolute Neuts (auto) 17.9 H Absolute Nucleated RBC 0.000 Nucleated RBC % 0.0 Sodium 128 L Potassium 3.7 Chloride 97 L Carbon Dioxide 28 Anion Gap 3 L BUN 12 Creatinine 0.71 Estim Creat Clear Calc 83 Estimated GFR > 60 Glucose 112 H Calcium 7.7 L Total Bilirubin 1.2 AST 68 H ALT 76 H Alkaline Phosphatase 119 Total Protein 5.0 L Albumin 2.5 L Lipase 215 Urine Color Yellow Urine Appearance Clear Urine pH 5.0 Ur Specific [place] 1.009 Urine Protein Negative Urine Glucose (UA) Negative Urine Ketones Negative Ur Blood (Man) Negative Urine Nitrate Negative Urine Bilirubin Negative Urine Urobilinogen 0.2 Leukocyte Esterase Rfl Negative
[2024-05-31] MEDS: TAMSULOSIN HCL 0.4 MG CAPSULE BY MOUTH (20:50)
[2024-05-31] MEDS: SENNA/DOCUSATE SODIUM TABLET 1 TAB PO (20:50)
[2024-05-31] MEDS: ATORVASTATIN 20 MG TABLET PO (20:50)
[2024-06-01] VITALS (10 sets, daily range): BP systolic 94–123; BP diastolic 51–72; PULSE 59–71; RESP 16–17; TEMP 36.3–36.9; O2SAT 96–100
[2024-06-01] MEDS: PIPERACILLN/TAZ 3.375GM/NS50ML 3.375 GM/50 ML BAG IVPB ×3 (00:01→12:56)
[2024-06-01] MEDS: HYDROmorphone HCL (*CRX) 2 MG TABLET PO ×3 (05:22→18:09)
[2024-06-01 06:51] LABS: Basophils Absolute Auto 0.1 K/mm3 (0.0-0.1); Basophils Percent Auto 0.3 % (0.2-1.2); Eosinophils Absolute Auto 0.1 K/mm3 (0-0.3); Eosinophils Percent Auto 0.3 % (0-4.4); Hemoglobin 11.5 g/dL (14.0-18.0); Immature Granulocyte Absolute 0.55 K/mm3 (0.00-0.031); Immature Granulocyte Percent A 2.7 % (0-0.5); Lymphocytes Absolute Auto 1.14 K/mm3 (0.9-3.2); Lymphocytes Percent Auto 5.7 % (18.3-44.2); Mean Corpuscular HGB Conc 33.8 g/dl (32-36); Mean Corpuscular Hemoglobin 31.9 pg (26-34); Mean Corpuscular Volume 94.4 fl (80-100); Mean Platelet Volume 9.2 fl (7.4-10.4); Monocytes Absolute Auto 1.5 K/mm3 (0.1-0.6); Monocytes Percent Auto 7.5 % (2.6-8.5); Neutrophils Absolute Auto 16.8 K/mm3 (1.3-6.7); Neutrophils Percent Auto 83.5 % (45.5-73.1); Platelet Count Result 338 k/mm3 (150-375); Red Cell Distribution Width 12.4 % (11.5-14.5); White Blood Count 20.1 K/mm3 (4.5-10.0)
[2024-06-01 07:20] LABS: Alanine Aminotransferase 63 U/L (6-50); Albumin Level 2.4 g/dL (3.5-5.1); Alkaline Phosphatase 116 U/L (38-126); Anion Gap 2 mmol/L (4-12); Aspartate Amino Transferase 52 U/L (17-59); Blood Urea Nitrogen 12 mg/dL (9-20); Calcium 7.7 mg/dL (8.4-10.2); Carbon Dioxide 28 mmol/L (22-30); Chloride 99 mmol/L (98-107); Estimated CRCL calculation 77 ml/min; Estimated Glomerular Filt Rate > 60; Glucose 230 mg/dL (65-110); Potassium 3.8 mmol/L (3.4-5.0); Sodium 129 mmol/L (137-145)
[2024-06-01 07:21] LABS: Lipase 150 U/L (23-300)
[2024-06-01 07:30] LABS: Procalcitonin 0.1 ng/mL
[2024-06-01] MEDS: ASPIRIN 81 MG ENTERIC TABLET PO (09:29)
[2024-06-01] MEDS: FUROSEMIDE 20 MG TABLET PO (09:29)
[2024-06-01] MEDS: PANTOPRAZOLE 40 MG TABLET PO (09:29)
[2024-06-01] MEDS: FLUoxetine HCL 20 MG CAPSULE 40 MG PO (09:29)
[2024-06-01] MEDS: SIMETHICONE 125 MG CHEW TAB PO ×4 (09:29→20:48)
[2024-06-01] MEDS: SACCHAROMYCES BOULARDII 250 MG CAPSULE PO (09:30)
[2024-06-01] MEDS: polyethylene glycoL 3350 17 GM POWD.PACK PO (09:30)
[2024-06-01] MEDS: carvediloL 12.5 MG TABLET PO ×2 (09:31→20:48)
[2024-06-01] MEDS: VIBEGRON 75 MG PO (09:40)
[2024-06-01] MEDS: [UNRECOGNIZED DRUG - OTHER] PO (09:40)
[2024-06-01] MEDS: ENOXAPARIN 40 MG/0.4 ML SYRINGE SUB-Q (09:42)
--- NOTE | 2024-06-01 14:05 | P.PNGI_ITS ---
Progress Note: A&P Assessment and Plan (1) Acute pancreatitis: Code(s): K85.90 - Acute pancreatitis without necrosis or infection, unspecified Status: Acute Assessment and Plan: The patient is diagnosed with moderately severe acute pancreatitis. He is currently receiving broad-spectrum antibiotics for severe leukocytosis, which has shown a trend towards improvement. This morning's procalcitonin level is low, suggesting that the leukocytosis may primarily be a result of the inflammatory process itself. However, given the gradual improvement in leukocyte count, antibiotic therapy will be continued. The patient's reported pain and tenderness during examination do not fully correlate with his overall clinical picture and imaging findings. We will continue to monitor the patient closely and obtain a new set of laboratory data tomorrow, including CBC, CMP and CRP . Serial amylase and lipase levels are not indicated. Stool examination is not necessary unless the patient develops diarrhea. Subjective Date/time seen: 06/01/24 14:05 Interval history: The patient continues to have mild to moderate left upper/ left flank pain, related to movements. No fever, nausea, vomiting or diarrhea. He denies shortness of breath and is tolerating full liquid diet well. Exam Narrative: Unchanged from yesterd Objective Data Vital Signs Vital Signs: Vital Signs - 24 hr 05/31/24 16:00 05/31/24 20:00 05/31/24 20:00 Temperature Pulse Rate 61 66 Respiratory Rate Blood Pressure Pulse Oximetry Oxygen Delivery Room Air 05/31/24 20:34 06/01/24 00:00 06/01/24 04:00 Temperature 97.0 F L Pulse Rate 60 66 67 Respiratory Rate 14 Blood Pressure 111/64 Pulse Oximetry 96 Oxygen Delivery 06/01/24 05:24 06/01/24 08:00 06/01/24 09:31 Temperature 98.2 F Pulse Rate 62 59 L 64 Respiratory Rate 16 Blood Pressure 123/65 Pulse Oximetry 96 Oxygen Delivery 06/01/24 12:00 06/01/24 13:53 Temperature 98.5 F Pulse Rate 66 64 Respiratory Rate 17 Blood Pressure 94/51 L Pulse Oximetry 100 Oxygen Delivery Intake/Output Intake/Output: Intake & Output 05/29/24 05/30/24 05/31/24 06/01/24 23:59 23:59 23:59 23:59 Intake Total 791.7 1170 3207 450 Output Total 1025 1200 1600 1200 Balance -233.3 -30 1607 -346 Meds/Results Medications: Active Medications Generic Name Dose Route Start Last Admin Trade Name Freq PRN Reason Stop Dose Admin Albuterol/Ipratropium 3 ml 05/27/24 12:57 Ipratropium 0.5 Mg/Albuterol Sulfate 2.5 Mg Ampul.Neb 3 Ml INHALATION Q6HRT PRN Wheezing Aspirin 81 mg 05/28/24 09:00 06/01/24 09:29 Aspirin 81 Mg Enteric Tablet PO 81 mg QAM SIMRAN Administration Atorvastatin Calcium 20 mg 05/23/24 21:00 05/31/24 20:50 Atorvastatin 20 Mg Tablet PO 20 mg HS SIMRAN Administration Carvedilol 12.5 mg 05/27/24 10:05 06/01/24 09:31 Carvedilol 12.5 Mg Tablet PO 12.5 mg Q12HR SIMRAN Administration Enoxaparin Sodium 40 mg 05/23/24 09:00 06/01/24 09:42 Enoxaparin 40 Mg/0.4 Ml Syringe SUB-Q 40 mg DAILY SIMRAN Administration Fluoxetine HCl 40 mg 05/24/24 09:00 06/01/24 09:29 Fluoxetine Hcl 20 Mg Capsule PO 40 mg DAILY SIMRAN Administration Furosemide 20 mg 05/27/24 12:05 06/01/24 09:29 Furosemide 20 Mg Tablet PO 20 mg DAILY SIMRAN Administration Hydromorphone HCl 1 mg 05/26/24 15:10 05/28/24 20:22 Hydromorphone Hcl (*Crx) 1 Mg Tablet PO 1 mg Q4H PRN Administration Pain Rated 5-6 Hydromorphone HCl 2 mg 05/26/24 22:00 06/01/24 09:29 Hydromorphone Hcl (*Crx) 2 Mg Tablet PO 2 mg Q4H PRN Administration Pain Rated 7-10 Piperacillin/Tazobactam/Dextrose 3.375 gm in 50 mls @ 100 mls/hr 05/30/24 13:30 06/01/24 12:56 Zosyn 3.375 Gm/Ns 50 Ml IVPB 100 mls/hr Q6HR SIMRAN Administration Nonformulary Drug 0 mg 05/25/24 09:00 06/01/24 09:40 Vibegron [Gemtesa] PO 06/24/24 08:59 75 mg 75 Mg Tablet DAILY SIMRAN Administration Ondansetron HCl 4 mg 05/26/24 06:47 05/31/24 06:30 Ondansetron Inj 4 Mg/2 Ml Vial IV PUSH 4 mg Q6H PRN Administration Nausea And Vomiting Pantoprazole Sodium 40 mg 05/28/24 09:00 06/01/24 09:29 Pantoprazole 40 Mg Tablet PO 40 mg QAM SIMRAN Administration Polyethylene Glycol 17 gm 05/25/24 09:00 06/01/24 09:30 Polyethylene Glycol 3350 17 Gm Powd.Pack PO 17 gm QAM SIMRAN Administration Prochlorperazine Edisylate 10 mg 05/26/24 08:38 Prochlorperazine Edisylate 10 Mg/2 Ml Vial IV PUSH Q6H PRN Nausea And Vomiting Saccharomyces Boulardii 250 mg 05/28/24 17:00 06/01/24 09:30 Saccharomyces Boulardii 250 Mg Capsule PO 250 mg BID SIMRAN Administration Senna/Docusate Sodium 1 tab 05/24/24 21:00 05/31/24 20:50 Senna/Docusate Sodium Tablet PO 1 tab HS SIMRAN Administration Simethicone 125 mg 05/25/24 17:00 06/01/24 12:57 Simethicone 125 Mg Chew Tab PO 125 mg QID SIMRAN Administration Tamsulosin HCl 0.4 mg 05/23/24 21:00 05/31/24 20:50 Tamsulosin Hcl 0.4 Mg Capsule BY MOUTH 0.4 mg HS SIMRAN Administration Radiology Results: ITS Impressions Abdomen/Pelvis CT 05/22/24 21:39 IMPRESSION: Findings consistent with acute pancreatitis without gross perforation or drainable fluid collection. Chest X-Ray 05/25/24 12:01 IMPRESSION: 1. Small left pleural effusion with left basilar atelectasis or pneumonia. Abdomen X-Ray 05/28/24 20:21 IMPRESSION: Slightly dilated small bowel loops. Follow-up advised. MRCP 05/30/24 09:40 IMPRESSION: 1. Acute interstitial pancreatitis. 2. Small pleural effusions, left worse than right. 3. Small sliding hiatal hernia. 4. No choledocholithiasis. Labs Labs: Laboratory Results - last 24 hr 05/31/24 06/01/24 17:15 06:37 WBC 20.1 H RBC 3.60 L Hgb 11.5 L Hct 34.0 L MCV 94.4 MCH 31.9 MCHC 33.8 RDW 12.4 Plt Count 338 MPV 9.2 Immature Gran % (Auto) 2.7 H Neut % (Auto) 83.5 H Lymph % (Auto) 5.7 L [place] % (Auto) 7.5 Eos % (Auto) 0.3 Baso % (Auto) 0.3 Lymph # (Auto) 1.14 [place] # (Auto) 1.5 H Eos # (Auto) 0.1 Baso # (Auto) 0.1 Abs Immat Gran (auto) 0.55 H Absolute Neuts (auto) 16.8 H Absolute Nucleated RBC 0.000 Nucleated RBC % 0.0 Sodium 129 L Potassium 3.8 Chloride 99 Carbon Dioxide 28 Anion Gap 2 L BUN 12 Creatinine 0.78 Estim Creat Clear Calc 77 Estimated GFR > 60 Glucose 230 H Calcium 7.7 L Total Bilirubin 1.0 AST 52 ALT 63 H Alkaline Phosphatase 116 Total Protein 5.0 L Albumin 2.4 L Lipase 150 Procalcitonin 0.1 Urine Color Yellow Urine Appearance Clear Urine pH 5.0 Ur Specific [place] 1.009 Urine Protein Negative Urine Glucose (UA) Negative Urine Ketones Negative Ur Blood (Man) Negative Urine Nitrate Negative Urine Bilirubin Negative Urine Urobilinogen 0.2 Leukocyte Esterase Rfl Negative
--- NOTE | 2024-06-01 15:27 | P.PNIM_ITS ---
Progress Note: A&P Assessment and Plan (1) Acute pancreatitis: Code(s): K85.90 - Acute pancreatitis without necrosis or infection, unspecified Status: Acute Assessment and Plan: - CT abd/pelvis: Findings consistent with acute pancreatitis without gross perforation or drainable fluid collection. - Lipase > 40,000 on admission and now wnl. - LFTs and Triglycerides WNL. - etiology unclear; Drinks 1 alcoholic beverage/day. - s/p laparoscopic cholecystectomy in July 2023 - Denies previous episodes. - Currently tolerating clears fairly and we'll advance as tolerated. - Continue supportive care with pain and nausea meds. - GI following and we appreciate assistance. - MRCP: IMPRESSION: 1. Acute interstitial pancreatitis. 2. Small pleural effusions, left worse than right. 3. Small sliding hiatal hernia. 4. No choledocholithiasis. (2) Type 2 [place] (myocardial infarction): Code(s): I21.A1 - Myocardial infarction type 2 Status: Acute Assessment and Plan: * Possibly related to severe pain. * Troponin moderately elevated but down-trended. * Seen by Cardiology and outpatient stress-test recommended. * continue aspirin and statin * Continue Furosemide 20 mg PO daily * TT Echo: Summary 1. Complete two-dimensional, color flow and Doppler transthoracic echocardiogram is performed. 2. There is normal biventricular systolic function. 3. There is no significant valvular disease. Left Ventricle The left ventricle is normal in size and systolic function. The left ventricular ejection fraction is visually estimated to be 65-70%. (3) Pneumonia: Code(s): J18.9 - Pneumonia, unspecified organism Status: Acute Assessment and Plan: * Chest X-ray: Small left pleural effusion with left basilar atelectasis or pneumonia. * WBC 23.1>>22.2>>20.1 * Procalcitonin 0.1 * Leukocytosis likely related to acute pancreatitis and likely not PNA. * We'll hold off antibiotics for now. (4) Constipation: Code(s): K59.00 - Constipation, unspecified Status: Acute Assessment and Plan: * Appears resolved. * Having regular BM's per nursing staff. * Continue Docusate and Miralax. * KUB showed: Multiple mildly dilated gas-filled loops of small bowel in the abdomen and would favor ileus related to acute interstitial pancreatitis as seen on prior CT over obstruction. * Repeat KUB 05/28/24: IMPRESSION: Slightly dilated small bowel loops. Follow-up advised- GI consulted. (5) Hypokalemia: Code(s): E87.6 - Hypokalemia Status: Acute Assessment and Plan: * Repleted and currently wnl. (6) Benign prostatic hyperplasia: Code(s): N40.0 - Benign prostatic hyperplasia without lower urinary tract symptoms Status: Acute Assessment and Plan: * Chronic, continue flomax. (7) Hyperlipidemia: Code(s): E78.5 - Hyperlipidemia, unspecified Status: Acute Assessment and Plan: * Chronic, continue atorvastatin 20 mg daily. Plan Continue PT/OT treatment, advance diet as tolerated. Time Spent With Patient Time with patient: 15 - 25 minutes Subjective Date/time seen: 06/01/24 13:27 Patient states he still has left-upper abdominal pain just with movement. States did ok with liquids with no nausea or vomiting. Interval history: Patient presented with severe Left flank and left upper abdominal pain. CT abd/pelvis consistent with acute pancreatitis, with patient's Lipase elevated as well but down-trended since admission, now wnl. Triglycerides levels also wnl. Patient currently tolerating clears fairly. Review of Systems Review of Systems: All systems reviewed & are unremarkable except as noted in HPI and below Exam Narrative: General: Fair appearing seated bedside working with PT, no acute distress. HEENT: Normocephalic. Atraumatic. Extraocular movement intact. Sclera clear and anicteric. No facial asymmetry. Neck: Neck was supple. Chest: Lungs are clear to auscultation bilaterally. CV: Regular rate and rhythm. S1/S2. No murmurs. Abd: Abdomen was soft. Epigastric and LUQ tenderness. Nondistended. Positive bowel sounds. Neuro: Patient is alert and oriented x4. No focal neuro deficits noted. Objective Data Vital Signs Vital Signs: Vital Signs - 24 hr 05/31/24 16:00 05/31/24 20:00 05/31/24 20:00 Temperature Pulse Rate 61 66 Respiratory Rate Blood Pressure Pulse Oximetry Oxygen Delivery Room Air 05/31/24 20:34 06/01/24 00:00 06/01/24 04:00 Temperature 97.0 F L Pulse Rate 60 66 67 Respiratory Rate 14 Blood Pressure 111/64 Pulse Oximetry 96 Oxygen Delivery 06/01/24 05:24 06/01/24 08:00 06/01/24 09:31 Temperature 98.2 F Pulse Rate 62 59 L 64 Respiratory Rate 16 Blood Pressure 123/65 Pulse Oximetry 96 Oxygen Delivery 06/01/24 12:00 06/01/24 13:46 06/01/24 13:53 Temperature 98.5 F Pulse Rate 66 64 Respiratory Rate 17 Blood Pressure 94/51 L Pulse Oximetry 100 Oxygen Delivery Room Air Intake/Output Intake/Output: Intake & Output 05/29/24 05/30/24 05/31/24 06/01/24 23:59 23:59 23:59 23:59 Intake Total 791.7 1170 3207 450 Output Total 1025 1200 1600 1200 Balance -233.3 -30 1607 -750 Meds/Results Medications: Active Medications Generic Name Dose Route Start Last Admin Trade Name Freq PRN Reason Stop Dose Admin Albuterol/Ipratropium 3 ml 05/27/24 12:57 Ipratropium 0.5 Mg/Albuterol Sulfate 2.5 Mg Ampul.Neb 3 Ml INHALATION Q6HRT PRN Wheezing Aspirin 81 mg 05/28/24 09:00 06/01/24 09:29 Aspirin 81 Mg Enteric Tablet PO 81 mg QAM SIMRAN Administration Atorvastatin Calcium 20 mg 05/23/24 21:00 05/31/24 20:50 Atorvastatin 20 Mg Tablet PO 20 mg HS SIMRAN Administration Carvedilol 12.5 mg 05/27/24 10:05 06/01/24 09:31 Carvedilol 12.5 Mg Tablet PO 12.5 mg Q12HR SIMRAN Administration Enoxaparin Sodium 40 mg 05/23/24 09:00 06/01/24 09:42 Enoxaparin 40 Mg/0.4 Ml Syringe SUB-Q 40 mg DAILY SIMRAN Administration Fluoxetine HCl 40 mg 05/24/24 09:00 06/01/24 09:29 Fluoxetine Hcl 20 Mg Capsule PO 40 mg DAILY SIMRAN Administration Furosemide 20 mg 05/27/24 12:05 06/01/24 09:29 Furosemide 20 Mg Tablet PO 20 mg DAILY SIMRAN Administration Hydromorphone HCl 1 mg 05/26/24 15:10 05/28/24 20:22 Hydromorphone Hcl (*Crx) 1 Mg Tablet PO 1 mg Q4H PRN Administration Pain Rated 5-6 Hydromorphone HCl 2 mg 05/26/24 22:00 06/01/24 09:29 Hydromorphone Hcl (*Crx) 2 Mg Tablet PO 2 mg Q4H PRN Administration Pain Rated 7-10 Piperacillin/Tazobactam/Dextrose 3.375 gm in 50 mls @ 100 mls/hr 05/30/24 13:30 06/01/24 12:56 Zosyn 3.375 Gm/Ns 50 Ml IVPB 100 mls/hr Q6HR SIMRAN Administration Nonformulary Drug 0 mg 05/25/24 09:00 06/01/24 09:40 Vibegron [Gemtesa] PO 06/24/24 08:59 75 mg 75 Mg Tablet DAILY SIMRAN Administration Ondansetron HCl 4 mg 05/26/24 06:47 05/31/24 06:30 Ondansetron Inj 4 Mg/2 Ml Vial IV PUSH 4 mg Q6H PRN Administration Nausea And Vomiting Pantoprazole Sodium 40 mg 05/28/24 09:00 06/01/24 09:29 Pantoprazole 40 Mg Tablet PO 40 mg QAM SIMRAN Administration Polyethylene Glycol 17 gm 05/25/24 09:00 06/01/24 09:30 Polyethylene Glycol 3350 17 Gm Powd.Pack PO 17 gm QAM SIMRAN Administration Prochlorperazine Edisylate 10 mg 05/26/24 08:38 Prochlorperazine Edisylate 10 Mg/2 Ml Vial IV PUSH Q6H PRN Nausea And Vomiting Saccharomyces Boulardii 250 mg 05/28/24 17:00 06/01/24 09:30 Saccharomyces Boulardii 250 Mg Capsule PO 250 mg BID SIMRAN Administration Senna/Docusate Sodium 1 tab 05/24/24 21:00 05/31/24 20:50 Senna/Docusate Sodium Tablet PO 1 tab HS SIMRAN Administration Simethicone 125 mg 05/25/24 17:00 06/01/24 12:57 Simethicone 125 Mg Chew Tab PO 125 mg QID SIMRAN Administration Tamsulosin HCl 0.4 mg 05/23/24 21:00 05/31/24 20:50 Tamsulosin Hcl 0.4 Mg Capsule BY MOUTH 0.4 mg HS SIMRAN Administration Radiology Results: ITS Impressions Abdomen/Pelvis CT 05/22/24 21:39 IMPRESSION: Findings consistent with acute pancreatitis without gross perforation or drainable fluid collection. Chest X-Ray 05/25/24 12:01 IMPRESSION: 1. Small left pleural effusion with left basilar atelectasis or pneumonia. Abdomen X-Ray 05/28/24 20:21 IMPRESSION: Slightly dilated small bowel loops. Follow-up advised. MRCP 05/30/24 09:40 IMPRESSION: 1. Acute interstitial pancreatitis. 2. Small pleural effusions, left worse than right. 3. Small sliding hiatal hernia. 4. No choledocholithiasis. Labs Labs: Laboratory Results - last 24 hr 05/31/24 06/01/24 17:15 06:37 WBC 20.1 H RBC 3.60 L Hgb 11.5 L Hct 34.0 L MCV 94.4 MCH 31.9 MCHC 33.8 RDW 12.4 Plt Count 338 MPV 9.2 Immature Gran % (Auto) 2.7 H Neut % (Auto) 83.5 H Lymph % (Auto) 5.7 L [place] % (Auto) 7.5 Eos % (Auto) 0.3 Baso % (Auto) 0.3 Lymph # (Auto) 1.14 [place] # (Auto) 1.5 H Eos # (Auto) 0.1 Baso # (Auto) 0.1 Abs Immat Gran (auto) 0.55 H Absolute Neuts (auto) 16.8 H Absolute Nucleated RBC 0.000 Nucleated RBC % 0.0 Sodium 129 L Potassium 3.8 Chloride 99 Carbon Dioxide 28 Anion Gap 2 L BUN 12 Creatinine 0.78 Estim Creat Clear Calc 77 Estimated GFR > 60 Glucose 230 H Calcium 7.7 L Total Bilirubin 1.0 AST 52 ALT 63 H Alkaline Phosphatase 116 Total Protein 5.0 L Albumin 2.4 L Lipase 150 Procalcitonin 0.1 Urine Color Yellow Urine Appearance Clear Urine pH 5.0 Ur Specific [place] 1.009 Urine Protein Negative Urine Glucose (UA) Negative Urine Ketones Negative Ur Blood (Man) Negative Urine Nitrate Negative Urine Bilirubin Negative Urine Urobilinogen 0.2 Leukocyte Esterase Rfl Negative Quality VTE Prophylaxis VTE prophylaxis: pharmacologic ordered Hospitalist MIPS Advance Care Plan I have confirmed that the patient's Advanced Care Plan is present, code status is documented, or surrogate decision maker is listed in patient medical record.: Yes Medication Reconciliation I have utilized all available resources to obtain, update and review the patients current medications (includes all prescriptions, OTC, herbals, cannabis, and nutritional supplements).: Yes
[2024-06-01] MEDS: TAMSULOSIN HCL 0.4 MG CAPSULE BY MOUTH (20:48)
[2024-06-01] MEDS: ATORVASTATIN 20 MG TABLET PO (20:48)
[2024-06-01] MEDS: SENNA/DOCUSATE SODIUM TABLET 1 TAB PO (20:48)
[2024-06-02] VITALS (10 sets, daily range): BP systolic 135–144; BP diastolic 70–78; PULSE 55–78; RESP 16–18; TEMP 36.6–37.2; O2SAT 96–100
[2024-06-02] MEDS: HYDROmorphone HCL (*CRX) 1 MG TABLET PO (02:37)
[2024-06-02 09:32] LABS: Basophils Absolute Auto 0.1 K/mm3 (0.0-0.1); Basophils Percent Auto 0.4 % (0.2-1.2); Eosinophils Absolute Auto 0.1 K/mm3 (0-0.3); Eosinophils Percent Auto 0.5 % (0-4.4); Hematocrit 34.5 % (42.0-52.0); Hemoglobin 11.8 g/dL (14.0-18.0); Immature Granulocyte Absolute 0.28 K/mm3 (0.00-0.031); Immature Granulocyte Percent A 1.6 % (0-0.5); Lymphocytes Absolute Auto 1.57 K/mm3 (0.9-3.2); Lymphocytes Percent Auto 8.7 % (18.3-44.2); Mean Corpuscular HGB Conc 34.2 g/dl (32-36); Mean Corpuscular Volume 93.5 fl (80-100); Mean Platelet Volume 9.5 fl (7.4-10.4); Monocytes Absolute Auto 1.6 K/mm3 (0.1-0.6); Neutrophils Absolute Auto 14.4 K/mm3 (1.3-6.7); Neutrophils Percent Auto 79.8 % (45.5-73.1); Platelet Count Result 392 k/mm3 (150-375); Red Blood Count 3.69 M/mm3 (4.6-6.20); Red Cell Distribution Width 12.3 % (11.5-14.5)
[2024-06-02 09:44] LABS: Alanine Aminotransferase 60 U/L (6-50); Albumin Level 2.6 g/dL (3.5-5.1); Alkaline Phosphatase 133 U/L (38-126); Anion Gap 1 mmol/L (4-12); Aspartate Amino Transferase 47 U/L (17-59); Blood Urea Nitrogen 10 mg/dL (9-20); Calcium 8.4 mg/dL (8.4-10.2); Carbon Dioxide 27 mmol/L (22-30); Chloride 102 mmol/L (98-107); Estimated CRCL calculation 91 ml/min; Estimated Glomerular Filt Rate > 60; Glucose 116 mg/dL (65-110); Potassium 3.9 mmol/L (3.4-5.0); Sodium 130 mmol/L (137-145)
[2024-06-02 10:23] LABS: Hemoglobin A1C 5.5 % (<5.7)
[2024-06-02] MEDS: ENOXAPARIN 40 MG/0.4 ML SYRINGE SUB-Q (10:58)
[2024-06-02] MEDS: carvediloL 12.5 MG TABLET PO ×2 (10:59→20:34)
[2024-06-02] MEDS: SIMETHICONE 125 MG CHEW TAB PO ×4 (10:59→20:33)
[2024-06-02] MEDS: polyethylene glycoL 3350 17 GM POWD.PACK PO (10:59)
[2024-06-02] MEDS: FUROSEMIDE 20 MG TABLET PO (10:59)
[2024-06-02] MEDS: FLUoxetine HCL 20 MG CAPSULE 40 MG PO (10:59)
[2024-06-02] MEDS: PANTOPRAZOLE 40 MG TABLET PO (11:00)
[2024-06-02] MEDS: ASPIRIN 81 MG ENTERIC TABLET PO (11:00)
[2024-06-02] MEDS: VIBEGRON 75 MG PO (11:01)
[2024-06-02] MEDS: [UNRECOGNIZED DRUG - OTHER] PO (11:01)
[2024-06-02] MEDS: HYDROmorphone HCL (*CRX) 2 MG TABLET PO ×3 (12:43→22:25)
--- NOTE | 2024-06-02 12:54 | WPDGIPROGNO ---
Progress Note: A&P Assessment and Plan (1) Acute pancreatitis: Code(s): K85.90 - Acute pancreatitis without necrosis or infection, unspecified Status: Acute Assessment and Plan: The patient presents with moderately severe acute pancreatitis and worsening left-sided abdominal pain. However, there is no evidence of overall clinical decompensation suggesting ongoing SIRS. CRP today is 11, unfortunately without a baseline for comparison. Left-sided crackles may be attributed to hypoventilation secondary to pain. However, a CT scan of the chest and abdomen will be obtained to rule out an infiltrate or pleural effusion. The CT scan of the abdomen will also help better delineate any new-onset complications of his pancreatitis, such as a collection that may be amenable to drainage. Plan - CT of the chest and abdomen with and without contrast - Labs tomorrow : CRP, CBC, CMP Subjective Date/time seen: 06/02/24 12:54 Interval history: Patient states having worsening left upper quadrant and left flank pain since this morning. Denies nausea, vomiting and has 1 regular bowel movement today. He is tolerating a low-fat diet. No fever, chills or shortness of breath. Exam Narrative: Lungs: Left base crackles, decreased breath sounds. Abdomen: Moderate tenderness to palpation in left hemiabdomen, decreased bowel sounds. Rest of the exam unchanged. Objective Data Vital Signs Vital Signs: Vital Signs - 24 hr 06/01/24 13:46 06/01/24 13:53 06/01/24 16:00 Temperature 98.5 F Pulse Rate 64 62 Respiratory Rate 17 Blood Pressure 94/51 L Pulse Oximetry 100 Oxygen Delivery Room Air 06/01/24 20:00 06/01/24 20:00 06/01/24 21:01 Temperature 97.4 F L Pulse Rate 71 68 Respiratory Rate 16 Blood Pressure 102/72 Pulse Oximetry 98 Oxygen Delivery Room Air 06/02/24 00:00 06/02/24 04:00 06/02/24 05:33 Temperature 98.9 F Pulse Rate 67 64 62 Respiratory Rate 16 Blood Pressure 135/70 Pulse Oximetry 96 Oxygen Delivery 06/02/24 08:00 06/02/24 10:59 Temperature Pulse Rate 65 64 Respiratory Rate Blood Pressure Pulse Oximetry Oxygen Delivery Intake/Output Intake/Output: Intake & Output 05/30/24 05/31/24 06/01/24 06/02/24 23:59 23:59 23:59 23:59 Intake Total 1170 3207 1087 350 Output Total 1200 1600 1500 900 Balance -30 6729 -110 -792 Meds/Results Medications: Active Medications Generic Name Dose Route Start Last Admin Trade Name Freq PRN Reason Stop Dose Admin Albuterol/Ipratropium 3 ml 05/27/24 12:57 Ipratropium 0.5 Mg/Albuterol Sulfate 2.5 Mg Ampul.Neb 3 Ml INHALATION Q6HRT PRN Wheezing Aspirin 81 mg 05/28/24 09:00 06/02/24 11:00 Aspirin 81 Mg Enteric Tablet PO 81 mg QAM SIMRAN Administration Atorvastatin Calcium 20 mg 05/23/24 21:00 06/01/24 20:48 Atorvastatin 20 Mg Tablet PO 20 mg HS SIMRAN Administration Carvedilol 12.5 mg 05/27/24 10:05 06/02/24 10:59 Carvedilol 12.5 Mg Tablet PO 12.5 mg Q12HR SIMRAN Administration Enoxaparin Sodium 40 mg 05/23/24 09:00 06/02/24 10:58 Enoxaparin 40 Mg/0.4 Ml Syringe SUB-Q 40 mg DAILY SIMRAN Administration Fluoxetine HCl 40 mg 05/24/24 09:00 06/02/24 10:59 Fluoxetine Hcl 20 Mg Capsule PO 40 mg DAILY SIMRAN Administration Furosemide 20 mg 05/27/24 12:05 06/02/24 10:59 Furosemide 20 Mg Tablet PO 20 mg DAILY SIMRAN Administration Hydromorphone HCl 1 mg 05/26/24 15:10 06/02/24 02:37 Hydromorphone Hcl (*Crx) 1 Mg Tablet PO 1 mg Q4H PRN Administration Pain Rated 5-6 Hydromorphone HCl 2 mg 05/26/24 22:00 06/02/24 12:43 Hydromorphone Hcl (*Crx) 2 Mg Tablet PO 2 mg Q4H PRN Administration Pain Rated 7-10 Nonformulary Drug 0 mg 05/25/24 09:00 06/02/24 11:01 Vibegron [Gemtesa] PO 06/24/24 08:59 75 mg 75 Mg Tablet DAILY SIMRAN Administration Ondansetron HCl 4 mg 05/26/24 06:47 05/31/24 06:30 Ondansetron Inj 4 Mg/2 Ml Vial IV PUSH 4 mg Q6H PRN Administration Nausea And Vomiting Pantoprazole Sodium 40 mg 05/28/24 09:00 06/02/24 11:00 Pantoprazole 40 Mg Tablet PO 40 mg QAM SIMRAN Administration Polyethylene Glycol 17 gm 05/25/24 09:00 06/02/24 10:59 Polyethylene Glycol 3350 17 Gm Powd.Pack PO 17 gm QAM SIMRAN Administration Prochlorperazine Edisylate 10 mg 05/26/24 08:38 Prochlorperazine Edisylate 10 Mg/2 Ml Vial IV PUSH Q6H PRN Nausea And Vomiting Senna/Docusate Sodium 1 tab 05/24/24 21:00 06/01/24 20:48 Senna/Docusate Sodium Tablet PO 1 tab HS SIMRAN Administration Simethicone 125 mg 05/25/24 17:00 06/02/24 12:39 Simethicone 125 Mg Chew Tab PO 125 mg QID SIMRAN Administration Tamsulosin HCl 0.4 mg 05/23/24 21:00 06/01/24 20:48 Tamsulosin Hcl 0.4 Mg Capsule BY MOUTH 0.4 mg HS SIMRAN Administration Radiology Results: ITS Impressions Abdomen/Pelvis CT 05/22/24 21:39 IMPRESSION: Findings consistent with acute pancreatitis without gross perforation or drainable fluid collection. Chest X-Ray 05/25/24 12:01 IMPRESSION: 1. Small left pleural effusion with left basilar atelectasis or pneumonia. Abdomen X-Ray 05/28/24 20:21 IMPRESSION: Slightly dilated small bowel loops. Follow-up advised. MRCP 05/30/24 09:40 IMPRESSION: 1. Acute interstitial pancreatitis. 2. Small pleural effusions, left worse than right. 3. Small sliding hiatal hernia. 4. No choledocholithiasis. Labs Labs: Laboratory Results - last 24 hr 06/02/24 06/02/24 08:59 09:00 WBC 18.0 H RBC 3.69 L Hgb 11.8 L Hct 34.5 L MCV 93.5 MCH 32.0 MCHC 34.2 RDW 12.3 Plt Count 392 H MPV 9.5 Immature Gran % (Auto) 1.6 H Neut % (Auto) 79.8 H Lymph % (Auto) 8.7 L [place] % (Auto) 9.0 H Eos % (Auto) 0.5 Baso % (Auto) 0.4 Lymph # (Auto) 1.57 [place] # (Auto) 1.6 H Eos # (Auto) 0.1 Baso # (Auto) 0.1 Abs Immat Gran (auto) 0.28 H Absolute Neuts (auto) 14.4 H Absolute Nucleated RBC 0.000 Nucleated RBC % 0.0 Sodium 130 L Potassium 3.9 Chloride 102 Carbon Dioxide 27 Anion Gap 1 L BUN 10 Creatinine 0.64 L Estim Creat Clear Calc 91 Estimated GFR > 60 Glucose 116 H Hemoglobin A1c 5.5 Calcium 8.4 Total Bilirubin 1.0 AST 47 ALT 60 H Alkaline Phosphatase 133 H C-Reactive Protein 11.0 H Total Protein 6.0 L Albumin 2.6 L
--- NOTE | 2024-06-02 15:24 | P.PNIM_ITS ---
Progress Note: A&P Assessment and Plan (1) Acute pancreatitis: Code(s): K85.90 - Acute pancreatitis without necrosis or infection, unspecified Status: Acute Assessment and Plan: - CT abd/pelvis, 05/22/24: Findings consistent with acute pancreatitis without gross perforation or drainable fluid collection. - Repeat CT abd/pelvis: 06/02/24 1. Acute necrotic pancreatitis with interval worsening of findings. 2. Small left pleural effusion. - Lipase > 40,000 on admission and now wnl. - LFTs and Triglycerides WNL. - etiology unclear; Drinks 1 alcoholic beverage/day. - Hx of Lap. Mari July 2023 - Denies previous episodes. - Currently on [place] diet and tolerating fairly ok. - Continue supportive care with pain and nausea meds. - GI following and we appreciate assistance. - MRCP: IMPRESSION: 1. Acute interstitial pancreatitis. 2. Small pleural effusions, left worse than right. 3. Small sliding hiatal hernia. 4. No choledocholithiasis. (2) Type 2 SC (myocardial infarction): Code(s): I21.A1 - Myocardial infarction type 2 Status: Acute Assessment and Plan: * Possibly related to severe pain. * Troponin moderately elevated but down-trended. * Seen by Cardiology and outpatient stress-test recommended. * continue aspirin and statin * Continue Furosemide 20 mg PO daily * TT Echo: Summary 1. Complete two-dimensional, color flow and Doppler transthoracic echocardiogram is performed. 2. There is normal biventricular systolic function. 3. There is no significant valvular disease. Left Ventricle The left ventricle is normal in size and systolic function. The left ventricular ejection fraction is visually estimated to be 65-70%. (3) Pneumonia: Code(s): J18.9 - Pneumonia, unspecified organism Status: Acute Assessment and Plan: * Chest X-ray: Small left pleural effusion with left basilar atelectasis or pneumonia. * WBC 23.1>>22.2>>20.1>>18 * Procalcitonin 0.1 * Leukocytosis likely related to acute pancreatitis and likely not PNA. * We'll hold off antibiotics for now. (4) Constipation: Code(s): K59.00 - Constipation, unspecified Status: Acute Assessment and Plan: * Appears resolved. * Having regular BM's per nursing staff. * Continue Docusate and Miralax. * KUB 05/25/24: Multiple mildly dilated gas-filled loops of small bowel in the abdomen and would favor ileus related to acute interstitial pancreatitis as seen on prior CT over obstruction. * Repeat KUB 05/28/24: IMPRESSION: Slightly dilated small bowel loops. Follow-up advised. - GI following and we appreciate assistance. (5) Hypokalemia: Code(s): E87.6 - Hypokalemia Status: Acute Assessment and Plan: * Repleted and currently wnl. (6) Benign prostatic hyperplasia: Code(s): N40.0 - Benign prostatic hyperplasia without lower urinary tract symptoms Status: Acute Assessment and Plan: * Chronic, continue flomax. (7) Hyperlipidemia: Code(s): E78.5 - Hyperlipidemia, unspecified Status: Acute Assessment and Plan: * Chronic, continue atorvastatin 20 mg daily. Plan Continue PT/OT treatment, advance diet as tolerated. Time Spent With Patient Time with patient: 15 - 25 minutes Subjective Date/time seen: 06/02/24 11:24 Patient states he's still having severe abdominal pain, mainly to his LUQ. States had toast and coffee for breakfast and did ok. Interval history: Patient calm on bedrest and looks to be in no acute distress at rest. Review of Systems Review of Systems: All systems reviewed & are unremarkable except as noted in HPI and below Exam Narrative: General: Fair appearing, no acute distress on bedrest. HEENT: Normocephalic. Atraumatic. EOM. Sclera anicteric. Neck: Supple. Chest: Crackles to bases, L>R. CV: Regular rate and rhythm. No murmurs. Abd: Abdomen soft. Epigastric and LUQ tenderness. Nondistended. +ve BS X4 Quadrants. Neuro: Well oriented. CN II-XII grossly intact. Psych: Pleasant and co-operative. Objective Data Vital Signs Vital Signs: Vital Signs - 24 hr 06/01/24 16:00 06/01/24 20:00 06/01/24 20:00 Temperature Pulse Rate 62 71 Respiratory Rate Blood Pressure Pulse Oximetry Oxygen Delivery Room Air 06/01/24 21:01 06/02/24 00:00 06/02/24 04:00 Temperature 97.4 F L Pulse Rate 68 67 64 Respiratory Rate 16 Blood Pressure 102/72 Pulse Oximetry 98 Oxygen Delivery 06/02/24 05:33 06/02/24 08:00 06/02/24 10:59 Temperature 98.9 F Pulse Rate 62 65 64 Respiratory Rate 16 Blood Pressure 135/70 Pulse Oximetry 96 Oxygen Delivery Intake/Output Intake/Output: Intake & Output 05/30/24 05/31/24 06/01/24 06/02/24 23:59 23:59 23:59 23:59 Intake Total 1170 3207 1087 350 Output Total 1200 1600 1500 900 Balance -30 1607 -413 -550 Meds/Results Medications: Active Medications Generic Name Dose Route Start Last Admin Trade Name Freq PRN Reason Stop Dose Admin Albuterol/Ipratropium 3 ml 05/27/24 12:57 Ipratropium 0.5 Mg/Albuterol Sulfate 2.5 Mg Ampul.Neb 3 Ml INHALATION Q6HRT PRN Wheezing Aspirin 81 mg 05/28/24 09:00 06/02/24 11:00 Aspirin 81 Mg Enteric Tablet PO 81 mg QAM SIMRAN Administration Atorvastatin Calcium 20 mg 05/23/24 21:00 06/01/24 20:48 Atorvastatin 20 Mg Tablet PO 20 mg HS SIMRAN Administration Carvedilol 12.5 mg 05/27/24 10:05 06/02/24 10:59 Carvedilol 12.5 Mg Tablet PO 12.5 mg Q12HR SIMRAN Administration Enoxaparin Sodium 40 mg 05/23/24 09:00 06/02/24 10:58 Enoxaparin 40 Mg/0.4 Ml Syringe SUB-Q 40 mg DAILY SIMRAN Administration Fluoxetine HCl 40 mg 05/24/24 09:00 06/02/24 10:59 Fluoxetine Hcl 20 Mg Capsule PO 40 mg DAILY SIMRAN Administration Furosemide 20 mg 05/27/24 12:05 06/02/24 10:59 Furosemide 20 Mg Tablet PO 20 mg DAILY SIMRAN Administration Hydromorphone HCl 1 mg 05/26/24 15:10 06/02/24 02:37 Hydromorphone Hcl (*Crx) 1 Mg Tablet PO 1 mg Q4H PRN Administration Pain Rated 5-6 Hydromorphone HCl 2 mg 05/26/24 22:00 06/02/24 12:43 Hydromorphone Hcl (*Crx) 2 Mg Tablet PO 2 mg Q4H PRN Administration Pain Rated 7-10 Nonformulary Drug 0 mg 05/25/24 09:00 06/02/24 11:01 Vibegron [Gemtesa] PO 06/24/24 08:59 75 mg 75 Mg Tablet DAILY SIMRAN Administration Ondansetron HCl 4 mg 05/26/24 06:47 05/31/24 06:30 Ondansetron Inj 4 Mg/2 Ml Vial IV PUSH 4 mg Q6H PRN Administration Nausea And Vomiting Pantoprazole Sodium 40 mg 05/28/24 09:00 06/02/24 11:00 Pantoprazole 40 Mg Tablet PO 40 mg QAM SIMRAN Administration Polyethylene Glycol 17 gm 05/25/24 09:00 06/02/24 10:59 Polyethylene Glycol 3350 17 Gm Powd.Pack PO 17 gm QAM SIMRAN Administration Prochlorperazine Edisylate 10 mg 05/26/24 08:38 Prochlorperazine Edisylate 10 Mg/2 Ml Vial IV PUSH Q6H PRN Nausea And Vomiting Senna/Docusate Sodium 1 tab 05/24/24 21:00 06/01/24 20:48 Senna/Docusate Sodium Tablet PO 1 tab HS SIMRAN Administration Simethicone 125 mg 05/25/24 17:00 06/02/24 12:39 Simethicone 125 Mg Chew Tab PO 125 mg QID SIMRAN Administration Tamsulosin HCl 0.4 mg 05/23/24 21:00 06/01/24 20:48 Tamsulosin Hcl 0.4 Mg Capsule BY MOUTH 0.4 mg HS SIMRAN Administration Radiology Results: ITS Impressions Abdomen/Pelvis CT 05/22/24 21:39 IMPRESSION: Findings consistent with acute pancreatitis without gross perforation or drainable fluid collection. Chest X-Ray 05/25/24 12:01 IMPRESSION: 1. Small left pleural effusion with left basilar atelectasis or pneumonia. Abdomen X-Ray 05/28/24 20:21 IMPRESSION: Slightly dilated small bowel loops. Follow-up advised. MRCP 05/30/24 09:40 IMPRESSION: 1. Acute interstitial pancreatitis. 2. Small pleural effusions, left worse than right. 3. Small sliding hiatal hernia. 4. No choledocholithiasis. Chest/Abdomen CT 06/02/24 13:56 IMPRESSION: 1. Acute necrotic pancreatitis with interval worsening of findings. 2. Small left pleural effusion. Labs Labs: Laboratory Results - last 24 hr 06/02/24 06/02/24 08:59 09:00 WBC 18.0 H RBC 3.69 L Hgb 11.8 L Hct 34.5 L MCV 93.5 MCH 32.0 MCHC 34.2 RDW 12.3 Plt Count 392 H MPV 9.5 Immature Gran % (Auto) 1.6 H Neut % (Auto) 79.8 H Lymph % (Auto) 8.7 L [place] % (Auto) 9.0 H Eos % (Auto) 0.5 Baso % (Auto) 0.4 Lymph # (Auto) 1.57 [place] # (Auto) 1.6 H Eos # (Auto) 0.1 Baso # (Auto) 0.1 Abs Immat Gran (auto) 0.28 H Absolute Neuts (auto) 14.4 H Absolute Nucleated RBC 0.000 Nucleated RBC % 0.0 Sodium 130 L Potassium 3.9 Chloride 102 Carbon Dioxide 27 Anion Gap 1 L BUN 10 Creatinine 0.64 L Estim Creat Clear Calc 91 Estimated GFR > 60 Glucose 116 H Hemoglobin A1c 5.5 Calcium 8.4 Total Bilirubin 1.0 AST 47 ALT 60 H Alkaline Phosphatase 133 H C-Reactive Protein 11.0 H Total Protein 6.0 L Albumin 2.6 L Quality VTE Prophylaxis VTE prophylaxis: pharmacologic ordered Hospitalist [facility] Advance Care Plan I have confirmed that the patient's Advanced Care Plan is present, code status is documented, or surrogate decision maker is listed in patient medical record.: Yes Medication Reconciliation I have utilized all available resources to obtain, update and review the patients current medications (includes all prescriptions, OTC, herbals, cannabis, and nutritional supplements).: Yes
[2024-06-02] MEDS: TAMSULOSIN HCL 0.4 MG CAPSULE BY MOUTH (20:33)
[2024-06-02] MEDS: SENNA/DOCUSATE SODIUM TABLET 1 TAB PO (20:34)
[2024-06-02] MEDS: ATORVASTATIN 20 MG TABLET PO (20:34)
[2024-06-03] VITALS (11 sets, daily range): BP systolic 102–149; BP diastolic 56–91; PULSE 56–67; RESP 18–20; TEMP 36.4–37.2; O2SAT 95–97
[2024-06-03] MEDS: HYDROmorphone HCL (*CRX) 2 MG TABLET PO ×4 (04:39→20:54)
[2024-06-03 06:43] LABS: Basophils Percent Auto 0.3 % (0.2-1.2); Eosinophils Absolute Auto 0.1 K/mm3 (0-0.3); Eosinophils Percent Auto 0.5 % (0-4.4); Hematocrit 33.9 % (42.0-52.0); Immature Granulocyte Absolute 0.14 K/mm3 (0.00-0.031); Immature Granulocyte Percent A 0.9 % (0-0.5); Lymphocytes Percent Auto 8.9 % (18.3-44.2); Mean Corpuscular HGB Conc 35.4 g/dl (32-36); Mean Corpuscular Volume 93.1 fl (80-100); Mean Platelet Volume 9.1 fl (7.4-10.4); Monocytes Absolute Auto 1.5 K/mm3 (0.1-0.6); Monocytes Percent Auto 9.5 % (2.6-8.5); Neutrophils Absolute Auto 12.6 K/mm3 (1.3-6.7); Neutrophils Percent Auto 79.9 % (45.5-73.1); Platelet Count Result 350 k/mm3 (150-375); Red Blood Count 3.64 M/mm3 (4.6-6.20); Red Cell Distribution Width 12.2 % (11.5-14.5); White Blood Count 15.8 K/mm3 (4.5-10.0)
--- NOTE | 2024-06-03 07:22 | WPDGIPROGNO ---
Progress Note: A&P Assessment and Plan (1) Acute pancreatitis: Code(s): K85.90 - Acute pancreatitis without necrosis or infection, unspecified Status: Acute Assessment and Plan: The patient presents with moderately severe acute pancreatitis. Recent MRI imaging revealed the development of necrosis not observed 48 hours prior. Despite this finding, the patient exhibits no signs of SIRS. The white count is decreasing, and antibiotics have been discontinued as the initial leukocytosis is attributed to transient SIRS and the onset of mild necrosis. The patient is currently tolerating a low-fat diet, which will be continued. Daily monitoring of CBC and CRP will be ordered. If a favorable trend is observed in these markers, we can consider discharging pt home. Subjective Date/time seen: 06/03/24 07:22 Interval history: The patient feels better, still requiring a few doses of Dilaudid a day For left-sided abdominal pain,no nausea, no vomiting, no shortness of breath. adequate urine output, 1.2 mL/kg per hour. No diarrhea. Exam Narrative: inner layer scrubber tender in the left upper quadrant and left flank to deep palpation. Lungs: Bibasal crackles. Objective Data Vital Signs Vital Signs: Vital Signs - 24 hr 06/02/24 08:00 06/02/24 10:59 06/02/24 14:00 Temperature 97.8 F Pulse Rate 65 64 78 Respiratory Rate 18 Blood Pressure 140/78 Pulse Oximetry 100 Oxygen Delivery 06/02/24 16:00 06/02/24 20:00 06/02/24 20:00 Temperature Pulse Rate 66 58 L Respiratory Rate Blood Pressure Pulse Oximetry Oxygen Delivery Room Air 06/02/24 20:34 06/02/24 21:41 06/03/24 00:00 Temperature 98.9 F Pulse Rate 66 55 L 56 L Respiratory Rate 16 Blood Pressure 144/70 H Pulse Oximetry 98 Oxygen Delivery 06/03/24 04:00 06/03/24 05:48 Temperature 98.1 F Pulse Rate 60 59 L Respiratory Rate 18 Blood Pressure 149/75 H Pulse Oximetry 97 Oxygen Delivery Intake/Output Intake/Output: Intake & Output 05/31/24 06/01/24 06/02/24 06/03/24 23:59 23:59 23:59 23:59 Intake Total 3207 1087 1800 450 Output Total 1600 1500 2900 500 Balance 1607 -413 -1100 -50 Meds/Results Medications: Active Medications Generic Name Dose Route Start Last Admin Trade Name Freq PRN Reason Stop Dose Admin Albuterol/Ipratropium 3 ml 05/27/24 12:57 Ipratropium 0.5 Mg/Albuterol Sulfate 2.5 Mg Ampul.Neb 3 Ml INHALATION Q6HRT PRN Wheezing Aspirin 81 mg 05/28/24 09:00 06/02/24 11:00 Aspirin 81 Mg Enteric Tablet PO 81 mg QAM SIMRAN Administration Atorvastatin Calcium 20 mg 05/23/24 21:00 06/02/24 20:34 Atorvastatin 20 Mg Tablet PO 20 mg HS SIMRAN Administration Carvedilol 12.5 mg 05/27/24 10:05 06/02/24 20:34 Carvedilol 12.5 Mg Tablet PO 12.5 mg Q12HR SIMRAN Administration Enoxaparin Sodium 40 mg 05/23/24 09:00 06/02/24 10:58 Enoxaparin 40 Mg/0.4 Ml Syringe SUB-Q 40 mg DAILY SIMRAN Administration Fluoxetine HCl 40 mg 05/24/24 09:00 06/02/24 10:59 Fluoxetine Hcl 20 Mg Capsule PO 40 mg DAILY SIMRAN Administration Furosemide 20 mg 05/27/24 12:05 06/02/24 10:59 Furosemide 20 Mg Tablet PO 20 mg DAILY SIMRAN Administration Hydromorphone HCl 1 mg 05/26/24 15:10 06/02/24 02:37 Hydromorphone Hcl (*Crx) 1 Mg Tablet PO 1 mg Q4H PRN Administration Pain Rated 5-6 Hydromorphone HCl 2 mg 05/26/24 22:00 06/03/24 04:39 Hydromorphone Hcl (*Crx) 2 Mg Tablet PO 2 mg Q4H PRN Administration Pain Rated 7-10 Nonformulary Drug 0 mg 05/25/24 09:00 06/02/24 11:01 Vibegron [Gemtesa] PO 06/24/24 08:59 75 mg 75 Mg Tablet DAILY SIMRAN Administration Ondansetron HCl 4 mg 05/26/24 06:47 05/31/24 06:30 Ondansetron Inj 4 Mg/2 Ml Vial IV PUSH 4 mg Q6H PRN Administration Nausea And Vomiting Pantoprazole Sodium 40 mg 05/28/24 09:00 06/02/24 11:00 Pantoprazole 40 Mg Tablet PO 40 mg QAM SIMRAN Administration Polyethylene Glycol 17 gm 05/25/24 09:00 06/02/24 10:59 Polyethylene Glycol 3350 17 Gm Powd.Pack PO 17 gm QAM SIMRAN Administration Prochlorperazine Edisylate 10 mg 05/26/24 08:38 Prochlorperazine Edisylate 10 Mg/2 Ml Vial IV PUSH Q6H PRN Nausea And Vomiting Senna/Docusate Sodium 1 tab 05/24/24 21:00 06/02/24 20:34 Senna/Docusate Sodium Tablet PO 1 tab HS SIMRAN Administration Simethicone 125 mg 05/25/24 17:00 06/02/24 20:33 Simethicone 125 Mg Chew Tab PO 125 mg QID SIMRAN Administration Tamsulosin HCl 0.4 mg 05/23/24 21:00 06/02/24 20:33 Tamsulosin Hcl 0.4 Mg Capsule BY MOUTH 0.4 mg HS SIMRAN Administration Radiology Results: ITS Impressions Abdomen/Pelvis CT 05/22/24 21:39 IMPRESSION: Findings consistent with acute pancreatitis without gross perforation or drainable fluid collection. Chest X-Ray 05/25/24 12:01 IMPRESSION: 1. Small left pleural effusion with left basilar atelectasis or pneumonia. Abdomen X-Ray 05/28/24 20:21 IMPRESSION: Slightly dilated small bowel loops. Follow-up advised. MRCP 05/30/24 09:40 IMPRESSION: 1. Acute interstitial pancreatitis. 2. Small pleural effusions, left worse than right. 3. Small sliding hiatal hernia. 4. No choledocholithiasis. Chest/Abdomen CT 06/02/24 13:56 IMPRESSION: 1. Acute necrotic pancreatitis with interval worsening of findings. 2. Small left pleural effusion. Labs Labs: Laboratory Results - last 24 hr 06/02/24 06/02/24 06/03/24 08:59 09:00 06:27 WBC 18.0 H 15.8 H RBC 3.69 L 3.64 L Hgb 11.8 L 12.0 L Hct 34.5 L 33.9 L MCV 93.5 93.1 MCH 32.0 33.0 MCHC 34.2 35.4 RDW 12.3 12.2 Plt Count 392 H 350 MPV 9.5 9.1 Immature Gran % (Auto) 1.6 H 0.9 H Neut % (Auto) 79.8 H 79.9 H Lymph % (Auto) 8.7 L 8.9 L [place] % (Auto) 9.0 H 9.5 H Eos % (Auto) 0.5 0.5 Baso % (Auto) 0.4 0.3 Lymph # (Auto) 1.57 1.40 [place] # (Auto) 1.6 H 1.5 H Eos # (Auto) 0.1 0.1 Baso # (Auto) 0.1 0.0 Abs Immat Gran (auto) 0.28 H 0.14 H Absolute Neuts (auto) 14.4 H 12.6 H Absolute Nucleated RBC 0.000 0.000 Nucleated RBC % 0.0 0.0 Sodium 130 L Potassium 3.9 Chloride 102 Carbon Dioxide 27 Anion Gap 1 L BUN 10 Creatinine 0.64 L Estim Creat Clear Calc 91 Estimated GFR > 60 Glucose 116 H Hemoglobin A1c 5.5 Calcium 8.4 Total Bilirubin 1.0 AST 47 ALT 60 H Alkaline Phosphatase 133 H C-Reactive Protein 11.0 H Total Protein 6.0 L Albumin 2.6 L
[2024-06-03] MEDS: ENOXAPARIN 40 MG/0.4 ML SYRINGE SUB-Q (10:10)
[2024-06-03] MEDS: FUROSEMIDE 20 MG TABLET PO (10:11)
[2024-06-03] MEDS: carvediloL 12.5 MG TABLET PO ×2 (10:11→20:51)
[2024-06-03] MEDS: PANTOPRAZOLE 40 MG TABLET PO (10:11)
[2024-06-03] MEDS: FLUoxetine HCL 20 MG CAPSULE 40 MG PO (10:11)
[2024-06-03] MEDS: ASPIRIN 81 MG ENTERIC TABLET PO (10:11)
[2024-06-03] MEDS: SIMETHICONE 125 MG CHEW TAB PO ×4 (10:12→20:51)
[2024-06-03] MEDS: polyethylene glycoL 3350 17 GM POWD.PACK PO (10:12)
[2024-06-03] MEDS: [UNRECOGNIZED DRUG - OTHER] PO (10:24)
[2024-06-03] MEDS: VIBEGRON 75 MG PO (10:24)
--- NOTE | 2024-06-03 10:38 | PCNWS ---
Weekly nutritional screen. Patient is tolerating current Low Fiber diet with improving intake. Pancreatitis is improving, still with some abdominal pain. Diet is advanced. No weight loss reported. No nutritional needs at this time.
--- NOTE | 2024-06-03 11:01 | PCOTNOTE ---
Patient declined at this time. Patient requested therapist come back this afternoon.
[2024-06-03 11:49] LABS: Alanine Aminotransferase 57 U/L (6-50); Albumin Level 2.6 g/dL (3.5-5.1); Alkaline Phosphatase 120 U/L (38-126); Anion Gap 5 mmol/L (4-12); Aspartate Amino Transferase 52 U/L (17-59); Bilirubin,Total 0.9 mg/dL (0.2-1.3); Blood Urea Nitrogen 11 mg/dL (9-20); CRP 8.1 mg/dL (<1.0); Calcium 8.3 mg/dL (8.4-10.2); Carbon Dioxide 26 mmol/L (22-30); Chloride 99 mmol/L (98-107); Estimated CRCL calculation 95 ml/min; Estimated Glomerular Filt Rate > 60; Glucose 109 mg/dL (65-110); Potassium 3.8 mmol/L (3.4-5.0); Sodium 130 mmol/L (137-145)
[2024-06-03 15:05] LABS: CRP 6.7 mg/dL (<1.0)
--- NOTE | 2024-06-03 15:20 | P.PNIM_ITS ---
Progress Note: A&P Assessment and Plan (1) Acute pancreatitis: Code(s): K85.90 - Acute pancreatitis without necrosis or infection, unspecified Status: Acute Assessment and Plan: - CT abd/pelvis, 05/22/24: Findings consistent with acute pancreatitis without gross perforation or drainable fluid collection. - Repeat CT abd/pelvis: 06/02/24 1. Acute necrotic pancreatitis with interval worsening of findings. 2. Small left pleural effusion. - Lipase > 40,000 on admission and now wnl. - LFTs and Triglycerides WNL. - etiology unclear; Drinks 1 alcoholic beverage/day. - Hx of Lap. Mari July 2023 - Denies previous episodes. - Currently on [place] diet and tolerating fairly ok. - Continue supportive care with pain and nausea meds. - GI following and we appreciate assistance. - Pain slowly improving per patient. - MRCP: IMPRESSION: 1. Acute interstitial pancreatitis. 2. Small pleural effusions, left worse than right. 3. Small sliding hiatal hernia. 4. No choledocholithiasis. (2) Type 2 MO (myocardial infarction): Code(s): I21.A1 - Myocardial infarction type 2 Status: Acute Assessment and Plan: * Possibly related to severe pain. * Troponin moderately elevated but down-trended. * Seen by Cardiology and outpatient stress-test recommended. * continue aspirin and statin * Continue Furosemide 20 mg PO daily * TT Echo: Summary 1. Complete two-dimensional, color flow and Doppler transthoracic echocardiogram is performed. 2. There is normal biventricular systolic function. 3. There is no significant valvular disease. Left Ventricle The left ventricle is normal in size and systolic function. The left ventricular ejection fraction is visually estimated to be 65-70%. (3) Pneumonia: Code(s): J18.9 - Pneumonia, unspecified organism Status: Acute Assessment and Plan: * Chest X-ray: Small left pleural effusion with left basilar atelectasis or pneumonia. * WBC 23.1>>22.2>>20.1>>18 * Procalcitonin 0.1 * Leukocytosis likely related to acute pancreatitis and likely not PNA. * Continue to hold antibiotics for now. (4) Constipation: Code(s): K59.00 - Constipation, unspecified Status: Acute Assessment and Plan: * Appears resolved. * Having regular BM's per nursing staff. * Continue Docusate and Miralax. * KUB 05/25/24: Multiple mildly dilated gas-filled loops of small bowel in the abdomen and would favor ileus related to acute interstitial pancreatitis as seen on prior CT over obstruction. (5) Hypokalemia: Code(s): E87.6 - Hypokalemia Status: Acute Assessment and Plan: * Repleted and currently wnl. (6) Benign prostatic hyperplasia: Code(s): N40.0 - Benign prostatic hyperplasia without lower urinary tract symptoms Status: Acute Assessment and Plan: * Chronic, continue flomax. (7) Hyperlipidemia: Code(s): E78.5 - Hyperlipidemia, unspecified Status: Acute Assessment and Plan: * Chronic, continue atorvastatin 20 mg daily. Plan Continue PT/OT treatment, advance diet as tolerated. Time Spent With Patient Time with patient: 15 - 25 minutes Subjective Date/time seen: 06/03/24 15:20 Patient states he feels a little bit better with regards to pain, slightly improved, and tolerating diet fairly ok for now. Interval history: Patient calm on bedrest with some generalized weakness, not in any acute distress. Patient admitted for acute pancreatitis, with repeat CT abd/pelvis done 06/02/24 showing Acute necrotic pancreatitis with interval worsening of findings. GI following and conservative mgt recommended for now with supportive care. Review of Systems Review of Systems: 12 systems were reviewed and are negativ e except for as per HPI. All systems reviewed & are unremarkable except as noted in HPI and below Exam Narrative: General: Fair appearing, no acute distress on bedrest. HEENT: Normocephalic. Atraumatic. EOM. Sclera anicteric. Neck: Supple. Chest: Crackles to bases, L>R. CV: Regular rate and rhythm. No murmurs. Abd: Abdomen soft. Epigastric and LUQ tenderness. Nondistended. +ve BS X4 Quadrants. Neuro: Well oriented. CN II-XII grossly intact. Psych: Pleasant and co-operative. Objective Data Vital Signs Vital Signs: Vital Signs - 24 hr 06/02/24 16:00 06/02/24 20:00 06/02/24 20:00 Temperature Pulse Rate 66 58 L Respiratory Rate Blood Pressure Pulse Oximetry Oxygen Delivery Room Air 06/02/24 20:34 06/02/24 21:41 06/03/24 00:00 Temperature 98.9 F Pulse Rate 66 55 L 56 L Respiratory Rate 16 Blood Pressure 144/70 H Pulse Oximetry 98 Oxygen Delivery 06/03/24 04:00 06/03/24 05:48 06/03/24 08:00 Temperature 98.1 F Pulse Rate 60 59 L Respiratory Rate 18 Blood Pressure 149/75 H Pulse Oximetry 97 Oxygen Delivery Room Air 06/03/24 10:11 06/03/24 14:00 Temperature 98.9 F Pulse Rate 66 58 L Respiratory Rate 20 Blood Pressure 120/91 H Pulse Oximetry 95 Oxygen Delivery Intake/Output Intake/Output: Intake & Output 05/31/24 06/01/24 06/02/24 06/03/24 23:59 23:59 23:59 23:59 Intake Total 3207 1087 1800 1170 Output Total 1600 1500 2900 1350 Balance 1607 -413 -1100 -180 Meds/Results Medications: Active Medications Generic Name Dose Route Start Last Admin Trade Name Freq PRN Reason Stop Dose Admin Albuterol/Ipratropium 3 ml 05/27/24 12:57 Ipratropium 0.5 Mg/Albuterol Sulfate 2.5 Mg Ampul.Neb 3 Ml INHALATION Q6HRT PRN Wheezing Aspirin 81 mg 05/28/24 09:00 06/03/24 10:11 Aspirin 81 Mg Enteric Tablet PO 81 mg QAM SIMRAN Administration Atorvastatin Calcium 20 mg 05/23/24 21:00 06/02/24 20:34 Atorvastatin 20 Mg Tablet PO 20 mg HS SIMRAN Administration Carvedilol 12.5 mg 05/27/24 10:05 06/03/24 10:11 Carvedilol 12.5 Mg Tablet PO 12.5 mg Q12HR SIMRAN Administration Enoxaparin Sodium 40 mg 05/23/24 09:00 06/03/24 10:10 Enoxaparin 40 Mg/0.4 Ml Syringe SUB-Q 40 mg DAILY SIMRAN Administration Fluoxetine HCl 40 mg 05/24/24 09:00 06/03/24 10:11 Fluoxetine Hcl 20 Mg Capsule PO 40 mg DAILY SIMRAN Administration Furosemide 20 mg 05/27/24 12:05 06/03/24 10:11 Furosemide 20 Mg Tablet PO 20 mg DAILY SIMRAN Administration Hydromorphone HCl 1 mg 05/26/24 15:10 06/02/24 02:37 Hydromorphone Hcl (*Crx) 1 Mg Tablet PO 1 mg Q4H PRN Administration Pain Rated 5-6 Hydromorphone HCl 2 mg 05/26/24 22:00 06/03/24 10:19 Hydromorphone Hcl (*Crx) 2 Mg Tablet PO 2 mg Q4H PRN Administration Pain Rated 7-10 Nonformulary Drug 0 mg 05/25/24 09:00 06/03/24 10:24 Vibegron [Gemtesa] PO 06/24/24 08:59 75 mg 75 Mg Tablet DAILY SIMRAN Administration Ondansetron HCl 4 mg 05/26/24 06:47 05/31/24 06:30 Ondansetron Inj 4 Mg/2 Ml Vial IV PUSH 4 mg Q6H PRN Administration Nausea And Vomiting Pantoprazole Sodium 40 mg 05/28/24 09:00 06/03/24 10:11 Pantoprazole 40 Mg Tablet PO 40 mg QAM SIMRAN Administration Polyethylene Glycol 17 gm 05/25/24 09:00 06/03/24 10:12 Polyethylene Glycol 3350 17 Gm Powd.Pack PO 17 gm QAM SIMRAN Administration Prochlorperazine Edisylate 10 mg 05/26/24 08:38 Prochlorperazine Edisylate 10 Mg/2 Ml Vial IV PUSH Q6H PRN Nausea And Vomiting Senna/Docusate Sodium 1 tab 05/24/24 21:00 06/02/24 20:34 Senna/Docusate Sodium Tablet PO 1 tab HS SIMRAN Administration Simethicone 125 mg 05/25/24 17:00 06/03/24 13:01 Simethicone 125 Mg Chew Tab PO 125 mg QID SIMRAN Administration Tamsulosin HCl 0.4 mg 05/23/24 21:00 06/02/24 20:33 Tamsulosin Hcl 0.4 Mg Capsule BY MOUTH 0.4 mg HS SIMRAN Administration Radiology Results: ITS Impressions Abdomen/Pelvis CT 05/22/24 21:39 IMPRESSION: Findings consistent with acute pancreatitis without gross perforation or drainable fluid collection. Chest X-Ray 05/25/24 12:01 IMPRESSION: 1. Small left pleural effusion with left basilar atelectasis or pneumonia. Abdomen X-Ray 05/28/24 20:21 IMPRESSION: Slightly dilated small bowel loops. Follow-up advised. MRCP 05/30/24 09:40 IMPRESSION: 1. Acute interstitial pancreatitis. 2. Small pleural effusions, left worse than right. 3. Small sliding hiatal hernia. 4. No choledocholithiasis. Chest/Abdomen CT 06/02/24 13:56 IMPRESSION: 1. Acute necrotic pancreatitis with interval worsening of findings. 2. Small left pleural effusion. Labs Labs: Laboratory Results - last 24 hr 06/03/24 06/03/24 06:27 14:39 WBC 15.8 H RBC 3.64 L Hgb 12.0 L Hct 33.9 L MCV 93.1 MCH 33.0 MCHC 35.4 RDW 12.2 Plt Count 350 MPV 9.1 Immature Gran % (Auto) 0.9 H Neut % (Auto) 79.9 H Lymph % (Auto) 8.9 L [place] % (Auto) 9.5 H Eos % (Auto) 0.5 Baso % (Auto) 0.3 Lymph # (Auto) 1.40 [place] # (Auto) 1.5 H Eos # (Auto) 0.1 Baso # (Auto) 0.0 Abs Immat Gran (auto) 0.14 H Absolute Neuts (auto) 12.6 H Absolute Nucleated RBC 0.000 Nucleated RBC % 0.0 Sodium 130 L Potassium 3.8 Chloride 99 Carbon Dioxide 26 Anion Gap 5 BUN 11 Creatinine 0.61 L Estim Creat Clear Calc 95 Estimated GFR > 60 Glucose 109 Calcium 8.3 L Total Bilirubin 0.9 AST 52 ALT 57 H Alkaline Phosphatase 120 C-Reactive Protein 8.1 H 6.7 H Total Protein 6.0 L Albumin 2.6 L Quality VTE Prophylaxis VTE prophylaxis: pharmacologic ordered Hospitalist [facility] Advance Care Plan I have confirmed that the patient's Advanced Care Plan is present, code status i s documented, or surrogate decision maker is listed in patient medical record.: Yes Medication Reconciliation I have utilized all available resources to obtain, update and review the patients current medications (includes all prescriptions, OTC, herbals, cannabis, and nutritional supplements).: Yes
[2024-06-03] MEDS: SENNA/DOCUSATE SODIUM TABLET 1 TAB PO (20:50)
[2024-06-03] MEDS: ATORVASTATIN 20 MG TABLET PO (20:50)
[2024-06-03] MEDS: TAMSULOSIN HCL 0.4 MG CAPSULE BY MOUTH (20:50)
[2024-06-04] VITALS (11 sets, daily range): BP systolic 118–143; BP diastolic 62–68; PULSE 59–68; RESP 14–18; TEMP 36.3–36.6; O2SAT 94–96
[2024-06-04 07:30] LABS: Basophils Percent Auto 0.2 % (0.2-1.2); Eosinophils Absolute Auto 0.1 K/mm3 (0-0.3); Eosinophils Percent Auto 0.9 % (0-4.4); Hemoglobin 11.5 g/dL (14.0-18.0); Immature Granulocyte Absolute 0.12 K/mm3 (0.00-0.031); Immature Granulocyte Percent A 0.9 % (0-0.5); Lymphocytes Absolute Auto 1.39 K/mm3 (0.9-3.2); Lymphocytes Percent Auto 10.9 % (18.3-44.2); Mean Corpuscular HGB Conc 34.8 g/dl (32-36); Mean Corpuscular Hemoglobin 32.8 pg (26-34); Mean Platelet Volume 9.4 fl (7.4-10.4); Monocytes Absolute Auto 1.4 K/mm3 (0.1-0.6); Monocytes Percent Auto 10.5 % (2.6-8.5); Neutrophils Absolute Auto 9.8 K/mm3 (1.3-6.7); Neutrophils Percent Auto 76.6 % (45.5-73.1); Platelet Count Result 358 k/mm3 (150-375); Red Blood Count 3.51 M/mm3 (4.6-6.20); Red Cell Distribution Width 12.3 % (11.5-14.5); White Blood Count 12.8 K/mm3 (4.5-10.0)
[2024-06-04 07:57] LABS: Alanine Aminotransferase 57 U/L (6-50); Albumin Level 2.7 g/dL (3.5-5.1); Alkaline Phosphatase 114 U/L (38-126); Anion Gap 4 mmol/L (4-12); Aspartate Amino Transferase 50 U/L (17-59); Bilirubin,Total 1.2 mg/dL (0.2-1.3); Blood Urea Nitrogen 9 mg/dL (9-20); Calcium 8.4 mg/dL (8.4-10.2); Carbon Dioxide 26 mmol/L (22-30); Chloride 99 mmol/L (98-107); Estimated CRCL calculation 93 ml/min; Estimated Glomerular Filt Rate > 60; Glucose 116 mg/dL (65-110); Potassium 3.8 mmol/L (3.4-5.0); Sodium 129 mmol/L (137-145)
[2024-06-04] MEDS: PANTOPRAZOLE 40 MG TABLET PO (08:22)
[2024-06-04] MEDS: ASPIRIN 81 MG ENTERIC TABLET PO (08:22)
[2024-06-04] MEDS: carvediloL 12.5 MG TABLET PO ×2 (08:22→20:48)
[2024-06-04] MEDS: FUROSEMIDE 20 MG TABLET PO (08:22)
[2024-06-04] MEDS: FLUoxetine HCL 20 MG CAPSULE 40 MG PO (08:22)
[2024-06-04] MEDS: polyethylene glycoL 3350 17 GM POWD.PACK PO (08:22)
[2024-06-04] MEDS: SIMETHICONE 125 MG CHEW TAB PO ×4 (08:22→20:41)
[2024-06-04] MEDS: VIBEGRON 75 MG PO (08:23)
[2024-06-04] MEDS: [UNRECOGNIZED DRUG - OTHER] PO (08:23)
[2024-06-04] MEDS: ENOXAPARIN 40 MG/0.4 ML SYRINGE SUB-Q (08:29)
[2024-06-04] MEDS: oxyCODONE HCL (*CRX) 5 MG TAB IR PO ×3 (12:39→20:41)
--- NOTE | 2024-06-04 13:24 | WPDGIPROGNO ---
Progress Note: A&P Assessment and Plan (1) Acute pancreatitis: Code(s): K85.90 - Acute pancreatitis without necrosis or infection, unspecified Status: Acute Assessment and Plan: repeat imaging showed necrosis tolerating low fat diet crp and wbc slowly trending down still with pain hopefully home 1-2 days (2) Abdominal pain: Code(s): R10.9 - Unspecified abdominal pain Status: Acute Assessment and Plan: pain meds as needed (3) Constipation: Code(s): K59.00 - Constipation, unspecified Status: Acute (4) SIRS (systemic inflammatory response syndrome): Code(s): R65.10 - Systemic inflammatory response syndrome (SIRS) of non-infectious origin without acute organ dysfunction Status: Acute Assessment and Plan: on presentation due to pancreatitis (5) Hyponatremia: Code(s): E87.1 - Hypo-osmolality and hyponatremia Status: Acute Assessment and Plan: monitor (6) Leukocytosis: Code(s): D72.829 - Elevated white blood cell count, unspecified Status: Acute Assessment and Plan: trending down Subjective Date/time seen: 06/04/24 13:24 Interval history: still some pain in left flank and back but tolerating diet Review of Systems Review of Systems: All systems reviewed & are unremarkable except as noted in HPI and below Exam Narrative: General: no acute distress on bedrest. HEENT: Normocephalic. Atraumatic. EOM. Sclera anicteric. Neck: Supple. Chest: few rales bases. CV: Regular rate and rhythm. No murmurs. Abd: Abdomen soft. Epigastric and LUQ tenderness. Nondistended. Neuro: Well oriented. CN II-XII grossly intact. Psych: Pleasant and cooperative. skin- no rash Objective Data Vital Signs Vital Signs: Vital Signs - 24 hr 06/03/24 14:00 06/03/24 16:00 06/03/24 20:00 Temperature 98.9 F Pulse Rate 58 L 65 Respiratory Rate 20 Blood Pressure 120/91 H Pulse Oximetry 95 Oxygen Delivery Room Air 06/03/24 20:00 06/03/24 20:51 06/03/24 22:00 Temperature 97.6 F Pulse Rate 59 L 58 L 58 L Respiratory Rate 18 Blood Pressure 102/56 L Pulse Oximetry 97 Oxygen Delivery 06/04/24 00:00 06/04/24 04:00 06/04/24 06:00 Temperature 97.3 F L Pulse Rate 63 61 61 Respiratory Rate 14 Blood Pressure 143/62 H Pulse Oximetry 94 Oxygen Delivery 06/04/24 08:00 06/04/24 08:00 06/04/24 08:22 Temperature Pulse Rate 63 61 Respiratory Rate Blood Pressure Pulse Oximetry 94 Oxygen Delivery Room Air Intake/Output Intake/Output: Intake & Output 06/01/24 06/02/24 06/03/24 06/04/24 23:59 23:59 23:59 23:59 Intake Total 1087 1800 1410 1220 Output Total 1500 2900 1750 1150 Balance -124 -1015 -163 70 Meds/Results Medications: Active Medications Generic Name Dose Route Start Last Admin Trade Name Freq PRN Reason Stop Dose Admin Albuterol/Ipratropium 3 ml 05/27/24 12:57 Ipratropium 0.5 Mg/Albuterol Sulfate 2.5 Mg Ampul.Neb 3 Ml INHALATION Q6HRT PRN Wheezing Aspirin 81 mg 05/28/24 09:00 06/04/24 08:22 Aspirin 81 Mg Enteric Tablet PO 81 mg QAM SIMRAN Administration Atorvastatin Calcium 20 mg 05/23/24 21:00 06/03/24 20:50 Atorvastatin 20 Mg Tablet PO 20 mg HS SIMRAN Administration Carvedilol 12.5 mg 05/27/24 10:05 06/04/24 08:22 Carvedilol 12.5 Mg Tablet PO 12.5 mg Q12HR SIMRAN Administration Enoxaparin Sodium 40 mg 05/23/24 09:00 06/04/24 08:29 Enoxaparin 40 Mg/0.4 Ml Syringe SUB-Q 40 mg DAILY SIMRAN Administration Fluoxetine HCl 40 mg 05/24/24 09:00 06/04/24 08:22 Fluoxetine Hcl 20 Mg Capsule PO 40 mg DAILY SIMRAN Administration Furosemide 20 mg 05/27/24 12:05 06/04/24 08:22 Furosemide 20 Mg Tablet PO 20 mg DAILY SIMRAN Administration Nonformulary Drug 0 mg 05/25/24 09:00 06/04/24 08:23 Vibegron [Gemtesa] PO 06/24/24 08:59 75 mg 75 Mg Tablet DAILY SIMRAN Administration Ondansetron HCl 4 mg 05/26/24 06:47 05/31/24 06:30 Ondansetron Inj 4 Mg/2 Ml Vial IV PUSH 4 mg Q6H PRN Administration Nausea And Vomiting Oxycodone HCl 5 mg 06/04/24 12:30 06/04/24 12:39 Oxycodone Hcl (*Crx) 5 Mg Tab Ir PO 5 mg Q4H PRN Administration Pain Rated 7-10 Pantoprazole Sodium 40 mg 05/28/24 09:00 06/04/24 08:22 Pantoprazole 40 Mg Tablet PO 40 mg QAM SIMRAN Administration Polyethylene Glycol 17 gm 05/25/24 09:00 06/04/24 08:22 Polyethylene Glycol 3350 17 Gm Powd.Pack PO 17 gm QAM SIMRAN Administration Prochlorperazine Edisylate 10 mg 05/26/24 08:38 Prochlorperazine Edisylate 10 Mg/2 Ml Vial IV PUSH Q6H PRN Nausea And Vomiting Senna/Docusate Sodium 1 tab 05/24/24 21:00 06/03/24 20:50 Senna/Docusate Sodium Tablet PO 1 tab HS SIMRAN Administration Simethicone 125 mg 05/25/24 17:00 06/04/24 12:24 Simethicone 125 Mg Chew Tab PO 125 mg QID SIMRAN Administration Tamsulosin HCl 0.4 mg 05/23/24 21:00 06/03/24 20:50 Tamsulosin Hcl 0.4 Mg Capsule BY MOUTH 0.4 mg HS SIMRAN Administration Radiology Results: ITS Impressions Abdomen/Pelvis CT 05/22/24 21:39 IMPRESSION: Findings consistent with acute pancreatitis without gross perforation or drainable fluid collection. Chest X-Ray 05/25/24 12:01 IMPRESSION: 1. Small left pleural effusion with left basilar atelectasis or pneumonia. Abdomen X-Ray 05/28/24 20:21 IMPRESSION: Slightly dilated small bowel loops. Follow-up advised. MRCP 05/30/24 09:40 IMPRESSION: 1. Acute interstitial pancreatitis. 2. Small pleural effusions, left worse than right. 3. Small sliding hiatal hernia. 4. No choledocholithiasis. Chest/Abdomen CT 06/02/24 13:56 IMPRESSION: 1. Acute necrotic pancreatitis with interval worsening of findings. 2. Small left pleural effusion. Labs Labs: Laboratory Results - last 24 hr 06/03/24 06/04/24 14:39 07:09 WBC 12.8 H RBC 3.51 L Hgb 11.5 L Hct 33.0 L MCV 94.0 MCH 32.8 MCHC 34.8 RDW 12.3 Plt Count 358 MPV 9.4 Immature Gran % (Auto) 0.9 H Neut % (Auto) 76.6 H Lymph % (Auto) 10.9 L [place] % (Auto) 10.5 H Eos % (Auto) 0.9 Baso % (Auto) 0.2 Lymph # (Auto) 1.39 [place] # (Auto) 1.4 H Eos # (Auto) 0.1 Baso # (Auto) 0.0 Abs Immat Gran (auto) 0.12 H Absolute Neuts (auto) 9.8 H Absolute Nucleated RBC 0.000 Nucleated RBC % 0.0 Sodium 129 L Potassium 3.8 Chloride 99 Carbon Dioxide 26 Anion Gap 4 BUN 9 Creatinine 0.62 L Estim Creat Clear Calc 93 Estimated GFR > 60 Glucose 116 H Calcium 8.4 Total Bilirubin 1.2 AST 50 ALT 57 H Alkaline Phosphatase 114 C-Reactive Protein 6.7 H 6.0 H Total Protein 6.0 L Albumin 2.7 L
--- NOTE | 2024-06-04 13:29 | P.PNIM_ITS ---
Progress Note: A&P Assessment and Plan (1) Acute pancreatitis: Code(s): K85.90 - Acute pancreatitis without necrosis or infection, unspecified Status: Acute Assessment and Plan: - CT abd/pelvis, 05/22/24: Findings consistent with acute pancreatitis without gross perforation or drainable fluid collection. - Repeat CT abd/pelvis: 06/02/24 1. Acute necrotic pancreatitis with interval worsening of findings. 2. Small left pleural effusion. - Lipase > 40,000 on admission and now wnl. - ALT mildly elevated and Triglycerides WNL. - etiology unclear; Drinks 1 alcoholic beverage/day. - Hx of Lap. Mari July 2023 - Denies previous episodes. - Currently on [place] diet and tolerating fairly ok. - Continue supportive care with pain and nausea meds. - GI following and we appreciate assistance. - Pain slowly improving per patient. - MRCP: IMPRESSION: 1. Acute interstitial pancreatitis. 2. Small pleural effusions, left worse than right. 3. Small sliding hiatal hernia. 4. No choledocholithiasis. (2) Type 2 MO (myocardial infarction): Code(s): I21.A1 - Myocardial infarction type 2 Status: Acute Assessment and Plan: * Possibly related to severe pain. * Troponin moderately elevated but down-trended. * Seen by Cardiology and outpatient stress-test recommended. * continue aspirin and statin * Continue Furosemide 20 mg PO daily * TT Echo: Summary 1. Complete two-dimensional, color flow and Doppler transthoracic echocardiogram is performed. 2. There is normal biventricular systolic function. 3. There is no significant valvular disease. Left Ventricle The left ventricle is normal in size and systolic function. The left ventricular ejection fraction is visually estimated to be 65-70%. (3) Pneumonia: Code(s): J18.9 - Pneumonia, unspecified organism Status: Acute Assessment and Plan: * Chest X-ray: Small left pleural effusion with left basilar atelectasis or pneumonia. * WBC 23.1>>22.2>>20.1>>18>>12.8 * Procalcitonin 0.1 * Leukocytosis likely related to acute pancreatitis and likely not PNA. * Continue to hold antibiotics for now. (4) Constipation: Code(s): K59.00 - Constipation, unspecified Status: Acute Assessment and Plan: * Appears resolved. * Having regular BM's per nursing staff. * Continue Docusate and Miralax. * KUB 05/25/24: Multiple mildly dilated gas-filled loops of small bowel in the abdomen and would favor ileus related to acute interstitial pancreatitis as seen on prior CT over obstruction. (5) Hypokalemia: Code(s): E87.6 - Hypokalemia Status: Acute Assessment and Plan: * Repleted and currently wnl. (6) Benign prostatic hyperplasia: Code(s): N40.0 - Benign prostatic hyperplasia without lower urinary tract symptoms Status: Acute Assessment and Plan: * Chronic, continue flomax. (7) Hyperlipidemia: Code(s): E78.5 - Hyperlipidemia, unspecified Status: Acute Assessment and Plan: * Chronic, continue atorvastatin 20 mg daily. Plan Continue PT/OT treatment, continue pain mgt, GI following and possible d/c 1-2 days. Time Spent With Patient Time with patient: 15 - 25 minutes Subjective Date/time seen: 06/04/24 11:29 Patient states he's feeling better and pain is slowly improving. Interval history: Patient calm on bedrest with some generalized weakness and looks to be in no acute distress. Review of Systems Review of Systems: All systems reviewed & are unremarkable except as noted in HPI and below Exam Narrative: General: Fair appearing, no acute distress on bedrest. HEENT: Normocephalic. Atraumatic. EOM. Sclera anicteric. Neck: Supple. Chest: Faint crackles to bases, L>R. CV: Regular rate and rhythm. No murmurs. Abd: Abdomen soft. Epigastric and LUQ tenderness. Nondistended. +ve BS X4 Quadrants. Neuro: Well oriented. CN II-XII grossly intact. Psych: Pleasant and co-operative. Objective Data Vital Signs Vital Signs: Vital Signs - 24 hr 06/03/24 14:00 06/03/24 16:00 06/03/24 20:00 Temperature 98.9 F Pulse Rate 58 L 65 Respiratory Rate 20 Blood Pressure 120/91 H Pulse Oximetry 95 Oxygen Delivery Room Air 06/03/24 20:00 06/03/24 20:51 06/03/24 22:00 Temperature 97.6 F Pulse Rate 59 L 58 L 58 L Respiratory Rate 18 Blood Pressure 102/56 L Pulse Oximetry 97 Oxygen Delivery 06/04/24 00:00 06/04/24 04:00 06/04/24 06:00 Temperature 97.3 F L Pulse Rate 63 61 61 Respiratory Rate 14 Blood Pressure 143/62 H Pulse Oximetry 94 Oxygen Delivery 06/04/24 08:00 06/04/24 08:00 06/04/24 08:22 Temperature Pulse Rate 63 61 Respiratory Rate Blood Pressure Pulse Oximetry 94 Oxygen Delivery Room Air Intake/Output Intake/Output: Intake & Output 06/01/24 06/02/24 06/03/24 06/04/24 23:59 23:59 23:59 23:59 Intake Total 1087 1800 1410 1220 Output Total 1500 2900 1750 1150 Balance -413 -1100 -340 70 Meds/Results Medications: Active Medications Generic Name Dose Route Start Last Admin Trade Name Freq PRN Reason Stop Dose Admin Albuterol/Ipratropium 3 ml 05/27/24 12:57 Ipratropium 0.5 Mg/Albuterol Sulfate 2.5 Mg Ampul.Neb 3 Ml INHALATION Q6HRT PRN Wheezing Aspirin 81 mg 05/28/24 09:00 06/04/24 08:22 Aspirin 81 Mg Enteric Tablet PO 81 mg QAM SIMRAN Administration Atorvastatin Calcium 20 mg 05/23/24 21:00 06/03/24 20:50 Atorvastatin 20 Mg Tablet PO 20 mg HS SIMRAN Administration Carvedilol 12.5 mg 05/27/24 10:05 06/04/24 08:22 Carvedilol 12.5 Mg Tablet PO 12.5 mg Q12HR SIMRAN Administration Enoxaparin Sodium 40 mg 05/23/24 09:00 06/04/24 08:29 Enoxaparin 40 Mg/0.4 Ml Syringe SUB-Q 40 mg DAILY SIMRAN Administration Fluoxetine HCl 40 mg 05/24/24 09:00 06/04/24 08:22 Fluoxetine Hcl 20 Mg Capsule PO 40 mg DAILY SIMRAN Administration Furosemide 20 mg 05/27/24 12:05 06/04/24 08:22 Furosemide 20 Mg Tablet PO 20 mg DAILY SIMRAN Administration Nonformulary Drug 0 mg 05/25/24 09:00 06/04/24 08:23 Vibegron [Gemtesa] PO 06/24/24 08:59 75 mg 75 Mg Tablet DAILY SIMRAN Administration Ondansetron HCl 4 mg 05/26/24 06:47 05/31/24 06:30 Ondansetron Inj 4 Mg/2 Ml Vial IV PUSH 4 mg Q6H PRN Administration Nausea And Vomiting Oxycodone HCl 5 mg 06/04/24 12:30 06/04/24 12:39 Oxycodone Hcl (*Crx) 5 Mg Tab Ir PO 5 mg Q4H PRN Administration Pain Rated 7-10 Pantoprazole Sodium 40 mg 05/28/24 09:00 06/04/24 08:22 Pantoprazole 40 Mg Tablet PO 40 mg QAM SIMRAN Administration Polyethylene Glycol 17 gm 05/25/24 09:00 06/04/24 08:22 Polyethylene Glycol 3350 17 Gm Powd.Pack PO 17 gm QAM SIMRAN Administration Prochlorperazine Edisylate 10 mg 05/26/24 08:38 Prochlorperazine Edisylate 10 Mg/2 Ml Vial IV PUSH Q6H PRN Nausea And Vomiting Senna/Docusate Sodium 1 tab 05/24/24 21:00 06/03/24 20:50 Senna/Docusate Sodium Tablet PO 1 tab HS SIMRAN Administration Simethicone 125 mg 05/25/24 17:00 06/04/24 12:24 Simethicone 125 Mg Chew Tab PO 125 mg QID SIMRAN Administration Tamsulosin HCl 0.4 mg 05/23/24 21:00 06/03/24 20:50 Tamsulosin Hcl 0.4 Mg Capsule BY MOUTH 0.4 mg HS SIMRAN Administration Radiology Results: ITS Impressions Abdomen/Pelvis CT 05/22/24 21:39 IMPRESSION: Findings consistent with acute pancreatitis without gross perforation or drainable fluid collection. Chest X-Ray 05/25/24 12:01 IMPRESSION: 1. Small left pleural effusion with left basilar atelectasis or pneumonia. Abdomen X-Ray 05/28/24 20:21 IMPRESSION: Slightly dilated small bowel loops. Follow-up advised. MRCP 05/30/24 09:40 IMPRESSION: 1. Acute interstitial pancreatitis. 2. Small pleural effusions, left worse than right. 3. Small sliding hiatal hernia. 4. No choledocholithiasis. Chest/Abdomen CT 06/02/24 13:56 IMPRESSION: 1. Acute necrotic pancreatitis with interval worsening of findings. 2. Small left pleural effusion. Labs Labs: Laboratory Results - last 24 hr 06/03/24 06/04/24 14:39 07:09 WBC 12.8 H RBC 3.51 L Hgb 11.5 L Hct 33.0 L MCV 94.0 MCH 32.8 MCHC 34.8 RDW 12.3 Plt Count 358 MPV 9.4 Immature Gran % (Auto) 0.9 H Neut % (Auto) 76.6 H Lymph % (Auto) 10.9 L [place] % (Auto) 10.5 H Eos % (Auto) 0.9 Baso % (Auto) 0.2 Lymph # (Auto) 1.39 [place] # (Auto) 1.4 H Eos # (Auto) 0.1 Baso # (Auto) 0.0 Abs Immat Gran (auto) 0.12 H Absolute Neuts (auto) 9.8 H Absolute Nucleated RBC 0.000 Nucleated RBC % 0.0 Sodium 129 L Potassium 3.8 Chloride 99 Carbon Dioxide 26 Anion Gap 4 BUN 9 Creatinine 0.62 L Estim Creat Clear Calc 93 Estimated GFR > 60 Glucose 116 H Calcium 8.4 Total Bilirubin 1.2 AST 50 ALT 57 H Alkaline Phosphatase 114 C-Reactive Protein 6.7 H 6.0 H Total Protein 6.0 L Albumin 2.7 L Quality VTE Prophylaxis VTE prophylaxis: pharmacologic ordered Hospitalist [facility] Advance Care Plan I have confirmed that the patient's Advanced Care Plan is present, code status is documented, or surrogate decision maker is listed in patient medical record.: Yes Medication Reconciliation I have utilized all available resources to obtain, update and review the patients current medications (includes all prescriptions, OTC, herbals, cannabis, and nutritional supplements).: Yes
[2024-06-04 16:04] LABS: CRP 5.2 mg/dL (<1.0)
[2024-06-04] MEDS: ATORVASTATIN 20 MG TABLET PO (20:41)
[2024-06-04] MEDS: TAMSULOSIN HCL 0.4 MG CAPSULE BY MOUTH (20:41)
[2024-06-04] MEDS: SENNA/DOCUSATE SODIUM TABLET 1 TAB PO (20:41)
[2024-06-05] VITALS (7 sets, daily range): BP systolic 100–126; BP diastolic 50–88; PULSE 58–74; RESP 16–22; TEMP 36.3–36.7; O2SAT 97–99
[2024-06-05 07:14] LABS: Basophils Absolute Auto 0.1 K/mm3 (0.0-0.1); Basophils Percent Auto 0.4 % (0.2-1.2); Eosinophils Absolute Auto 0.2 K/mm3 (0-0.3); Eosinophils Percent Auto 1.3 % (0-4.4); Hematocrit 32.7 % (42.0-52.0); Hemoglobin 11.2 g/dL (14.0-18.0); Immature Granulocyte Absolute 0.08 K/mm3 (0.00-0.031); Immature Granulocyte Percent A 0.7 % (0-0.5); Lymphocytes Absolute Auto 1.85 K/mm3 (0.9-3.2); Lymphocytes Percent Auto 16.4 % (18.3-44.2); Mean Corpuscular HGB Conc 34.3 g/dl (32-36); Mean Corpuscular Hemoglobin 32.5 pg (26-34); Mean Corpuscular Volume 94.8 fl (80-100); Mean Platelet Volume 9.1 fl (7.4-10.4); Monocytes Absolute Auto 1.2 K/mm3 (0.1-0.6); Monocytes Percent Auto 10.3 % (2.6-8.5); Neutrophils Percent Auto 70.9 % (45.5-73.1); Platelet Count Result 344 k/mm3 (150-375); Red Blood Count 3.45 M/mm3 (4.6-6.20); Red Cell Distribution Width 12.2 % (11.5-14.5); White Blood Count 11.3 K/mm3 (4.5-10.0)
[2024-06-05 07:33] LABS: Alanine Aminotransferase 54 U/L (6-50); Albumin Level 2.6 g/dL (3.5-5.1); Alkaline Phosphatase 106 U/L (38-126); Anion Gap 3 mmol/L (4-12); Aspartate Amino Transferase 52 U/L (17-59); Blood Urea Nitrogen 8 mg/dL (9-20); Calcium 8.3 mg/dL (8.4-10.2); Carbon Dioxide 26 mmol/L (22-30); Chloride 102 mmol/L (98-107); Estimated CRCL calculation 92 ml/min; Estimated Glomerular Filt Rate > 60; Glucose 123 mg/dL (65-110); Potassium 3.8 mmol/L (3.4-5.0); Sodium 131 mmol/L (137-145)
[2024-06-05] MEDS: ASPIRIN 81 MG ENTERIC TABLET PO (09:28)
[2024-06-05] MEDS: FLUoxetine HCL 20 MG CAPSULE 40 MG PO (09:28)
[2024-06-05] MEDS: SIMETHICONE 125 MG CHEW TAB PO ×4 (09:28→20:25)
[2024-06-05] MEDS: FUROSEMIDE 20 MG TABLET PO (09:28)
[2024-06-05] MEDS: PANTOPRAZOLE 40 MG TABLET PO (09:28)
[2024-06-05] MEDS: carvediloL 12.5 MG TABLET PO ×2 (09:28→20:25)
[2024-06-05] MEDS: ENOXAPARIN 40 MG/0.4 ML SYRINGE SUB-Q (09:30)
[2024-06-05] MEDS: polyethylene glycoL 3350 17 GM POWD.PACK PO (09:30)
[2024-06-05] MEDS: oxyCODONE HCL (*CRX) 5 MG TAB IR PO ×3 (09:35→20:25)
--- NOTE | 2024-06-05 10:58 | P.PNIM_ITS ---
Progress Note: A&P Assessment and Plan (1) Acute pancreatitis: Code(s): K85.90 - Acute pancreatitis without necrosis or infection, unspecified Status: Acute Assessment and Plan: - Symptoms slowly improving with pain much improved per pt. - CT abd/pelvis, 05/22/24: Findings consistent with acute pancreatitis without gross perforation or drainable fluid collection. - Repeat CT abd/pelvis: 06/02/24 1. Acute necrotic pancreatitis with interval worsening of findings. 2. Small left pleural effusion. - Lipase > 40,000 on admission and now wnl. - ALT mildly elevated and slowly trending down. - Triglycerides WNL. - etiology unclear; Drinks 1 alcoholic beverage/day. - Hx of Lap. Mari July 2023 - Denies previous episodes. - Currently on [place] diet and tolerating fairly ok. - Continue supportive care with pain and nausea meds. - GI following and we appreciate assistance. - Repeat CT abd/pelvis in AM. - MRCP: IMPRESSION: 1. Acute interstitial pancreatitis. 2. Small pleural effusions, left worse than right. 3. Small sliding hiatal hernia. 4. No choledocholithiasis. (2) Type 2 MS (myocardial infarction): Code(s): I21.A1 - Myocardial infarction type 2 Status: Acute Assessment and Plan: * Possibly related to severe pain. * Troponin moderately elevated but down-trended. * Seen by Cardiology and outpatient stress-test recommended. * continue aspirin and statin * Continue Furosemide 20 mg PO daily * TT Echo: Summary 1. Complete two-dimensional, color flow and Doppler transthoracic echocardiogram is performed. 2. There is normal biventricular systolic function. 3. There is no significant valvular disease. Left Ventricle The left ventricle is normal in size and systolic function. The left ventricular ejection fraction is visually estimated to be 65-70%. (3) Pneumonia: Code(s): J18.9 - Pneumonia, unspecified organism Status: Acute Assessment and Plan: * Chest X-ray: Small left pleural effusion with left basilar atelectasis or pneumonia. * WBC 23.1>>22.2>>20.1>>18>>12.8>>11.3 * Procalcitonin 0.1 * Leukocytosis likely related to acute pancreatitis and likely not PNA. * Continue to monitor off antibiotics. (4) Constipation: Code(s): K59.00 - Constipation, unspecified Status: Acute Assessment and Plan: * Appears resolved. * Having regular BM's per nursing staff. * Continue Docusate and Miralax. * KUB 05/25/24: Multiple mildly dilated gas-filled loops of small bowel in the abdomen and would favor ileus related to acute interstitial pancreatitis as seen on prior CT over obstruction. (5) Hypokalemia: Code(s): E87.6 - Hypokalemia Status: Acute Assessment and Plan: * Repleted and currently wnl. (6) Benign prostatic hyperplasia: Code(s): N40.0 - Benign prostatic hyperplasia without lower urinary tract symptoms Status: Acute Assessment and Plan: * Chronic, continue flomax. (7) Hyperlipidemia: Code(s): E78.5 - Hyperlipidemia, unspecified Status: Acute Assessment and Plan: * Chronic, continue atorvastatin 20 mg daily. Plan Continue PT/OT treatment, continue pain mgt, GI following and possible d/c tomorrow if CT shows improvement. Time Spent With Patient Time with patient: 15 - 25 minutes Subjective Date/time seen: 06/05/24 10:58 Patient states he's feeling better and his pain is slowly improving. States doing ok with diet and no GI distress with meals. States he did ok with PT and ambulated hallway, and does not think he needs to go to SNF, wants to go home on discharge. Interval history: Patient calm on bedrest with some generalized weakness and looks to be in no acute distress. Review of Systems Review of Systems: All systems reviewed & are unremarkable except as noted in HPI and below Exam Narrative: General: Fair appearing, no acute distress on bedrest. HEENT: Normocephalic. Atraumatic. EOM. Sclera anicteric. Neck: Supple. Chest: Faint crackles to bases, L>R. CV: Regular rate and rhythm. No murmurs. Abd: Abdomen soft. Epigastric and LUQ tenderness. Nondistended. +ve BS X4 Quadrants. Neuro: Well oriented. CN II-XII grossly intact. Psych: Pleasant and co-operative. Objective Data Vital Signs Vital Signs: Vital Signs - 24 hr 06/04/24 12:00 06/04/24 14:00 06/04/24 16:00 Temperature 98 F Pulse Rate 59 L 62 61 Respiratory Rate 18 Blood Pressure 118/68 Pulse Oximetry 95 Oxygen Delivery 06/04/24 20:00 06/04/24 20:36 06/04/24 20:45 Temperature 97.5 F L Pulse Rate 68 60 Respiratory Rate 16 Blood Pressure 127/67 Pulse Oximetry 96 Oxygen Delivery Room Air 06/04/24 20:48 06/05/24 00:00 06/05/24 04:00 Temperature Pulse Rate 60 60 68 Respiratory Rate Blood Pressure Pulse Oximetry Oxygen Delivery 06/05/24 06:00 Temperature 97.5 F L Pulse Rate 59 L Respiratory Rate 20 Blood Pressure 126/88 Pulse Oximetry 98 Oxygen Delivery Intake/Output Intake/Output: Intake & Output 06/02/24 06/03/24 06/04/24 06/05/24 23:59 23:59 23:59 23:59 Intake Total 1800 1410 2700 1027 Output Total 2900 1750 1950 950 Balance -1100 -340 750 77 Meds/Results Medications: Active Medications Generic Name Dose Route Start Last Admin Trade Name Freq PRN Reason Stop Dose Admin Albuterol/Ipratropium 3 ml 05/27/24 12:57 Ipratropium 0.5 Mg/Albuterol Sulfate 2.5 Mg Ampul.Neb 3 Ml INHALATION Q6HRT PRN Wheezing Aspirin 81 mg 05/28/24 09:00 06/05/24 09:28 Aspirin 81 Mg Enteric Tablet PO 81 mg QAM SIMRAN Administration Atorvastatin Calcium 20 mg 05/23/24 21:00 06/04/24 20:41 Atorvastatin 20 Mg Tablet PO 20 mg HS SIMRAN Administration Carvedilol 12.5 mg 05/27/24 10:05 06/05/24 09:28 Carvedilol 12.5 Mg Tablet PO 12.5 mg Q12HR SIMRAN Administration Enoxaparin Sodium 40 mg 05/23/24 09:00 06/05/24 09:30 Enoxaparin 40 Mg/0.4 Ml Syringe SUB-Q 40 mg DAILY SIMRAN Administration Fluoxetine HCl 40 mg 05/24/24 09:00 06/05/24 09:28 Fluoxetine Hcl 20 Mg Capsule PO 40 mg DAILY SIMRAN Administration Furosemide 20 mg 05/27/24 12:05 06/05/24 09:28 Furosemide 20 Mg Tablet PO 20 mg DAILY SIMRAN Administration Nonformulary Drug 0 mg 05/25/24 09:00 06/05/24 09:40 Vibegron [Gemtesa] PO 06/24/24 08:59 Not Given 75 Mg Tablet DAILY SIMRAN Ondansetron HCl 4 mg 05/26/24 06:47 05/31/24 06:30 Ondansetron Inj 4 Mg/2 Ml Vial IV PUSH 4 mg Q6H PRN Administration Nausea And Vomiting Oxycodone HCl 5 mg 06/04/24 12:30 06/05/24 09:35 Oxycodone Hcl (*Crx) 5 Mg Tab Ir PO 5 mg Q4H PRN Administration Pain Rated 7-10 Pantoprazole Sodium 40 mg 05/28/24 09:00 06/05/24 09:28 Pantoprazole 40 Mg Tablet PO 40 mg QAM SIMRAN Administration Polyethylene Glycol 17 gm 05/25/24 09:00 06/05/24 09:30 Polyethylene Glycol 3350 17 Gm Powd.Pack PO 17 gm QAM SIMRAN Administration Prochlorperazine Edisylate 10 mg 05/26/24 08:38 Prochlorperazine Edisylate 10 Mg/2 Ml Vial IV PUSH Q6H PRN Nausea And Vomiting Senna/Docusate Sodium 1 tab 05/24/24 21:00 06/04/24 20:41 Senna/Docusate Sodium Tablet PO 1 tab HS SIMRAN Administration Simethicone 125 mg 05/25/24 17:00 06/05/24 09:28 Simethicone 125 Mg Chew Tab PO 125 mg QID SIMRAN Administration Tamsulosin HCl 0.4 mg 05/23/24 21:00 06/04/24 20:41 Tamsulosin Hcl 0.4 Mg Capsule BY MOUTH 0.4 mg HS SIMRAN Administration Radiology Results: ITS Impressions Abdomen/Pelvis CT 05/22/24 21:39 IMPRESSION: Findings consistent with acute pancreatitis without gross perforation or drainable fluid collection. Chest X-Ray 05/25/24 12:01 IMPRESSION: 1. Small left pleural effusion with left basilar atelectasis or pneumonia. Abdomen X-Ray 05/28/24 20:21 IMPRESSION: Slightly dilated small bowel loops. Follow-up advised. MRCP 05/30/24 09:40 IMPRESSION: 1. Acute interstitial pancreatitis. 2. Small pleural effusions, left worse than right. 3. Small sliding hiatal hernia. 4. No choledocholithiasis. Chest/Abdomen CT 06/02/24 13:56 IMPRESSION: 1. Acute necrotic pancreatitis with interval worsening of findings. 2. Small left pleural effusion. Labs Labs: Laboratory Results - last 24 hr 06/04/24 06/05/24 15:46 07:08 WBC 11.3 H RBC 3.45 L Hgb 11.2 L Hct 32.7 L MCV 94.8 MCH 32.5 MCHC 34.3 RDW 12.2 Plt Count 344 MPV 9.1 Immature Gran % (Auto) 0.7 H Neut % (Auto) 70.9 Lymph % (Auto) 16.4 L [place] % (Auto) 10.3 H Eos % (Auto) 1.3 Baso % (Auto) 0.4 Lymph # (Auto) 1.85 [place] # (Auto) 1.2 H Eos # (Auto) 0.2 Baso # (Auto) 0.1 Abs Immat Gran (auto) 0.08 H Absolute Neuts (auto) 8.0 H Absolute Nucleated RBC 0.000 Nucleated RBC % 0.0 Sodium 131 L Potassium 3.8 Chloride 102 Carbon Dioxide 26 Anion Gap 3 L BUN 8 L Creatinine 0.63 L Estim Creat Clear Calc 92 Estimated GFR > 60 Glucose 123 H Calcium 8.3 L Total Bilirubin 1.0 AST 52 ALT 54 H Alkaline Phosphatase 106 C-Reactive Protein 5.2 H Total Protein 6.0 L Albumin 2.6 L Quality VTE Prophylaxis VTE prophylaxis: pharmacologic ordered Hospitalist [facility] Advance Care Plan I have confirmed that the patient's Advanced Care Plan is present, code status is documented, or surrogate decision maker is listed in patient medical record.: Yes Medication Reconciliation I have utilized all available resources to obtain, update and review the patients current medications (includes all prescriptions, OTC, herbals, cannabis, and nutritional supplements).: Yes
--- NOTE | 2024-06-05 14:02 | WPDGIPROGNO ---
Progress Note: A&P Assessment and Plan (1) Acute pancreatitis: Code(s): K85.90 - Acute pancreatitis without necrosis or infection, unspecified Status: Acute Assessment and Plan: repeat imaging showed necrosis tolerating low fat diet crp and wbc still trending down and he feels better hopefully home tomorrow (2) Abdominal pain: Code(s): R10.9 - Unspecified abdominal pain Status: Acute Assessment and Plan: pain meds as needed but is improving (3) Constipation: Code(s): K59.00 - Constipation, unspecified Status: Acute (4) SIRS (systemic inflammatory response syndrome): Code(s): R65.10 - Systemic inflammatory response syndrome (SIRS) of non-infectious origin without acute organ dysfunction Status: Acute Assessment and Plan: on presentation due to pancreatitis, resolved (5) Hyponatremia: Code(s): E87.1 - Hypo-osmolality and hyponatremia Status: Acute Assessment and Plan: monitor, stable (6) Leukocytosis: Code(s): D72.829 - Elevated white blood cell count, unspecified Status: Acute Assessment and Plan: trending down Subjective Date/time seen: 06/05/24 14:02 Interval history: tolerating diet, less pain Review of Systems Review of Systems: All systems reviewed & are unremarkable except as noted in HPI and below Exam Narrative: General: no acute distress on bedrest. HEENT: Normocephalic. Atraumatic. EOM. Sclera anicteric. Neck: Supple. Chest: few rales bases. CV: Regular rate and rhythm. No murmurs. Abd: Abdomen soft. Epigastric and LUQ tenderness. Nondistended. Neuro: Well oriented. CN II-XII grossly intact. Psych: Pleasant and cooperative. skin- no rash Objective Data Vital Signs Vital Signs: Vital Signs - 24 hr 06/04/24 16:00 06/04/24 20:00 06/04/24 20:36 Temperature Pulse Rate 61 68 Respiratory Rate Blood Pressure Pulse Oximetry Oxygen Delivery Room Air 06/04/24 20:45 06/04/24 20:48 06/05/24 00:00 Temperature 97.5 F L Pulse Rate 60 60 60 Respiratory Rate 16 Blood Pressure 127/67 Pulse Oximetry 96 Oxygen Delivery 06/05/24 04:00 06/05/24 06:00 Temperature 97.5 F L Pulse Rate 68 59 L Respiratory Rate 20 Blood Pressure 126/88 Pulse Oximetry 98 Oxygen Delivery Intake/Output Intake/Output: Intake & Output 06/02/24 06/03/24 06/04/24 06/05/24 23:59 23:59 23:59 23:59 Intake Total 1800 1410 2700 1027 Output Total 2900 1750 1950 950 Balance -1100 -340 750 77 Meds/Results Medications: Active Medications Generic Name Dose Route Start Last Admin Trade Name Freq PRN Reason Stop Dose Admin Albuterol/Ipratropium 3 ml 05/27/24 12:57 Ipratropium 0.5 Mg/Albuterol Sulfate 2.5 Mg Ampul.Neb 3 Ml INHALATION Q6HRT PRN Wheezing Aspirin 81 mg 05/28/24 09:00 06/05/24 09:28 Aspirin 81 Mg Enteric Tablet PO 81 mg QAM SIMRAN Administration Atorvastatin Calcium 20 mg 05/23/24 21:00 06/04/24 20:41 Atorvastatin 20 Mg Tablet PO 20 mg HS SIMRAN Administration Carvedilol 12.5 mg 05/27/24 10:05 06/05/24 09:28 Carvedilol 12.5 Mg Tablet PO 12.5 mg Q12HR SIMRAN Administration Enoxaparin Sodium 40 mg 05/23/24 09:00 06/05/24 09:30 Enoxaparin 40 Mg/0.4 Ml Syringe SUB-Q 40 mg DAILY SIMRAN Administration Fluoxetine HCl 40 mg 05/24/24 09:00 06/05/24 09:28 Fluoxetine Hcl 20 Mg Capsule PO 40 mg DAILY SIMRAN Administration Furosemide 20 mg 05/27/24 12:05 06/05/24 09:28 Furosemide 20 Mg Tablet PO 20 mg DAILY SIMRAN Administration Nonformulary Drug 0 mg 05/25/24 09:00 06/05/24 09:40 Vibegron [Gemtesa] PO 06/24/24 08:59 Not Given 75 Mg Tablet DAILY SIMRAN Ondansetron HCl 4 mg 05/26/24 06:47 05/31/24 06:30 Ondansetron Inj 4 Mg/2 Ml Vial IV PUSH 4 mg Q6H PRN Administration Nausea And Vomiting Oxycodone HCl 5 mg 06/04/24 12:30 06/05/24 09:35 Oxycodone Hcl (*Crx) 5 Mg Tab Ir PO 5 mg Q4H PRN Administration Pain Rated 7-10 Pantoprazole Sodium 40 mg 05/28/24 09:00 06/05/24 09:28 Pantoprazole 40 Mg Tablet PO 40 mg QAM SIMRAN Administration Polyethylene Glycol 17 gm 05/25/24 09:00 06/05/24 09:30 Polyethylene Glycol 3350 17 Gm Powd.Pack PO 17 gm QAM SIMRAN Administration Prochlorperazine Edisylate 10 mg 05/26/24 08:38 Prochlorperazine Edisylate 10 Mg/2 Ml Vial IV PUSH Q6H PRN Nausea And Vomiting Senna/Docusate Sodium 1 tab 05/24/24 21:00 06/04/24 20:41 Senna/Docusate Sodium Tablet PO 1 tab HS SIMRAN Administration Simethicone 125 mg 05/25/24 17:00 06/05/24 12:31 Simethicone 125 Mg Chew Tab PO 125 mg QID SIMRAN Administration Tamsulosin HCl 0.4 mg 05/23/24 21:00 06/04/24 20:41 Tamsulosin Hcl 0.4 Mg Capsule BY MOUTH 0.4 mg HS SIMRAN Administration Radiology Results: ITS Impressions Abdomen/Pelvis CT 05/22/24 21:39 IMPRESSION: Findings consistent with acute pancreatitis without gross perforation or drainable fluid collection. Chest X-Ray 05/25/24 12:01 IMPRESSION: 1. Small left pleural effusion with left basilar atelectasis or pneumonia. Abdomen X-Ray 05/28/24 20:21 IMPRESSION: Slightly dilated small bowel loops. Follow-up advised. MRCP 05/30/24 09:40 IMPRESSION: 1. Acute interstitial pancreatitis. 2. Small pleural effusions, left worse than right. 3. Small sliding hiatal hernia. 4. No choledocholithiasis. Chest/Abdomen CT 06/02/24 13:56 IMPRESSION: 1. Acute necrotic pancreatitis with interval worsening of findings. 2. Small left pleural effusion. Labs Labs: Laboratory Results - last 24 hr 06/04/24 06/05/24 15:46 07:08 WBC 11.3 H RBC 3.45 L Hgb 11.2 L Hct 32.7 L MCV 94.8 MCH 32.5 MCHC 34.3 RDW 12.2 Plt Count 344 MPV 9.1 Immature Gran % (Auto) 0.7 H Neut % (Auto) 70.9 Lymph % (Auto) 16.4 L [place] % (Auto) 10.3 H Eos % (Auto) 1.3 Baso % (Auto) 0.4 Lymph # (Auto) 1.85 [place] # (Auto) 1.2 H Eos # (Auto) 0.2 Baso # (Auto) 0.1 Abs Immat Gran (auto) 0.08 H Absolute Neuts (auto) 8.0 H Absolute Nucleated RBC 0.000 Nucleated RBC % 0.0 Sodium 131 L Potassium 3.8 Chloride 102 Carbon Dioxide 26 Anion Gap 3 L BUN 8 L Creatinine 0.63 L Estim Creat Clear Calc 92 Estimated GFR > 60 Glucose 123 H Calcium 8.3 L Total Bilirubin 1.0 AST 52 ALT 54 H Alkaline Phosphatase 106 C-Reactive Protein 5.2 H Total Protein 6.0 L Albumin 2.6 L
[2024-06-05 15:04] LABS: CRP 3.8 mg/dL (<1.0)
[2024-06-05] MEDS: TAMSULOSIN HCL 0.4 MG CAPSULE BY MOUTH (20:25)
[2024-06-05] MEDS: SENNA/DOCUSATE SODIUM TABLET 1 TAB PO (20:25)
[2024-06-05] MEDS: ATORVASTATIN 20 MG TABLET PO (20:25)
[2024-06-06] MEDS: oxyCODONE HCL (*CRX) 5 MG TAB IR PO ×2 (00:43→07:21)
[2024-06-06 05:46] VITALS: BP 125/70; PULSE 62; RESP 16; TEMP 36.4; O2SAT 96
[2024-06-06 07:43] LABS: Alanine Aminotransferase 57 U/L (6-50); Albumin Level 2.8 g/dL (3.5-5.1); Alkaline Phosphatase 104 U/L (38-126); Anion Gap 5 mmol/L (4-12); Aspartate Amino Transferase 53 U/L (17-59); Bilirubin,Total 0.7 mg/dL (0.2-1.3); Blood Urea Nitrogen 12 mg/dL (9-20); Calcium 8.3 mg/dL (8.4-10.2); Carbon Dioxide 26 mmol/L (22-30); Chloride 100 mmol/L (98-107); Estimated CRCL calculation 82 ml/min; Estimated Glomerular Filt Rate > 60; Glucose 108 mg/dL (65-110); Potassium 3.7 mmol/L (3.4-5.0); Sodium 131 mmol/L (137-145)
[2024-06-06 09:09] VITALS: PULSE 82
[2024-06-06] MEDS: carvediloL 12.5 MG TABLET PO (09:09)
[2024-06-06] MEDS: FLUoxetine HCL 20 MG CAPSULE 40 MG PO (09:09)
[2024-06-06] MEDS: SIMETHICONE 125 MG CHEW TAB PO (09:09)
[2024-06-06] MEDS: ASPIRIN 81 MG ENTERIC TABLET PO (09:09)
[2024-06-06] MEDS: FUROSEMIDE 20 MG TABLET PO (09:09)
[2024-06-06] MEDS: PANTOPRAZOLE 40 MG TABLET PO (09:09)
[2024-06-06] MEDS: VIBEGRON 75 MG PO (09:10)
[2024-06-06] MEDS: polyethylene glycoL 3350 17 GM POWD.PACK PO (09:10)
[2024-06-06] MEDS: [UNRECOGNIZED DRUG - OTHER] PO (09:10)
[2024-06-06] MEDS: ENOXAPARIN 40 MG/0.4 ML SYRINGE SUB-Q (09:10)
[2024-06-06 14:00] VITALS: BP 118/51; PULSE 65; RESP 20; TEMP 36.3; O2SAT 100
--- NOTE | 2024-06-06 15:08 | P.DS_ITS ---
DS: Admitting Diagnosis Discharge Date 06/06/24 Admitting Diagnosis Abdominal Pain DS: Discharge Diagnosis Discharge Diagnosis (1) Acute pancreatitis: Code(s): K85.90 - Acute pancreatitis without necrosis or infection, unspecified Status: Acute Assessment and Plan: - Acute. (2) Type 2 VA (myocardial infarction): Code(s): I21.A1 - Myocardial infarction type 2 Status: Acute Assessment and Plan: * Acute. (3) Pneumonia: Code(s): J18.9 - Pneumonia, unspecified organism Status: Acute Assessment and Plan: * Acute. (4) Constipation: Code(s): K59.00 - Constipation, unspecified Status: Acute Assessment and Plan: * Acute. (5) Hypokalemia: Code(s): E87.6 - Hypokalemia Status: Acute Assessment and Plan: * Acute. (6) Benign prostatic hyperplasia: Code(s): N40.0 - Benign prostatic hyperplasia without lower urinary tract symptoms Status: Acute Assessment and Plan: * Chronic. (7) Hyperlipidemia: Code(s): E78.5 - Hyperlipidemia, unspecified Status: Acute Assessment and Plan: * Chronic. Plan Discharge home with home health. DS: Summary Hospital Course Reason for hospitalization: Acute necrotic pancreatitis. Hospital Course: Patient presented to the ER with reports of severe epigastric and LUQ abdominal pain. CT abd/pelvis done on presentation was consistent with acute pancreatitis without gross perforation or drainable fluid collection. GI was consulted and he recommended conservative mgt with pain and GI symptoms mgt. He was initially placed NPO and diet slowly advanced, with the patient tolerating a bland diet prior to his discharge. Patient's abdominal pain has been well controlled with pain medications, with pt and requesting no narcotics on discharge. Repeat CT abd/pelvis prior to discharge are compatible with necrotizing pancreatitis, with probable extensive areas of evolving walled off necrosis, which is overall similar to prior exam. Patient reports much improvement to abdominal pain and states he's been tolerating diet well. Patient is requesting discharge and states he will manage pain at home and follow-up with PCP outpatient for further care. Patient was suspected to have PNA initially and was briefly started on abx that were discontinued, with no clinical signs of PNA. His Lipase was initially elevated but normalized prior to discharge, with LFT's normalized as well prior to dischcarge, except for mildly elevated ALT. His WBC's continued to trend down and was at 11.3 prior to discharge, with normal Procalcitonin. Pt had mildly elevated Troponin that was trended and was flat, and was seen by GI and outpat ient stress-test recommended. He had TT ECHO done that showed an EF of 65-70%. MRCP showed acute interstitial pancreatitis with no choledocholithiasis. His electrolytes derangements were corrected prior to discharge and all his chronic medical conditions remained stable inpatient. Patient is medically stable for discharge with no acute distress noted or reported prior to discharge. Patient ambulated well with PT/OT and was cleared for discharge home with home health PT. Status at Discharge Functional status at discharge: uses cane/walker Overall status at discharge: patient is progressing back to baseline Time Spent with Patient Time attestation: Total time spent providing and/or coordinating discharge services: Time spent: Greater than 30 minutes Exam Narrative: General: Fair appearing, no acute distress on bedrest. HEENT: Normocephalic. Atraumatic. EOM. Sclera anicteric. Neck: Supple. Chest: Faint crackles to bases, L>R. CV: Regular rate and rhythm. No murmurs. Abd: Abdomen soft. Epigastric and LUQ mod tenderness. Nondistended. +ve BS X4 Quadrants. Neuro: Well oriented. CN II-XII grossly intact. Psych: Pleasant and co-operative. DS: Data Data Completed and Pending Labs on day of discharge: Labs from last 24 hours 06/06/24 06/06/24 14:26 07:11 Sodium 131 L Potassium 3.7 Chloride 100 Carbon Dioxide 26 Anion Gap 5 BUN 12 Creatinine 0.70 Estim Creat Clear Calc 82 Estimated GFR > 60 Glucose 108 Calcium 8.3 L Total Bilirubin 0.7 AST 53 ALT 57 H Alkaline Phosphatase 104 C-Reactive Protein Pending Total Protein 6.0 L Albumin 2.8 L Discharge Plan Discharge Attending physician on discharge: Bailey,Changqing Consulting providers: Sylvie Hyman; Dickson Gomez Discharging Clinician: Jose L Cano Anticipated Discharge Date/Time: 06/06/24 15:28 Patient Disposition: Home Health Service Activity: as tolerated Diet: heart healthy Discharge Instructions: Per Care Coordination: Pt. to discharge with [facility], # [phone], fax # [phone]. Please fax discharge instructions and medication sheets at discharge. Patient Instructions: Antibiotic Form Patient Language: Ivorian Stand Alone Forms: General Discharge Information Follow-up/Referrals: Rolando,Moraima Metzger MD [Primary Care Provider] - 1 Week Discharge Medications: New carvedilol [Coreg] 12.5 mg Tablet 12.5 mg PO Q12HR Qty: 60 0RF pantoprazole 40 mg Tablet,Delayed Release (Dr/Ec) 40 mg PO QAM Qty: 30 0RF sennosides-docusate sodium [Senokot-S] 8.6-50 mg Tablet 1 tab PO HS Qty: 14 0RF polyethylene glycol 3350 [Miralax] 17 gram Powder In Packet 17 g PO QAM Qty: 10 0RF furosemide 20 mg Tablet 20 mg PO DAILY Qty: 30 0RF aspirin 81 mg Tablet,Delayed Release (Dr/Ec) 81 mg PO QAM Qty: 30 0RF ibuprofen 600 mg tablet 600 mg PO Q6H PRN (Reason: pain) Qty: 30 0RF Continued Gemtesa 75 mg tablet 75 mg PO DAILY fluoxetine 40 mg capsule 40 mg PO DAILY Qty: 90 1RF atorvastatin 20 mg tablet 20 mg PO HS Qty: 90 1RF tamsulosin 0.4 mg capsule See Rx Instructions .ROUTE .COMPLEX Qty: 90 2RF Dose Instruction: 0.4 MG ORALLY EVERY DAY AT BEDTIME Rx Instructions: 0.4 MG ORALLY EVERY DAY AT BEDTIME Date of admission: 05/23/24 08:19 Primary Care Provider: RolandoMoraima Admitting Provider: Rey Agee Attending physician on admission: Shraddha Lloyd Condition: Stable Quality If No VTE Prophylaxis Answer both mechanical and pharmacologic: Reason no mechanical VTE proph: low risk/not indicated Reason no pharmacologic proph: low risk/not indicated Hospitalist MIPS Heart Failure (Exclusion) Patient has history of Heart Transplant or Left Ventricular Assistive Device?: No IF YES, STOP HERE Heart Failure (Qualifier) Patient has current or prior documentation of LVEF less than or equal to 40%, or mod/servere depressed LVSF?: No IF NO, STOP HERE
--- NOTE | 2024-06-06 15:57 | WPDGIPROGNO ---
Progress Note: A&P Assessment and Plan (1) Acute pancreatitis: Code(s): K85.90 - Acute pancreatitis without necrosis or infection, unspecified Status: Acute Assessment and Plan: repeat imaging showed pancreatic necrosis but clinically better and tolerating low fat diet ok to go home and follow-up office in 3-4 weeks (2) Abdominal pain: Code(s): R10.9 - Unspecified abdominal pain Status: Acute Assessment and Plan: pain meds as needed but is improving (3) SIRS (systemic inflammatory response syndrome): Code(s): R65.10 - Systemic inflammatory response syndrome (SIRS) of non-infectious origin without acute organ dysfunction Status: Acute Assessment and Plan: on presentation due to pancreatitis, resolved (4) Hyponatremia: Code(s): E87.1 - Hypo-osmolality and hyponatremia Status: Acute Assessment and Plan: monitor, stable (5) Leukocytosis: Code(s): D72.829 - Elevated white blood cell count, unspecified Status: Acute Assessment and Plan: trending down Subjective Date/time seen: 06/06/24 15:57 Interval history: he is feeling better and going home today Review of Systems Review of Systems: All systems reviewed & are unremarkable except as noted in HPI and below Exam Narrative: General: no acute distress on bedrest. HEENT: Normocephalic. Atraumatic. EOM. Sclera anicteric. Neck: Supple. Chest: few rales bases. CV: Regular rate and rhythm. No murmurs. Abd: Abdomen soft. Epigastric and LUQ tenderness. Nondistended. Neuro: Well oriented. CN II-XII grossly intact. Psych: Pleasant and cooperative. skin- no rash Objective Data Vital Signs Vital Signs: Vital Signs - 24 hr 06/05/24 20:25 06/05/24 21:55 06/06/24 05:46 Temperature 97.3 F L 97.5 F L Pulse Rate 74 64 62 Respiratory Rate 16 16 Blood Pressure 108/66 125/70 Pulse Oximetry 99 96 06/06/24 09:09 06/06/24 14:00 Temperature 97.3 F L Pulse Rate 82 65 Respiratory Rate 20 Blood Pressure 118/51 L Pulse Oximetry 100 Intake/Output Intake/Output: Intake & Output 06/03/24 06/04/24 06/05/24 06/06/24 23:59 23:59 23:59 23:59 Intake Total 1410 2700 2744 607 Output Total 1750 1950 2150 700 Balance -340 750 594 -93 Meds/Results Medications: Active Medications Generic Name Dose Route Start Last Admin Trade Name Freq PRN Reason Stop Dose Admin Albuterol/Ipratropium 3 ml 05/27/24 12:57 Ipratropium 0.5 Mg/Albuterol Sulfate 2.5 Mg Ampul.Neb 3 Ml INHALATION Q6HRT PRN Wheezing Aspirin 81 mg 05/28/24 09:00 06/06/24 09:09 Aspirin 81 Mg Enteric Tablet PO 81 mg QAM SIMRAN Administration Atorvastatin Calcium 20 mg 05/23/24 21:00 06/05/24 20:25 Atorvastatin 20 Mg Tablet PO 20 mg HS SIMRAN Administration Carvedilol 12.5 mg 05/27/24 10:05 06/06/24 09:09 Carvedilol 12.5 Mg Tablet PO 12.5 mg Q12HR SIMRAN Administration Enoxaparin Sodium 40 mg 05/23/24 09:00 06/06/24 09:10 Enoxaparin 40 Mg/0.4 Ml Syringe SUB-Q 40 mg DAILY SIMRAN Administration Fluoxetine HCl 40 mg 05/24/24 09:00 06/06/24 09:09 Fluoxetine Hcl 20 Mg Capsule PO 40 mg DAILY SIMRAN Administration Furosemide 20 mg 05/27/24 12:05 06/06/24 09:09 Furosemide 20 Mg Tablet PO 20 mg DAILY SIMRAN Administration Nonformulary Drug 0 mg 05/25/24 09:00 06/06/24 09:10 Vibegron [Gemtesa] PO 06/24/24 08:59 75 mg 75 Mg Tablet DAILY SIMRAN Administration Ondansetron HCl 4 mg 05/26/24 06:47 05/31/24 06:30 Ondansetron Inj 4 Mg/2 Ml Vial IV PUSH 4 mg Q6H PRN Administration Nausea And Vomiting Oxycodone HCl 5 mg 06/04/24 12:30 06/06/24 07:21 Oxycodone Hcl (*Crx) 5 Mg Tab Ir PO 5 mg Q4H PRN Administration Pain Rated 7-10 Pantoprazole Sodium 40 mg 05/28/24 09:00 06/06/24 09:09 Pantoprazole 40 Mg Tablet PO 40 mg QAM SIMRAN Administration Polyethylene Glycol 17 gm 05/25/24 09:00 06/06/24 09:10 Polyethylene Glycol 3350 17 Gm Powd.Pack PO 17 gm QAM SIMRAN Administration Prochlorperazine Edisylate 10 mg 05/26/24 08:38 Prochlorperazine Edisylate 10 Mg/2 Ml Vial IV PUSH Q6H PRN Nausea And Vomiting Senna/Docusate Sodium 1 tab 05/24/24 21:00 06/05/24 20:25 Senna/Docusate Sodium Tablet PO 1 tab HS SIMRAN Administration Simethicone 125 mg 05/25/24 17:00 06/06/24 09:09 Simethicone 125 Mg Chew Tab PO 125 mg QID SIMRAN Administration Tamsulosin HCl 0.4 mg 05/23/24 21:00 06/05/24 20:25 Tamsulosin Hcl 0.4 Mg Capsule BY MOUTH 0.4 mg HS SIMRAN Administration Radiology Results: ITS Impressions Chest X-Ray 05/25/24 12:01 IMPRESSION: 1. Small left pleural effusion with left basilar atelectasis or pneumonia. Abdomen X-Ray 05/28/24 20:21 IMPRESSION: Slightly dilated small bowel loops. Follow-up advised. MRCP 05/30/24 09:40 IMPRESSION: 1. Acute interstitial pancreatitis. 2. Small pleural effusions, left worse than right. 3. Small sliding hiatal hernia. 4. No choledocholithiasis. Chest/Abdomen CT 06/02/24 13:56 IMPRESSION: 1. Acute necrotic pancreatitis with interval worsening of findings. 2. Small left pleural effusion. Abdomen/Pelvis CT 06/06/24 06:29 Impression: Findings compatible with necrotizing pancreatitis, with probable extensive areas of evolving walled off necrosis, which is overall similar to prior exam. Small left pleural effusion. Labs Labs: Laboratory Results - last 24 hr 06/06/24 07:11 Sodium 131 L Potassium 3.7 Chloride 100 Carbon Dioxide 26 Anion Gap 5 BUN 12 Creatinine 0.70 Estim Creat Clear Calc 82 Estimated GFR > 60 Glucose 108 Calcium 8.3 L Total Bilirubin 0.7 AST 53 ALT 57 H Alkaline Phosphatase 104 Total Protein 6.0 L Albumin 2.8 L
[2024-06-06 18:10] LABS: CRP 2.7 mg/dL (<1.0)
== END 2024-06-06 16:25 | disposition home health service (06) | DRG 438 ==
LOC: ANHED 22:23 → ANH3MEDSUR 22:58
PROVIDERS: Internal Medicine Gastroenterology; Nurse Practitioner; Nurse Practitioner Family; Physician Assistant; Student in an Organized Health Care Education/Training Program; Admitting Provider Internal Medicine; Emergency Provider Emergency Medicine; PCP Family Medicine; Visit Provider Nurse Practitioner Adult Health
DX: K85.90 Acute pancreatitis without necrosis or infection, unspecified (principal); I21.A1 Myocardial infarction type 2; J18.9 Pneumonia, unspecified organism; E87.1 Hypo-osmolality and hyponatremia; D32.9 Benign neoplasm of meninges, unspecified; E87.6 Hypokalemia; E78.2 Mixed hyperlipidemia; N40.0 Benign prostatic hyperplasia without lower urinary tract symptoms; K59.00 Constipation, unspecified; R03.0 Elevated blood-pressure reading, without diagnosis of hypertension; G25.81 Restless legs syndrome; F98.8 Other specified behavioral and emotional disorders with onset usually occurring in childhood and adolescence; F41.1 Generalized anxiety disorder; F32.9 Major depressive disorder, single episode, unspecified; Z86.73 Personal history of transient ischemic attack (TIA), and cerebral infarction without residual deficits
CPT/HCPCS: 36415; 71045; 71260; 74018; 74160; 74177; 74183; 76376; 80053; 81001; 81003; 82948; 83036; 83605; 83690; 83735; 83880; 84145; 84478; 84484; 85025; 85610; 85730; 86140; 87040; 93005; 93306; 94640; 96361; 96374; 96375; 96376; 97110; 97116; 97162; 97166; 97530; 97535; 99285; A9270; A9577; G0378; J0692; J0696; J1171; J1644; J1650; J1940; J2405; J2470; J2543; J7030; J7120; Q9967

== ENCOUNTER 2024-07-06 09:02 | Outpatient (CLI) | payer MEDICARE, SELFPAY ==
--- NOTE | ~2024-07-06 | NM_ITS ---
EXAMINATION: NM jaime stress w perfusion DATE: 07/06/2024 10:51 INDICATION: Myocardial infarction type 2. Chest pain. TECHNIQUE: Rest images were obtained following intravenous administration of 9.8 mCi Tc99m tetrofosmi n (Myoview). The patient was infused intravenously with Lexiscan (regadenoson). Then, 31.78 mCi Tc99m tetrofosmin (Myoview) was administered intravenously, and stress images were obtained. Data was pedro nstructed into short axis and horizontal and vertical long axis SPECT images. Gated SPECT images were also obtained. COMPARISON: CT abdomen pelvis 06/06/2024 FINDINGS: There is no definite reversible or fixed perfusion abnormality to suggest ischemia or infar ction. There is no segmental wall motion abnormality. Left ventricular ejection fraction measures 6 9%. IMPRESSION: 1. No definite ischemia or infarct. 2. Normal left ventricular ejection fraction measuring 69%. Reviewed, dictated and finalized at location A. ROOM SORTER GRADER
--- NOTE | 2024-07-06 09:13 | EST_ITS ---
Patient Info Name: Isac Faria Age: 74 years : 1950 Gender: Male Ht: 66 in Wt: 173 lbs BSA: 1.93 m2 HR: 52 bpm BP: 121 / 71 mmHg Exam Date: 07/06/2024 9:59 AM Exam Location: Echo Lab Patient Status: Outpatient Admit Date: 07/06/2024 Staff Ordering Physician: Kierra Alvarado PA-C Attending Provider: Kierra Alvarado PA-C Exercise Technologist: Viry [facility] Exercise Physician: Gregg Fitzpatrick DO Exam Type: CA stress jaime w NM Study Info Indications R07.9 - Chest pain, unspecified A regadenoson stress test was performed. Summary 1. 1. Negative lexiscan stress test for ischemic ST changes by ECG criteria. 2. 2. Stable hemodynamics throughout the test. 3. 3. Nuclear scan to follow and will be reported separately. Please correlate with it. 4. 4. Patient informed of the above results. Protocol: Lexiscan Stress ECG Details Stage: REST Duration (min): 0 min : 41 sec HR (bpm): 52 SBP (mmHg): --- DBP (mmHg): --- Stage: REST Duration (min): 5 min : 18 sec HR (bpm): 53 SBP (mmHg): 121 DBP (mmHg): 71 Stage: STAGE 1 Duration (min): 1 min : 0 sec HR (bpm): 59 SBP (mmHg): 128 DBP (mmHg): 72 Stage: RECOVERY Duration (min): 1 min : 0 sec HR (bpm): 74 SBP (mmHg): 128 DBP (mmHg): 72 Stage: RECOVERY Duration (min): 1 min : 17 sec HR (bpm): 73 SBP (mmHg): 128 DBP (mmHg): 72 Rest HR: 53 bpm Peak HR: 75 bpm Rest Sys BP: 121 mmHg Peak Sys BP: 128 mmHg Max Pred HR: 147 bpm % Max Pred HR: 51 % Target HR: 125 bpm Max RPP: 9,600 bpm*mmHg Termination Reason: Completed protocol Cardiac Symptoms: None Total Time: 1 min : 0 sec Rest Drew BP: 71 mmHg Peak Drew BP: 72 mmHg Total Dose: 0.4 mg Resting ECG Sinus bradycardia. Stress ECG No ST changes. Arrhythmias None. Report Signatures
--- OUTSIDE RECORDS SUMMARY | 2024-07-06 09:42 | XMS_ITS | Continuity of Care Document ---
Author Organization [facility] Address [address] [place] [address] [address] [place] [address] Phone Care Team Providers Care Disc Ruler Operator Name Role Phone Verna Kumar Unavailable Unavailable Procedures Procedure Date Refraction Eye Exam, New Patient Advance Directives Directive Yes / No Effective Date File Name No Information Encounters Encounter Description Practice Location Reason(s) For Visit Diagnoses Date Provider Providers Copied on Encounter [facility], [address] [place] [address] [address], [place], [place], [id number], tel:[phone] SEC [facility] No Information 3-[address] Stacy Gillespie. [address] [facility] , [address], [place], [place], [facility], . tel:[phone] [facility], [address] [place] [address] [address], [place], [place], [id number], tel:[phone] [facility] No Information [address] Stacy Louie [address] [facility] [address] , [address], [place], [address], [place]. tel:[phone] Family History Family Member Type Diagnosis Age At Onset No Information Payers Payer name Insurance type Covered republican ID Authoriza tion(s) No Information Social History Type Description Quantity Date Captured Comments Sex Male Smoking Status No Information Chief Complaint And Reason For Visit No Information Reason For Referral Reason For Referral No Information History Of Present Illness Encounter Date Complaint History Of Prese nt Illness No Information Functional Status Date Functional Assessmen t No Information Instructions Date Instruction Additional Infor mation No Information Assessments Type Assessment Date No Information Patient Care Teams Name Effective Dates (start - stop) Status Members No Information
== END 2024-07-06 09:03 | disposition home or self-care (01) ==
PROVIDERS: PCP Family Medicine; Visit Provider Physician Assistant
DX: I21.A1 Myocardial infarction type 2 (principal)
CPT/HCPCS: 78452; 93017; A9502; J2785

== ENCOUNTER 2024-08-06 09:28 | Emergency (ER) | payer MEDICARE, SELFPAY ==
[2024-08-06] VITALS (14 sets, daily range): BP systolic 111–125; BP diastolic 59–74; PULSE 61–73; RESP 13–29; TEMP 36.4; O2SAT 92–98
--- NOTE | ~2024-08-06 | XR_ITS ---
Clinical Indication: Weakness PA and lateral views of the chest: Comparison: 05/25/2024 Findings: The lungs are clear, without evidence of focal consolidation or pleural effusion. Cardiome diastinal silhouette is within normal limits. Bones and soft tissues are unremarkable. Impression: Normal chest. Reviewed, dictated and finalized at location . Impression: Normal chest.
--- NOTE | ~2024-08-06 | CT_ITS ---
CT head without contrast Indication: Status post fall, head injury Technique: Serial scans were obtained through the brain without the administration of contrast. Dose reduction technique was used on this scan by utilizing automated exposure control and iterative recon struction technique. The dose-length product (DLP) was 605.33 mGy-cm. Findings: There is no evidence of intracranial hemorrhage, mass lesion, or acute infarct. The ventri cles and subarachnoid spaces are dilated, consistent with mild atrophy. Low attenuation regions are seen within the periventricular white matter bilaterally, likely representing changes from chronic mi crovascular ischemic disease. There is no evidence of edema, mass effect or midline shift. The visu alized paranasal sinuses and mastoid air cells are clear. Prior right frontotemporal craniotomy. Impression: No intracranial hemorrhage, mass, or acute infarct. Atrophy and chronic white matter changes, as above. Reviewed, dictated and finalized at [facility]. Impression: No intracranial hemorrhage, mass, or acute infarct. Atrophy and chronic white matter changes, as above.
--- NOTE | ~2024-08-06 | CT_ITS ---
CT of the Abdomen and Pelvis: Indication: Abdominal pain Technique: 2.5 mm axial scans were obtained through the abdomen and pelvis following intravenous adm inistration of 100 cc of Omnipaque 350. Dose reduction technique was used on this scan by utilizing a utomated exposure control and iterative reconstruction technique. The dose-length product (DLP) was 8 17.36 mGy-cm. COMPARISON: 06/06/2024 Findings: Scans through the lung bases are unremarkable. The liver, spleen, adrenals and kidneys are within normal limits. Cholecystectomy clips are present. There is extensive amorphous soft tissue attenuation extensively encasing/surrounding the pancreas, w hich is somewhat atrophic overall. Findings are somewhat more circumscribed and better defined, sligh tly less extensive as compared to prior exam. There are atherosclerotic calcifications of the aorta. No lymphadenopathy. No bowel obstruction or bowel wall thickening. There is no evidence to suggest acute appendicitis. Images through the pelvis were performed. Urinary bladder unremarkable. No pelvic mass seen. No pelvi c ascites. Impression: Extensive amorphous hypodense material encasing and surrounding the pancreas, somewhat better circums cribed and slightly less extensive as compared to prior exam. Findings suggest evolving walled off ne crosis, related to prior pancreatitis. Reviewed, dictated and finalized at location M. Impression: Extensive amorphous hypodense material encasing and surrounding the pancreas, s omewhat better circumscribed and slightly less extensive as compared to prior e xam. Findings suggest evolving walled off necrosis, related to prior pancreatit is.
--- NOTE | 2024-08-06 09:40 | ECG_ITS ---
Test Date: 2024-08-06 09:47:44 Measurements Intervals [place] Rate: 71 P: 15 AK: 182 QRS: -37 QRSD: 90 T: 7 QT: 437 QTc: 476 Interpretive Statements SINUS RHYTHM WITH OCCASIONAL SUPRAVENTRICULAR PREMATURE COMPLEXES Electronically Signed On 08-07-2024 13:56:33 CDT by Brown Rhodes D.O
[2024-08-06 09:59] LABS: Basophils Percent Auto 0.2 % (0.2-1.2); Eosinophils Percent Auto 0.1 % (0-4.4); Hematocrit 34.6 % (42.0-52.0); Hemoglobin 12.1 g/dL (14.0-18.0); Immature Granulocyte Absolute 0.03 K/mm3 (0.00-0.031); Immature Granulocyte Percent A 0.4 % (0-0.5); Lymphocytes Absolute Auto 0.52 K/mm3 (0.9-3.2); Lymphocytes Percent Auto 6.5 % (18.3-44.2); Mean Corpuscular Hemoglobin 32.1 pg (26-34); Mean Corpuscular Volume 91.8 fl (80-100); Mean Platelet Volume 9.8 fl (7.4-10.4); Monocytes Absolute Auto 1.3 K/mm3 (0.1-0.6); Monocytes Percent Auto 16.6 % (2.6-8.5); Neutrophils Absolute Auto 6.1 K/mm3 (1.3-6.7); Neutrophils Percent Auto 76.2 % (45.5-73.1); Platelet Count Result 165 k/mm3 (150-375); Red Blood Count 3.77 M/mm3 (4.6-6.20); Red Cell Distribution Width 13.2 % (11.5-14.5); White Blood Count 8.1 K/mm3 (4.5-10.0)
[2024-08-06 10:13] LABS: Alanine Aminotransferase 162 U/L (6-50); Albumin Level 3.7 g/dL (3.5-5.1); Alkaline Phosphatase 151 U/L (38-126); Anion Gap 13 mmol/L (4-12); Aspartate Amino Transferase 48 U/L (17-59); Bilirubin,Total 1.2 mg/dL (0.2-1.3); Blood Urea Nitrogen 23 mg/dL (9-20); Calcium 9.1 mg/dL (8.4-10.2); Carbon Dioxide 16 mmol/L (22-30); Chloride 104 mmol/L (98-107); Estimated CRCL calculation 70 ml/min; Estimated Glomerular Filt Rate > 60; Glucose 99 mg/dL (65-110); Potassium 3.3 mmol/L (3.4-5.0); Sodium 133 mmol/L (137-145)
--- OUTSIDE RECORDS SUMMARY | 2024-08-06 10:23 | XMS_ITS | Continuity of Care Document ---
Author Organization [facility] Address [address] [place] [address] [address] [place] [address] Phone Care Team Providers Care Substitute Teacher Name Role Phone Verna Kumar Unavailable Unavailable Procedures Procedure Date Refraction Eye Exam, New Patient Advance Directives Directive Yes / No Effective Date File Name No Information Encounters Encounter Description Practice Location Reason(s) For Visit Diagnoses Date Provider Providers Copied on Encounter [facility], [address] [place] [address] [address], [place], [place], [id number], tel:[phone] SEC [facility] No Information 3-[address] Stacy Gillespie. [address] [facility] , [address], [place], [place], [facility], . tel:[phone] [facility], [address] [place] [address] [address], [place], [place], [id number], tel:[phone] [facility] No Information 7-200 [address] Stacy Louie [address] [facility] [address] , [address], [place], [address], [place]. tel:[phone] Family History Family Member Type Diagnosis Age [...]
[2024-08-06] MEDS: LACTATED RINGERS 1,000 ML 999 ML IV CONT (10:28)
[2024-08-06 11:02] LABS: Lipase 42 U/L (23-300)
[2024-08-06 11:08] LABS: Influenza A QL RT-PCR Negative (Negative); Influenza B QL RT-PCR Negative (Negative); RSV RNA, RT-PCR Negative (Negative); SARS-CoV-2 RNA PCR Negative (Negative)
--- NOTE | 2024-08-06 11:29 | PC.NURSE ---
Pt attempted to provide urine sample but was unable to go
--- NOTE | 2024-08-06 11:33 | ED_ITS ---
HPI - Weakness General Chief complaint: Weakness Stated complaint: WEAKNESS Time Seen by Provider: 08/06/24 10:13 History of Present Illness HPI Narrative: 74-year-old male with a past medical history including recent hospital admission for pneumonia and pancreatitis patient had MRI showing necrotizing pancreatitis, had MRCP conducted by GI doctor here. Normal biliary system further note. Presents to the emergency department today as he was having some generalized weakness. He states he has been having intermittent chills and rigors throughout the the last week and normally notices them at night. Endorses feeling night sweats immediately afterwards. Denies any weight loss or weight gain. No chest pain, shortness a breath, nausea vomiting. Endorses some mild vague abdominal discomfort but better than was previously and does not think it is pancreatitis. He is otherwise well-appearing but states that he was so weak this morning that he cannot get a bed. He called EMS for assistance after he had a slip and fall to the ground from feeling weak. Did not lose consciousness. No anticoagulation Related Data Home Medications ?Medication ?Instructions ?Recorded ?Confirmed ?Last Taken ?Type vibegron 75 mg tablet (Gemtesa) 75 mg PO DAILY 07/25/23 08/06/24 Unknown History Allergies Allergy/AdvReac Type Severity Reaction Status Date / Time No Known Allergies Allergy Verified 08/06/24 09:48 Review of Systems 2 Review of Systems: As reviewed [facility] Past Medical History Medical History Hypokalemia Constipation Abdominal pain Left lower quadrant pain Abdominal pain, epigastric Nausea and vomiting Cholelithiasis Cholecystitis Cholelithiasis with acute on chronic cholecystitis Cholelithiasis and cholecystitis with obstruction Leukocytosis SIRS (systemic inflammatory response syndrome) Depression Generalized anxiety disorder Meningioma Attention deficit disorder (ADD) in adult Restless legs syndrome Mixed hyperlipidemia Surgical History Surgical History History of laparoscopic cholecystectomy (07/2023) Status post urethral surgery Stricture History of detached retina repair RT eye Family History Family History Mother Cerebrovascular accident, Onset Age: 69 Hypertension Family history of elevated blood lipids Father Cerebrovascular accident, Onset Age: 70 Hypertension Family history of elevated blood lipids Acute myocardial infarction, Onset Age: 40 Social History Social History Social History: Surrogate medical decision maker: Delaney Faria, spouse. Code status: Full code. Smoking status: Former smoker Second hand tobacco smoke exposure: No Alcohol intake: current Drinks per week: 7 Alcohol use details: One alcoholic beverage a night at the most Substance use: never Last use: LAST WEEK Do You Feel Safe in your Home?: Yes Lack of Transportation: No Lack of Food: Never True Current Housing: I Have Housing Concerned About Future Housing: No Difficulty Paying Gas/Electric Bills: No Difficulty Paying for Meds: No Currently Unemployed: No Education: Master's Degree or Higher Difficulty w/ Childcare or Family Care: No Living arrangements: with family Occupation/Education: retired Spiritual care concerns: No Exam 2 Narrative: GENERAL: [Well-appearing, well-nourished, and in no acute distress.] HEAD: [Normocephalic, atraumatic.] EYES: [PERRLA and EOMI.] ENT: Nares clear, no rhinorrhea or epistaxis. Mucous membranes moist. NECK: Supple. CHEST: [Clear to auscultation. No respiratory distress.] HEART: [Regular rate and rhythm]. No murmur heard. [Normal peripheral pulses.] ABDOMEN: [Soft, nondistended], [nontender], [No rigidity or guarding] EXTREMITIES: Normal range of motion. [No edema.] SKIN: Warm, dry, no rash. NEURO: [No focal deficits]. Alert and oriented [x3.] PSYCH: [Normal mood and affect.] Course Vital Signs Vital signs: Vital Signs Temperature 36.4 C 08/06/24 09:28 Pulse Rate 72 08/06/24 09:28 Respiratory Rate 18 08/06/24 09:28 Blood Pressure 113/64 08/06/24 09:28 Pulse Oximetry 98 08/06/24 09:28 Oxygen Delivery Room Air 08/06/24 09:28 Temperature 36.4 C 08/06/24 09:28 Pulse Rate 66 08/06/24 14:01 Respiratory Rate 23 H 08/06/24 14:01 Blood Pressure 125/73 08/06/24 14:01 Pulse Oximetry 95 08/06/24 14:01 Oxygen Delivery Room Air 08/06/24 09:46 MDM - Weakness MDM Narrative Medical decision making narrative: 74-year-old male with a past medical history including hyperlipidemia, previous CVA, recent hospital admission for necrotizing pancreatitis and pneumonia. Discharged home after improvement and this was in May of last year. States that he has been having intermittent chills and rigors followed by night sweats and they occur only in the afternoon or night. Denies any nausea vomiting, chest pain but states he has some mild abdominal discomfort. He is otherwise well-appearing not any acute distress. Has normal strength and sensation throughout both arms and legs. Sitting comfortably in a stretcher. Normal vital signs of any tachycardia, fever or hypoxia. Suspicion presently is for electrolyte deficiencies, pneumonia, urinary tract infection, upper respiratory infection, COVID, flu. Low suspicion recurrence of his pancreatitis or diverticulitis based on clinical exam and history. Workup was ordered including a CT of the head, CT abdomen pelvis, chest x-ray, EKG, urinalysis, CBC, CMP. Workup shows no leukocytosis, anemia around his baseline. Normal platelet count. Electrolytes show some minor hypokalemia but just under normal. Normal creatinine. Normal GFR. LFTs around baseline. Normal lipase. Normal T bili. Urinalysis shows some elevated specific gravity but no other concerns. No signs of urinary tract infection. Negative viral swabs. Chest x-ray with no signs of infection or pneumonia. CT of the head shows no intracranial hemorrhage, mass or infarct. Chronic white matter changes. CT of the abdomen pelvis shows evidence of prior pancreatitis with walled-off necrosis but less extensive and improved compared to prior exam which is reassuring. Patient was re-evaluated without any abdominal pain, normal vital signs and we went over his imaging studies and laboratory studies. Patient has close outpatient follow-up in can be safely discharged home at this time as there are no acute concerning findings or active infection. Patient felt comfortable with this plan and will call his doctor for close follow-up visit on Thursday. Patient was given strict return precautions which she verbalized understanding and was provided discharge instructions at this time. Medical Records Attestation: I reviewed the patient's medical records. Lab Data Attestation: I reviewed the patient's lab results. 08/06/24 09:51 08/06/24 09:51 Labs: Lab Results 03/08/06/24 08/06/24 Range/Units 09:51 10:27 12:13 WBC 8.1 (4.5-10.0) K/mm3 RBC 3.77 L (4.6-6.20) M/mm3 Hgb 12.1 L (14.0-18.0) g/dL Hct 34.6 L (42.0-52.0) % MCV 91.8 (80-100) fl MCH 32.1 (26-34) pg MCHC 35.0 (32-36) g/dl RDW 13.2 (11.5-14.5) % Plt Count 165 D (150-375) k/mm3 MPV 9.8 (7.4-10.4) fl Immature Gran % (Auto) 0.4 (0-0.5) % Neut % (Auto) 76.2 H (45.5-73.1) % Lymph % (Auto) 6.5 L (18.3-44.2) % [place] % (Auto) 16.6 H (2.6-8.5) % Eos % (Auto) 0.1 (0-4.4) % Baso % (Auto) 0.2 (0.2-1.2) % Lymph # (Auto) 0.52 L (0.9-3.2) K/mm3 [place] # (Auto) 1.3 H (0.1-0.6) K/mm3 Eos # (Auto) 0.0 (0-0.3) K/mm3 Baso # (Auto) 0.0 (0.0-0.1) K/mm3 Abs Immat Gran (auto) 0.03 (0.00-0.031) K/mm3 Absolute Neuts (auto) 6.1 (1.3-6.7) K/mm3 Absolute Nucleated RBC 0.000 (0.0-0.012) K/mm3 Nucleated RBC % 0.0 (0.0-0.2) % Sodium 133 L (137-145) mmol/L Potassium 3.3 L (3.4-5.0) mmol/L Chloride 104 (98-107) mmol/L Carbon Dioxide 16 L (22-30) mmol/L Anion Gap 13 H (4-12) mmol/L BUN 23 H D (9-20) mg/dL Creatinine 0.73 (0.7-1.3) mg/dL Estim Creat Clear Calc 70 ml/min Estimated GFR > 60 (59 - ) Glucose 99 (65-110) mg/dL Calcium 9.1 (8.4-10.2) mg/dL Total Bilirubin 1.2 (0.2-1.3) mg/dL AST 48 (17-59) U/L ALT 162 H (6-50) U/L Alkaline Phosphatase 151 H (38-126) U/L Total Protein 7.0 (6.3-8.2) g/dL Albumin 3.7 (3.5-5.1) g/dL Lipase 42 (23-300) U/L Urine Color Yellow (Yellow) Urine Appearance Clear (Clear) Urine pH 5.5 (5.0-9.0) Ur Specific [place] > 1.045 H (1.001-1.035) Urine Protein Trace (Negative) mg/dL Urine Glucose (UA) Negative (Negative) mg/dL Urine Ketones 2+ H (Negative) mg/dL Ur Blood (Man) Negative (Negative) Urine Nitrate Negative (Negative) Urine Bilirubin Negative (Negative) Urine Urobilinogen 0.2 (<2.0) mg/dL Leukocyte Esterase Rfl Negative (Negative) PEPPER/UL Urine RBC 0-2 (0-2) /hpf Urine WBC 0-5 (0-3) /hpf Ur Squamous Epith Cells None seen (Few) /hpf Urine Bacteria None seen /hpf Urine Casts 0-2 Influenza A (RT-PCR) Negative (Negative) Influenza B (RT-PCR) Negative (Negative) RSV (RT-PCR) Negative (Negative) SARS-CoV-2 RNA (RT-PCR) Negative (Negative) Imaging Data Attestation: I personally reviewed and interpreted this imaging study as follows: My impression: Impressions Chest X-Ray 08/06/24 10:01 Impression: Normal chest. Head CT 08/06/24 10:48 Impression: No intracranial hemorrhage, mass, or acute infarct. Atrophy and chronic white matter changes, as above. Abdomen/Pelvis CT 08/06/24 10:49 Impression: Extensive amorphous hypodense material encasing and surrounding the pancreas, somewhat better circumscribed and slightly less extensive as compared to prior exam. Findings suggest evolving walled off necrosis, related to prior pancreatitis. Discharge Plan Discharge Clinical Impression: Fall from ground level, CP (chronic pancreatitis) Patient Disposition: Home, Self-Care Condition: Stable Instructions: Antibiotic Form Additional Instructions: Your laboratory studies and imaging studies are reassuring. You still have the chronic appearing pancreatic necrosis which is better than previous imaging studies. No brain scan findings or concerns. No pneumonia. No urinary infection. No signs of infection. Follow-up with your regular doctor in GI specialist on Thursday. Return with any new or worsening concerns at any time. Patient Language: Maltese Prescriptions: No Action Gemtesa 75 mg tablet 75 mg PO DAILY sennosides-docusate sodium [Senokot-S] 8.6-50 mg Tablet 1 tab PO HS Qty: 14 0RF fluoxetine 40 mg capsule 40 mg PO DAILY Qty: 90 1RF atorvastatin 20 mg tablet 20 mg PO HS Qty: 90 1RF tamsulosin 0.4 mg capsule See Rx Instructions .ROUTE .COMPLEX Qty: 90 2RF Dose Instruction: 0.4 MG ORALLY EVERY DAY AT BEDTIME Rx Instructions: 0.4 MG ORALLY EVERY DAY AT BEDTIME aspirin 81 mg tablet,delayed release (DR/EC) 81 mg PO QAM Qty: 90 1RF carvedilol [Coreg] 12.5 mg tablet 12.5 mg PO Q12HR Qty: 180 1RF pantoprazole 40 mg tablet,delayed release (DR/EC) 40 mg PO QAM Qty: 90 0RF furosemide 20 mg tablet 20 mg PO DAILY PRN (Reason: edema) Qty: 90 0RF Follow-up/Referrals: Tan Desai MD [Primary Care Provider] - Time of Disposition: 14:27
[2024-08-06 12:29] LABS: Add Urine Microscopic? YES; Appearance Urine Clear (Clear); Bacteria Urine None Seen /hpf; Bilirubin Urine Negative (Negative); Blood Urine Negative (Negative); Color Urine Yellow (Yellow); Glucose Urine UA Negative (Negative); Ketones Urine 2+ mg/dL (Negative); Leukocyte Esterase Ur Negative LEU/UL (Negative); Nitrate Urine Negative (Negative); Non Pathogenic Casts 0-2; Protein Urine Trace mg/dL (Negative); RBC Urine 0-2 /hpf (0-2); Specific Grav Ur > 1.045 (1.001-1.035); Squamous Epithelial Cell Urine None Seen /hpf (Few); Urobilinogen Urine 0.2 mg/dL (<2.0); WBC Urine 0-5 /hpf (0-3); pH Urine 5.5 (5.0-9.0)
== END 2024-08-06 14:46 | disposition home or self-care (01) ==
PROVIDERS: Emergency Medicine; Emergency Provider Student in an Organized Health Care Education/Training Program; PCP Family Medicine
DX: K86.1 Other chronic pancreatitis (principal); Z20.822 Contact with and (suspected) exposure to COVID-19; E78.2 Mixed hyperlipidemia; G25.81 Restless legs syndrome; F32.A Depression, unspecified; F41.1 Generalized anxiety disorder; F98.8 Other specified behavioral and emotional disorders with onset usually occurring in childhood and adolescence; Z87.891 Personal history of nicotine dependence; Z86.73 Personal history of transient ischemic attack (TIA), and cerebral infarction without residual deficits; Z87.01 Personal history of pneumonia (recurrent); Z90.49 Acquired absence of other specified parts of digestive tract; W01.0XXA Fall on same level from slipping, tripping and stumbling without subsequent striking against object, initial encounter; I49.1 Atrial premature depolarization
CPT/HCPCS: 36415; 70450; 71046; 74177; 80053; 81001; 83690; 85025; 87637; 93005; 96360; 99284; J7120; Q9967

== ENCOUNTER 2024-12-22 00:14 | Day surgery (SDC) | payer MEDICARE, SELFPAY ==
[2024-12-22 13:40] VITALS: BP 102/70; PULSE 75; RESP 18; TEMP 36.2; O2SAT 97
--- NOTE | 2024-12-22 13:49 | P.PNAN_ITS ---
Anes - Initial Pre Proc Eval Procedure: Operation Date: 12/22/24 14:30 Proposed Procedures p Screening Colonoscopy - Warren Lucio MD Date/Time: 12/22/24 13:49 Surgeon: Warren Lucio MD Pre Op Diagnosis: Screening Patient Data Age: 74 Gender: M Height: Weight: 79 kg Last Vital Signs Temp 36.2 C L 12/22/24 13:40 Pulse 75 12/22/24 13:40 Resp 18 12/22/24 13:40 BP 102/70 12/22/24 13:40 Pulse Ox 97 12/22/24 13:40 O2 Del Method Room Air 12/22/24 13:40 Allergies Allergy/AdvReac Type Severity Reaction Status Date / Time No Known Allergies Allergy Verified 12/22/24 13:35 Home Medications ?Medication ?Instructions ?Recorded ?Confirmed ?Type vibegron 75 mg tablet (Gemtesa) 75 mg PO DAILY 07/25/23 12/07/24 History tamsulosin 0.4 mg capsule See Rx Instructions .Route 02/17/24 12/07/24 Rx .COMPLEX #90 caps sennosides 8.6 mg-docusate sodium 1 tab PO HS #14 tabs 06/06/24 12/07/24 Rx 50 mg tablet (Senokot-S) aspirin 81 mg tablet,delayed 81 mg PO QAM #90 tabs 06/29/24 12/07/24 Rx release fluoxetine 40 mg capsule 40 mg PO DAILY #90 caps 08/12/24 12/07/24 Rx atorvastatin 20 mg tablet 20 mg PO HS #90 tabs 09/12/24 12/07/24 Rx pantoprazole 40 mg tablet,delayed 40 mg PO QAM #90 tabs 09/26/24 12/07/24 Rx release Patient hx anesthesia problems: none Family hx anesthesia problems: none Results Review: All pre-operative results and documents have been reviewed as part of the pre- operative evaluation. [facility] Past Medical History Medical History Hypokalemia Constipation Abdominal pain Left lower quadrant pain Abdominal pain, epigastric Nausea and vomiting Cholelithiasis Cholecystitis Cholelithiasis with acute on chronic cholecystitis Cholelithiasis and cholecystitis with obstruction Leukocytosis SIRS (systemic inflammatory response syndrome) Depression Generalized anxiety disorder Meningioma Attention deficit disorder (ADD) in adult Restless legs syndrome Mixed hyperlipidemia Surgical History Surgical History History of laparoscopic cholecystectomy (07/2023) Status post urethral surgery Stricture History of detached retina repair RT eye Family History Family History Mother Cerebrovascular accident, Onset Age: 69 Hypertension Family history of elevated blood lipids Father Cerebrovascular accident, Onset Age: 70 Hypertension Family history of elevated blood lipids Acute myocardial infarction, Onset Age: 40 Social History Social History Social History: Surrogate medical decision maker: Delaney Faria, spouse. Code status: Full code. Smoking status: Never smoker Second hand tobacco smoke exposure: No Alcohol intake: former Alcohol use details: One alcoholic beverage a night at the most Substance use: never Last use: LAST WEEK Do You Feel Safe in your Home?: Yes Lack of Transportation: No Lack of Food: Never True Current Housing: I Have Housing Concerned About Future Housing: No Difficulty Paying Gas/Electric Bills: No Difficulty Paying for Meds: No Currently Unemployed: No Education: Master's Degree or Higher Difficulty w/ Childcare or Family Care: No Living arrangements: with family Occupation/Education: retired Spiritual care concerns: No Anes - Eval Final PreProcedure Day of Procedure 12/22/24 13:49 Patient weight: normal Heart: regular rate and rhythm Lungs: clear to auscultation Airway: Mallampati scale class II Neurological: alert and oriented Last oral intake: >/= 8 hours ASA classification: III Emergent: no Anesthetic plan: proceed Anesthesia type and monitoring: general GIVS and standard monitoring Results Review: All pre-operative results and documents have been reviewed as part of the pre- operative evaluation. Informed Consent: The patient's anesthetic plan and its attendant risks and benefits were discussed with the patient/family/POA. Questions were solicited and answers provided to the satisfaction of the patient/family/POA.
[2024-12-22] MEDS: LACTATED RINGERS 1,000 ML 150 ML IV CONT (13:54)
--- NOTE | 2024-12-22 14:19 | PM.HPGS ---
History of Present Illness History of Present Illness Consent: Risks, benefits, and alternatives have been discussed and questions answered. Patient agrees to proceed with procedure. Chief complaint: Screening Narrative: Isac Faria is a 74 year old male with colon polyp 5 years ago Review of Systems Review of Systems: All systems reviewed & are unremarkable except as noted in HPI and below PMFSH Past Medical History Medical History (Updated 12/22/24 @ 14:20 by Warren Lucio MD) Colon polyp Hypokalemia Constipation Abdominal pain Left lower quadrant pain Abdominal pain, epigastric Nausea and vomiting Cholelithiasis Cholecystitis Cholelithiasis with acute on chronic cholecystitis Cholelithiasis and cholecystitis with obstruction Leukocytosis SIRS (systemic inflammatory response syndrome) Depression Generalized anxiety disorder Meningioma Attention deficit disorder (ADD) in adult Restless legs syndrome Mixed hyperlipidemia Surgical History Surgical History History of laparoscopic cholecystectomy (07/2023) Status post urethral surgery Stricture History of detached retina repair RT eye Family History Family History Mother Cerebrovascular accident, Onset Age: 69 Hypertension Family history of elevated blood lipids Father Cerebrovascular accident, Onset Age: 70 Hypertension Family history of elevated blood lipids Acute myocardial infarction, Onset Age: 40 Social History Social History Social History: Surrogate medical decision maker: Delaney Faria, spouse. Code status: Full code. Smoking status: Never smoker Second hand tobacco smoke exposure: No Alcohol intake: former Alcohol use details: One alcoholic beverage a night at the most Substance use: never Last use: LAST WEEK Do You Feel Safe in your Home?: Yes Lack of Transportation: No Lack of Food: Never True Current Housing: I Have Housing Concerned About Future Housing: No Difficulty Paying Gas/Electric Bills: No Difficulty Paying for Meds: No Currently Unemployed: No Education: Master's Degree or Higher Difficulty w/ Childcare or Family Care: No Living arrangements: with family Occupation/Education: retired Spiritual care concerns: No Meds Home Medications and Allergies Home Medications ?Medication ?Instructions ?Recorded ?Confirmed ?Type vibegron 75 mg tablet (Gemtesa) 75 mg PO DAILY 07/25/23 12/07/24 History tamsulosin 0.4 mg capsule See Rx Instructions .Route 02/17/24 12/07/24 Rx .COMPLEX #90 caps sennosides 8.6 mg-docusate sodium 1 tab PO HS #14 tabs 06/06/24 12/07/24 Rx 50 mg tablet (Senokot-S) aspirin 81 mg tablet,delayed 81 mg PO QAM #90 tabs 06/29/24 12/07/24 Rx release fluoxetine 40 mg capsule 40 mg PO DAILY #90 caps 08/12/24 12/07/24 Rx atorvastatin 20 mg tablet 20 mg PO HS #90 tabs 09/12/24 12/07/24 Rx pantoprazole 40 mg tablet,delayed 40 mg PO QAM #90 tabs 09/26/24 12/07/24 Rx release Allergies Allergy/AdvReac Type Severity Reaction Status Date / Time No Known Allergies Allergy Verified 12/22/24 13:35 Vital Signs Vital Signs - 24 hr 12/22/24 13:40 Temperature 97.1 F L Pulse Rate 75 Respiratory Rate 18 Blood Pressure 102/70 Pulse Oximetry 97 Oxygen Delivery Room Air Exam Const: General: comfortable and no acute distress HENMT: Face/Nose/Sinus: Normal nares present Eyes: General: appearance normal, both eyes and all related structures Neck: Neck: no JVD Resp: Auscultation: clear to auscultation bilaterally Cardio: Rate: regular rate Rhythm: regular rhythm GI: Inspection: non-distended GI Palp: Yes Soft to palpation Skin: General skin exam: normal color Neuro: General: gait normal Speech: normal speech Extrem: General: normal to inspection Psych: Mental Status: mental status grossly normal Assessment and Plan Assessment and plan (1) Colon polyp: Code(s): K63.5 - Polyp of colon Status: Acute Assessment and Plan: colonoscopy
--- NOTE | 2024-12-22 14:30 | S_PTH ---
PATIENT: Isac Faria LOC: [facility]#:[id number] AGE/SX: 74/M ROOM: RE12/22/[address]: Warren Lucio MD : 1950 BED: DIS: 12/22/2024 SPEC #: [id number] RECD: 12/23/24 09:55 STATUS: NEDA REQ #: [id number] CRYSTAL: 12/22/24 14:[address]: Warren Lucio DEPT: [facility] Surgical RECD BY: Kimberly Taylor ENTERED: 12/23/24 10:00 SP TYPE: Surgical OTHR DR: Tan Desai MD Tissues: A - Colon Polypectomy Procedures: Hematoxylin and Eosin Stain Gross and Microscopic Level 4
[2024-12-22 14:36] VITALS: BP 95/63; PULSE 62; RESP 17; O2SAT 97
[2024-12-22 14:46] VITALS: BP 110/66; PULSE 60; RESP 17; O2SAT 100
[2024-12-22 14:56] VITALS: BP 103/67; PULSE 66; RESP 19; O2SAT 100
== END 2024-12-22 15:09 | disposition home or self-care (01) ==
PROVIDERS: PCP Family Medicine; Visit Provider Internal Medicine Gastroenterology
PROC: 0DJD8ZZ Inspection of Lower Intestinal Tract, Via Natural or Artificial Opening Endoscopic (ICD-10-PCS; CPT 45378; principal; 2024-12-22 14:30)
DX: Z12.11 Encounter for screening for malignant neoplasm of colon (principal); D12.3 Benign neoplasm of transverse colon; K57.30 Diverticulosis of large intestine without perforation or abscess without bleeding; K64.8 Other hemorrhoids
CPT/HCPCS: 45385; 88305; J2003; J2704; J7120

== ENCOUNTER 2025-03-24 15:29 | Emergency (ER) | payer MEDICARE, SELFPAY ==
[2025-03-24] VITALS (7 sets, daily range): BP systolic 100–128; BP diastolic 62–97; PULSE 66–84; RESP 15–21; TEMP 36.1–36.6; O2SAT 91–100
--- NOTE | ~2025-03-24 | XR_ITS ---
Clinical history:Weakness EXAM:X-ray chest one view portable TECHNIQUE:Two AP semiupright portable frontal image of the chest was obtained. Comparisons:08/06/2024 and 07/24/2023 FINDINGS: The cardiomediastinal silhouette is moderately enlarged. Moderate elevation of the right hemidiaphragm, unchanged. No pneumothorax. No pleural effusion. No free air under the diaphragm. Small opacities in the lower lungs. IMPRESSION: Small opacities in the lower lungs which represents atelectasis/scarring or infiltrates. If symptoms persist or worsen, consider a short-term follow-up study or additional imaging for further assessment. Reviewed, dictated and finalized at location Q. IMPRESSION: Small opacities in the lower lungs which represents atelectasis/scarring or inf iltrates. If symptoms persist or worsen, consider a short-term follow-up study or additio nal imaging for further assessment.
--- NOTE | 2025-03-24 16:14 | ED.FALL ---
HPI - Fall General Chief Complaint: Fall Stated Complaint: Fall, Weakness Time Seen by Provider: 03/24/25 16:13 Source: patient and EMS Mode of arrival: EMS History of Present Illness HPI Narrative: 74 YEARS OLD WHITE MALE CAME TO THE ED BY AMBULANCE FROM HOME. PATIENT REPORTED THAT HIS CALLED THE AMBULANCE. PATIENT DENYING ANY SYMPTOMS. PATIENT IS TELLING ME THAT HE DRINK 1 BEER THIS MORNING AND HIS CALL 911. BECAUSE HE WAS ACTING FUNNY. PATIENT IS TELLING ME THAT HIS DID NOT KNOW THAT HE HAD ALCOHOL THIS MORNING. PATIENT IS AWAKE, ALERT ORIENTED X4 HE DENIES ANY FEVER, CHILLS, NAUSEA, VOMITING, CHEST PAIN, SHORTNESS OF BREATH, HEADACHE OR BACK PAIN OR ABDOMINAL PAIN. Related Data Home Medications ?Medication ?Instructions ?Recorded ?Confirmed ?Last Taken ?Type vibegron 75 mg tablet (Gemtesa) 75 mg PO DAILY 07/25/23 02/10/25 Unknown History Allergies Allergy/AdvReac Type Severity Reaction Status Date / Time No Known Allergies Allergy Verified 02/10/25 11:12 Review of Systems Review of Systems: All systems reviewed & are unremarkable except as noted in HPI and below PMFSH Past Medical History Medical History Colon polyp Hypokalemia Constipation Abdominal pain Left lower quadrant pain Abdominal pain, epigastric Nausea and vomiting Cholelithiasis Cholecystitis Cholelithiasis with acute on chronic cholecystitis Cholelithiasis and cholecystitis with obstruction Leukocytosis SIRS (systemic inflammatory response syndrome) Depression Generalized anxiety disorder Meningioma Attention deficit disorder (ADD) in adult Restless legs syndrome Mixed hyperlipidemia Surgical History Surgical History History of laparoscopic cholecystectomy (07/2023) Status post urethral surgery Stricture History of detached retina repair RT eye Family History Family History Mother Cerebrovascular accident, Onset Age: 69 Hypertension Family history of elevated blood lipids Father Cerebrovascular accident, Onset Age: 70 Hypertension Family history of elevated blood lipids Acute myocardial infarction, Onset Age: 40 Social History Social History Social History: Surrogate medical decision maker: Delaney Faria, spouse. Code status: Full code. Smoking status: Never smoker Second hand tobacco smoke exposure: No Alcohol intake: former Alcohol use details: One alcoholic beverage a night at the most Substance use: never Last use: LAST WEEK Do You Feel Safe in your Home?: Yes Lack of Transportation: No Lack of Food: Never True Current Housing: I Have Housing Concerned About Future Housing: No Difficulty Paying Gas/Electric Bills: No Difficulty Paying for Meds: No Currently Unemployed: No Education: Master's Degree or Higher Difficulty w/ Childcare or Family Care: No Living arrangements: with family Occupation/Education: retired Spiritual care concerns: No Exam Narrative: General appearance: Well-developed, well-nourished Skin: Normal color Head: Normocephalic, nontraumatic Eyes: Clear conjunctiva ENT: Oropharynx normal, ears normal, nose normal Neck: Supple, nontender Chest and respiratory: Airway patent, no respiratory distress, no accessory muscle use Heart: Regular rate/rhythm Abdomen: Soft, nontender, no organomegaly, quiet bowel sounds Vascular: Normal peripheral pulses, normal capillary refill. Musculoskeletal: Normal range of motion, mild tenderness along the lumbar area, old Neurologic: Alert and oriented ?3, CHEESEMAKING LABORER is normal as tested, no gross motor deficit Course Vital Signs Vital signs: Vital Signs Temperature 36.1 C L 03/24/25 15:33 Pulse Rate 71 03/24/25 15:33 Respiratory Rate 18 03/24/25 15:33 Blood Pressure 119/65 03/24/25 15:33 Pulse Oximetry 98 03/24/25 15:33 Oxygen Delivery Room Air 03/24/25 15:33 Temperature 36.1 C L 03/24/25 15:33 Pulse Rate 66 03/24/25 20:06 Respiratory Rate 17 03/24/25 20:06 Blood Pressure 111/74 03/24/25 20:06 Pulse Oximetry 95 03/24/25 20:06 Oxygen Delivery Room Air 03/24/25 16:27 MDM - Fall MDM Narrative Medical decision making narrative: PATIENT'S REPORTED THAT THE PATIENT BEEN FEELING WEAK FOR A WHILE PATIENT IS ASYMPTOMATIC VITAL SIGNS ON ARRIVAL SHOWED INSIGNIFICANT ABNORMALITY PHYSICAL EXAMINATION SHOWING INSIGNIFICANT ABNORMALITY DIFFERENTIAL DIAGNOSIS INCLUDE ALCOHOLISM, ELECTROLYTE IMBALANCE, DEHYDRATION BLOOD WORKUP TODAY INCLUDES CBC, CMP, COAGS SHOWED SODIUM 132, OTHERWISE INSIGNIFICANT ABNORMALITY ALCOHOL LEVEL IS 212 URINALYSIS SHOWED NO SIGNIFICANT ABNORMALITIES BLOOD GAS ON ROOM AIR SHOWED PCO2 30.2, BICARB OF 18.9 OTHERWISE OXYGEN SATURATION 97.1 CHEST X-RAY SHOWED ATELECTASIS, SCARRING OR INFILTRATION. PATIENT DOES NOT HAVE ANY FEVER OR COUGHING, NORMAL WHITE COUNT NORMAL OXYGEN SATURATION DIAGNOSIS ALCOHOL ABUSE THE PT WAS DISCHARGED TO HOME.THE PT,S CONDITION UPON DISCHARGE WAS FAIR,EDUCATION WAS PROVIDED TO THE PT IN REFERENCE TO THE FINAL IMPRESSION,DISCHARGE STUDY RESULTS,TREATMENT,PROGNOSIS AND NEED FOR FOLLOW UP . Differential Diagnosis Differential diagnosis: Likely other ( ABOVE) Medical Records Attestation: I reviewed the patient's medical records. Lab Data Attestation: I reviewed the patient's lab results. 03/24/25 16:36 03/24/25 16:36 Labs: Lab Results 03/24/25 03/24/25 Range/Units 16:36 20:19 WBC 7.1 (4.5-10.0) K/mm3 RBC 4.14 L (4.6-6.20) M/mm3 Hgb 13.2 L (14.0-18.0) g/dL Hct 38.0 L (42.0-52.0) % MCV 91.8 (80-100) fl MCH 31.9 (26-34) pg MCHC 34.7 (32-36) g/dl RDW 12.7 (11.5-14.5) % Plt Count 234 (150-375) k/mm3 MPV 9.3 (7.4-10.4) fl Immature Gran % (Auto) 0.3 (0-0.5) % Neut % (Auto) 66.5 (45.5-73.1) % Lymph % (Auto) 24.3 (18.3-44.2) % Casey % (Auto) 7.9 (2.6-8.5) % Eos % (Auto) 0.4 (0-4.4) % Baso % (Auto) 0.6 (0.2-1.2) % Lymph # (Auto) 1.71 (0.9-3.2) K/mm3 Casey # (Auto) 0.6 (0.1-0.6) K/mm3 Eos # (Auto) 0.0 (0-0.3) K/mm3 Baso # (Auto) 0.0 (0.0-0.1) K/mm3 Abs Immat Gran (auto) 0.02 (0.00-0.031) K/mm3 Absolute Neuts (auto) 4.7 (1.3-6.7) K/mm3 Absolute Nucleated RBC 0.000 (0.0-0.012) K/mm3 Nucleated RBC % 0.0 (0.0-0.2) % PT 14.0 (11.1-14.7) Seconds INR 1.1 APTT 27.1 (22.3-36.8) Seconds Sodium 132 L (137-145) mmol/L Potassium 4.2 (3.4-5.0) mmol/L Chloride 102 (98-107) mmol/L Carbon Dioxide 17 L (22-30) mmol/L Anion Gap 13 H (4-12) mmol/L BUN 15 D (9-20) mg/dL Creatinine 0.88 (0.7-1.3) mg/dL Estim Creat Clear Calc 68 ml/min Estimated GFR > 60 (59 - ) Glucose 122 H (65-110) mg/dL Calcium 9.2 (8.4-10.2) mg/dL Total Bilirubin 0.8 (0.2-1.3) mg/dL AST 27 (17-59) U/L ALT 20 (6-50) U/L Alkaline Phosphatase 68 (38-126) U/L Troponin I < 0.012 (0.000-0.034) ng/mL NT-Pro-B Natriuret Pep 77 (19.9-100) pg/mL Total Protein 7.0 (6.3-8.2) g/dL Albumin 4.1 (3.5-5.1) g/dL Urine Color Yellow (Yellow) Urine Appearance Clear (Clear) Urine pH 5.0 (5.0-9.0) Ur Specific [place] 1.015 (1.001-1.035) Urine Protein Negative (Negative) mg/dL Urine Glucose (UA) Negative (Negative) mg/dL Urine Ketones Negative (Negative) mg/dL Ur Blood (Man) Negative (Negative) Urine Nitrate Negative (Negative) Urine Bilirubin Negative (Negative) Urine Urobilinogen 0.2 (<2.0) mg/dL Leukocyte Esterase Rfl Negative (Negative) PEPPER/UL Ethyl Alcohol 212 (<10) mg/dL ABG Data ABG results: 03/24/25 16:33 Puncture Site Left radial ABG pH 7.415 ABG pCO2 30.2 L ABG pO2 89.8 ABG PO2/FiO2 Ratio 4.28 ABG HCO3 18.9 L ABG O2 Saturation 97.1 ABG O2 Content 18.9 ABG Base Excess -4.4 A-a Gradient 23.8 Oxyhemoglobin 95.5 Total Hemoglobin 14.0 O2 Delivery Device Room air O2 Liters/Min 0.0 FiO2 21 Imaging Data Radiologist's impression: Impressions Chest X-Ray 03/24/25 16:56 IMPRESSION: Small opacities in the lower lungs which represents atelectasis/scarring or infiltrates. If symptoms persist or worsen, consider a short-term follow-up study or additional imaging for further assessment. ECG Data EKG #1: Attestation: I personally reviewed and interpreted this ECG as follows: ECG completion date: 03/24/25 ECG completion time: 21:23 Interpretation: NORMAL SINUS RHYTHM AT 75 BEATS PER MINUTE, BORDERLINE AV CONDUCTION DELAY, BORDERLINE EKG, COMPARED TO EKG ON AUGUST 06, 2024 NO SIGNIFICANT CHANGE Critical Care Time Critical Care Time Critical Care Time: No Discharge Plan Discharge Clinical Impression: Alcoholic Patient Disposition: Home Condition: Stable Instructions: Abuse of Alcohol (DC) Additional Instructions: RETURN IF SYMPTOMS ARE WORSENING , CALL YOUR FAMILY PHYSICIAN FOR APPOINTMENT, TAKE TYLENOL NEEDED FOR ACHES AND PAIN, CONTINUE HOME MEDICATIONS. Patient Language: Bulgarian Prescriptions: No Action Gemtesa 75 mg tablet 75 mg PO DAILY sennosides-docusate sodium [Senokot-S] 8.6-50 mg Tablet 1 tab PO HS Qty: 14 0RF Patient Comments: not taking atorvastatin 20 mg tablet 20 mg PO HS Qty: 90 2RF fluoxetine 40 mg capsule 40 mg PO DAILY Qty: 90 1RF tamsulosin 0.4 mg capsule See Rx Instructions .ROUTE .COMPLEX Qty: 90 2RF Dose Instruction: 0.4 MG ORALLY EVERY DAY AT BEDTIME Rx Instructions: 0.4 MG ORALLY EVERY DAY AT BEDTIME dextroamphetamine-amphetamine [Adderall XR] 10 mg capsule,extended release 24hr 10 mg PO DAILY 30 Days Qty: 30 0RF pantoprazole 40 mg tablet,delayed release (DR/EC) 40 mg PO QAM Qty: 90 0RF Follow-up/Referrals: Tan Desai MD [Primary Care Provider, Family Practice]
--- NOTE | 2025-03-24 16:15 | ECG_ITS ---
Test Date: 2025-03-24 16:30:38 Measurements Intervals [place] Rate: 75 P: 64 WV: 207 QRS: 21 QRSD: 80 T: 69 QT: 405 QTc: 453 Interpretive Statements SINUS RHYTHM BORDERLINE AV CONDUCTION DELAY BASELINE ARTIFACT- I, II, III, AVR, AVL, AVF BORDERLINE ECG Compared to ECG 08/06/2024 09:47:44 No significant changes Electronically Signed On 03-24-2025 20:05:40 CDT by Gregg Fitzpatrick D.O.
[2025-03-24 16:42] LABS: Alveolar/Arterial O2 Gradient 23.8 mmHg; Fractional Inspired Oxygen 21 %; HCO3 ABG 18.9 mEq/l (22.0-26.0); Oxygen Content ABG 18.9 %vol (16.0-22.0); Oxygen Saturation ABG 97.1 % (95.0-100.0); PCO2 ABG 30.2 mmHg (35.0-45.0); PO2 ABG 89.8 mmHg (80.0-100.0); PO2 FiO2 Ratio Arterial Blood 4.28 %
[2025-03-24 16:44] LABS: Hematocrit 38.0 % (42.0-52.0); Hemoglobin 13.2 g/dL (14.0-18.0); Immature Granulocyte Percent A 0.3 % (0-0.5); Lymphocytes Absolute Auto 1.71 K/mm3 (0.9-3.2); Mean Corpuscular HGB Conc 34.7 g/dl (32-36); Mean Corpuscular Hemoglobin 31.9 pg (26-34); Mean Corpuscular Volume 91.8 fl (80-100); Nucleated Red Blood Cells Absolute Auto 0.000 K/mm3 (0.0-0.012); Nucleated Red Blood Cells Perc 0.0 % (0.0-0.2); Platelet Count Result 234 k/mm3 (150-375); Red Blood Count 4.14 M/mm3 (4.6-6.20); White Blood Count 7.1 K/mm3 (4.5-10.0)
[2025-03-24 16:44] LABS: Liters per Minute 0.0 LPM; Modified Allen's Test Pass; Site Drawn LEFT RADIAL
[2025-03-24 16:57] LABS: Alanine Aminotransferase 20 U/L (6-50); Albumin Level 4.1 g/dL (3.5-5.1); Alkaline Phosphatase 68 U/L (38-126); Anion Gap 13 mmol/L (4-12); Aspartate Amino Transferase 27 U/L (17-59); Bilirubin,Total 0.8 mg/dL (0.2-1.3); Blood Urea Nitrogen 15 mg/dL (9-20); Calcium 9.2 mg/dL (8.4-10.2); Carbon Dioxide 17 mmol/L (22-30); Chloride 102 mmol/L (98-107); Estimated CRCL calculation 68 ml/min; Estimated Glomerular Filt Rate > 60; Glucose 122 mg/dL (65-110); Potassium 4.2 mmol/L (3.4-5.0); Sodium 132 mmol/L (137-145); Total Protein 7.0 g/dL (6.3-8.2)
[2025-03-24 17:05] LABS: INR 1.1; Prothrombin Time 14.0 Seconds (11.1-14.7)
[2025-03-24 17:06] LABS: Partial Thromboplastin Time 27.1 Seconds (22.3-36.8)
[2025-03-24 17:10] LABS: NT Pro B Type Natriuretic Pept 77 pg/mL (19.9-100); Troponin I < 0.012 ng/mL (0.000-0.034)
--- NOTE | 2025-03-24 20:04 | PC.NURSE ---
This RN attempted to collect urine from pt, pt stating he cannot go at this moment and declining straight cath at the moment. Pt states give me 10 mins and I'll try.
[2025-03-24 20:27] LABS: Add Urine Microscopic? NO; Appearance Urine Clear (Clear); Glucose Urine UA Negative (Negative); Leukocyte Esterase Ur Negative LEU/UL (Negative); Nitrate Urine Negative (Negative); Specific Grav Ur 1.015 (1.001-1.035)
== END 2025-03-24 22:11 | disposition home or self-care (01) ==
PROVIDERS: Emergency Provider Emergency Medicine; PCP Family Medicine
DX: F10.10 Alcohol abuse, uncomplicated (principal); Y90.7 Blood alcohol level of 200-239 mg/100 ml; E78.2 Mixed hyperlipidemia; F32.A Depression, unspecified; F41.1 Generalized anxiety disorder; F98.8 Other specified behavioral and emotional disorders with onset usually occurring in childhood and adolescence; G25.81 Restless legs syndrome; Z86.0100 Personal history of colon polyps, unspecified; Z90.49 Acquired absence of other specified parts of digestive tract; Z79.899 Other long term (current) drug therapy; R94.31 Abnormal electrocardiogram [ECG] [EKG]
CPT/HCPCS: 36415; 36600; 71045; 80053; 81003; 82077; 82805; 83880; 84484; 85018; 85025; 85610; 85730; 93005; 99284

== ENCOUNTER 2025-05-24 10:41 | Outpatient (CLI) | payer MEDICARE, SELFPAY ==
--- NOTE | ~2025-05-24 | XR_ITS ---
XR knee LT 3V 05/24/2025 11:07 Indication: Left knee pain Procedure: 4 views left knee Comparison: No prior studies for comparison. Findings: Mild patellofemoral compartment osteoarthritis. Small effusion. No fracture, subluxation or dislocation. No foreign bodies. Impression: 1: Mild patellofemoral compartment osteoarthritis. Reviewed, dictated and finalized at location O. GAGE ORIGINATOR Impression: 1: Mild patellofemoral compartment osteoarthritis.
--- NOTE | ~2025-05-24 | XR_ITS ---
EXAMINATION: XR ankle LT min 3V DATE: 05/24/2025 11:07 INDICATION: Left ankle pain post fall 2010 days prior TECHNIQUE: Anteroposterior, oblique, mortise, and lateral views of the left ankle were obtained. COMPARISON: None. FINDINGS: There is an oblique fracture through the distal fibula with a fracture plane exiting medially at the level of the tibiotalar joint with moderate overlying soft tissue swelling. There is one cortical width lateral displacement. No other fracture identified. Specifically the medial and posterior malleoli as well as the talar dome are intact. There is a small osteophyte along the lateral medial margin of the medial malleolus likely sequela of chronic medial ankle sprain. There is mild soft tissue swelling overlying the medial malleolus suggesting possible recurrent medial ankle sprain. Ankle mortise remains congruent. No ankle joint effusion. IMPRESSION: 1. [Minimally displaced oblique fracture of the distal left fibula consistent with a Barker type B injury pattern. 2. Mild soft tissue swelling overlying the medial malleolus where there is irregular medial sided cortical contour which suggests possible acute on chronic deltoid ligament sprain. Reviewed, dictated and finalized at location A. CAL ATTENDANT IMPRESSION: 1. [Minimally displaced oblique fracture of the distal left fibula consistent w ith a Barker type B injury pattern. 2. Mild soft tissue swelling overlying the medial malleolus where there is irre gular medial sided cortical contour which suggests possible acute on chronic de ltoid ligament sprain.
== END 2025-05-24 10:42 | disposition home or self-care (01) ==
PROVIDERS: PCP Family Medicine; Visit Provider Physician Assistant Medical
DX: M17.12 Unilateral primary osteoarthritis, left knee (principal); S82.432A Displaced oblique fracture of shaft of left fibula, initial encounter for closed fracture; X58.XXXA Exposure to other specified factors, initial encounter; Z91.81 History of falling
CPT/HCPCS: 73562; 73610